=== PATIENT | female | born 1945 | race Caucasian/White ===

== ENCOUNTER → 2017-02-16 | Outpatient (REF) | payer MEDICARE, OTHER ==
[~2017-02-16] MED LIST: ASPI324T PO; ATOR1TAB21 PO; BACL10TA2 PO; BYST10TA2 PO; COLA100C3 PO; FENO145T PO; FISH5CAP PO; FOLI400T PO; FURO20TA2 PO; GLYB5TA PO; INSULADS SC; MAGN64TASA PO; METF500T PO; MOM30SS PO; NOVOINJ3 SC; OXYC1TAB23 PO; PERC5TAB6 PO; PREG50CA PO; PRIL20CA9 PO; REGL10TA6 PO; TRAM50TA2 PO; VALS160T PO
[2017-02-16 18:22] LABS: PERCENT SATURATION 11.7 % (13.2-37.4)
== END ==
LOC: M LAB REF 16:45
PROVIDERS: ATTEND Internal Medicine Nephrology
DX: E83.119 Hemochromatosis, unspecified (principal)

== ENCOUNTER 2017-06-10 20:30 | Inpatient (IN) | payer MEDICARE, OTHER ==
[~2017-06-10] VITALS: Ht 154.9 cm; Wt 103.5 kg
[~2017-06-10 20:30] MED LIST changes: -COLA100C3 PO; +COLA100C5 PO; -METF500T PO; +METF500T13 PO; +PERC5TAB12 PO; -PERC5TAB6 PO
[2017-06-10] MEDS ORDERED: TIZA4CAP3 PO (20:50)
[2017-06-10] MEDS ORDERED: INSUHUMDS SC (20:50)
[2017-06-10] MEDS ORDERED: CLEO150C PO (20:50)
[2017-06-10] MEDS ORDERED: BENZ100C5 PO (20:50)
[2017-06-10] MEDS ORDERED: DICL100T PO (20:50)
[2017-06-10] MEDS ORDERED: VITA-137 PO (20:50)
[2017-06-10] MEDS ORDERED: BUME1TAB29 PO (20:50)
[2017-06-10] MEDS ORDERED: NORC1TAB4 PO (20:55)
[2017-06-10] MEDS ORDERED: NITR2PA TD (20:55)
[2017-06-10] MEDS: NEBIVOLOL 5 MG TAB (BYSTOLIC) PO SCH (21:00)
[2017-06-10] MEDS: BENZONATATE 100 MG CAP PO SCH (21:00)
[2017-06-10] MEDS ORDERED: PREGABALIN 50 MG CAP (LYRICA) PO SCH (21:00)
[2017-06-10] MEDS: ATORVASTATIN 20 MG TAB PO SCH (21:00)
[2017-06-10] MEDS ORDERED: MORPHINE 10 MG/ML 1ML VIAL IM ONE (21:15)
--- NOTE | 2017-06-10 23:00 | REPUSA ---
Clinical history: Pain. Findings: 4 views of the right tibia and fibula were obtained. There are transverse acute nondisplace d fractures of the distal tibia and fibula. The soft tissues are within normal limits. Impression: Acute nondisplaced fractures of the distal tibia and fibula.
--- NOTE | 2017-06-10 23:00 | REPUSA ---
CLINICAL INFORMATION: Pain. TECHNIQUE: Right ankle, 3 views. FINDINGS: The osseous structures demonstrate transverse acute nondisplaced fractures of the distal tibia and fi bula. The ankle mortise is intact. The osseous alignment is normal. The visualized portions of the ta rsal bones and hindfoot are within normal limits. The soft tissues are within normal limits. IMPRESSION: Acute nondisplaced fractures of the distal tibia and fibula.
[2017-06-11] VITALS (7 sets, daily range): BP systolic 148–164; BP diastolic 67–76
[2017-06-11] MEDS ORDERED: GLUCAGON FOR INJ 1 MG VIAL (J1610) SC PRN (00:15)
[2017-06-11] MEDS ORDERED: GLUCOSE 4 GM CHEW TABLET PO PRN (00:15)
[2017-06-11] MEDS ORDERED: DEXTROSE 50% 50 ML SYRINGE IV PRN (00:15)
[2017-06-11] MEDS ORDERED: ACETAMINOPHEN TAB 650MG DOSE (2X325MG) PO PRN (00:15)
[2017-06-11] MEDS ORDERED: PERCOCET 5MG/325MG TAB PO PRN (00:15)
[2017-06-11] MEDS ORDERED: BYST20TA2 PO (00:23)
[2017-06-11] MEDS ORDERED: D 1010004 PO (00:23)
[2017-06-11] MEDS ORDERED: DICL75TA PO (00:23)
[2017-06-11] MEDS ORDERED: BUME1TA PO (00:23)
[2017-06-11] MEDS ORDERED: BAYE325T12 PO (00:23)
[2017-06-11] MEDS ORDERED: ZANA4TAB PO (00:23)
[2017-06-11] MEDS ORDERED: CALC1TAB60 PO (00:26)
[2017-06-11] MEDS ORDERED: LISI2.5T3 PO (00:26)
[2017-06-11] MEDS ORDERED: POLY150C4 PO (00:26)
[2017-06-11] MEDS ORDERED: INSULANT SC (00:27)
[2017-06-11] MEDS ORDERED: NITR0.4D6 TD (00:28)
[2017-06-11 00:40] LABS: BASO # 0.1 K/mm3 (0.0-0.2); BASO % 0.8 % (0.0-1.0); EOS # 0.6 K/mm3 (0.0-0.50); EOS % 8.3 % (0.0-3.0); LARGE UNSTAINED CELL # 0.1 K/mm3 (0.0-0.4); LARGE UNSTAINED CELL % 1.1 % (0.0-4.0); LYMPH # 1.5 K/mm3 (1.5-4.5); LYMPH % 19.7 % (24.0-44.0); MEAN CORPUSCULAR HEMOGLOBIN 27.6 pg (27.0-33.0); MEAN CORPUSCULAR VOLUME 86.3 fl (80.0-96.0); MONO # 0.3 K/mm3 (0.0-0.8); MONO % 4.3 % (0.0-5.0); NEUTROPHILS # 4.8 K/mm3 (1.8-7.7); NEUTROPHILS % 65.9 % (36.0-66.0); PLATELET COUNT, AUTOMATED 189 k/mm3 (150-450); RED CELL DISTRIBUTION WIDTH 17.5 % (11.5-14.5); WHITE BLOOD COUNT 7.3 K/mm3 (4.0-10.0)
--- NOTE | 2017-06-11 01:00 | REPUSA ---
Indication: Trauma. Technique: Axial CT scan images without contrast. Reformatted coronal and sagittal images. Findings: Acute transverse nondisplaced fracture of the distal tibia lateral metaphysis. Acute impacted displaced fracture of the distal fibular diaphysis. Overlying soft tissue edema and swelling. There are tricompartmental changes of degenerative joint disease. Findings are demonstrated by joint space narrowing, osteophyte formation and subchondral sclerosis. No dislocation is seen. No lytic or blastic lesion is appreciated. There is mild suprapatellar knee joint effusion. There is no evidence radiopaque foreign body. Impression: Acute displaced fractures of the distal tibia and fibula.
[2017-06-11 01:02] LABS: CREATININE FOR GFR 1.81 MG/DL (0.55-1.02); GLOMERULAR FILTRATION RATE 29.3 (>39); PERCENT SATURATION 14.3 % (13.2-45.0); PHOSPHORUS LEVEL 3.4 MG/DL (2.5-4.9); POTASSIUM SERUM 4.9 MEQ/L (3.5-5.1); THYROXINE (T4) 8.2 UG/DL (4.5-12.0)
--- NOTE | 2017-06-11 02:36 | HPE ---
DATE OF ADMISSION: 06/11/2017 PRIMARY CARE PROVIDER: Dr. Eugene. OUTPATIENT ORTHOPEDIC SURGEON: Dr. Maciel. HISTORY OF PRESENT ILLNESS: This patient is a 72-year-old female with a past medical history significant for bilateral lower extremity fracture, hypertension , hemochromatosis, diabetes, lumbar laminectomy, presented to [facility] on 06/11/2017 for acute worsening of the right lower extremity pain. Since March, patient started to have pain of the lower extremities above the ankle. Patient was later referred to orthopedic group and found to have a hairline stress fracture. It started on the left lower extremity first and later patient had similar pain of the right lower extremity above the ankle. Later patient was found to have a fracture. Patient was seen by Dr. Maciel approximately on 06/06. Patient was prescribed with bilateral boots. Today, when patient finished in the rest room, tried to get up from the toilet she heard acute snap of the right lower extremity and patient started having excruciating pain, so the patient came to [facility] for further evaluation. X-ray of the right lower extremity was performed. Showed acute nondisplaced fracture of the distal tibia and fibula. Patient is not able to ambulate and has significant pain. Hospitalist called for admission. ALLERGIES: AMLODIPINE, WARFARIN. PAST MEDICAL HISTORY: 1. Hemochromatosis. 2. Hypertension. 3. Diabetes. 4. Coronary artery disease status post coronary artery bypass graft (CABG). 5. Lumbar stenosis status post laminectomy. PAST SURGICAL HISTORY: 1. Appendectomy. 2. Bilateral tubal ligation followed by complete hysterectomy. 3. Coronary artery bypass graft. 4. Laminectomy in 2014. SOCIAL HISTORY: Denied tobacco abuse. Denied alcohol use. Patient lives with her . REVIEW OF SYSTEMS: GENERAL: No fever. No chills. HEENT: No vision changes. No auditory changes. CARDIOVASCULAR: Patient had a strange sensation in the upper chest and it radiated to the neck a few weeks ago. Patient's symptom occurred intermittently. Patient has been worked up by Dr. Eugene with an EKG, lab work and echocardiogram and patient was told that it is not cardiac related. Denied any chest pain. No palpitations. RESPIRATORY: No shortness of breath. No cough. No sputum production. GASTROINTESTINAL: No nausea. No vomiting. No abdominal pain. No diarrhea. MUSCULOSKELETAL: Patient has bilateral lower extremity fractures, has severe excruciating pain. NEUROLOGICAL: No numbness. No tingling. OBJECTIVE: VITAL SIGNS: Temperature 98.5, pulse 77, respirations 18, blood pressure 156/65 , pulse oximetry is 94% in room air. GENERAL: Moderate to severe distress, especially during any type of lower extremity movements. Alert and oriented times three. HEENT: Normocephalic, atraumatic. Extraocular motor grossly intact. CARDIOVASCULAR: Positive systolic murmur, positive S1, S2, regular rate. LUNGS: Clear to auscultation bilaterally. ABDOMEN: Soft, nontender, nondistended, bowel sounds present. EXTREMITIES: No lower extremity edema. NEUROLOGICAL: Sensation to fine touch grossly intact. Muscle strength 5/5. LABORATORY DATA: Pending. IMAGING STUDIES: Right-sided tibia and fibula x-ray showed acute nondisplaced fracture of the distal tibia and fibula. Right lower extremity CT result pending. ASSESSMENT AND PLAN: 1. Bilateral lower extremity fracture. The patient has difficulty performing daily activity functions and due to bilateral fracture patient requires more aggressive pain control. Patient will be admitted to medicine/surgery under observation status. Pain medication regimen has been prescribed. Will adjust accordingly. Lab was ordered after the admission, follow with the results. Will contact orthopedic surgery tomorrow morning. Patient will be on physical therapy and will also discuss the home situation with the renal case manager and social work associate. 2. Diabetes. Follow with A1c, on consistent carbohydrate diet, on sliding scale. 3. Hypertensive urgency. Per patient, patient had an episode of systolic blood pressure greater than 180 several weeks ago. Currently, patient's blood pressure running between 150-190; however, per the medical staff with better pain control, blood pressure can drop down to 150s. Later while patient was in ED, she has persistent uncontrolled BP. SBP has been greater 190. Due to acute on chronic renal failure. diuretics and HAMIDA I are on hold. restart her Bystolic immediately and start hydralazine with holding parameter. Her home nitro patch is scheduled in the AM. 4. Acute on chronic renal injury. Per patient, she has baseline GFR around 50. Currently she has GFR of 29. Diuretic is on hold. Consider consult nephrology in AM. 5. History of hemochromatosis. According to the patient and the patient's , they are not under any active treatments and patient is under monitoring. Will continue to follow. Will request outpatient records. 6. History of coronary artery disease status post coronary artery bypass graft (CABG). Patient is on aspirin, atorvastatin, lisinopril, and Bystolic. 7. Status post laminectomy. History of chronic back pain. 8. Upper chest discomfort. Follow with cardiac enzymes. Follow with EKG. Obtain the diagnostic workup done previously by Dr. Eugene for similar symptoms. 9. Deep venous thrombosis (DVT) prophylaxis. On heparin. ADDENDUM: At the beginning of admission, no laboratory tests were available and all the tests have been ordered. Later, patient started to have very uncontrolled blood pressures with systolic blood pressure greater than 200s. Patient also found to have acute on chronic kidney disease. According to patient, patient had a baseline glomerular filtration rate (GFR) around 50. Currently, patient has a GFR of 29. The patient is being treated, actively managed for her hypertensive urgency; however, due to acute kidney injury and with a soft heart rate, limited classes of the blood pressure medication can be used. Patient's angiotensin-converting enzyme (HAMIDA) inhibitor and diuretic have been discontinued. Due to the severity of patient's overall clinical picture, patient is upgraded from medical/surgical to progressive care unit (PCU) and the status changed from outpatient observation to inpatient. Addendum dictated: JADEN 06/11/2017 0153 Addendum transcribed: christen 06/11/2017 0242 MTDD
[2017-06-11] MEDS: MORPHINE 2 MG/ML 1ML SYRINGE IV PRN ×2 (04:30→21:34)
[2017-06-11] MEDS ORDERED: NITROGLYCERIN 0.4 MG/HR PATCH TD ONE (05:45)
[2017-06-11] MEDS: **hydrALAZINE HCL** 25 MG TAB PO SCH ×4 (05:54→17:01)
[2017-06-11] MEDS: HEPARIN SOD (PORCINE) 5000 UNITS/ML VIAL SC SCH ×3 (05:55→21:33)
[2017-06-11] MEDS: HumaLOG INSULIN (NovoLOG) PER UNIT SC SCH ×4 (07:09→21:33)
[2017-06-11] MEDS ORDERED: NS 1,000 ML IV SCH (07:15)
[2017-06-11] MEDS: VITAMIN D 1,000 INTERNATIONAL UNITS TABLET PO SCH (08:36)
[2017-06-11] MEDS: OMEPRAZOLE 20 MG CAP PO SCH (08:36)
[2017-06-11] MEDS: PREGABALIN 25 MG CAP (LYRICA) PO SCH ×2 (08:36→21:32)
[2017-06-11] MEDS: ASPIRIN 325 MG TAB PO SCH (08:36)
[2017-06-11 08:50] LABS: MEAN CORPUSCULAR HEMOGLOBIN 27.8 pg (27.0-33.0); MEAN CORPUSCULAR HGB CONC 31.5 g/dl (32.0-36.5); MEAN CORPUSCULAR VOLUME 88.2 fl (80.0-96.0); RED CELL DISTRIBUTION WIDTH 17.6 % (11.5-14.5); WHITE BLOOD COUNT 7.7 K/mm3 (4.0-10.0)
[2017-06-11] MEDS: BENZONATATE 100 MG CAP PO SCH ×3 (08:55→21:32)
[2017-06-11] MEDS ORDERED: LISINOPRIL *2.5 MG* TAB PO SCH (09:00)
[2017-06-11] MEDS ORDERED: NITROGLYCERIN 0.4 MG/HR PATCH TD SCH (09:00)
[2017-06-11] MEDS ORDERED: BUMETANIDE 1 MG TAB PO SCH (09:00)
[2017-06-11 09:04] LABS: CALCIUM LEVEL 8.7 MG/DL (8.8-10.2); CREATININE FOR GFR 1.56 MG/DL (0.55-1.02); GLOMERULAR FILTRATION RATE 34.7 (>39); MAGNESIUM LEVEL 2.4 MG/DL (1.8-2.4); POTASSIUM SERUM 4.6 MEQ/L (3.5-5.1)
--- NOTE | 2017-06-11 11:42 | CR ---
DATE OF CONSULTATION: 06/11/2017 CHIEF COMPLAINT: Right leg pain. HISTORY OF PRESENT ILLNESS: Gem Antoine is a 72-year-old female who I recently saw last week for bilateral lower extremity pain. The patient had initially had pain in her left lower extremity, specifically in the lateral aspect of the fibula, proximal to the tibiotalar joint. This eventually began getting better. There is an area on her CT scan which is suspicious for a fibula stress fracture in the distal fibula on this side. The patient started having a similar type pain to the contralateral side prior to seeing me. She had no injuries. At the time of her evaluation, I obtained radiographs of the ankle and she was diagnosed with an acute right fibula fracture, proximal to the ankle joint. Given that the patient had been walking on her bilateral nondisplaced fibula fracture without any sort of protection for what she thought was at least a couple of weeks, she was placed into bilateral walking boots. She was kept weightbearing as tolerated, as the patient has difficulty ambulating as it is. Unfortunately, as she was getting up from the bathroom last night, the patient had immediate pain to her right leg and felt a snap in her tibia. She was transported to the emergency room where she was found to have a minimally displaced distal tibia fracture in the area of her fibula fracture. There was no evidence of this tibia fracture at her prior evaluation last week. The patient denies any personal history of malignancy. She has no known diagnosis of osteoporosis or osteopenia but she appears to have osteoporosis on her lower extremity radiographs. PAST MEDICAL HISTORY: 1. Hypercholesterolemia. 2. Insulin dependent diabetes. 3. Hypertension. 4. Heart disease. 5. Hemachromatosis. 6. Kidney disease. 7. History of a stroke. 8. Hematuria. PAST SURGICAL HISTORY: 1. Back surgery. 2. Heart bypass. 3. Hysterectomy. 4. Dilatation and curettage. 5. Right breast surgery. 6. Appendectomy. 7. Tubal ligation. 8. Kidney stone removal. 9. Bladder surgery. 10. Venogram. HOME MEDICATIONS: - Vicodin - tramadol - Palamor - metformin - glyburide - fenofibrate - omeprazole - magnesium - folic acid - aspirin - Baclofen - Bystolic - valsartan/hydrochlorothiazide - atorvastatin - fish oil - multivitamin - Lantus - Lyrica - furosemide - NovoLog flex pen - Bydureon SOCIAL HISTORY: The patient lives with her . She has four daughters. She does not smoke. She does not use alcohol. PHYSICAL EXAMINATION: GENERAL: Well appearing, no acute distress. MUSCULOSKELETAL: RLE - the patient has positive tenderness over the distal fibula and distal tibia. She has 5/5 strength with dorsiflexion, plantar flexion, inversion, eversion. She has normal sensation to light touch in the superficial peroneal, deep peroneal, tibial distribution. Toes are warm and well perfused with brisk capillary refill. Skin is intact over the area of the fracture. REVIEW OF SYSTEMS: No fevers, chills, fatigue, recent weight loss. IMAGING: [facility]. These show a nondisplaced fracture of the distal tibial metaphysis and the prior known distal fibula fracture. There are no bony lesions evident on the CT scan or the radiographs. IMPRESSION: 1. Right nondisplaced distal tibia and fibula fractures. PLAN: Given the patient has no history of a fall, she should have a workup for osteoporosis or osteopenia. This will likely include a DEXA scan and some sort of oral medication afterwards. There are no metastatic lesions or other concerning lesions evident on her CT scan or x-rays. However, it is unusual for her to be sustaining these fractures without any sort of injury. At this point, a long discussion was held with the patient regarding options for treatment. This would include an IM nail so that she can begin weightbearing, versus a long leg cast if she would rather avoid surgery. Should she be in a long leg cast, she needs to be non weightbearing for at least a period of 6 weeks while this has a chance to heal. This would likely require her to be in a wheelchair given she is already having difficulties ambulating. She may need a stint in rehabilitation as well. I would also like to get a MRI of her left side given her history of similar symptoms so that she is not at risk for a fracture of distal tibia on the contralateral side. The patient will discuss options with her and will let me know what works best for her. I will also see her in the morning and talk to them further then. CHELSEY
--- NOTE | 2017-06-11 12:54 | CR ---
DATE OF CONSULTATION: 06/11/2017 REQUESTING PHYSICIAN: Dr. Linh Potts. CONSULTING PHYSICIAN: Dr. Garrison. REASON FOR CONSULTATION: Management of acute kidney injury superimposed on chronic kidney disease. CHIEF COMPLAINT: Severe pain in the right leg. HISTORY OF PRESENT ILLNESS: Gem Antoine is a 72-year-old female with past medical history of diabetes mellitus, type 2 hypertension, chronic kidney disease stage III with baseline creatinine of around 1 to 1.2 as per hospital records. Multiple other comorbidities as mentioned below. Patient reports that she was found to have fracture in her left leg in March 2017. Later on, she was found to have hairline stress fracture in the right as well. She was prescribed boots but yesterday when she was trying to get up from the toilet, she suddenly heard a snap and excruciating pain in the right leg. She presented to the emergency room at [facility]. Further imaging showed that she had acute nondisplaced fracture of the distal tibia and fibula on the right side. Patient is being admitted. She was found to have a creatinine of 1.8 on admission. Nephrology service was called for further help in the management of acute kidney injury superimposed on chronic kidney disease. I saw the patient today morning in the emergency room. She was hemodynamically stable. She was getting IV fluid hydration. She did not have any active complaints apart from pain in the right leg. Nephrotoxic medication was already held after discussion with the on-call hospitalist last night. PAST MEDICAL HISTORY: Patient has a past medical history of: Diabetes mellitus type 2. Hypertension. Chronic kidney disease stage III. Hemachromatosis. Coronary artery disease. History of lumbar stenosis status post laminectomy. PAST SURGICAL HISTORY: Status post hysterectomy in the past. Status post appendectomy. Status post coronary artery bypass grafting. History of laminectomy in 2014. ALLERGIES: Patient is allergic to Warfarin and amlodipine. FAMILY HISTORY: No significant family history of end stage renal disease requiring hemodialysis. SOCIAL HISTORY: Patient lives at home with her . She denies any elicit drug abuse, smoking or alcohol abuse. REVIEW OF SYSTEMS: Constitutional: Patient denies any fever, chills, rigors or weight loss. Eyes: She denies any blurry vision or double vision. ENT: She denies any dysphagia, odynophagia or ear discharge. Cardiovascular: She denies any chest pain or palpitations or lower extremity edema. Respiratory: She denies any cough, wheezing or shortness of breath. Gastrointestinal (GI): She denies any nausea, vomiting, pain in abdomen, constipation. Genitourinary: She denies any dysuria, hematuria. Musculoskeletal: Patient reports pain in the bilateral lower extremities and recent fractures in bilateral lower extremities. Psych: She denies any depression or anxiety. Central nervous system: She denies any weakness, numbness, strokes or seizures. Hematological/oncological : Patient reports history of hemochromatosis but she denies any history of easy bruising or bleeding tendency. All other review of system is negative. PHYSICAL EXAMINATION: Vital signs: Temperature is 96.8 degrees Fahrenheit, blood pressure is 154/68, pulse is 69, respiratory rate of 18, saturating 96% on nasal cannula. General: Patient is awake, alert, oriented times three, lying in bed, no apparent distress. Head and neck exam: Extraocular muscles intact. Pupils equally round and reactive to light. Mucous membranes are moist. Neck is supple. There is no jugular venous distention (JVD). Cardiovascular: S1, S2, regular rate. No murmur, rub or gallop. Respiratory: Chest is clear to auscultation bilaterally. Bilateral equal air entry. No rales or rhonchi. Abdomen: Soft, positive bowel sounds, nontender, no ascites, no organomegaly. Genitourinary: There is no Hall catheter at this time. Bladder is nonpalpable. Musculoskeletal: Right leg is resting on the pillow and there is pain and tenderness in the lower portion of the leg. There is no other clubbing or cyanosis. Central nervous system: No focal neurological deficit. Power is 5/5 in bilateral upper extremities. Psych: Normal mood and affect. Skin: No rashes or ulcers. LAB REVIEW: CBC showed WBC 7.7, hemoglobin 12.3, platelets of 192. BMP showed sodium 141, potassium 4.6, chloride 103, bicarbonate 31, BUN 51, creatinine is 1.5, it was 1.8 on admission. Glucose is 363. Calcium is 8.7. Magnesium 2.4. BNP is 9178. Urinalysis is not available at this time. IMAGING: A CT scan of the right leg was done which showed acute displaced fractures of the distal tibia and fibula. CURRENT INPATIENT MEDICATIONS: Patient's medications were all reviewed by me. Her IV fluids have been stopped. She is on: - Tylenol as needed - aspirin 325 mg daily - Lipitor 20 mg daily at bedtime - Tessalon perles - Bumex has been held. - hydralazine 25 mg by mouth every 6 hours - lisinopril 2.5 mg was held. - Bystolic 20 mg daily at bedtime - She is on nitroglycerine patch 0.4 mg daily. - Prilosec 20 mg daily - Percocet one tablet every 4 hours as needed pain - Lyrica 75 mg twice daily - vitamin D 2000 units by mouth daily ASSESSMENT: 72-year-old female with past medical history of hypertension, diabetes mellitus type 2, chronic kidney disease stage III with a baseline glomerular filtration rate of around 50, history of hemochromatosis, admitted this time because of displaced distal fibula and tibia fracture. Nephrology service following the patient for management of acute kidney injury superimposed on chronic kidney disease. PLAN: 1. Acute kidney injury superimposed on chronic kidney disease. Patient's son inhibitors and diuretics were held on admission. She was given gentle IV fluid hydration. Her creatinine is already coming down. Continue to monitor for now. Avoid osn inhibitors and IV contrast studies at this time until her renal function comes back to normal. Her baseline as mentioned by patient is glomerular filtration rate of 50. 2. Hypertension. Part of it might be secondary to IV fluid hydration. IV fluids are stopped. Continue current dose of hydralazine 25 mg by mouth every 6 hours. Lisinopril is on hold. Continue Bystolic 20 mg by mouth daily at bedtime and continue nitro patch. 3. Displaced right distal tibia and fibula fracture. Continue opioid pain medications as per primary team. Avoid non-steroidal anti-inflammatory drugs (NSAID)s at this time. The rest of the management is as per orthopedic surgery. 4. Diabetes mellitus type 2. Continue insulin sliding scale. Patient can be restarted on home dose of insulin Lantus 70 units daily at bedtime. Thank you for involving us in the care of this patient. We shall be happy to follow the patient along with you tomorrow morning. Plan of care was discussed with the on-call hospitalist yesterday.
[2017-06-11] MEDS: PERCOCET 5MG/325MG TAB PO PRN ×2 (13:41→20:41)
[2017-06-11] MEDS ORDERED: NEBIVOLOL 5 MG TAB (BYSTOLIC) PO SCH (21:00)
[2017-06-11] MEDS: ATORVASTATIN 20 MG TAB PO SCH (21:32)
--- NOTE | 2017-06-11 21:39 | ECGEPIP ---
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
[2017-06-11] MEDS: NEBIVOLOL 5 MG TAB (BYSTOLIC) PO SCH (21:50)
[2017-06-11] MEDS ORDERED: SLF 3 ML SYR IV PRN (23:00)
[2017-06-12 04:00] VITALS: BP 136/63
[2017-06-12] MEDS: PERCOCET 5MG/325MG TAB PO PRN ×4 (04:00→21:18)
[2017-06-12 05:40] LABS: MEAN CORPUSCULAR HEMOGLOBIN 28.2 pg (27.0-33.0); MEAN CORPUSCULAR HGB CONC 32.8 g/dl (32.0-36.5); RED CELL DISTRIBUTION WIDTH 17.3 % (11.5-14.5); WHITE BLOOD COUNT 6.4 K/mm3 (4.0-10.0)
[2017-06-12 05:49] LABS: CALCIUM LEVEL 9.2 MG/DL (8.8-10.2); CREATININE FOR GFR 1.32 MG/DL (0.55-1.02); GLOMERULAR FILTRATION RATE 42.1 (>39); MAGNESIUM LEVEL 2.2 MG/DL (1.8-2.4); POTASSIUM SERUM 4.6 MEQ/L (3.5-5.1)
[2017-06-12] MEDS: **hydrALAZINE HCL** 25 MG TAB PO SCH ×4 (06:00→17:53)
[2017-06-12] MEDS: SLF 3 ML SYR IV SCH ×3 (06:19→21:38)
[2017-06-12] MEDS: HEPARIN SOD (PORCINE) 5000 UNITS/ML VIAL SC SCH ×3 (06:19→21:17)
[2017-06-12 07:25] VITALS: BP 132/70
[2017-06-12] MEDS: VITAMIN D 1,000 INTERNATIONAL UNITS TABLET PO SCH (08:48)
[2017-06-12] MEDS: OMEPRAZOLE 20 MG CAP PO SCH (08:48)
[2017-06-12] MEDS: BENZONATATE 100 MG CAP PO SCH ×3 (08:49→21:17)
[2017-06-12] MEDS: PREGABALIN 25 MG CAP (LYRICA) PO SCH ×2 (08:50→21:16)
[2017-06-12] MEDS: NITROGLYCERIN 0.4 MG/HR PATCH TD SCH (08:50)
[2017-06-12] MEDS: ASPIRIN 325 MG TAB PO SCH (08:50)
[2017-06-12] MEDS: HumaLOG INSULIN (NovoLOG) PER UNIT SC SCH ×5 (08:51→21:37)
[2017-06-12] MEDS ORDERED: PERCOCET 5MG/325MG TAB PO PRN (10:00)
[2017-06-12] MEDS ORDERED: LORazepam 0.5 MG TAB PO ONE (10:00)
--- NOTE | 2017-06-12 11:33 | REP ---
PORTABLE CHEST X-RAY: Sitting AP view. HISTORY: Hypoxia. COMPARISON STUDY: May 03, 2017. FINDINGS: EKG monitoring electrodes are seen. Median sternotomy wires are noted. Mild cardiomegaly is observed unchanged. The lungs are well inflated and clear. The pleural angles are sharp. Pulmonary vasculature is cephalized as before. IMPRESSION: Mild cardiomegaly and cephalization. Otherwise no acute disease. Signed by Skip Crowe MD 06/13/2017 06:42 P
[2017-06-12 12:00] VITALS: BP 120/60
[2017-06-12] MEDS: LEVEMIR (INSULIN DETEMIR) 1 UNITS/0.01ML SC SCH ×2 (13:46→21:22)
--- NOTE | 2017-06-12 14:02 | IPN ---
DATE OF SERVICE: 06/12/2017 HISTORY OF PRESENT ILLNESS: Patient was seen and examined at the bedside today morning. She continues to complain of right leg pain at the fracture site, however, she is hemodynamically stable. Her renal function continues to improve. Creatinine is down to 1.3 Orthopedic surgery is planning to do the right leg surgery on , June 14, 2017 and MRI of the left leg is pending. REVIEW OF SYSTEMS: Patient denies any fevers, chills, rigors, headache, nausea, vomiting, chest pain, shortness of breath, pain in abdomen, constipation or diarrhea. She does report moderate amount of pain in the bilateral lower extremities. Rest of review of system is negative. OBJECTIVE: Vital signs: Temperature is 98.6 degrees Fahrenheit, blood pressure is 120/60, pulse is 56, respiratory rate of 18, saturating 98% on room air. Intake and output: Urine output recorded as 1.9 liter yesterday, 465 mL so far today since overnight. Weight on the bed scale is 97.9 kg. PHYSICAL EXAMINATION: General: Patient is awake, alert, oriented times three, lying in bed, no apparent distress. Head and neck exam: Extraocular muscles intact. Pupils equally round and reactive to light. Mucous membranes are moist. Neck is supple. There is no jugular venous distention (JVD). Cardiovascular: S1, S2, regular rate. No murmur, rub or gallop. Respiratory: Chest is clear to auscultation bilaterally. Bilateral equal air entry. No rales or rhonchi. Abdomen: Soft, positive bowel sounds, nontender, no ascites, no organomegaly. Musculoskeletal: Patient has tenderness in the right leg which is resting on a pillow. Otherwise pulses are 2+ and there is no edema of the bilateral lower extremities. Central nervous system: No focal neurological deficit. Power is 5/5 in bilateral upper extremities. Psych: Normal mood and affect. LAB REVIEW: CBC showed WBC 6.4, hemoglobin 12.2, platelets of 197. BMP showed sodium 142, potassium 4.6, chloride 106, bicarbonate 29, BUN 37, creatinine is 1.3, it was 1.56 yesterday. Glucose is 231. Calcium is 9.2. Magnesium 2.2. IMAGING: Chest x-ray done today morning showed mild cardiomegaly and cephalization, otherwise no acute disease. CURRENT INPATIENT MEDICATIONS: Patient's medications were all reviewed by me. Her morphine has been stopped. Percocet dose has been decreased to two tablets every 6 hours as needed moderate pain. There is no other change in the medications today as compared with yesterday. ASSESSMENT: 72-year-old female with past medical history of hypertension, diabetes mellitus type 2, chronic kidney disease stage III with a baseline glomerular filtration rate of around 50, history of hemochromatosis, admitted this time because of displaced distal fibula and tibia fracture on the right leg. Nephrology service following the patient for management of acute kidney injury superimposed on chronic kidney disease. PLAN: 1. Acute kidney injury superimposed on chronic kidney disease. Patient's son inhibitors are on hold. Her diuretics are also held. Her renal function continue to improve. Creatinine down to 1.3. Continue to hold the diuretics at this time. I will probably start the diuretics tomorrow morning if needed. 2. Hypertension. Blood pressure is acceptable at this time. Continue current dose of hydralazine 25 mg by mouth every 6 hours, Bystolic 20 mg daily, lisinopril is on hold because of acute kidney injury. Blood pressure is optimized. 3. Displaced right distal tibia and fibula fracture. Orthopedic surgery is on board. There is a tentative plan for surgery this coming , May. 4. Diabetes mellitus type 2. Continue insulin sliding scale. Patient is on Lantus 70 units at home. I would recommend restarting patient's home dose of Lantus. Insulin sliding scale alone is not going to control the blood sugar levels. [facility]
[2017-06-12 16:00] VITALS: BP 126/62
--- NOTE | 2017-06-12 16:01 | IPNPDOC ---
Text Note Date of Service The patient was seen on 06/12/17. NOTE Subjective: Patient does have increased pain in the lower extremities secondary to fractures. Denies any other complaints. Objective: Vitals: (see below) General: No acute distress, laying comfortably in bed. HEENT: Moist mucous membranes. Neck: No JVD or lymphadenopathy Cardiac: RRR, No murmurs Pulm: Clear to auscultation b/l. No wheezing, rhonchi Abd: NT/ND + BS. Obese. Ext: No edema. No cyanosis. Distal pulses intact. Tenderness to palpation bilateral lower extremities, adjacent to fracture sites. Labs (see below) Images: Assessment/Plan 1. Displaced right distal tibial and fibular fracture, with prior left fracture - orthopedics on board. Plan for surgery and . Pain control. Percocet/ morphine has been increased. It is questionable whether patient has been having pathologic fractures. She will need an outpatient DEXA scan. ? Whether the patient's underlying hemochromatosis contributing. Will certainly need outpatient rheumatology/hematology f/u. 2. Acute kidney injury on chronic kidney disease- creatinine improving. Diuretics held at this time. HAMIDA inhibitor held as well. Nephro on board. 3. Hypertension- controlled. Continue current meds. Continue to hold HAMIDA inhibitor. Patient has not required her hydralazine by mouth. 4. Diabetes mellitus- continue insulin regimen. 5. History of hemochromatosis- not on treatment at this time. Outpatient follow- up. 6. Chronic lower back pain status post laminectomy- stable. DVT prophy: Heparin Subcutaneous Prognosis guarded. VS,Fishbone, I+O VS, Fishbone, I+O Laboratory Tests 06/12/17 05:07 Red Blood Count 4.31, Mean Corpuscular Volume 86.0, Mean Corpuscular Hemoglobin 28.2, Mean Corpuscular Hemoglobin Concent 32.8, Red Cell Distribution Width 17.3 H, Calcium Level 9.2 Vital Signs Date Time Temp Pulse Resp B/P (MAP) Pulse Ox O2 Delivery O2 Flow Rate FiO2 06/12/17 14:43 18 06/12/17 12:00 120/60 06/12/17 12:00 97.3 60 98 Nasal Cannula 2.0 I&O- Last 24 Hours up to 6 AM 06/12/17 05:59 Intake Total 1440 ml Output Total 2175 ml Balance -735 ml LAURA SANTAMARIA MD Jun 12, 2017 16:01
[2017-06-12 20:00] VITALS: BP 145/80
[2017-06-12] MEDS: NEBIVOLOL 5 MG TAB (BYSTOLIC) PO SCH (21:14)
[2017-06-12] MEDS: ATORVASTATIN 20 MG TAB PO SCH (21:15)
[2017-06-13 05:56] LABS: MEAN CORPUSCULAR HEMOGLOBIN 28.1 pg (27.0-33.0); MEAN CORPUSCULAR HGB CONC 32.7 g/dl (32.0-36.5); RED CELL DISTRIBUTION WIDTH 16.8 % (11.5-14.5); WHITE BLOOD COUNT 6.8 K/mm3 (4.0-10.0)
[2017-06-13] MEDS: SLF 3 ML SYR IV SCH ×3 (06:00→22:00)
[2017-06-13] MEDS: **hydrALAZINE HCL** 25 MG TAB PO SCH ×4 (06:00→17:24)
[2017-06-13 06:02] LABS: CALCIUM LEVEL 9.3 MG/DL (8.8-10.2); CREATININE FOR GFR 1.35 MG/DL (0.55-1.02); MAGNESIUM LEVEL 2.2 MG/DL (1.8-2.4); POTASSIUM SERUM 5.1 MEQ/L (3.5-5.1)
--- NOTE | 2017-06-13 06:15 | REP ---
MRI LEFT LOWER LEG: TECHNIQUE: Multiple sequences obtained in the axial, sagittal and coronal planes. There is a nondisplaced fracture of the distal third of the fibula with discrete fracture line identified and marrow edema in this region. There is also surrounding ill-defined soft tissue edema. The tibia is intact with no fracture. No other soft tissue abnormality is seen. No fluid collection or hematoma is seen. IMPRESSION: Nondisplaced fracture distal third of fibula with surrounding soft tissue edema. No tibial fracture is seen. Signed by Jonas Chris MD 06/13/2017 09:41 A
[2017-06-13] MEDS: HEPARIN SOD (PORCINE) 5000 UNITS/ML VIAL SC SCH ×2 (06:25→13:02)
[2017-06-13] MEDS: PERCOCET 5MG/325MG TAB PO PRN ×3 (06:26→21:00)
[2017-06-13 08:00] VITALS: BP 180/80
[2017-06-13] MEDS: HumaLOG INSULIN (NovoLOG) PER UNIT SC SCH ×4 (08:59→21:11)
[2017-06-13] MEDS: BENZONATATE 100 MG CAP PO SCH ×3 (09:00→20:58)
[2017-06-13] MEDS: PREGABALIN 25 MG CAP (LYRICA) PO SCH ×2 (09:00→20:56)
[2017-06-13] MEDS: OMEPRAZOLE 20 MG CAP PO SCH (09:00)
[2017-06-13] MEDS: LEVEMIR (INSULIN DETEMIR) 1 UNITS/0.01ML SC SCH ×2 (09:00→20:59)
[2017-06-13] MEDS: ASPIRIN 325 MG TAB PO SCH (09:00)
[2017-06-13] MEDS: VITAMIN D 1,000 INTERNATIONAL UNITS TABLET PO SCH (09:00)
[2017-06-13] MEDS: NITROGLYCERIN 0.4 MG/HR PATCH TD SCH (09:01)
[2017-06-13] MEDS ORDERED: PERCOCET 5MG/325MG TAB PO PRN (10:00)
[2017-06-13] MEDS ORDERED: MOM 30ML SUSPENSION UDC PO ONE (11:15)
[2017-06-13] MEDS: SENOKOT S TAB PO SCH ×2 (11:50→20:56)
[2017-06-13] MEDS ORDERED: amLODIPine 5 MG TAB PO ONE (12:00)
[2017-06-13] MEDS ORDERED: **hydrALAZINE** 50 MG TAB PO ONE (12:15)
[2017-06-13] MEDS ORDERED: **hydrALAZINE HCL** 25 MG TAB PO ONE (13:00)
--- NOTE | 2017-06-13 15:12 | IPNPDOC ---
Text Note Date of Service The patient was seen on 06/13/17. NOTE Subjective:Pt states pain is better controlled. Denies CP/palpitations/SOB. Objective: Vitals: (see below) General: No acute distress, laying comfortably in bed. HEENT: Moist mucous membranes. Neck: No JVD or lymphadenopathy Cardiac: RRR, No murmurs Pulm: Diminished b/l. No wheezing, rhonchi Abd: NT/ND + BS. Obese. Ext: No edema. No cyanosis. Distal pulses intact. Tenderness to palpation bilateral lower extremities, adjacent to fracture sites. Labs (see below) Images: Assessment/Plan 1. Displaced right distal tibial and fibular fracture, with prior left fracture - orthopedics on board. Plan for surgery and . Pain control. Percocet/ morphine has been increased. It is questionable whether patient has been having pathologic fractures. She will need an outpatient DEXA scan. ? Whether the patient's underlying hemochromatosis contributing. Will certainly need outpatient rheumatology/hematology f/u. 2. Acute kidney injury on chronic kidney disease- creatinine improving. Diuretics held at this time. HAMIDA inhibitor held as well. Nephro on board. 3. Hypertension- uncontrolled. Continue current meds. HAMIDA inhibitor held. Started on Amlodipine and hydralazine increased. 4. Diabetes mellitus- continue insulin regimen. 5. History of hemochromatosis- not on treatment at this time. Outpatient follow- up. 6. Chronic lower back pain status post laminectomy- stable. 7. H/o CAD s/p CABG. On BB and statin. Hold ASA prior to surg starting today, although ideally patient should be off of it for 5-7 days prior to surgery. Recent stress test 2 weeks ago. Discussed with Dr. Eugene, who states that the patient is optimized from a cardiac standpoint, with no further workup needed as stress test was negative. Pt states she typically walks up 4 stairs at home without difficulty. No CP on exertion. RCRI 3 with 11% risk of major cardiac event. Intermediate risk procedure. DVT prophy: Will hold Heparin prior to surg. Prognosis guarded. Pt is medically optimized for ortho surgery. VS,Fishbone, I+O VS, Fishbone, I+O Laboratory Tests 06/13/17 05:21 Red Blood Count 4.21, Mean Corpuscular Volume 86.0, Mean Corpuscular Hemoglobin 28.1, Mean Corpuscular Hemoglobin Concent 32.7, Red Cell Distribution Width 16.8 H, Calcium Level 9.3, Total Creatine Kinase 78 Vital Signs Date Time Temp Pulse Resp B/P (MAP) Pulse Ox O2 Delivery O2 Flow Rate FiO2 06/13/17 12:05 20 Nasal Cannula 1.0 06/13/17 11:50 182/72 06/13/17 08:00 97.0 52 97 I&O- Last 24 Hours up to 6 AM 06/14/17 05:59 Intake Total 240 ml Output Total 700 ml Balance -460 ml LAURA SANTAMARIA MD Jun 13, 2017 15:12
[2017-06-13 15:27] VITALS: BP 140/56
--- NOTE | 2017-06-13 17:11 | IPN ---
DATE: 06/13/2017 SUBJECTIVE: Patient was seen and examined at the bedside today morning. Patient is otherwise hemodynamically stable. Her renal function is also stable, close to her baseline. Her only complaint is moderate to severe pain in the right leg. REVIEW OF SYSTEMS: Patient denies any fevers, chills, rigors, headache, nausea, vomiting, chest pain, shortness of breath, pain in abdomen. She does report constipation. She has not moved her bowels in the last 4 days almost, and she does report a moderate amount of pain in the right leg. Rest of review of systems is negative. OBJECTIVE: Vital signs: Temperature is 97.1 degrees Fahrenheit, blood pressure is 140/56, pulse is 52, respiratory rate of 18, saturating 97% on nasal cannula at 1 liter. Intake and output: Urine output recorded is 2.3 liters yesterday, 1 liter so far today since overnight. Weight in the bed scale is 100.5 kg. PHYSICAL EXAMINATION: GENERAL: Patient is awake, alert, oriented times three, lying in bed in mild painful distress. HEAD AND NECK: Extraocular muscles intact. Pupils equally round and reactive to light. Mucous membranes are moist. Neck is supple. There is no jugular venous distention (JVD). CARDIOVASCULAR: S1, S2, regular rate. No murmur, rub, or gallop. RESPIRATORY: Chest is clear to auscultation bilaterally. Bilateral equal air entry. No rales or rhonchi. ABDOMEN: Soft, obese. Positive bowel sounds. Nontender. No ascites. No organomegaly. MUSCULOSKELETAL: Patient's right leg is resting in a pillow. She has moderate to severe tenderness in the right lower leg on palpation. Otherwise there is no edema of the extremities. CENTRAL NERVOUS SYSTEM: No focal neurological deficit. Power is 5/5 in bilateral upper extremities. PSYCHIATRIC: Normal mood and affect, except that she is in a moderate amount of painful distress. LABORATORY REVIEW: CBC showed a WBC 6.8, hemoglobin 11.8, platelets of 184. BMP showed sodium 141, potassium 5.1, chloride 106, bicarbonate 31, BUN 38, creatinine is 1.3. It was 1.3 yesterday as well. Troponin is 0.09. IMAGING: MRI of the left leg was done yesterday, which showed a nondisplaced fracture of the distal third of the fibula with surrounding soft tissue edema. No tibial fracture was seen. A chest x-ray was done yesterday, which showed mild cardiomegaly and cephalization. CURRENT INPATIENT MEDICATIONS: Patient's medications were all reviewed by me. Aspirin has been stopped today. Patient was started on Senokot one tablet by mouth twice a day. Hydralazine has been changed to 50 mg by mouth every 6 hours. Oxycodone dose has been changed to two tablets by mouth every 6 hours as needed for pain. Patient was also given a dose of milk of magnesia 30 mL by mouth one dose for constipation. ASSESSMENT: A 72-year-old female with past medical history of hypertension, diabetes mellitus, type 2, chronic kidney disease, stage III, history of hemachromatosis, admitted at this time because of displaced distal tibia and fibula fracture on the right leg and history of a left fibula fracture in the recent past as well. Nephrology service following the patient for management of acute kidney injury superimposed on chronic kidney disease. PLAN: 1. Acute kidney injury superimposed on chronic kidney disease. Patient's angiotensin-converting enzyme (HAMIDA) inhibitors were held. Her diuretics were also held. She was initially given gentle intravenous (IV) hydration. Creatinine is down to 1.3, which is close to her baseline. Continue to monitor for now. If renal function stays stable, then HAMIDA inhibitors will be restarted. 2. Hypertension. Blood pressure was not very well controlled. Continue current dose of bisoprolol 20 mg. Lisinopril was on hold. Her hydralazine dose was already changed by primary team to 50 mg every 6 hours. Continue to monitor for now. 3. Displaced right distal tibia and fibula fracture. Patient is going for surgery tomorrow morning. 4. Diabetes mellitus, type 2. Patient insulin dose has been changed by primary team to Levemir 40 mg subcutaneous twice a day, and glucose levels are better controlled at this time. 5. Constipation. Patient has not moved her bowels for the last 4 days. I started the patient on Senokot one tablet by mouth twice a day, and I also gave the patient a dose of milk of magnesia 30 mL by mouth.
[2017-06-13 18:37] LABS: YEAST LIKE CELL URINE AUTO LARGE
[2017-06-13 20:27] VITALS: BP 142/68
[2017-06-13] MEDS: ATORVASTATIN 20 MG TAB PO SCH (20:56)
[2017-06-13] MEDS: NEBIVOLOL 5 MG TAB (BYSTOLIC) PO SCH (20:57)
[2017-06-13 21:00] VITALS: BP 130/70
[2017-06-13 22:25] VITALS: BP 138/62
[2017-06-14] VITALS (10 sets, daily range): BP systolic 124–154; BP diastolic 64–78
[2017-06-14] MEDS: PERCOCET 5MG/325MG TAB PO PRN ×2 (02:57→08:27)
[2017-06-14 05:27] LABS: MEAN CORPUSCULAR HEMOGLOBIN 28.7 pg (27.0-33.0); MEAN CORPUSCULAR HGB CONC 33.5 g/dl (32.0-36.5); MEAN CORPUSCULAR VOLUME 85.7 fl (80.0-96.0); RED CELL DISTRIBUTION WIDTH 16.5 % (11.5-14.5); WHITE BLOOD COUNT 7.2 K/mm3 (4.0-10.0)
[2017-06-14 05:45] LABS: CALCIUM LEVEL 9.5 MG/DL (8.8-10.2); CREATININE FOR GFR 1.39 MG/DL (0.55-1.02); GLOMERULAR FILTRATION RATE 39.7 (>39); MAGNESIUM LEVEL 2.5 MG/DL (1.8-2.4); POTASSIUM SERUM 4.7 MEQ/L (3.5-5.1)
[2017-06-14] MEDS: **hydrALAZINE HCL** 25 MG TAB PO SCH ×4 (06:00→17:46)
[2017-06-14] MEDS: SLF 3 ML SYR IV SCH ×3 (06:00→21:31)
[2017-06-14] MEDS: SENOKOT S TAB PO SCH ×2 (08:25→21:09)
[2017-06-14] MEDS: NITROGLYCERIN 0.4 MG/HR PATCH TD SCH (08:25)
[2017-06-14] MEDS: OMEPRAZOLE 20 MG CAP PO SCH (08:25)
[2017-06-14] MEDS: VITAMIN D 1,000 INTERNATIONAL UNITS TABLET PO SCH ×2 (08:27→17:44)
[2017-06-14] MEDS: BENZONATATE 100 MG CAP PO SCH ×3 (08:27→21:09)
[2017-06-14] MEDS: amLODIPine 5 MG TAB PO SCH (08:27)
[2017-06-14] MEDS: PREGABALIN 25 MG CAP (LYRICA) PO SCH ×2 (08:27→21:32)
[2017-06-14] MEDS: LEVEMIR (INSULIN DETEMIR) 1 UNITS/0.01ML SC SCH ×2 (08:28→21:15)
[2017-06-14] MEDS: HumaLOG INSULIN (NovoLOG) PER UNIT SC SCH ×4 (08:29→21:00)
[2017-06-14] MEDS ORDERED: ceFAZolin 1GM INJ (J0690) As Ordered ONE (12:08)
[2017-06-14] MEDS ORDERED: fentaNYL 100 MCG/2 ML INJECTION (J3010) As Ordered ONE ×2 (12:55→16:51)
[2017-06-14] MEDS ORDERED: PROPOFOL 200 MG/20 ML VIAL As Ordered ONE (12:55)
[2017-06-14] MEDS ORDERED: MIDAZOLAM INJ 2 MG/2 ML VIAL (J2250) As Ordered ONE (12:56)
[2017-06-14] MEDS ORDERED: ceFAZolin 2 GM/D5W 50 ML IV BAG (J0690) As Ordered ONE (13:13)
[2017-06-14] MEDS ORDERED: LIDOCAINE 2% INJ 100 MG/5 ML SDV (FOR ANES.) As Ordered ONE (13:23)
[2017-06-14] MEDS ORDERED: METOCLOPRAMIDE INJ 10MG/2ML VIAL (J2765) As Ordered ONE (13:53)
[2017-06-14] MEDS ORDERED: dexameTHASONE 4 MG/ML 1ML VIAL (J1100) As Ordered ONE (13:53)
--- NOTE | 2017-06-14 14:10 | IPNPDOC ---
Text Note Date of Service The patient was seen on 06/14/17. NOTE Subjective: Pain is well controlled. Denies CP/palpitations/SOB. Awaiting to go to OR. Objective: Vitals: (see below) General: No acute distress, laying comfortably in bed. HEENT: Moist mucous membranes. Neck: No JVD or lymphadenopathy Cardiac: RRR, No murmurs Pulm: Diminished b/l. No wheezing, rhonchi Abd: NT/ND + BS. Obese. Ext: No edema. No cyanosis. Distal pulses intact. Tenderness to palpation bilateral lower extremities, adjacent to fracture sites. Labs (see below) Images: Assessment/Plan 1. Displaced right distal tibial and fibular fracture, with prior left fracture - orthopedics on board. Plan for surgery and . Pain control. Percocet/ morphine has been increased. It is questionable whether patient has been having pathologic fractures. She will need an outpatient DEXA scan. ? Whether the patient's underlying hemochromatosis contributing. Will certainly need outpatient rheumatology/hematology f/u. 2. Acute kidney injury on chronic kidney disease- creatinine improving. Diuretics held at this time. HAMIDA inhibitor held as well. Nephro on board. 3. Hypertension- uncontrolled. Continue current meds. HAMIDA inhibitor held. Started on Amlodipine and hydralazine increased. 4. Diabetes mellitus- continue insulin regimen. 5. History of hemochromatosis- not on treatment at this time. Outpatient follow- up. 6. Chronic lower back pain status post laminectomy- stable. 7. H/o CAD s/p CABG. On BB and statin. Hold ASA prior to surg starting today, although ideally patient should be off of it for 5-7 days prior to surgery. Recent stress test 2 weeks ago. Discussed with Dr. Eugene, who states that the patient is optimized from a cardiac standpoint, with no further workup needed as stress test was negative. Pt states she typically walks up 4 stairs at home without difficulty. No CP on exertion. RCRI 3 with 11% risk of major cardiac event. Intermediate risk procedure. DVT prophy: Hold Heparin prior to surg. Prognosis guarded. Pt is medically optimized for ortho surgery. VS,Fishbone, I+O VS, Fishbone, I+O Laboratory Tests 06/14/17 05:00 Red Blood Count 4.34, Mean Corpuscular Volume 85.7, Mean Corpuscular Hemoglobin 28.7, Mean Corpuscular Hemoglobin Concent 33.5, Red Cell Distribution Width 16.5 H, Calcium Level 9.5 Vital Signs Date Time Temp Pulse Resp B/P (MAP) Pulse Ox O2 Delivery O2 Flow Rate FiO2 06/14/17 12:00 142/64 06/14/17 11:56 Nasal Cannula 2.0 06/14/17 11:35 96.7 57 18 100 I&O- Last 24 Hours up to 6 AM 06/15/17 06:00 Output Total 400 ml Balance -400 ml LAURA SANTAMARIA MD Jun 14, 2017 14:10
[2017-06-14] MEDS ORDERED: GLYCOPYRROLATE INJ 0.2 MG/ML 2 ML VIAL As Ordered ONE (15:50)
[2017-06-14] MEDS ORDERED: ONDANSETRON 4MG/2ML VIAL (J2405) As Ordered ONE (15:50)
[2017-06-14] MEDS ORDERED: NEOSTIGMINE 10 MG/10 ML VIAL (J2710) As Ordered ONE (15:50)
[2017-06-14] MEDS: HYDROmorphone HCL 1 MG/ML SYRINGE (J1170) IV PRN ×7 (16:30→18:08)
[2017-06-14] MEDS ORDERED: HYDROmorphone HCL 1 MG/ML SYRINGE (J1170) As Ordered ONE (16:32)
[2017-06-14] MEDS ORDERED: FLEET ENEMA PR PRN (16:45)
[2017-06-14] MEDS ORDERED: LR 1,000 ML IV SCH ×2 (16:45→17:15)
[2017-06-14] MEDS ORDERED: ACETAMINOPHEN TAB 650MG DOSE (2X325MG) PO PRN (16:45)
[2017-06-14] MEDS ORDERED: PERCOCET 5MG/325MG TAB As Ordered ONE (16:51)
[2017-06-14] MEDS: fentaNYL 100 MCG/2 ML INJECTION (J3010) IV PRN ×7 (16:59→18:07)
[2017-06-14] MEDS ORDERED: ONDANSETRON 4MG/2ML VIAL (J2405) IV PRN ×2 (17:15→19:45)
[2017-06-14] MEDS ORDERED: PERCOCET 5MG/325MG TAB PO PRN (17:15)
[2017-06-14] MEDS: MORPHINE 4 MG/ML 1ML SYRINGE IV PRN (21:07)
[2017-06-14] MEDS: ATORVASTATIN 20 MG TAB PO SCH (21:09)
[2017-06-14 21:21] LABS: RENAL EPITHELIAL CELLS 5 /HPF; YEAST LIKE CELL URINE AUTO LARGE
[2017-06-14] MEDS: NEBIVOLOL 5 MG TAB (BYSTOLIC) PO SCH (21:37)
--- NOTE | 2017-06-14 22:44 | IPN ---
DATE: 06/14/2017 SUBJECTIVE: The patient was seen and examined at the bedside today/morning. She is nothing by mouth today for right leg surgery. Renal function is stable. She is hemodynamically stable at this time. REVIEW OF SYSTEMS: The patient denies any fever, chills, rigors, headache, nausea, vomiting, chest pain, shortness of breath, pain in abdomen, constipation or diarrhea. The patient reports a mild amount of pain in the right leg. The rest of the review of systems is negative. OBJECTIVE: VITAL SIGNS: Temperature is 96.7 degrees Fahrenheit. Blood pressure 142/64, pulse is 57, respiratory rate of 18, saturating 100% on nasal cannula. INTAKE/OUTPUT: Urine output recorded as 2.2 liters yesterday, 700 mL so far today since overnight. Weight on the bed scale is 96.6 kg. PHYSICAL EXAMINATION: GENERAL: The patient is awake, alert, oriented times three, laying in bed, in no apparent distress. HEAD AND NECK EXAM: Extraocular muscles intact. Pupils equally round and reactive to light. Mucous membranes are moist. Neck is supple. There is no jugular venous distention (JVD). CARDIOVASCULAR: S1, S2, regular rate. No murmur, rub or gallop. RESPIRATORY: Chest is clear to auscultation bilaterally. Bilateral equal air entry. No rales or rhonchi. ABDOMEN: Soft, obese, positive bowel sounds. Nontender. No ascites. No organomegaly. MUSCULOSKELETAL: The patient has tenderness in the right leg and it is resting on a pillow. There is no edema of the lower extremities. CENTRAL NERVOUS SYSTEM: No focal neurological deficit. Power is 5/5 in bilateral upper extremities. PSYCHIATRIC: Normal mood and affect. LAB REVIEW: CBC showed a WBC of 7.2, hemoglobin 12.5, platelets are 202. BMP done today/morning, showed sodium 141, potassium 4.7, chloride 104, bicarbonate 31, BUN 38, creatinine is 1.39. GFR is around 39.7, magnesium 2.5, calcium 9.5. CURRENT INPATIENT MEDICATIONS: The patient's medications were reviewed by me. The patient is going to get cefazolin as antibiotic prophylaxis before the surgery. There is no other change in the medications today as compared with yesterday. ASSESSMENT: A 72-year-old female with past medical history of hypertension, diabetes mellitus type 2, chronic kidney disease stage III, history of hemachromatosis, admitted at this time because of displaced distal tibia and fibula fracture on the right leg and history of left fibula fracture in the recent past. Nephrology service following the patient for management of acute kidney injury superimposed on chronic kidney disease. PLAN: 1. Acute kidney injury superimposed on chronic kidney disease. Patient's angiotensin-converting enzyme (HAMIDA) inhibitors and diuretics were held on admission. Creatinine is fluctuating around 1.3, which is close to her baseline. Continue to monitor for now. 2. Hypertension. Blood pressure is acceptable at this time. Continue current dose of bisoprolol 20 mg daily. Hydralazine was already changed by primary team to 50 mg every 6 hours. 3. Displaced right distal tibia and fibula fracture. The patient is going to the operating room (OR) today. The rest of the management is as per orthopedic surgery. 4. Constipation. The patient was given a dose of milk of magnesia yesterday. If needed, the patient can be given tap water or soapsuds enema.
[2017-06-15] VITALS (20 sets, daily range): BP systolic 135–163; BP diastolic 58–82; O2SAT 87–100
[2017-06-15] MEDS: PERCOCET 5MG/325MG TAB PO PRN ×2 (00:57→11:59)
[2017-06-15] MEDS: MORPHINE 4 MG/ML 1ML SYRINGE IV PRN ×2 (02:28→23:02)
[2017-06-15] MEDS: **hydrALAZINE HCL** 25 MG TAB PO SCH ×4 (05:13→17:18)
[2017-06-15] MEDS: SLF 3 ML SYR IV SCH ×3 (05:13→21:17)
[2017-06-15 05:23] LABS: MEAN CORPUSCULAR HEMOGLOBIN 28.6 pg (27.0-33.0); MEAN CORPUSCULAR HGB CONC 33.3 g/dl (32.0-36.5); MEAN CORPUSCULAR VOLUME 85.9 fl (80.0-96.0); RED CELL DISTRIBUTION WIDTH 17.1 % (11.5-14.5); WHITE BLOOD COUNT 8.4 K/mm3 (4.0-10.0)
[2017-06-15 05:33] LABS: CALCIUM LEVEL 8.8 MG/DL (8.8-10.2); CREATININE FOR GFR 1.1 MG/DL (0.55-1.02); MAGNESIUM LEVEL 2.1 MG/DL (1.8-2.4); POTASSIUM SERUM 5.1 MEQ/L (3.5-5.1)
[2017-06-15] MEDS: amLODIPine 5 MG TAB PO SCH (07:57)
[2017-06-15] MEDS: BENZONATATE 100 MG CAP PO SCH ×3 (07:57→21:14)
[2017-06-15] MEDS: LEVEMIR (INSULIN DETEMIR) 1 UNITS/0.01ML SC SCH ×2 (07:58→21:00)
[2017-06-15] MEDS: SENOKOT S TAB PO SCH ×2 (07:58→21:16)
[2017-06-15] MEDS: NITROGLYCERIN 0.4 MG/HR PATCH TD SCH (07:58)
[2017-06-15] MEDS: HumaLOG INSULIN (NovoLOG) PER UNIT SC SCH ×4 (07:59→21:00)
[2017-06-15] MEDS: VITAMIN D 1,000 INTERNATIONAL UNITS TABLET PO SCH ×2 (08:06→08:07)
[2017-06-15] MEDS: PREGABALIN 25 MG CAP (LYRICA) PO SCH ×2 (08:06→21:14)
[2017-06-15] MEDS: OMEPRAZOLE 20 MG CAP PO SCH (08:07)
[2017-06-15] MEDS: cefTRIAXone SOD 1 GM in D5W MINI-BAG PLUS 50 ML IV SCH (09:45)
[2017-06-15] MEDS: oxyCODONE 10 MG CR TAB PO SCH ×2 (09:46→21:14)
--- NOTE | 2017-06-15 09:55 | REP ---
Right tib-fib series: Three views. History: Postop. Comparison is made with 06/10/2017 study. Findings: An intramedullary mely is seen in place in the tibia transfixing the distal tibial diaphyseal fracture in good alignment. An adjacent nondisplaced distal fibular fracture is seen. There is diffuse osteoporosis. Anterior skin matt are seen at the knee. Signed by Skip Crowe MD 06/15/2017 03:18 P
--- NOTE | 2017-06-15 09:59 | RO ---
DATE OF PROCEDURE: 06/14/2017 PREPROCEDURE DIAGNOSIS: Right displaced tibial shaft fracture. POSTPROCEDURE DIAGNOSIS: Right displaced tibial shaft fracture. PROCEDURE: Closed reduction, internal fixation right tibia with IM nail. SURGEON: Dr. Beatriz Maciel. BROWNING PROCESSOR: Dr. Dangelo Ellington. ANESTHESIA: General. SPECIMENS: Tibial reamings ESTIMATED BLOOD LOSS: Less than 100 mL. COMPLICATIONS: None. CONDITION: Stable to recovery. INDICATION: Gem Antoine is a 72-year-old female who sustained a right displaced tibial shaft and fibular shaft fracture when standing up trying to leave the bathroom. The patient underwent a CT scan to evaluate for any pathologic lesions which was negative. Options for treatment including a long- leg cast were discussed with the patient and her family in detail. The patient elected to undergo an IM nail of the tibia, given it would allow early weightbearing on the extremity. DESCRIPTION OF PROCEDURE: The patient was identified in the preoperative holding area. Her right lower extremity was marked as the correct operative site. All of her questions were answered and the informed consent was reviewed. She was then taken to the operating room where her right lower extremity was prepped and draped in the normal sterile fashion. All of her bony prominences are all padded on the operating room table. The patient was given preoperative Ancef. A surgical time-out was held and her right lower extremity was confirmed as the correct operative site. An approximately 3 cm incision was made on the medial aspect of the patella tendon starting at the inferior pole of the patella extending distally. The peritenon of the patellar tendon was incised and a curved Betancourt was used to gain access to the joint. Following this, the leg was placed hyper-flexed on a triangle. AP and lateral radiographs were used to obtain the starting point for the Patricia tibial nail. This was just posterior to the anterior cortex of the lateral and on the medial aspect of the lateral tibial spine on the AP. Guidewire was advanced and found to be in satisfactory position. Following this , the opening reamer was used to gain access to the canal. Next, a ball tip guidewire was advanced to the metaphyseal scar passing the fracture site. Sequential reaming was performed starting with a 9 mm reamer extending up to an 11-/2. A 10 x 300 mm nail was selected. This was placed under fluoroscopic guidance as the fracture was held reduced. Nail placement was confirmed on multiple orthogonal views throughout the tibia. The fracture reduction was found to be satisfactory. Two proximal locking screws were placed through the tibial metaphysis using the guide from the tibial nail. Following this, using perfect [place] technique, two screws were placed in the medial to lateral direction distally. All the wounds were copiously irrigated and the arthrotomy was closed using 0 Vicryl. All superficial tissues were closed using #2-0 Vicryl and matt. Sterile dressings were applied. The patient's leg remained soft throughout the procedure and there was no concern for compartment syndrome. The patient was placed into a walking boot and transferred to the recovery room in stable condition. PLAN: The patient may be weightbearing as tolerated on her right lower extremity in her aircast boot. She should also use a walking boot for her left side where she has a fibular fracture. She was started on 5000 units of vitamin D daily. We will obtain endocrine recommendations for her osteoporosis and multiple stress fractures. She will be on Lovenox for deep venous thrombosis prophylaxis. She will follow up 2 weeks postoperatively for wound check and staple removal. CHELSEY
[2017-06-15] MEDS: ENOXAPARIN 40 MG/0.4 ML SYRINGE (J1650) SC SCH (10:23)
[2017-06-15] MEDS: FLUCONAZOLE 200 MG in APPROPRIATE DILUENT 1 EA IV SCH (11:11)
[2017-06-15 12:36] LABS: CALCIUM LEVEL 8.7 MG/DL (8.8-10.2); PHOSPHORUS LEVEL 3.5 MG/DL (2.5-4.9)
--- NOTE | 2017-06-15 15:12 | IPNPDOC ---
Text Note Date of Service The patient was seen on 06/15/17. NOTE Subjective: She and tolerated surgery well. States her pain is uncontrolled at this time. Denies CP/palpitations/SOB. Objective: Vitals: (see below) General: No acute distress, laying comfortably in bed. HEENT: Moist mucous membranes. Neck: No JVD or lymphadenopathy Cardiac: RRR, No murmurs Pulm: Diminished b/l. No wheezing, rhonchi Abd: NT/ND + BS. Obese. Ext: No edema. No cyanosis. Distal pulses intact. Tenderness to palpation bilateral lower extremities, adjacent to fracture sites. Labs (see below) Images: Assessment/Plan 1. Displaced right distal tibial and fibular fracture, with prior left fracture - orthopedics on board. Plan for surgery and . Pain control. It is questionable whether patient has been having pathologic fractures. She will need an outpatient DEXA scan. ? Whether the patient's underlying hemochromatosis contributing. Will certainly need outpatient rheumatology/ endocrine/hematology f/u. Started on OxyContin, continue Percocet/morphine; pain management consult 2. Acute kidney injury on chronic kidney disease- creatinine improving. Diuretics held at this time. HAMIDA inhibitor held as well. Nephro on board. 3. Hypertension- uncontrolled. Continue current meds. HAMIDA inhibitor held. Amlodipine. Has not been needing hydralazine. 4. Diabetes mellitus-increase Levemir. Continue sliding scale insulin 5. History of hemochromatosis- not on treatment at this time. Outpatient follow- up. 6. Chronic lower back pain status post laminectomy- stable. 7. H/o CAD s/p CABG. On BB and statin. Held ASA prior to surg. DVT prophy: Lovenox Prognosis guarded. VS,Fishbone, I+O VS, Fishbone, I+O Laboratory Tests 06/15/17 04:58 Red Blood Count 3.69 L, Mean Corpuscular Volume 85.9, Mean Corpuscular Hemoglobin 28.6, Mean Corpuscular Hemoglobin Concent 33.3, Red Cell Distribution Width 17.1 H, Calcium Level 8.8 Vital Signs Date Time Temp Pulse Resp B/P (MAP) Pulse Ox O2 Delivery O2 Flow Rate FiO2 06/15/17 14:00 98 06/15/17 12:30 96.5 52 18 149/63 Nasal Cannula 2.0 I&O- Last 24 Hours up to 6 AM 06/16/17 06:00 Intake Total 360 ml Output Total 550 ml Balance -190 ml LAURA SANTAMARIA MD Jun 15, 2017 15:12
--- NOTE | 2017-06-15 18:27 | IPN ---
DATE: 06/15/2017 SUBJECTIVE: Patient as seen and examined at the bedside today morning. Patient got to closed reduction and internal fixation of right tibia fracture done yesterday. She is hemodynamically stable. Her renal function is stable and actually slightly better than her baseline. REVIEW OF SYSTEMS: Patient denies any fevers, chills, rigors, headache, nausea, vomiting, chest pain, shortness of breath, pain in abdomen, constipation, or diarrhea. She reports right leg pain is optimized at this time. Rest of review of systems is negative. OBJECTIVE: Vital signs: Temperature is 96.8 degrees Fahrenheit, blood pressure is 138/82, pulse is 61, respiratory rate of 18, saturating 100% on nasal cannula at 2 liters. Intake and output: Urine output recorded is 1.8 liters yesterday, 1500 mL so far today since overnight. Weight in the bed scale is 98 kg. PHYSICAL EXAMINATION: GENERAL: Patient is awake, alert, oriented times three, lying in bed. No apparent distress. HEAD AND NECK: Extraocular muscles intact. Pupils equally round and reactive to light. Mucous membranes are moist. Neck is supple. There is no jugular venous distention (JVD). CARDIOVASCULAR: S1, S2, regular rate. No murmur, rub, or gallop. RESPIRATORY: Chest is clear to auscultation bilaterally. Bilateral equal air entry. No rales or rhonchi. ABDOMEN: Soft, obese. Positive bowel sounds. Nontender. No ascites. No organomegaly. MUSCULOSKELETAL: Patient has a dressing on the right leg from recent surgery. CENTRAL NERVOUS SYSTEM: No focal neurological deficit. Power is 5/5 in all extremities. LABORATORY REVIEW: CBC showed a WBC of 8.4, hemoglobin 10.6, platelets of 199. BMP showed sodium 139, potassium 5.1, chloride 104, bicarbonate 28, BUN 32, creatinine is 1.1, GFR is 52, calcium is 8.7, phosphorus is 3.5. Microbiology: Urine culture was done yesterday, which was inconclusive. CURRENT INPATIENT MEDICATIONS: Patient's medications were all reviewed by me. She continues to be on ceftriaxone 1 gram intravenous (IV) every 24 and fluconazole 200 mg IV every 24 hours for yeast in the urine. There is no other change in the medications today as compared with yesterday except change around opioid pain medications. ASSESSMENT: A 72-year-old female with past medical history of hypertension, diabetes mellitus, type 2, chronic kidney disease (CKD) III, history of hemachromatosis, admitted at this time because of displaced distal tibia and fibula fracture on the right leg. Nephrology service following the patient for management of acute kidney injury superimposed on chronic kidney disease. PLAN: 1. Acute kidney injury superimposed on chronic kidney disease. Patient's angiotensin-converting enzyme (HAMIDA) inhibitors and diuretics were held. Creatinine is improved to 1.1, which is close to her baseline. 2. Hypertension. Blood pressure is acceptable at this time. Continue current dose of hydralazine and bisoprolol. 3. Displaced right distal tibia and fibular fracture. Patient is status post closed reduction and open reduction, internal fixation of the right tibia fracture. Rest of the management is as per orthopedic surgery. 4. Patient renal function has improved close to her baseline. Nephrology service will sign off at this moment. Please call nephrology service as needed for any help in the management of this patient during this admission.
[2017-06-15] MEDS ORDERED: LACTULOSE 20 GM/30 ML SYRUP UD PO ONE (20:45)
[2017-06-15] MEDS: NEBIVOLOL 5 MG TAB (BYSTOLIC) PO SCH (21:12)
[2017-06-15] MEDS: ATORVASTATIN 20 MG TAB PO SCH (21:14)
[2017-06-15] MEDS ORDERED: LACTULOSE 20 GM/30 ML SYRUP UD PO PRN (21:45)
[2017-06-16] VITALS (17 sets, daily range): BP systolic 111–148; BP diastolic 60–68; O2SAT 96–100
[2017-06-16] MEDS: **hydrALAZINE HCL** 25 MG TAB PO SCH ×2 (01:01→05:17)
[2017-06-16] MEDS: MORPHINE 4 MG/ML 1ML SYRINGE IV PRN (05:16)
[2017-06-16] MEDS: SLF 3 ML SYR IV SCH ×3 (05:17→20:12)
[2017-06-16 05:41] LABS: MEAN CORPUSCULAR HEMOGLOBIN 28.7 pg (27.0-33.0); MEAN CORPUSCULAR HGB CONC 33.1 g/dl (32.0-36.5); MEAN CORPUSCULAR VOLUME 86.6 fl (80.0-96.0); RED CELL DISTRIBUTION WIDTH 17.2 % (11.5-14.5); WHITE BLOOD COUNT 6.9 K/mm3 (4.0-10.0)
[2017-06-16 06:01] LABS: CREATININE FOR GFR 1.32 MG/DL (0.55-1.02); GLOMERULAR FILTRATION RATE 42.1 (>39); MAGNESIUM LEVEL 2.3 MG/DL (1.8-2.4); POTASSIUM SERUM 4.3 MEQ/L (3.5-5.1)
[2017-06-16] MEDS: HumaLOG INSULIN (NovoLOG) PER UNIT SC SCH ×4 (07:57→20:11)
[2017-06-16] MEDS: **hydrALAZINE** 50 MG TAB PO SCH ×3 (09:00→20:10)
[2017-06-16] MEDS: VITAMIN D 1,000 INTERNATIONAL UNITS TABLET PO SCH ×2 (09:00→09:34)
[2017-06-16] MEDS: oxyCODONE 10 MG CR TAB PO SCH ×2 (09:12→19:52)
[2017-06-16] MEDS: PREGABALIN 25 MG CAP (LYRICA) PO SCH ×2 (09:13→19:52)
[2017-06-16] MEDS: cefTRIAXone SOD 1 GM in D5W MINI-BAG PLUS 50 ML IV SCH (09:32)
[2017-06-16] MEDS: SENOKOT S TAB PO SCH ×2 (09:34→19:53)
[2017-06-16] MEDS: OMEPRAZOLE 20 MG CAP PO SCH (09:34)
[2017-06-16] MEDS: NITROGLYCERIN 0.4 MG/HR PATCH TD SCH (09:34)
[2017-06-16] MEDS: amLODIPine 5 MG TAB PO SCH (09:36)
[2017-06-16] MEDS: BENZONATATE 100 MG CAP PO SCH ×3 (09:36→19:54)
[2017-06-16] MEDS: ENOXAPARIN 40 MG/0.4 ML SYRINGE (J1650) SC SCH (09:37)
[2017-06-16] MEDS: LEVEMIR (INSULIN DETEMIR) 1 UNITS/0.01ML SC SCH ×2 (09:37→20:12)
[2017-06-16] MEDS: FLUCONAZOLE 200 MG in APPROPRIATE DILUENT 1 EA IV SCH (11:18)
[2017-06-16] MEDS ORDERED: FLEET ENEMA PR ONE (12:00)
--- NOTE | 2017-06-16 13:28 | IPNPDOC ---
Text Note Date of Service The patient was seen on 06/16/17. NOTE Subjective: Pain better controlled at this time. Denies CP/palpitations/SOB. Objective: Vitals: (see below) General: No acute distress, laying comfortably in bed. HEENT: Moist mucous membranes. Neck: No JVD or lymphadenopathy Cardiac: RRR, No murmurs Pulm: Diminished b/l. No wheezing, rhonchi Abd: NT/ND + BS. Obese. Ext: No edema. No cyanosis. Distal pulses intact. Tenderness to palpation bilateral lower extremities, adjacent to fracture sites. Labs (see below) Images: Assessment/Plan 1. Displaced right distal tibial and fibular fracture, with prior left fracture - orthopedics on board. Plan for surgery and . Pain control. It is questionable whether patient has been having pathologic fractures. She will need an outpatient DEXA scan. ? Whether the patient's underlying hemochromatosis contributing. Will certainly need outpatient rheumatology/ endocrine/hematology f/u. Started on OxyContin, continue Percocet/morphine; pain management consult 2. Acute kidney injury on chronic kidney disease- creatinine improving. Diuretics held at this time. HAMIDA inhibitor held as well. Nephro on board. 3. Hypertension- uncontrolled. Continue current meds. HAMIDA inhibitor held. Amlodipine. Has not been needing hydralazine. 4. Diabetes mellitus-increase Levemir. Continue sliding scale insulin 5. History of hemochromatosis- not on treatment at this time. Outpatient follow- up. 6. Chronic lower back pain status post laminectomy- stable. 7. H/o CAD s/p CABG. On BB and statin. Held ASA prior to surg. DVT prophy: Lovenox Prognosis guarded. Pending PT clearance. Will need to f/u with Dr. Shah (Endocrine) soon after d/c for Tx with osteoporosis. VS,Poli, I+O VS, Nikkye, I+O Laboratory Tests 06/16/17 04:52 Red Blood Count 3.58 L, Mean Corpuscular Volume 86.6, Mean Corpuscular Hemoglobin 28.7, Mean Corpuscular Hemoglobin Concent 33.1, Red Cell Distribution Width 17.2 H, Calcium Level 9.0 Vital Signs Date Time Temp Pulse Resp B/P (MAP) Pulse Ox O2 Delivery O2 Flow Rate FiO2 06/16/17 12:34 99 Nasal Cannula 2.0 06/16/17 12:15 97.1 68 18 128/68 (88) I&O- Last 24 Hours up to 6 AM 06/17/17 06:00 Intake Total 870 ml Output Total 450 ml Balance 420 ml LAURA SANTAMARIA MD Jun 16, 2017 13:27
--- NOTE | 2017-06-16 14:49 | IPN ---
DATE: 06/16/2017 Ms. Antoine is seen this morning on her bedside. She seems slightly confused. She was admitted to [facility] on 06/11/2017 and had acute renal failure. She is currently being treated for bilateral lower extremity fractures. She had acute renal failure which is gradually improving. PHYSICAL EXAMINATION: She is awake, alert and oriented times three. She is sitting at the edge of the bed getting ready to get up onto bedside commode. Temperature is 97 degrees Fahrenheit, heart rate 68 per minute and respiratory rate 18 per minute. Blood pressure 128/68 mmHg and oxygen saturation 99% on 2 liters of oxygen. Head is atraumatic. Neck is supple and without jugular venous distention (JVD) or thyroid enlargement. Pupils are equal and reactive to light and sclerae is anicteric. Heart: Sounds are regular and lungs clear to auscultation. Abdomen: Obese, soft and nontender and without a palpable organomegaly. Extremities: Have no cyanosis or clubbing. Lower extremities are in a brace. Today's labs show WBC count 6.9, hemoglobin 10.3 and hematocrit of 31.0. Platelets 186. Sodium 141 and potassium 4.3. BUN is up to 41 and creatinine 1.32. Glucose 285 and calcium 9.0. PROBLEM #1: Acute renal failure superimposed on chronic kidney disease. Initially the patient was felt to be dehydrated. With intravenous (IV) fluid hydration, her kidney function improved. She underwent surgery for her fractured right leg yesterday. Today she has worsening kidney function. most likely related to osmotic diuresis. Her intake and output records since admission show a total negative fluid balance of about 3 liters. She has hyperglycemia, which is most likely causing osmotic diuresis. PROBLEM #2: Uncontrolled diabetes. The patient has her blood sugars between 287 and 391 mg/dl for the last 24 hours. I recommend to increase her long-acting insulin at least to 65 or 70 units. She was taking 74 units twice a day at home. I recommend to continue with frequent monitoring and sliding scale coverage. PROBLEM #3: Anemia. Her anemia is slightly worse and most likely related to her surgery yesterday. At present, no intervention is indicated other than iron supplement. She is likely to improve. PROBLEM #4: Severe osteoporosis. All of her imaging studies show severe osteoporosis. After discharge, she will need a followup with endocrinology for long-term care of her osteoporosis.
[2017-06-16] MEDS: PERCOCET 5MG/325MG TAB PO PRN (17:30)
[2017-06-16] MEDS: ATORVASTATIN 20 MG TAB PO SCH (19:51)
[2017-06-16] MEDS: NEBIVOLOL 5 MG TAB (BYSTOLIC) PO SCH (19:54)
[2017-06-17 02:00] VITALS: BP 150/64
[2017-06-17] MEDS: SLF 3 ML SYR IV SCH ×3 (05:39→22:05)
[2017-06-17 06:00] VITALS: BP 134/58
[2017-06-17 06:40] LABS: MEAN CORPUSCULAR HEMOGLOBIN 28.6 pg (27.0-33.0); MEAN CORPUSCULAR HGB CONC 32.9 g/dl (32.0-36.5); MEAN CORPUSCULAR VOLUME 86.9 fl (80.0-96.0); RED CELL DISTRIBUTION WIDTH 17.5 % (11.5-14.5); WHITE BLOOD COUNT 6.1 K/mm3 (4.0-10.0)
[2017-06-17 07:07] LABS: CALCIUM LEVEL 8.7 MG/DL (8.8-10.2); CREATININE FOR GFR 1.06 MG/DL (0.55-1.02); GLOMERULAR FILTRATION RATE 54.2 (>39); MAGNESIUM LEVEL 2.2 MG/DL (1.8-2.4); POTASSIUM SERUM 4.4 MEQ/L (3.5-5.1)
[2017-06-17] MEDS: VITAMIN D 1,000 INTERNATIONAL UNITS TABLET PO SCH (08:42)
[2017-06-17] MEDS: PREGABALIN 25 MG CAP (LYRICA) PO SCH ×2 (08:43→22:05)
[2017-06-17] MEDS: SENOKOT S TAB PO SCH ×2 (08:43→22:08)
[2017-06-17] MEDS: **hydrALAZINE** 50 MG TAB PO SCH ×3 (08:43→22:08)
[2017-06-17] MEDS: amLODIPine 5 MG TAB PO SCH (08:44)
[2017-06-17] MEDS: BENZONATATE 100 MG CAP PO SCH ×3 (08:44→22:07)
[2017-06-17] MEDS: OMEPRAZOLE 20 MG CAP PO SCH (08:44)
[2017-06-17] MEDS: oxyCODONE 10 MG CR TAB PO SCH ×2 (08:47→22:07)
[2017-06-17] MEDS: ENOXAPARIN 40 MG/0.4 ML SYRINGE (J1650) SC SCH (08:49)
[2017-06-17] MEDS: HumaLOG INSULIN (NovoLOG) PER UNIT SC SCH ×4 (08:50→22:05)
[2017-06-17] MEDS: cefTRIAXone SOD 1 GM in D5W MINI-BAG PLUS 50 ML IV SCH (08:51)
[2017-06-17] MEDS: PERCOCET 5MG/325MG TAB PO PRN (08:54)
[2017-06-17] MEDS ORDERED: LEVEMIR (INSULIN DETEMIR) 1 UNITS/0.01ML SC SCH (09:00)
[2017-06-17 10:00] VITALS: BP 126/48
[2017-06-17] MEDS: FLUCONAZOLE 200 MG in APPROPRIATE DILUENT 1 EA IV SCH (10:00)
[2017-06-17] MEDS: NITROGLYCERIN 0.4 MG/HR PATCH TD SCH (13:17)
[2017-06-17] MEDS: LEVEMIR (INSULIN DETEMIR) 1 UNITS/0.01ML SC SCH ×2 (13:42→22:04)
[2017-06-17 14:00] VITALS: BP 152/76
--- NOTE | 2017-06-17 14:02 | IPNPDOC ---
Text Note Date of Service The patient was seen on 06/17/17. NOTE Subjective: Feels well. Denies CP/palpitations/SOB. Objective: Vitals: (see below) General: No acute distress, laying comfortably in bed. HEENT: Moist mucous membranes. Neck: No JVD or lymphadenopathy Cardiac: RRR, No murmurs Pulm: Diminished b/l. No wheezing, rhonchi Abd: NT/ND + BS. Obese. Ext: No edema. No cyanosis. Distal pulses intact. Tenderness to palpation bilateral lower extremities, adjacent to fracture sites. Labs (see below) Images: Assessment/Plan 1. Displaced right distal tibial and fibular fracture, with prior left fracture - orthopedics on board. Plan for surgery and . Pain control. It is questionable whether patient has been having pathologic fractures. She will need an outpatient DEXA scan. ? Whether the patient's underlying hemochromatosis contributing. Will certainly need outpatient rheumatology/ endocrine/hematology f/u. Started on OxyContin, continue Percocet/morphine; pain management consult 2. Acute kidney injury on chronic kidney disease- creatinine improving. Diuretics held at this time. HAMIDA inhibitor held as well. Nephro on board. 3. Hypertension- uncontrolled. Continue current meds. HAMIDA inhibitor held. Amlodipine. Has not been needing hydralazine. 4. Diabetes mellitus-increase Levemir. Continue sliding scale insulin 5. History of hemochromatosis- not on treatment at this time. Outpatient follow- up. 6. Chronic lower back pain status post laminectomy- stable. 7. H/o CAD s/p CABG. On BB and statin. Held ASA prior to surg. DVT prophy: Lovenox Prognosis guarded. Pending PT clearance. Will need to f/u with Dr. Shah (Endocrine) soon after d/c for Tx with osteoporosis. VS,Pablobone, I+O VS, Fishbone, I+O Laboratory Tests 06/17/17 05:55 Red Blood Count 3.60 L, Mean Corpuscular Volume 86.9, Mean Corpuscular Hemoglobin 28.6, Mean Corpuscular Hemoglobin Concent 32.9, Red Cell Distribution Width 17.5 H, Calcium Level 8.7 L Vital Signs Date Time Temp Pulse Resp B/P (MAP) Pulse Ox O2 Delivery O2 Flow Rate FiO2 06/17/17 13:17 157/82 9/24/17 10:00 97.4 64 18 98 Nasal Cannula 2.0 I&O- Last 24 Hours up to 6 AM 06/18/17 06:00 Intake Total 120 ml Output Total 600 ml Balance -480 ml LAURA SANTAMARIA MD Jun 17, 2017 14:02
--- NOTE | 2017-06-17 16:47 | IPN ---
DATE: 06/17/2017 Ms. Antoine is seen this morning on her bedside. She is feeling scared and is quite concerned about her fractured ankles. She does not want to even try weightbearing at this point. She denies any nausea, vomiting, dyspnea or chest pain. She underwent ORIF of her right ankle fracture on Sunday. PHYSICAL EXAMINATION: She is awake and alert and without any acute distress. Temperature 97.4 degrees Fahrenheit, heart rate 64 per minute and respiratory rate 18 per minute. Blood pressure 126/48 mmHg and oxygen saturation 98% on 2 liters oxygen. Head is atraumatic. Neck is supple and without JVD or thyroid enlargement. Pupils equal and reactive to light and sclerae is anicteric. Heart sounds are regular and lungs clear to auscultation. Abdomen soft and nontender and without a palpable organomegaly. Extremities without cyanosis or clubbing. Neurologically she is awake, alert and oriented times three. Today's labs show WBC count 6.1, hemoglobin 10.3 and hematocrit 31.3. Sodium 142 and potassium 4.4. BUN 37 and creatinine 1.06. PROBLEMS: 1. Acute renal failure superimposed on chronic kidney disease. She probably has mild underlying chronic kidney disease. Superimposed acute renal failure was caused by dehydration. Her kidney function has now improved. She had osmotic diuresis due to hyperglycemia which is now much better. 2. Anemia. Anemia is stable at this point and no intervention is indicated. 3. Severe osteoporosis. The patient will need followup with endocrinology as an outpatient. 4. Hyperglycemia. Blood sugars are still somewhat on the high side. I would recommend to increase her Levemir insulin to 70 units twice a day and continue with sliding scale coverage.
[2017-06-17 18:00] VITALS: BP 146/58
[2017-06-17 22:00] VITALS: BP 144/58
[2017-06-17] MEDS: NEBIVOLOL 5 MG TAB (BYSTOLIC) PO SCH (22:09)
[2017-06-17] MEDS: ATORVASTATIN 20 MG TAB PO SCH (22:10)
[2017-06-18] MEDS: PERCOCET 5MG/325MG TAB PO PRN ×3 (00:02→17:33)
[2017-06-18 02:00] VITALS: BP 136/62
[2017-06-18 06:00] VITALS: BP 146/60
[2017-06-18] MEDS: SLF 3 ML SYR IV SCH ×3 (06:11→21:21)
[2017-06-18] MEDS: **hydrALAZINE** 50 MG TAB PO SCH ×2 (09:00→21:00)
[2017-06-18 10:00] VITALS: BP 142/61
[2017-06-18] MEDS: HumaLOG INSULIN (NovoLOG) PER UNIT SC SCH ×4 (10:03→21:00)
[2017-06-18] MEDS: cefTRIAXone SOD 1 GM in D5W MINI-BAG PLUS 50 ML IV SCH (10:03)
[2017-06-18] MEDS: LEVEMIR (INSULIN DETEMIR) 1 UNITS/0.01ML SC SCH ×2 (10:03→21:20)
[2017-06-18] MEDS: VITAMIN D 1,000 INTERNATIONAL UNITS TABLET PO SCH (10:04)
[2017-06-18] MEDS: ENOXAPARIN 40 MG/0.4 ML SYRINGE (J1650) SC SCH (10:04)
[2017-06-18] MEDS: BENZONATATE 100 MG CAP PO SCH ×3 (10:04→21:19)
[2017-06-18] MEDS: PREGABALIN 25 MG CAP (LYRICA) PO SCH ×2 (10:05→21:17)
[2017-06-18] MEDS: oxyCODONE 10 MG CR TAB PO SCH ×2 (10:05→21:22)
[2017-06-18] MEDS: FLUCONAZOLE 100 MG TAB PO SCH (10:06)
[2017-06-18] MEDS: OMEPRAZOLE 20 MG CAP PO SCH (10:11)
[2017-06-18] MEDS: SENOKOT S TAB PO SCH ×2 (10:11→21:18)
[2017-06-18] MEDS: amLODIPine 5 MG TAB PO SCH (10:11)
[2017-06-18] MEDS: NITROGLYCERIN 0.4 MG/HR PATCH TD SCH (10:12)
--- NOTE | 2017-06-18 11:26 | IPN ---
DATE: 06/18/2017 Mrs. Antoine was seen for acute renal failure. Her kidney function has improved with serum creatinine down to 1.0 yesterday. She has been doing very well from a renal standpoint. She had her fractured leg surgery done. From renal standpoint, she does not need further nephrology followup as inpatient. Should she have further problems, she can be seen as an outpatient. AT this point, I am signing off her case. Please do not hesitate to call me back should you need any further assistance.
[2017-06-18 14:00] VITALS: BP 148/73
--- NOTE | 2017-06-18 16:12 | IPNPDOC ---
Text Note Date of Service The patient was seen on 06/18/17. NOTE Subjective: Feels well. Denies CP/palpitations/SOB. Pain is well controlled. She is getting out of bed. Objective: Vitals: (see below) General: No acute distress, laying comfortably in bed. HEENT: Moist mucous membranes. Neck: No JVD or lymphadenopathy Cardiac: RRR, No murmurs Pulm: Diminished b/l. No wheezing, rhonchi Abd: NT/ND + BS. Obese. Ext: No edema. No cyanosis. Distal pulses intact. Tenderness to palpation bilateral lower extremities, adjacent to fracture sites. Labs (see below) Images: Assessment/Plan 1. Displaced right distal tibial and fibular fracture, with prior left fracture - orthopedics on board. Plan for surgery and . Pain control. It is questionable whether patient has been having pathologic fractures. She will need an outpatient DEXA scan. ? Whether the patient's underlying hemochromatosis contributing. Will certainly need outpatient rheumatology/ endocrine/hematology f/u. Started on OxyContin, continue Percocet/morphine; pain management consult 2. Acute kidney injury on chronic kidney disease- creatinine improving. Diuretics held at this time. HAMIDA inhibitor held as well. Nephro on board. 3. Hypertension- uncontrolled. Continue current meds. HAMIDA inhibitor held. Amlodipine. Has not been needing hydralazine. 4. Diabetes mellitus-increase Levemir. Continue sliding scale insulin 5. History of hemochromatosis- not on treatment at this time. Outpatient follow- up. 6. Chronic lower back pain status post laminectomy- stable. 7. H/o CAD s/p CABG. On BB and statin. Held ASA prior to surg. 8. Osteoporosis. DVT prophy: Lovenox Prognosis guarded. Pending PT clearance. Will need to f/u with Dr. Shah (Endocrine) soon after d/c for Tx with osteoporosis. VS,Fishbone, I+O VS, Fishbone, I+O Vital Signs Date Time Temp Pulse Resp B/P (MAP) Pulse Ox O2 Delivery O2 Flow Rate FiO2 06/18/17 14:00 98.0 65 20 148/73 (98) 97 Nasal Cannula 2.0 I&O- Last 24 Hours up to 6 AM 06/19/17 06:00 Intake Total 840 ml Output Total 1200 ml Balance -360 ml ABED,LAURA MD Jun 18, 2017 16:12
[2017-06-18 18:00] VITALS: BP 140/68
[2017-06-18 20:10] VITALS: BP 138/73
[2017-06-18] MEDS: NEBIVOLOL 5 MG TAB (BYSTOLIC) PO SCH (21:18)
[2017-06-18] MEDS: ATORVASTATIN 20 MG TAB PO SCH (21:22)
[2017-06-19] MEDS: MORPHINE 4 MG/ML 1ML SYRINGE IV PRN (00:09)
[2017-06-19 04:02] VITALS: BP 138/60
[2017-06-19] MEDS: SLF 3 ML SYR IV SCH (05:55)
[2017-06-19 06:48] LABS: MEAN CORPUSCULAR HEMOGLOBIN 27.7 pg (27.0-33.0); MEAN CORPUSCULAR HGB CONC 31.9 g/dl (32.0-36.5); MEAN CORPUSCULAR VOLUME 86.7 fl (80.0-96.0); RED CELL DISTRIBUTION WIDTH 18.7 % (11.5-14.5); WHITE BLOOD COUNT 8.1 10^3/uL (4.0-10.0)
[2017-06-19 07:03] VITALS: BP 124/60
[2017-06-19 07:13] LABS: ANION GAP 6 MEQ/L (8-16); BLOOD UREA NITROGEN 24 MG/DL (7-18); CARBON DIOXIDE LEVEL 30 MEQ/L (21-32); CHLORIDE LEVEL 104 MEQ/L (98-107); CREATININE FOR GFR 0.78 MG/DL (0.55-1.02); GLOMERULAR FILTRATION RATE > 60.0 (>39); GLUCOSE, FASTING 147 MG/DL (83-110); SODIUM LEVEL 140 MEQ/L (136-145)
[2017-06-19] MEDS: LEVEMIR (INSULIN DETEMIR) 1 UNITS/0.01ML SC SCH (08:19)
[2017-06-19] MEDS: HumaLOG INSULIN (NovoLOG) PER UNIT SC SCH ×2 (08:19→12:30)
[2017-06-19] MEDS: FLUCONAZOLE 100 MG TAB PO SCH (08:20)
[2017-06-19] MEDS: NITROGLYCERIN 0.4 MG/HR PATCH TD SCH (08:22)
[2017-06-19] MEDS: PREGABALIN 25 MG CAP (LYRICA) PO SCH (08:24)
[2017-06-19] MEDS: ENOXAPARIN 40 MG/0.4 ML SYRINGE (J1650) SC SCH (08:24)
[2017-06-19] MEDS: SENOKOT S TAB PO SCH (08:24)
[2017-06-19] MEDS: cefTRIAXone SOD 1 GM in D5W MINI-BAG PLUS 50 ML IV SCH (08:24)
[2017-06-19] MEDS: BENZONATATE 100 MG CAP PO SCH (08:25)
[2017-06-19] MEDS: oxyCODONE 10 MG CR TAB PO SCH (08:25)
[2017-06-19] MEDS: VITAMIN D 1,000 INTERNATIONAL UNITS TABLET PO SCH (08:25)
[2017-06-19] MEDS: OMEPRAZOLE 20 MG CAP PO SCH (08:25)
[2017-06-19 08:26] VITALS: BP 146/82
[2017-06-19] MEDS: **hydrALAZINE** 50 MG TAB PO SCH (08:26)
[2017-06-19] MEDS: amLODIPine 5 MG TAB PO SCH (08:26)
[2017-06-19] MEDS ORDERED: FLUC10TA PO (11:59)
[2017-06-19] MEDS ORDERED: HYDR50TA PO (11:59)
[2017-06-19] MEDS ORDERED: LOVE1INJ SC (11:59)
[2017-06-19] MEDS ORDERED: AMLO5TAB2 PO (11:59)
[2017-06-19] MEDS: PERCOCET 5MG/325MG TAB PO PRN (12:30)
--- NOTE | 2017-06-22 20:45 | DSES ---
DATE OF ADMISSION: 06/11/2017 DATE OF DISCHARGE: 06/19/2017 ATTENDING PHYSICIAN: Dr. Pankaj Stewart, Dr. Zeus Griffith PRIMARY CARE PHYSICIAN: Dr. Floyd Eugene REFERRING PHYSICIAN: None. CONSULTING PHYSICIAN: Jade Roa, Dr. Dangelo Ellington, Dr. Garrison CONDITION ON DISCHARGE: Stable. FINAL DIAGNOSES: 1. Displaced right distal tibial and fibular fracture status post repair. 2. Acute kidney injury on chronic kidney disease. PROCEDURES: Patient had a closed reduction, internal fixation of the right tibia with intramedullary nail on 06/14/2017. HISTORY OF PRESENT ILLNESS: Patient is a 72-year-old female with a past medical history of hypertension, diabetes, coronary artery disease, history of hemachromatosis, and lumbar stenosis status post laminectomy. Patient has been following outpatient with orthopedic group for a hairline stress fracture of her left leg. Patient was at home and had boot in place on her left leg and subsequently fractured her right leg. She presented to the emergency room (ER) with complaints of severe right leg pain. Imaging was consistent with an acute fracture. Orthopedic surgery was consulted. HOSPITAL COURSE: 1. Displaced right distal tibial and fibular fracture with prior left fracture. Orthopedics was consulted. Patient received repair with surgery on June 15. Patient continued with pain management and anticoagulation as per surgery. 2. Acute kidney injury on chronic kidney disease. Creatinine has been improving. Nephrology was consulted. 3. Hypertension. Blood pressure remained poorly controlled initially but was controlled throughout hospital course, likely secondary to pain. 4. Diabetes. Patient was continued with long-acting and short-acting insulin. 5. Hemachromatosis, not on treatment. Will followup as outpatient. 6. Chronic lower back pain, status post laminectomy. 7. Coronary artery disease status post coronary artery bypass graft (CABG). So with beta licha and statin. Aspirin has been held as per surgery. 8. Osteoporosis. Will followup as an outpatient. Will continue with calcium and vitamin D supplementation. 9. Deep vein thrombosis (DVT) prophylaxis. Anticoagulation as per surgery. DISCHARGE MEDICATIONS: Patient has been discharged home with the following medications: - amlodipine 2.5 mg by mouth daily - Lovenox 40 mg subcutaneous daily - Diflucan 200 mg by mouth daily for the next 3 days - hydralazine 50 mg by mouth twice a day - aspirin 325 by mouth daily - atorvastatin 20 mg by mouth at bedtime - benzonatate 100 mg by mouth three times a day - calcium 600/vitamin D 200 units one tablet by mouth twice a day - vitamin D 2000 units by mouth daily - diclofenac 75 mg by mouth twice a day - fenofibrate 140 mg by mouth daily - fish oil two capsules by mouth at bedtime - folic acid 800 mcg by mouth daily - insulin glargine 74 units subcutaneous at bedtime - insulin Lispro one dose subcutaneous before meals and at bedtime - lisinopril 2.5 mg by mouth daily - nebivolol 20 mg by mouth at bedtime - nitroglycerine 0.4 mg patch transdermally daily - omeprazole 20 mg by mouth daily - polysaccharide iron 150 mg by mouth daily - pregabalin 75 mg by mouth twice a day - tizanidine 4 mg by mouth at bedtime DISCHARGE INSTRUCTIONS: Patient has been advised to followup with her primary care provider as well as endocrinology, Dr. Shah, for her diabetes and for her osteoporosis. Patient is advised to followup with orthopedic surgery within the next 7 days. She has been advised to remain compliant with treatment plan and medications and return to the emergency room if she experiences any problems. TIME SPENT ON DISCHARGE: Greater than 35 minutes. MTDD
[2017-07-05] MEDS ORDERED: HYDR-3911 PO (09:28)
[2017-07-05] MEDS ORDERED: AMLO2.5T PO (09:28)
== END 2017-06-19 13:32 | disposition home or self-care (01) | DRG 493 ==
LOC: EDBD 20:30 → M ED 20:30 → M ED INP 20:31 → OBSVTOIN 06-11 01:29 → M PCU 06-11 13:12 → M MS5PR 06-16 13:16
PROVIDERS: ADMIT Internal Medicine; ATTEND Internal Medicine
PROC: 0QSG04Z Reposition Right Tibia with Internal Fixation Device, Open Approach (ICD-10-PCS; principal; 2017-06-14 12:30)
DX: M84.461A Pathological fracture, right tibia, initial encounter for fracture (principal); N17.9 Acute kidney failure, unspecified; M84.463D Pathological fracture, right fibula, subsequent encounter for fracture with routine healing; I12.9 Hypertensive chronic kidney disease with stage 1 through stage 4 chronic kidney disease, or unspecified chronic kidney disease; E11.65 Type 2 diabetes mellitus with hyperglycemia; N18.3 Chronic kidney disease, stage 3 (moderate); I25.10 Atherosclerotic heart disease of native coronary artery without angina pectoris; M54.5 Low back pain; Z79.899 Other long term (current) drug therapy; Z79.82 Long term (current) use of aspirin; E78.00 Pure hypercholesterolemia, unspecified; Z86.73 Personal history of transient ischemic attack (TIA), and cerebral infarction without residual deficits; Z79.4 Long term (current) use of insulin; Z88.8 Allergy status to other drugs, medicaments and biological substances; E83.119 Hemochromatosis, unspecified; K59.00 Constipation, unspecified; M81.0 Age-related osteoporosis without current pathological fracture

== ENCOUNTER 2017-06-19 13:31 | Inpatient (IN) | payer MEDICARE, OTHER ==
[~2017-06-19] VITALS: Ht 154.9 cm; Wt 109.2 kg
[~2017-06-19 13:31] MED LIST changes: +AMLO5TAB2 PO; +BAYE325T12 PO; +BENZ100C5 PO; +BUME1TA PO; +BUME1TAB29 PO; +BYST20TA2 PO; +CALC1TAB60 PO; +CLEO150C PO; +D 1010004 PO; +DICL100T PO; +DICL75TA PO; +FLUC10TA PO; +HYDR50TA PO; +INSUHUMDS SC; +INSULANT SC; +LISI2.5T3 PO; +LOVE1INJ SC; +NITR0.4D6 TD; +NITR2PA TD; +NORC1TAB4 PO; +POLY150C4 PO; +TIZA4CAP3 PO; +VITA-137 PO; +ZANA4TAB PO
[2017-06-19 13:45] VITALS: BP 162/69
[2017-06-19] MEDS ORDERED: FLEET ENEMA PR PRN (13:45)
[2017-06-19] MEDS ORDERED: DEXTROSE 50% 50 ML SYRINGE IV PRN (14:00)
[2017-06-19] MEDS ORDERED: GLUCAGON FOR INJ 1 MG VIAL (J1610) SC PRN (14:00)
[2017-06-19] MEDS ORDERED: GLUCOSE 4 GM CHEW TABLET PO PRN (14:00)
[2017-06-19] MEDS ORDERED: oxyCODONE 5MG TAB PO PRN (14:00)
[2017-06-19] MEDS: BENZONATATE 100 MG CAP PO SCH ×2 (16:23→20:35)
[2017-06-19] MEDS: HumaLOG INSULIN (NovoLOG) PER UNIT SC SCH ×2 (18:16→20:37)
[2017-06-19] MEDS: ACETAMINOPHEN TAB 650MG DOSE (2X325MG) PO PRN (18:16)
--- NOTE | 2017-06-19 19:32 | PMRHPE ---
DATE OF ADMISSION: 06/19/2017 REASON FOR ADMISSION: Rehabilitation right tibia-fibula fracture and left fibular fracture with closed reduction, air medullary nailing of the right tibia on 06/14/2017, following the conversion of fibular stress fractures on the right to the right tibia-fibula fracture on 06/11/2017. HISTORY OF PRESENT ILLNESS: The patient is a right-handed 72-year-old white female who had developed bilateral low leg pain over the last couple of months and was seen by Dr. Beatriz Waite in orthopedics. She was found to have nondisplaced linear, essentially fractures of the distal fibulas and was placed on bilateral fracture boots. On the day of 06/11/2017, patient while wearing her fracture boots was getting up off the toilet using some handgrips her had put into the wall, and as she did this she heard a loud crack coming from her right leg and then felt severe pain in the distal aspect of her right leg. She was brought to the emergency room and evaluated at [facility] and was found to have a distal right tibia-fibula fracture with some angulation. Patient was uncertain as to treatment and after weighing the options elected an intramedullary nailing with screw fixation on 06/14/2017. Patient has had significant problems with pain from the fracture and the procedure and has a history of chronic low back pain and difficulty with managing pain going into this. This has limited patient initially in therapy; however, today patient, who had felt she could not weight bear as tolerated, elected to try more aggressive therapy after finding out that she was able to bear significant weight through her right lower extremity in yesterday's therapy sessions. She gave better effort today and is interested in a trial of acute musculoskeletal rehabilitation on the rehabilitation unit. ALLERGIES: AMLODIPINE and WARFARIN. PAST MEDICAL HISTORY: Includes: 1. Hemochromatosis. 2. Hypertension. 3. Diabetes. 4. Coronary artery disease, status post coronary artery bypass grafting. 5. Lumbar stenosis status post laminectomy with remaining some chronic pain of the low back. PAST SURGICAL HISTORY: Includes: 1. Appendectomy. 2. Bilateral tubal ligation. 3. Hysterectomy. 4. Coronary artery bypass grafting. 5. Laminectomy in 2014. FAMILY HISTORY: Noncontributory. SOCIAL HISTORY: Patient is retired. 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 The patient lives with her in a double-wide modular home with a porch, four steps up and into it. Everything on the first level without any interior steps. Patient does not smoke and only uses social ethanol. No illicit drugs. CURRENT MEDICATIONS ON ADMISSION: Tylenol, amlodipine, atorvastatin, benzonatate , Rocephin, dextrose, Lovenox, Diflucan, glucagon, glucose, hydralazine, detemir insulin, Humalog insulin on a sliding scale, Bystolic, Nitroglycerine-Dur patch 0.4 mg per hour, Prilosec, oxycodone, Lyrica, Senokot-S. Fleet's enema, vitamin D, and patient is starting a trial of tramadol 100 mg extended release twice a day to try and decrease pain dependence, and patient is also on OxyContin 10 mg twice a day for her constant pain. REVIEW OF SYSTEMS: As noted above with the lower extremity and chronic back pain. Otherwise negative at this time. PHYSICAL EXAMINATION: Patient is a short, overweight, elderly white female who is a bit anxious, though that improved after she transferred downstairs. Appears to be in very mild musculoskeletal pain. Wearing bilateral fracture boots. VITAL SIGNS: Patient is 5 feet 1 inch, 98 kg. Temperature is 97.9, blood pressure is 146/82, pulse 66, respirations 18, and pulse oximetry is 95% on nasal cannula at 2 liters per minute. HEENT: Normocephalic, atraumatic with symmetrical facial features. Patient using glasses for visual correction. Hearing is grossly intact. Extraocular motions are intact. Pupils are 5 mm and symmetrical, and vision is conjugate. Nares are clear. Septum is straight. Oropharynx without gross lesion. There is no dysarthria noted. NECK: Nontender. LUNGS: Clear in all veloz to auscultation. CORONARY: Shows a regular rate and rhythm with normal S1, S2, without S3, S4 murmurs or rubs. Pulses are 2/4, bilateral radial pulses with good perfusion in the skin and good warmth and coloration of upper extremities and the proximal extremities. Distal lower extremities not examined, as in fracture boots. ABDOMEN: Obese. Bowel sounds are present in all veloz to auscultation. The abdomen is benign and nontender. EXTREMITIES: Upper extremities with functional range of motion. Bilateral hips with functional range of motion. Knees with functional range of motion. Ankles not tested, because they are in the fracture braces. Patient with an Optifoam dressing over the proximal midline tibia anteriorly from her percutaneous rodding within medullary nail. NEUROLOGIC: Patient is alert and oriented times four. Speech is clear, coherent, and appropriate. Affect is anxious, but patient improving. Memory is grossly intact. Motor in the upper extremities is within functional limits, bilateral upper extremities and proximal lower extremities. Distal lower extremities not tested. Tone is within normal limits in bilateral upper extremities. Light touch and vibration are intact in bilateral upper extremities and from the knee proximal in the lower extremities. Deep tendon reflexes show 2/4 biceps, brachioradialis, 2-/4 triceps, and 2+/4 left knee jerk. Right knee jerk not tested due to the operative site. Ankle jerks not tested, and plantar stimulation not done due to fracture brace on, as patient is up, out of bed at the time of the examination. LABORATORY DATA: Shows patient with normal white count of 8.1 today, hemoglobin and hematocrit of 9.6 and 30.1, which has slowly been declining and will need watching. RDW has been climbing and is at 18.7 today. Platelet count is 183,000 with an MCV of 86.7. Electrolytes show sodium of 140, potassium 4.0, chloride 104, carbon dioxide of 30, BUN of 24, which is improving in the last few days, creatinine of 0.78, and patient now with a normal glomerular filtration rate of greater than 60. Fasting blood sugar this morning was 147 and calcium normal at 9.0. UA: Vaginal Yeast started on Rocephin and Diflucan X-ray postoperative shows good alignment and placement of the intramedullary mely and screws that are stabilizing it. ASSESSMENT AND PLAN: 1. Rehabilitation of right tibia/fibula fracture and left fibular fractures, all distal, with closed reduction, internal fixation with intramedullary mely of the right tibia/fibula fracture that occurred on 06/11/2017 and was repaired on 06/14/2017. Patient is now feeling comfortable enough and confident enough to participate in acute intensive rehabilitation and wishes to do so to facilitate her return to home. Providing stay analgesia and pretreating before therapy sessions will be important in this lady along with providing good emotional support and reflecting onto her her successes in therapy to help with the confidence which has interfered with her participating fully in therapy to this time. Her weight, obstructive sleep apnea (JEANNETTE), chronic back pain, and anemia are contributing factors to her anxiety along with the most dominant factor was while having the fracture braces on to have had this fracture and pain, which she was totally not anticipating; therefore, as noted above, developing of her concept of control and confidence in her ability to function without exacerbating her pain will be fundamental to this musculoskeletal rehabilitation involving physical and occupational therapy along with coaching and training by rehabilitation nursing, podiatry. Orthopedic consult has been sent. Overall I anticipate patient will require 10-14 days; however, it is possible if she is able to work past the psychological issues that she may progress much faster. 2. Anemia. This is progressing in the postoperative period as the patient had hydrated and will need to continue to be watched. Medicine service has been consulted for this as well as other medical care problems. 4. Obstructive sleep apnea. Will monitor oxygenation. Patient has needed some oxygen during the day and will probably need oxygen at night to compensate for not using continuous positive airway pressure (CPAP) for her JEANNETTE. 5. Morbid obesity. Patient will start a program of progressive activity and mobility. 6. Type 2 diabetes mellitus. Medicine service will help with adjustments at this time. Will proceed with long-acting insulin, 70 units twice a day and insulin scale with before meals and at bedtime monitoring. 7. Hemochromatosis. We will monitor patient's liver functions and as appropriate monitor iron as well as the ongoing anemia monitoring. 8. Hypertension. Patient lists as having adverse reaction to amlodipine, yet has been tolerating it during this admission. I will go ahead and continue it and her other medications, as blood pressure has been under reasonable control. On the acute medicine floor she will also continue hydralazine, Bystolic, and nitroglycerine patch. 9. Deep vein thrombosis (DVT) prophylaxis. Patient will continue with enoxaparin 40 mg daily. 10. Gastroesophageal reflux disease (GERD) protection. Patient will continue with omeprazole 20 daily. POSTADMISSION PHYSICIAN EVALUATION: I feel patient is consistent with prior evaluations and preadmission screening, and today was a psychological turning point for her. While I felt she should be able to participate in and benefit from acute intensive rehabilitation, she has now changed her perspective such that she is engaging in that, and I think she should do well and be able to tolerate, though she will probably need a lot of positive reinforcement along the way as well as consistent pain management. I am adding tramadol to the pain management mix as well as continuing the OxyContin and oxycodone and eliminating the intravenous (IV) morphine. I do think patient is likely to be able to participate with a fair to good prognosis in 3 hours of therapy daily to return to home. I do feel she is currently far from being able to be home with her , and therefore has a lot to benefit with the program, but do anticipate a fair to good prognosis for returning home with her in approximately 10- 14 days. TIME SPENT ON CHART REVIEW, HISTORY AND PHYSICAL, AND DOCUMENTATION: Greater than 70 minutes. CHELSEY
[2017-06-19] MEDS: SENOKOT S TAB PO SCH (20:35)
[2017-06-19] MEDS: oxyCODONE 10 MG CR TAB PO SCH (20:35)
[2017-06-19] MEDS: ATORVASTATIN 20 MG TAB PO SCH (20:36)
[2017-06-19] MEDS: traMADol ER 100MG TABLET (ULTRAM ER) PO SCH (20:36)
[2017-06-19] MEDS: PREGABALIN 75 MG CAP(LYRICA) PO SCH (20:36)
[2017-06-19] MEDS: NEBIVOLOL 5 MG TAB (BYSTOLIC) PO SCH (20:36)
[2017-06-19] MEDS: **hydrALAZINE** 50 MG TAB PO SCH (20:36)
[2017-06-19] MEDS: **NOTE PATIENT COMMENT** MISC XX SCH (20:37)
[2017-06-19 21:00] VITALS: BP 166/70
[2017-06-19] MEDS ORDERED: LEVEMIR (INSULIN DETEMIR) 1 UNITS/0.01ML SC SCH (21:00)
[2017-06-20 06:00] VITALS: BP 165/74
[2017-06-20 06:43] LABS: BASO # 0.1 10^3/uL (0.0-0.2); BASO % 0.8 % (0.0-1.0); EOS # 0.5 10^3/uL (0.0-0.50); EOS % 7.3 % (0.0-3.0); IMMATURE GRANULOCYTE % 0.6 % (0-0); LYMPH # 1.3 10^3/uL (1.5-4.5); LYMPH % 20.9 % (24.0-44.0); MEAN CORPUSCULAR HEMOGLOBIN 27.1 pg (27.0-33.0); MEAN CORPUSCULAR HGB CONC 30.9 g/dl (32.0-36.5); MEAN CORPUSCULAR VOLUME 87.7 fl (80.0-96.0); MONO # 0.5 10^3/uL (0.0-0.8); MONO % 8.8 % (0.0-5.0); NEUTROPHILS # 3.8 10^3/uL (1.8-7.7); NEUTROPHILS % 61.6 % (36.0-66.0); PLATELET COUNT, AUTOMATED 222 10^3/uL (150-450); RED CELL DISTRIBUTION WIDTH 18.6 % (11.5-14.5); WHITE BLOOD COUNT 6.2 10^3/uL (4.0-10.0)
[2017-06-20 07:07] LABS: ALBUMIN 2.4 GM/DL (3.2-5.2); ALBUMIN/GLOBULIN RATIO 0.62 (1.00-1.93); ALKALINE PHOSPHATASE 105 U/L (45-117); ALT/SGPT 31 U/L (12-78); ANION GAP 4 MEQ/L (8-16); AST/SGOT 21 U/L (15-37); BILIRUBIN,TOTAL 0.5 MG/DL (0.2-1.0); BLOOD UREA NITROGEN 26 MG/DL (7-18); CALCIUM LEVEL 9.8 MG/DL (8.8-10.2); CARBON DIOXIDE LEVEL 33 MEQ/L (21-32); CHLORIDE LEVEL 104 MEQ/L (98-107); CREATININE FOR GFR 0.73 MG/DL (0.55-1.02); GLOMERULAR FILTRATION RATE > 60.0 (>39); GLUCOSE, FASTING 75 MG/DL (83-110); POTASSIUM SERUM 3.6 MEQ/L (3.5-5.1); SODIUM LEVEL 141 MEQ/L (136-145); TOTAL PROTEIN 6.3 GM/DL (6.4-8.2)
[2017-06-20] MEDS: HumaLOG INSULIN (NovoLOG) PER UNIT SC SCH ×4 (07:30→20:18)
[2017-06-20] MEDS: cefTRIAXone SOD 1 GM in D5W MINI-BAG PLUS 50 ML IV SCH (08:52)
[2017-06-20] MEDS ORDERED: LEVEMIR (INSULIN DETEMIR) 1 UNITS/0.01ML SC ONE (09:00)
[2017-06-20] MEDS: ENOXAPARIN 40 MG/0.4 ML SYRINGE (J1650) SC SCH (09:00)
[2017-06-20] MEDS ORDERED: amLODIPine 5 MG TAB PO SCH (09:00)
[2017-06-20] MEDS: OMEPRAZOLE 20 MG CAP PO SCH (09:01)
[2017-06-20] MEDS: NITROGLYCERIN 0.4 MG/HR PATCH TD SCH (09:01)
[2017-06-20] MEDS: **hydrALAZINE** 50 MG TAB PO SCH ×2 (09:02→20:18)
[2017-06-20] MEDS: FLUCONAZOLE 100 MG TAB PO SCH (09:02)
[2017-06-20] MEDS: SENOKOT S TAB PO SCH ×2 (09:03→20:17)
[2017-06-20] MEDS: PREGABALIN 75 MG CAP(LYRICA) PO SCH ×2 (09:03→20:16)
[2017-06-20] MEDS: VITAMIN D 1,000 INTERNATIONAL UNITS TABLET PO SCH (09:03)
[2017-06-20] MEDS: BENZONATATE 100 MG CAP PO SCH ×3 (09:04→20:18)
[2017-06-20] MEDS: traMADol ER 100MG TABLET (ULTRAM ER) PO SCH ×2 (09:05→20:17)
[2017-06-20] MEDS: oxyCODONE 10 MG CR TAB PO SCH ×2 (09:07→20:16)
--- NOTE | 2017-06-20 11:15 | CR.PDOC ---
[facility] Consultation Consultation CONSULTATION REPORT FOR: Dr Pérez REASON FOR CONSULTATION: Medical Management DATE OF VISIT: 06/20/17 ATTENDING: Dr. Rolo Hamilton PCP: Dr Eugene HPI: 72year oldF with history of bilateral lower extremity stress fracture followed by Dr. Maciel and prescribed bilateral boots, presented to [facility] on 06/11/17 for worsening of right lower extremity pain. The patient was found to have acute nondisplaced fracture of the distal tibia and fibula, status post right tibia IM nailing as per Dr. Maciel 06/15/17. The patient is subsequently transferred to the care of IVONE Chaney. No acute medical complaints today. Denies any fevers, chills, weakness, fatigue , Headache, Chest Pain, Shortness of breath, cough, palpitations, abdominal pain , N/V/D or changes in bowel or bladder habits. PMHx: Hemochromatosis Hypertension DM CAD/status post CABG Lumbar stenosis status post laminectomy CKD Possible JEANNETTE. Sleep study pending as outpt PSHX: Appendectomy Bilateral tubal ligation Hysterectomy CABG Laminectomy 2014 SOCHX: Marital Status: Employment: Retired Tobacco use: Denies ETOH: Denies Illicit Drugs: Denies FAMHX: non contributory. ROS: As noted in HPI, otherwise 11pt ROS of systems reviewed and remarkable for FSBS noted to be 56 this AM. PE: GEN: 72yoF, appears stated age. Well-nourished, well developed. No acute distress. Alert and oriented x 3. Pleasant, interactive. HEENT: Normocephalic, atraumatic. Pupils are equal, round, and reactive to light. Extraocular movements are intact. No nystagmus appreciated. Sclera are nonicteric. Conjunctiva without injection. Nose midline. Nasal turbinates without bogginess. No facial asymmetry. Moist mucous membranes. Dentition fair. Pharynx pink and moist. Neck supple, trachea midline. No lymphadenopathy or thyromegaly appreciated. CHEST: Regular rate and rhythm, +S1, +S2 LUNGS: Few rales bases B/L. No wheezes,or rhonchi. Breathing appears symmetric and easy. Patient is speaking in full sentences. No accessory muscle use. ABD: Round, soft, non-tender, non-distended. +Bowel sounds throughout. No rebound or guarding. No costovertebral angle tenderness. EXT: B/L boots. SKIN: [place], dry, warm. No rashes. NEURO: Alert and oriented x 3. Cranial nerves III-XII are intact. No focal deficits appreciated. A&P: 72year oldF with history of bilateral lower extremity stress fracture followed by Dr. Maciel and prescribed bilateral boots, presented to [facility] on 06/11/17 for worsening of right lower extremity pain. The patient was found to have acute nondisplaced fracture of the distal tibia and fibula, status post right tibia IM nailing as per Dr. Maciel 06/15/17. The patient is subsequently transferred to the care of IVONE Chaney. 1. Displaced right distal tibial and fibular fracture, with prior left fracture/ status post right tibia IM nailing 06/15/[address] Maciel, orthopedics. Continue management/follow-up with orthopedics. Management as per IVONE Chaney. PT OT as per IVONE Chaney. Pain control as per IVONE Chaney Bowel care as per IVONE Chaney. DVT prophylaxis as per IVONE Chaney. Lovenox. Vit D 35 06/15/17. It is questionable whether patient has been having pathologic fractures. Plan for outpatient DEXA scan. Not clear whether the patient's underlying hemochromatosis contributing. Plan for outpatient rheumatology/endocrine/hematology f/u. 2. Chronic kidney disease- SCr 0.73. Diuretics/HAMIDA inhibitor held. Seen by nephrology during [facility] admission. 3. Hypertension-blood pressure noted to be 140s to 160s systolic. HAMIDA inhibitor (Lisinopril 2.5mg) and Bumex 1 mg BID held. Amlodipine 5 mg daily, will increase to BID with hold parameters. Hydralazine 50 mg by mouth twice a day with hold parameters. Nitroglycerin patch daily. Consider adding back ACEI or diuretic if needed. Bystolic daily at HS. 4. Diabetes mellitus-CC diet. Levemir 60 units twice a day (decreased slightly related to low BS this AM). Continue sliding scale insulin. Monitor. 5. History of hemochromatosis- not on treatment at this time. Plan for outpatient follow-up. 6. Chronic lower back pain status post laminectomy- controlled. 7. H/o CAD s/p CABG. On BB and statin. Restart ASA 325 mg daily. 8. Osteoporosis. 9. Possible JEANNETTE. Cont supplemental O2 prn. Sleep study pending as outpt. 10. Infectious. Pt is afebrile. Asymptomatic. UA 06/14/17 with yeast. UC 06/14/17 neg. I/S. IV Rocephin D6/7./po Diflucan. Thank you for your consultation. We will continue to follow along with you. Vital Signs/I&O Vital Signs Date Time Temp Pulse Resp B/P (MAP) Pulse Ox O2 Delivery O2 Flow Rate FiO2 06/20/17 09:07 98.1 63 18 161/69 Nasal Cannula 2.0 94 06/20/17 06:00 97 Laboratory Data Labs 24H Laboratory Tests 2 06/19/17 17:03: Bedside Glucose (Misc Panel) 173H 06/19/17 20:12: Bedside Glucose (Misc Panel) 240H 06/20/17 06:21: White Blood Count 6.2, Red Blood Count 3.65L, Hemoglobin 9.9L, Hematocrit 32.0L , Mean Corpuscular Volume 87.7, Mean Corpuscular Hemoglobin 27.1, Mean Corpuscular Hemoglobin Concent 30.9L, Red Cell Distribution Width 18.6H, Platelet Count 222, Neutrophils (%) (Auto) 61.6, Lymphocytes (%) (Auto) 20.9L, Monocytes (%) (Auto) 8.8H, Eosinophils (%) (Auto) 7.3H, Basophils (%) (Auto) 0.8 , Neutrophils # (Auto) 3.8, Lymphocytes # (Auto) 1.3L, Monocytes # (Auto) 0.5, Eosinophils # (Auto) 0.5, Basophils # (Auto) 0.1, Immature Granulocyte # (Auto) 0.0, Nucleated Red Blood Cells % (auto) 0.0, Anion Gap 4L, Glomerular Filtration Rate > 60.0, Blood Urea Nitrogen 26H, Creatinine 0.73, Sodium Level 141, Potassium Level 3.6, Chloride Level 104, Carbon Dioxide Level 33H, Calcium Level 9.8, Aspartate Amino Transf (AST/SGOT) 21, Alanine Aminotransferase (ALT/ SGPT) 31, Alkaline Phosphatase 105, Total Bilirubin 0.5, Total Protein 6.3L, Albumin 2.4L, Albumin/Globulin Ratio 0.62L 06/20/17 08:13: Bedside Glucose (Misc Panel) 56L 06/20/17 08:48: Bedside Glucose (Misc Panel) 145H CBC/BMP Laboratory Tests 06/20/17 06:21 Red Blood Count 3.65 L, Mean Corpuscular Volume 87.7, Mean Corpuscular Hemoglobin 27.1, Mean Corpuscular Hemoglobin Concent 30.9 L, Red Cell Distribution Width 18.6 H, Neutrophils (%) (Auto) 61.6, Lymphocytes (%) (Auto) 20.9 L, Monocytes (%) (Auto) 8.8 H, Eosinophils (%) (Auto) 7.3 H, Basophils (%) (Auto) 0.8, Neutrophils # (Auto) 3.8, Lymphocytes # (Auto) 1.3 L, Monocytes # ( Auto) 0.5, Eosinophils # (Auto) 0.5, Basophils # (Auto) 0.1, Calcium Level 9.8, Aspartate Amino Transf (AST/SGOT) 21, Alanine Aminotransferase (ALT/SGPT) 31, Alkaline Phosphatase 105, Total Bilirubin 0.5, Total Protein 6.3 L, Albumin 2.4 L Allergies Coded Allergies: Warfarin (Verified Adverse Reaction, Mild, NAUSEA/DIZZY, 06/10/17) Amlodipine (Verified Adverse Reaction, Unknown, COUGH, 06/10/17) Home Medications Scheduled (Fish Oil 1200 mg) 1 Cap Cap, 2 CAP PO QHS, (Reported) Amlodipine Besylate (Amlodipine Besylate) 5 Mg Tab, 2.5 MG PO DAILY, #15 Hold for SBP < 110 Aspirin (Zeenat Aspirin) 325 Mg Tab, 325 MG PO DAILY, (Reported) Atorvastatin Calcium (Atorvastatin Calcium) 20 Mg Tab, 20 MG PO QHS, (Reported) Benzonatate (Benzonatate) 100 Mg Cap, 100 MG PO TID, (Reported) Bumetanide (Bumetanide) 1 Mg Tab, 1 MG PO BID, (Reported) Calcium/Vitamin D (Calcium 600+D 600-200 mg-Unit) 1 Tab Tab, 1 TAB PO BID, ( Reported) Cholecalciferol (D 1000) 1,000 Unit Cap, 2,000 UNIT PO DAILY, (Reported) Diclofenac Sodium (Diclofenac Sodium Dr) 75 Mg Tab, 75 MG PO BID, (Reported) Enoxaparin Sodium (Lovenox) 40 Mg/0.4 Ml Inj, 40 MG SC DAILY, #30 Fenofibrate (Fenofibrate) 145 Mg Tab, 145 MG PO DAILY, (Reported) Fluconazole (Diflucan) 100 Mg Tab, 200 MG PO DAILY, #3 Folic Acid (Folic Acid) 400 Mcg Tab, 800 MCG PO DAILY, (Reported) Hydralazine HCl (Hydralazine HCl) 50 Mg Tab, 50 MG PO BID, #60 Insulin Glargine (Lantus) 1 Units/0.01 Ml Susp, 74 UNITS SC QHS, (Reported) Insulin Human Lispro (Humalog) 1 Units/0.01 Ml Inj, 1 DOSE SC ACHS, (Reported) Lisinopril (Lisinopril) 2.5 Mg Tab, 2.5 MG PO DAILY, (Reported) Nebivolol (Bystolic) 20 Mg Tab, 20 MG PO QHS, (Reported) Nitroglycerin (Nitroglycerin) 0.4 Mg/Hr Dis, 1 PATCH TD DAILY, (Reported) Omeprazole (Prilosec) 20 Mg Cap, 20 MG PO DAILY, (Reported) Polysaccharide Iron (Poly-Iron 150) 150 Mg Cap, 150 MG PO DAILY, (Reported) Pregabalin (Lyrica) 50 Mg Cap, 75 MG PO BID, (Reported) Tizanidine Hydrochloride (Zanaflex) 4 Mg Tab, 4 MG PO QHS, (Reported) Karen Pak Jun 20, 2017 11:15
[2017-06-20 11:37] VITALS: BP 163/74
--- NOTE | 2017-06-20 12:07 | IPNPDOC ---
[employer] Progress Note DATE OF SERVICE: 06/20/17 DATE OF ADMISSION: Jun 19, 2017 at 13:33 INPATIENT REHABILITATION ADMISSION DAY: #2 SUBJECTIVE: The patient is a right-handed 72-year-old white female who had developed bilateral low leg pain over the last couple of months and was seen by Dr. Beatriz Waite in orthopedics. She was found to have nondisplaced linear, essentially fractures of the distal fibulas and was placed in bilateral fracture boots. On the day of 06/11/2017, patient while wearing her fracture boots was getting up off the toilet using some handgrips her had put into the wall, and as she did this she heard a loud crack coming from her right leg and then felt severe pain in the distal aspect of her right leg. She was brought to the emergency room and evaluated at [facility] and was found to have a distal right tibia-fibula fracture with some angulation. Patient was uncertain as to treatment and after weighing the options elected an intramedullary nailing with screw fixation on 06/14/2017. Patient has had significant problems with pain from the fracture and the procedure and has a history of chronic low back pain and difficulty with managing pain going into this. Today she notes some feeling of numbness in the right toes, and worries that she will be discharged from the unit. ALLERGIES: See Below MEDICATIONS: Reviewed, see below. OBJECTIVE: VITAL SIGNS: Please see below. PHYSICAL EXAMINATION: GENERAL: Short obese elderly white female in very mild musculoskeletal distress with bit of anxiousness but overall alert and well oriented. HEENT: Normocephalic atraumatic. CARDIOVASCULAR: Regular rate and rhythm with normal S1-S2. 2/4 bilateral radial pulses. LUNGS: All veloz clear to auscultation. ABDOMEN: Obese, nontender with normal bowel sounds in all quadrants. NEUROLOGICAL: Alert and oriented 4. Patient is pleasant but anxious and needs reassurance. Light touch in bilateral toes is symmetrical and intact. No motor changes from admission. SKIN: Intramedullary nail insertion site covered with stop the foam without drainage. LABORATORY DATA: Reviewed. Please see below. MICROBIOLOGY: Please see below. IMAGING: No new imaging. DVT prophylaxis ordered?: Lovenox and JOSIAH hose on the left lower extremity. ASSESSMENT AND PLAN: 1. Rehabilitation of right tib-fib fracture status post intramedullary nail using fracture boots for the right as well as the left distal fibular stress fracture: Starting physical and occupational therapy today. We will need to emphasize to patient first safety and abilities as she progresses to try and diminish her anxiety and fears. Patient should be able to do well and at this time I anticipate a 7-10 day stay. 2. Anemia: H&H 9.9 and 32.0%. We will continue to watch. 3. Type 2 diabetes mellitus: Is unclear whether they're consistency diet is the cause of the lower blood sugars this morning, but I will go ahead and diminish the twice a day Detemir insulin to 60 units twice a day. However I will decrease the morning dose to 50 piece for resuming the twice a day treatments this evening. Patient's diabetes discussed with Ms. Pak of the hospitalist service and she will make further adjustments as appropriate. 4. Anxiety: At this time we'll try him more to reinforce patient's skills and improvement and the lay her fears as this seems to be blocking her ability to optimize the training and learning in therapies. I wish to avoid using benzodiazepines as this will only worsen her ability to learn. TIME SPENT: Chart Review, examination and documentation require greater than 25 minutes. Allergies Coded Allergies: Warfarin (Verified Adverse Reaction, Mild, NAUSEA/DIZZY, 06/10/17) Amlodipine (Verified Adverse Reaction, Unknown, COUGH, 06/10/17) Vital Signs Vital Signs Date Time Temp Pulse Resp B/P (MAP) Pulse Ox O2 Delivery O2 Flow Rate FiO2 06/20/17 11:37 98.0 65 20 163/74 (103) 95 Nasal Cannula 2.0 06/20/17 09:07 94 Laboratory Data CBC/BMP Laboratory Tests 06/20/17 06:21 Red Blood Count 3.65 L, Mean Corpuscular Volume 87.7, Mean Corpuscular Hemoglobin 27.1, Mean Corpuscular Hemoglobin Concent 30.9 L, Red Cell Distribution Width 18.6 H, Neutrophils (%) (Auto) 61.6, Lymphocytes (%) (Auto) 20.9 L, Monocytes (%) (Auto) 8.8 H, Eosinophils (%) (Auto) 7.3 H, Basophils (%) (Auto) 0.8, Neutrophils # (Auto) 3.8, Lymphocytes # (Auto) 1.3 L, Monocytes # ( Auto) 0.5, Eosinophils # (Auto) 0.5, Basophils # (Auto) 0.1, Calcium Level 9.8, Aspartate Amino Transf (AST/SGOT) 21, Alanine Aminotransferase (ALT/SGPT) 31, Alkaline Phosphatase 105, Total Bilirubin 0.5, Total Protein 6.3 L, Albumin 2.4 L Labs 24H Laboratory Tests 2 06/19/17 17:03: Bedside Glucose (Misc Panel) 173H 06/19/17 20:12: Bedside Glucose (Misc Panel) 240H 06/20/17 06:21: White Blood Count 6.2, Red Blood Count 3.65L, Hemoglobin 9.9L, Hematocrit 32.0L , Mean Corpuscular Volume 87.7, Mean Corpuscular Hemoglobin 27.1, Mean Corpuscular Hemoglobin Concent 30.9L, Red Cell Distribution Width 18.6H, Platelet Count 222, Neutrophils (%) (Auto) 61.6, Lymphocytes (%) (Auto) 20.9L, Monocytes (%) (Auto) 8.8H, Eosinophils (%) (Auto) 7.3H, Basophils (%) (Auto) 0.8 , Neutrophils # (Auto) 3.8, Lymphocytes # (Auto) 1.3L, Monocytes # (Auto) 0.5, Eosinophils # (Auto) 0.5, Basophils # (Auto) 0.1, Immature Granulocyte # (Auto) 0.0, Nucleated Red Blood Cells % (auto) 0.0, Anion Gap 4L, Glomerular Filtration Rate > 60.0, Blood Urea Nitrogen 26H, Creatinine 0.73, Sodium Level 141, Potassium Level 3.6, Chloride Level 104, Carbon Dioxide Level 33H, Calcium Level 9.8, Aspartate Amino Transf (AST/SGOT) 21, Alanine Aminotransferase (ALT/ SGPT) 31, Alkaline Phosphatase 105, Total Bilirubin 0.5, Total Protein 6.3L, Albumin 2.4L, Albumin/Globulin Ratio 0.62L 06/20/17 08:13: Bedside Glucose (Misc Panel) 56L 06/20/17 08:48: Bedside Glucose (Misc Panel) 145H 06/20/17 11:27: Bedside Glucose (Misc Panel) 191H Current Medications Current Medications Current Medications Acetaminophen (Tylenol Tab) 650 mg Q6HP PRN PO PAIN OR FEVER Last administered on 06/19/17 18:16; Start 06/19/17 at 13:45; Stop 07/19/17 at 13:44 Amlodipine Besylate (Norvasc) 5 mg BID PO ; Start 06/20/17 at 21:00; Stop 07/20 at 20:59 Amlodipine Besylate (Norvasc) 5 mg DAILY PO Last administered on 06/20/17 09: 03; Start 06/20/17 at 09:00; Stop 06/20/17 at 11:38; Status DC Atorvastatin Calcium (Lipitor) 20 mg QHS PO Last administered on 06/19/17 20: 36; Start 06/19/17 at 21:00; Stop 07/19/17 at 20:59 Benzonatate (Tessalon Perles) 100 mg TID PO Last administered on 06/20/17 09: 04; Start 06/19/17 at 16:00; Stop 07/19/17 at 15:59 Ceftriaxone Sodium 1 gm/ Dextrose 50 ml @ 100 mls/hr Q24H IV Last administered on 06/20/17 08:52; Start 06/20/17 at 09:00; Stop 06/25/17 at 23:55 Dextrose (Dextrose 50%) 25 ml ASDIRECTED PRN IV SEE LABEL COMMENTS Last administered on 06/20/17 08:24; Start 06/19/17 at 14:00; Stop 07/19/17 at 13: 59 Enoxaparin Sodium (Lovenox) 40 mg DAILY SC Last administered on 06/20/17 09:00 ; Start 06/20/17 at 09:00; Stop 06/25/17 at 08:59 Fluconazole (Diflucan) 200 mg DAILY PO Last administered on 06/20/17 09:02; Start 06/20/17 at 09:00; Stop 06/25/17 at 23:55 Glucagon (Glucagon) 1 mg ASDIRECTED PRN SC SEE LABEL COMMENTS; Start 06/19/17 at 14:00; Stop 07/19/17 at 13:59 Glucose (Glucose) 16 GM ASDIRECTED PRN PO SEE LABEL COMMENTS; Start 06/19/17 at 14:00; Stop 07/19/17 at 13:59 Hydralazine HCl (Apresoline) 50 mg BID PO Last administered on 06/20/17 09:02 ; Start 06/19/17 at 21:00; Stop 07/19/17 at 20:59 Insulin Detemir (Levemir Insulin) 60 units BID SC ; Start 06/20/17 at 21:00; Stop 07/20/17 at 20:59 Insulin Detemir (Levemir Insulin) 70 units BID SC Last administered on 20:37; Start 06/19/17 at 21:00; Stop 06/20/17 at 08:52; Status DC Insulin Human Lispro (HumaLOG INSULIN) See Protocol Table AC SC Last administered on 06/19/17 18:16; Start 06/19/17 at 17:30; Stop 07/19/17 at 17: 29 Insulin Human Lispro (HumaLOG INSULIN) See Protocol Table QHS SC ; Start at 21:00; Stop 07/19/17 at 20:59 Nebivolol (Bystolic) 20 mg QHS PO Last administered on 06/19/17 20:36; Start 06/19/17 at 21:00; Stop 07/19/17 at 20:59 Nitroglycerin (Nitrodur 0.4 Mg/ Hr) 1 patch DAILY TD Last administered on 09:01; Start 06/20/17 at 09:00; Stop 07/20/17 at 08:59 Non-Formulary Medication ( See Comment Field Below ) DAILY@21 XX Last administered on 06/19/17 20:37; Start 06/19/17 at 21:00; Stop 07/19/17 at 20: 59 Omeprazole (PriLOSEC) 20 mg DAILY PO Last administered on 06/20/17 09:01; Start 06/20/17 at 09:00; Stop 07/20/17 at 08:59 Oxycodone HCl (OxyCONTIN) 10 mg BID PO Last administered on 06/20/17 09:07; Start 06/19/17 at 21:00; Stop 06/26/17 at 20:59 Oxycodone HCl (Roxicodone, Oxyir) 5 mg Q4HP PRN PO PAIN 8-10; Start 06/19/17 at 14:00; Stop 06/26/17 at 13:59 Pregabalin (Lyrica) 75 mg BID PO Last administered on 06/20/17 09:03; Start at 21:00; Stop 06/26/17 at 20:59 Senna/Docusate Sodium (Senokot S) 1 tab BID PO Last administered on 06/20/17 09:03; Start 06/19/17 at 21:00; Stop 07/19/17 at 20:59 Sodium Biphosphate/ Sodium Phosphate (Fleet Enema) 1 ea DAILYPRN PRN NC CONSTIPATION; Start 06/19/17 at 13:45; Stop 07/19/17 at 13:44 Tramadol HCl (Ultram Er) 100 mg BID PO Last administered on 06/20/17 09:05; Start 06/19/17 at 21:00; Stop 06/26/17 at 20:59 Vitamin D (Vitamin D) 5,000 units DAILY PO Last administered on 06/20/17 09:03 ; Start 06/20/17 at 09:00; Stop 07/20/17 at 08:59 FREDERICK DALEY MD Jun 20, 2017 12:07
[2017-06-20 14:00] VITALS: BP 163/71
[2017-06-20] MEDS: ASPIRIN 325 MG TAB PO SCH (17:41)
[2017-06-20 20:00] VITALS: BP 170/72
[2017-06-20] MEDS: ATORVASTATIN 20 MG TAB PO SCH (20:15)
[2017-06-20] MEDS: NEBIVOLOL 5 MG TAB (BYSTOLIC) PO SCH (20:17)
[2017-06-20] MEDS: amLODIPine 5 MG TAB PO SCH (20:17)
[2017-06-20] MEDS: LEVEMIR (INSULIN DETEMIR) 1 UNITS/0.01ML SC SCH (20:18)
[2017-06-20] MEDS: **NOTE PATIENT COMMENT** MISC XX SCH (20:18)
[2017-06-21 06:00] VITALS: BP 138/64
[2017-06-21] MEDS: HumaLOG INSULIN (NovoLOG) PER UNIT SC SCH ×4 (09:18→20:16)
[2017-06-21] MEDS: NITROGLYCERIN 0.4 MG/HR PATCH TD SCH (09:18)
[2017-06-21] MEDS: amLODIPine 5 MG TAB PO SCH ×2 (09:19→20:16)
[2017-06-21] MEDS: OMEPRAZOLE 20 MG CAP PO SCH (09:19)
[2017-06-21] MEDS: ENOXAPARIN 40 MG/0.4 ML SYRINGE (J1650) SC SCH (09:19)
[2017-06-21] MEDS: oxyCODONE 10 MG CR TAB PO SCH ×2 (09:19→20:12)
[2017-06-21] MEDS: PREGABALIN 75 MG CAP(LYRICA) PO SCH ×2 (09:20→20:13)
[2017-06-21] MEDS: BENZONATATE 100 MG CAP PO SCH ×3 (09:20→20:13)
[2017-06-21] MEDS: VITAMIN D 1,000 INTERNATIONAL UNITS TABLET PO SCH (09:20)
[2017-06-21] MEDS: **hydrALAZINE** 50 MG TAB PO SCH ×2 (09:20→20:15)
[2017-06-21] MEDS: SENOKOT S TAB PO SCH ×2 (09:20→20:13)
[2017-06-21] MEDS: ASPIRIN 325 MG TAB PO SCH (09:20)
[2017-06-21] MEDS: FLUCONAZOLE 100 MG TAB PO SCH (09:20)
[2017-06-21] MEDS: LEVEMIR (INSULIN DETEMIR) 1 UNITS/0.01ML SC SCH ×2 (09:21→20:16)
[2017-06-21] MEDS: traMADol ER 100MG TABLET (ULTRAM ER) PO SCH ×2 (09:21→20:12)
[2017-06-21] MEDS: cefTRIAXone SOD 1 GM in D5W MINI-BAG PLUS 50 ML IV SCH (09:22)
--- NOTE | 2017-06-21 09:23 | IPNPDOC ---
[employer] Progress Note DATE OF SERVICE: 06/21/17 DATE OF ADMISSION: Jun 19, 2017 at 13:33 INPATIENT REHABILITATION ADMISSION DAY: #3 SUBJECTIVE: The patient is a right-handed 72-year-old white female who had developed bilateral low leg pain over the last couple of months and was seen by Dr. Beatriz Waite in orthopedics. She was found to have nondisplaced linear, essentially fractures of the distal fibulas and was placed in bilateral fracture boots. On the day of 06/11/2017, patient while wearing her fracture boots was getting up off the toilet using some handgrips her had put into the wall, and as she did this she heard a loud crack coming from her right leg and then felt severe pain in the distal aspect of her right leg. She was brought to and evaluated at [facility] emergency room and was found to have a distal right tibia-fibula fracture with some angulation. Patient was uncertain as to treatment and after weighing the options elected an intramedullary nailing with screw fixation on 06/14/2017. Patient has had significant problems with pain from the fracture and the procedure and has a history of chronic low back pain and difficulty with managing pain going into this. Patient with BM this morning after none since 06/16. No complaints. ALLERGIES: See Below MEDICATIONS: Reviewed, see below. OBJECTIVE: VITAL SIGNS: Please see below. PHYSICAL EXAMINATION: GENERAL: Short obese elderly white female in very mild musculoskeletal distress with bit of anxiousness but overall alert and well oriented. HEENT: Normocephalic atraumatic. CARDIOVASCULAR: Regular rate and rhythm with normal S1-S2. 2/4 bilateral radial pulses. LUNGS: All veloz clear to auscultation. ABDOMEN: Obese, nontender with normal bowel sounds in all quadrants. NEUROLOGICAL: Alert and oriented 4. Patient is pleasant but less anxious today , but still needs reassurance. Sensory motor intact in BU&LE's SKIN: Intramedullary nail insertion site covered with stop the foam without drainage. LABORATORY DATA: Reviewed. Please see below. MICROBIOLOGY: Please see below. IMAGING: No new imaging. DVT prophylaxis ordered?: Lovenox and JOSIAH hose on the left lower extremity. ASSESSMENT AND PLAN: 1. Rehabilitation of right tib-fib fracture status post intramedullary nail using fracture boots for the right as well as the left distal fibular stress fracture: Starting physical and occupational therapy today. We will need to emphasize to patient first safety and abilities as she progresses to try and diminish her anxiety and fears. Patient should be able to do well and at this time I anticipate a 7-10 day stay. REHAB. TEAM ROUNDS: Patient working with PT, OT and Rehab. Nursing, but is self- limited due to fear of pain and injury, so she is progressing slower than anticipated. However, this is improving and we need to reinforce to patient her ability and safety in the training activities. She is doing better with regards to exercises and Upper Extremity activities. She may need some anxiolytic medication, but for now we will try positive reinforcement, which is having some effect and is not amnesic like the anxiety medications. Current Anticipated Date of Discharge to home is 07/03/17. 2. Anemia: H&H 9.9 and 32.0%. We will continue to watch. 3. Type 2 diabetes mellitus: Is unclear whether they're consistency diet is the cause of the lower blood sugars this morning, but I will go ahead and diminish the twice a day Detemir insulin to 60 units twice a day. Patient's diabetes discussed with Ms. Pak of the hospitalist service and she will make further adjustments as appropriate. 4. Anxiety: At this time we'll try him more to reinforce patient's skills and improvement and allay her fears as this seems to be blocking her ability to optimize the training and learning in therapies. I wish to avoid using benzodiazepines as this will only worsen her ability to learn. TIME SPENT: Chart Review, examination and documentation require greater than 25 minutes. Allergies Coded Allergies: Warfarin (Verified Adverse Reaction, Mild, NAUSEA/DIZZY, 06/10/17) Amlodipine (Verified Adverse Reaction, Unknown, COUGH, 06/10/17) Vital Signs Vital Signs Date Time Temp Pulse Resp B/P (MAP) Pulse Ox O2 Delivery O2 Flow Rate FiO2 06/21/17 06:00 97.6 60 19 138/64 (88) 97 Nasal Cannula 2.0 06/20/17 09:07 94 Laboratory Data Labs 24H Laboratory Tests 2 06/20/17 11:27: Bedside Glucose (Misc Panel) 191H 06/20/17 17:28: Bedside Glucose (Misc Panel) 214H 06/20/17 20:04: Bedside Glucose (Misc Panel) 298H 06/21/17 06:12: Bedside Glucose (Misc Panel) 105 Current Medications Current Medications Current Medications Acetaminophen (Tylenol Tab) 650 mg Q6HP PRN PO PAIN OR FEVER Last administered on 06/19/17 18:16; Start 06/19/17 at 13:45; Stop 07/19/17 at 13:44 Amlodipine Besylate (Norvasc) 5 mg BID PO Last administered on 06/20/17 20:17 ; Start 06/20/17 at 21:00; Stop 07/20/17 at 20:59 Amlodipine Besylate (Norvasc) 5 mg DAILY PO Last administered on 06/20/17 09: 03; Start 06/20/17 at 09:00; Stop 06/20/17 at 11:38; Status DC Aspirin (Aspirin) 325 mg DAILY PO Last administered on 06/20/17 17:41; Start 06/20/17 at 09:00; Stop 07/20/17 at 08:59 Atorvastatin Calcium (Lipitor) 20 mg QHS PO Last administered on 06/20/17 20: 15; Start 06/19/17 at 21:00; Stop 07/19/17 at 20:59 Benzonatate (Tessalon Perles) 100 mg TID PO Last administered on 06/20/17 20: 18; Start 06/19/17 at 16:00; Stop 07/19/17 at 15:59 Ceftriaxone Sodium 1 gm/ Dextrose 50 ml @ 100 mls/hr Q24H IV Last administered on 06/20/17 08:52; Start 06/20/17 at 09:00; Stop 06/21/17 at 12:00 Dextrose (Dextrose 50%) 25 ml ASDIRECTED PRN IV SEE LABEL COMMENTS Last administered on 06/20/17 08:24; Start 06/19/17 at 14:00; Stop 07/19/17 at 13: 59 Enoxaparin Sodium (Lovenox) 40 mg DAILY SC Last administered on 06/20/17 09:00 ; Start 06/20/17 at 09:00; Stop 06/25/17 at 08:59 Fluconazole (Diflucan) 200 mg DAILY PO Last administered on 06/20/17 09:02; Start 06/20/17 at 09:00; Stop 06/24/17 at 12:00 Glucagon (Glucagon) 1 mg ASDIRECTED PRN SC SEE LABEL COMMENTS; Start 06/19/17 at 14:00; Stop 07/19/17 at 13:59 Glucose (Glucose) 16 GM ASDIRECTED PRN PO SEE LABEL COMMENTS; Start 06/19/17 at 14:00; Stop 07/19/17 at 13:59 Hydralazine HCl (Apresoline) 50 mg BID PO Last administered on 06/20/17 20:18 ; Start 06/19/17 at 21:00; Stop 07/19/17 at 20:59 Insulin Detemir (Levemir Insulin) 60 units BID SC Last administered on 20:18; Start 06/20/17 at 21:00; Stop 07/20/17 at 20:59 Insulin Detemir (Levemir Insulin) 70 units BID SC Last administered on 20:37; Start 06/19/17 at 21:00; Stop 06/20/17 at 08:52; Status DC Insulin Human Lispro (HumaLOG INSULIN) See Protocol Table AC SC Last administered on 06/20/17 17:41; Start 06/19/17 at 17:30; Stop 07/19/17 at 17: 29 Insulin Human Lispro (HumaLOG INSULIN) See Protocol Table QHS SC Last administered on 06/20/17 20:18; Start 06/19/17 at 21:00; Stop 07/19/17 at 20: 59 Nebivolol (Bystolic) 20 mg QHS PO Last administered on 06/20/17 20:17; Start 06/19/17 at 21:00; Stop 07/19/17 at 20:59 Nitroglycerin (Nitrodur 0.4 Mg/ Hr) 1 patch DAILY TD Last administered on 09:01; Start 06/20/17 at 09:00; Stop 07/20/17 at 08:59 Non-Formulary Medication ( See Comment Field Below ) DAILY@21 XX Last administered on 06/20/17 20:18; Start 06/19/17 at 21:00; Stop 07/19/17 at 20: 59 Nystatin (Mycostatin Powder, Nystop) to skin folds сергей. abdominal BID TOP ; Start 06/21/17 at 09:00; Stop 07/21/17 at 08:59 Omeprazole (PriLOSEC) 20 mg DAILY PO Last administered on 06/20/17 09:01; Start 06/20/17 at 09:00; Stop 07/20/17 at 08:59 Oxycodone HCl (OxyCONTIN) 10 mg BID PO Last administered on 06/20/17 20:16; Start 06/19/17 at 21:00; Stop 06/26/17 at 20:59 Oxycodone HCl (Roxicodone, Oxyir) 5 mg Q4HP PRN PO PAIN 8-10; Start 06/19/17 at 14:00; Stop 06/26/17 at 13:59 Pregabalin (Lyrica) 75 mg BID PO Last administered on 06/20/17 20:16; Start at 21:00; Stop 06/26/17 at 20:59 Senna/Docusate Sodium (Senokot S) 1 tab BID PO Last administered on 06/20/17 20:17; Start 06/19/17 at 21:00; Stop 07/19/17 at 20:59 Sodium Biphosphate/ Sodium Phosphate (Fleet Enema) 1 ea DAILYPRN PRN NC CONSTIPATION; Start 06/19/17 at 13:45; Stop 07/19/17 at 13:44 Tramadol HCl (Ultram Er) 100 mg BID PO Last administered on 06/20/17 20:17; Start 06/19/17 at 21:00; Stop 06/26/17 at 20:59 Vitamin D (Vitamin D) 5,000 units DAILY PO Last administered on 06/20/17 09:03 ; Start 06/20/17 at 09:00; Stop 07/20/17 at 08:59 FREDERICK DALEY MD Jun 21, 2017 09:23
[2017-06-21] MEDS: NYSTATIN 100,000 UNITS/GM TOPICAL PWD 15 GM TOP SCH ×2 (12:47→20:13)
--- NOTE | 2017-06-21 13:34 | IPNPDOC ---
Date Seen The patient was seen on 06/21/17. Progress Note HPI: 72year oldF with history of bilateral lower extremity stress fracture followed by Dr. Maciel and prescribed bilateral boots, presented to [facility] on 06/11/17 for worsening of right lower extremity pain. The patient was found to have acute nondisplaced fracture of the distal tibia and fibula, status post right tibia IM nailing as per Dr. Maciel 06/15/17. The patient is subsequently transferred to the care of IVONE Chaney. No acute medical complaints today. Denies any fevers, chills, weakness, fatigue , Headache, Chest Pain, Shortness of breath, cough, palpitations, abdominal pain , N/V/D or changes in bowel or bladder habits. PMHx: Hemochromatosis Hypertension DM CAD/status post CABG Lumbar stenosis status post laminectomy CKD Possible JEANNETTE. Sleep study pending as outpt PSHX: Appendectomy Bilateral tubal ligation Hysterectomy CABG Laminectomy 2014 PE: GEN: 72yoF, appears stated age. Well-nourished, well developed. No acute distress. Alert and oriented x 3. Pleasant, interactive. HEENT: Normocephalic, atraumatic. Moist mucous membranes. Pharynx moist. Neck supple, trachea midline. CHEST: Regular rate and rhythm, +S1, +S2 LUNGS: Few rales bases B/L. No wheezes,or rhonchi. Breathing appears symmetric and easy. ABD: Round, soft, non-tender, non-distended. +Bowel sounds throughout. No rebound or guarding. No costovertebral angle tenderness. EXT: B/L boots. SKIN: Mabel, dry, warm. No rashes. NEURO: No focal deficits appreciated. A&P: 72year oldF with history of bilateral lower extremity stress fracture followed by Dr. Maciel and prescribed bilateral boots, presented to [facility] on 06/11/17 for worsening of right lower extremity pain. The patient was found to have acute nondisplaced fracture of the distal tibia and fibula, status post right tibia IM nailing as per Dr. Maciel 06/15/17. The patient is subsequently transferred to the care of IVONE Chaney. 1. Displaced right distal tibial and fibular fracture, with prior left fracture/ status post right tibia IM nailing 06/15/[address] Maciel, orthopedics. Continue management/follow-up with orthopedics. Management as per IVONE Chaney. PT OT as per IVONE Chaney. Pain control as per IVONE Chaney Bowel care as per IVONE Chaney. DVT prophylaxis as per IVONE Chaney. Lovenox. Vit D 35 06/15/17. It is questionable whether patient has been having pathologic fractures. Plan for outpatient DEXA scan. Not clear whether the patient's underlying hemochromatosis contributing. Plan for outpatient rheumatology/endocrine/hematology f/u. 2. Chronic kidney disease- SCr 0.73. Diuretics/HAMIDA inhibitor held. Seen by nephrology during [facility] admission. 3. Hypertension-blood pressure noted to be 138/64. HAMIDA inhibitor (Lisinopril 2.5mg) and Bumex 1 mg BID held. Amlodipine 5 mg BID with hold parameters. Hydralazine 50 mg by mouth twice a day with hold parameters. Nitroglycerin patch daily. Consider adding back ACEI or diuretic if needed. Bystolic daily at . 4. Diabetes mellitus-CC diet. Levemir 60 units twice a day (decreased slightly related to low BS this AM). No further hypoglycemia noted. Continue sliding scale insulin. Monitor. 5. History of hemochromatosis- not on treatment at this time. Plan for outpatient follow-up. 6. Chronic lower back pain status post laminectomy- controlled. 7. H/o CAD s/p CABG. On BB and statin. Restart ASA 325 mg daily. 8. Osteoporosis. 9. Possible JEANNETTE. Cont supplemental O2 prn. Sleep study pending as outpt. 10. Infectious. Pt is afebrile. Asymptomatic. UA 06/14/17 with yeast. UC 06/14/17 neg. I/S. IV Rocephin D7/7./po Diflucan. VS, I&O, 24H, Fishbone Vital Signs/I&O Vital Signs Date Time Temp Pulse Resp B/P (MAP) Pulse Ox O2 Delivery O2 Flow Rate FiO2 06/21/17 09:19 18 Nasal Cannula 1.0 06/21/17 09:18 138/64 06/21/17 06:00 97.6 60 97 06/20/17 09:07 94 I&O- Last 24 Hours up to 6 AM 06/22/17 05:59 Intake Total 680 ml Output Total 0 ml Balance 680 ml Laboratory Data 24H LABS Laboratory Tests 2 06/20/17 17:28: Bedside Glucose (Misc Panel) 214H 06/20/17 20:04: Bedside Glucose (Misc Panel) 298H 06/21/17 06:12: Bedside Glucose (Misc Panel) 105 06/21/17 11:29: Bedside Glucose (Misc Panel) 176H Karen Pak Jun 21, 2017 13:34
[2017-06-21 14:00] VITALS: BP 160/82
[2017-06-21] MEDS: ACETAMINOPHEN TAB 650MG DOSE (2X325MG) PO PRN (16:09)
[2017-06-21 20:00] VITALS: BP 158/68
[2017-06-21] MEDS: TAMSULOSIN 0.4 MG CAP PO SCH (20:13)
[2017-06-21] MEDS: NEBIVOLOL 5 MG TAB (BYSTOLIC) PO SCH (20:15)
[2017-06-21] MEDS: ATORVASTATIN 20 MG TAB PO SCH (20:15)
[2017-06-21] MEDS: **NOTE PATIENT COMMENT** MISC XX SCH (20:17)
[2017-06-22 06:00] VITALS: BP 131/62
[2017-06-22 07:38] LABS: MEAN CORPUSCULAR HEMOGLOBIN 27.7 pg (27.0-33.0); MEAN CORPUSCULAR HGB CONC 31.7 g/dl (32.0-36.5); MEAN CORPUSCULAR VOLUME 87.2 fl (80.0-96.0); RED CELL DISTRIBUTION WIDTH 18.6 % (11.5-14.5); WHITE BLOOD COUNT 7.8 10^3/uL (4.0-10.0)
[2017-06-22] MEDS: traMADol ER 100MG TABLET (ULTRAM ER) PO SCH ×2 (08:12→20:37)
[2017-06-22] MEDS: VITAMIN D 1,000 INTERNATIONAL UNITS TABLET PO SCH (08:13)
[2017-06-22] MEDS: ENOXAPARIN 40 MG/0.4 ML SYRINGE (J1650) SC SCH (08:13)
[2017-06-22] MEDS: NITROGLYCERIN 0.4 MG/HR PATCH TD SCH (08:13)
[2017-06-22] MEDS: SENOKOT S TAB PO SCH ×2 (08:14→20:39)
[2017-06-22] MEDS: amLODIPine 5 MG TAB PO SCH ×2 (08:14→20:39)
[2017-06-22] MEDS: oxyCODONE 10 MG CR TAB PO SCH ×2 (08:14→20:38)
[2017-06-22] MEDS: BENZONATATE 100 MG CAP PO SCH ×3 (08:14→20:38)
[2017-06-22] MEDS: OMEPRAZOLE 20 MG CAP PO SCH (08:14)
[2017-06-22] MEDS: PREGABALIN 75 MG CAP(LYRICA) PO SCH ×2 (08:14→20:39)
[2017-06-22] MEDS: ASPIRIN 325 MG TAB PO SCH (08:14)
[2017-06-22] MEDS: HumaLOG INSULIN (NovoLOG) PER UNIT SC SCH ×4 (08:15→20:43)
[2017-06-22] MEDS: LEVEMIR (INSULIN DETEMIR) 1 UNITS/0.01ML SC SCH ×2 (08:15→20:40)
[2017-06-22] MEDS: **hydrALAZINE** 50 MG TAB PO SCH ×2 (08:15→20:39)
[2017-06-22] MEDS: FLUCONAZOLE 100 MG TAB PO SCH (08:15)
[2017-06-22] MEDS: NYSTATIN 100,000 UNITS/GM TOPICAL PWD 15 GM TOP SCH ×2 (08:16→20:37)
--- NOTE | 2017-06-22 11:01 | IPNPDOC ---
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 Beatriz Waite in orthopedics. She was found to have nondisplaced linear, essentially fractures of the distal fibulas and was placed in bilateral fracture boots. On the day of 06/11/2017, patient while wearing her fracture boots was getting up off the toilet using some handgrips her had put into the wall, and as she did this she heard a loud crack coming from her right leg and then felt severe pain in the distal aspect of her right leg. She was brought to and evaluated at [facility] emergency room and was found to have a distal right tibia-fibula fracture with some angulation. Patient was uncertain as to treatment and after weighing the options elected an intramedullary nailing with screw fixation on 06/14/2017. Patient has had significant problems with pain from the fracture and the procedure and has a history of chronic low back pain and difficulty with managing pain going into this. Patient with complaints of pain at Lovenox injection and the bruises. ALLERGIES: See Below MEDICATIONS: Reviewed, see below. OBJECTIVE: VITAL SIGNS: Please see below. PHYSICAL EXAMINATION: GENERAL: Short obese elderly white female in very mild musculoskeletal distress with bit of anxiousness but overall alert and well oriented. HEENT: Normocephalic atraumatic. CARDIOVASCULAR: Regular rate and rhythm with normal S1-S2. 2/4 bilateral radial pulses. LUNGS: All veloz clear to auscultation. ABDOMEN: Obese, nontender with normal bowel sounds in all quadrants. NEUROLOGICAL: Alert and oriented 4. Patient is pleasant but less anxious today , but still needs reassurance. Sensory motor intact in BU&LE's SKIN: Intramedullary nail insertion site covered with stop the foam without drainage. LABORATORY DATA: Reviewed. Please see below. MICROBIOLOGY: Please see below. IMAGING: No new imaging. DVT prophylaxis ordered?: Lovenox and JOSIAH hose on the left lower extremity. ASSESSMENT AND PLAN: 1. Rehabilitation of right tib-fib fracture status post intramedullary nail using fracture boots for the right as well as the left distal fibular stress fracture: Starting physical and occupational therapy today. We will need to emphasize to patient first safety and abilities as she progresses to try and diminish her anxiety and fears. Better efforts and performance in therapies daily. Current Anticipated Date of Discharge to home is 07/03/17. 2. Anemia: H&H 9.3 and 29.9%. We will continue to watch, but likely this is the improved hydration as patient is trying to drink more. 3. Type 2 diabetes mellitus: Is unclear whether they're consistency diet is the cause of the lower blood sugars this morning, but I will go ahead and diminish the twice a day Detemir insulin to 60 units twice a day, which is keeping BS's in the 100 to low 200's. Ms. Pak and the hospitalist service will make further adjustments as appropriate. 4. Anxiety: At this time we'll try as able to reinforce patient's skills and improvement and allay her fears as this seems to be blocking her ability to optimize the training and learning in therapies. I wish to avoid using benzodiazepines as this will only worsen her ability to learn. TIME SPENT: Chart Review, examination and documentation require greater than 25 minutes. Allergies Coded Allergies: Warfarin (Verified Adverse Reaction, Mild, NAUSEA/DIZZY, 06/10/17) Amlodipine (Verified Adverse Reaction, Unknown, COUGH, 06/10/17) Vital Signs Vital Signs Date Time Temp Pulse Resp B/P (MAP) Pulse Ox O2 Delivery O2 Flow Rate FiO2 06/22/17 08:15 131/62 06/22/17 08:14 57 06/22/17 08:14 20 Room Air 06/22/17 08:00 1.0 06/22/17 06:00 97.6 98 06/20/17 09:07 94 Laboratory Data CBC/BMP Laboratory Tests 06/22/17 06:48 Red Blood Count 3.36 L, Mean Corpuscular Volume 87.2, Mean Corpuscular Hemoglobin 27.7, Mean Corpuscular Hemoglobin Concent 31.7 L, Red Cell Distribution Width 18.6 H Labs 24H Laboratory Tests 2 06/21/17 11:29: Bedside Glucose (Misc Panel) 176H 06/21/17 16:21: Bedside Glucose (Misc Panel) 241H 06/21/17 20:01: Bedside Glucose (Misc Panel) 240H 06/22/17 07:53: Bedside Glucose (Misc Panel) 144H 06/22/17 10:09: Bedside Glucose (Misc Panel) 167H Current Medications Current Medications Current Medications Acetaminophen (Tylenol Tab) 650 mg Q6HP PRN PO PAIN OR FEVER Last administered on 06/21/17 16:09; Start 06/19/17 at 13:45; Stop 07/19/17 at 13:44 Amlodipine Besylate (Norvasc) 5 mg BID PO Last administered on 06/22/17 08:14 ; Start 06/20/17 at 21:00; Stop 07/20/17 at 20:59 Amlodipine Besylate (Norvasc) 5 mg DAILY PO Last administered on 06/20/17 09: 03; Start 06/20/17 at 09:00; Stop 06/20/17 at 11:38; Status DC Aspirin (Aspirin) 325 mg DAILY PO Last administered on 06/22/17 08:14; Start 06/20/17 at 09:00; Stop 07/20/17 at 08:59 Atorvastatin Calcium (Lipitor) 20 mg QHS PO Last administered on 06/21/17 20: 15; Start 06/19/17 at 21:00; Stop 07/19/17 at 20:59 Benzonatate (Tessalon Perles) 100 mg TID PO Last administered on 06/22/17 08: 14; Start 06/19/17 at 16:00; Stop 07/19/17 at 15:59 Ceftriaxone Sodium 1 gm/ Dextrose 50 ml @ 100 mls/hr Q24H IV Last administered on 06/21/17 09:22; Start 06/20/17 at 09:00; Stop 06/21/17 at 12:00 ; Status DC Dextrose (Dextrose 50%) 25 ml ASDIRECTED PRN IV SEE LABEL COMMENTS Last administered on 06/20/17 08:24; Start 06/19/17 at 14:00; Stop 07/19/17 at 13: 59 Enoxaparin Sodium (Lovenox) 40 mg DAILY SC Last administered on 06/22/17 08:13 ; Start 06/20/17 at 09:00; Stop 06/25/17 at 08:59 Fluconazole (Diflucan) 200 mg DAILY PO Last administered on 06/22/17 08:15; Start 06/20/17 at 09:00; Stop 06/24/17 at 12:00 Glucagon (Glucagon) 1 mg ASDIRECTED PRN SC SEE LABEL COMMENTS; Start 06/19/17 at 14:00; Stop 07/19/17 at 13:59 Glucose (Glucose) 16 GM ASDIRECTED PRN PO SEE LABEL COMMENTS; Start 06/19/17 at 14:00; Stop 07/19/17 at 13:59 Hydralazine HCl (Apresoline) 50 mg BID PO Last administered on 06/22/17 08:15 ; Start 06/19/17 at 21:00; Stop 07/19/17 at 20:59 Insulin Detemir (Levemir Insulin) 60 units BID SC Last administered on 08:15; Start 06/20/17 at 21:00; Stop 07/20/17 at 20:59 Insulin Detemir (Levemir Insulin) 70 units BID SC Last administered on 20:37; Start 06/19/17 at 21:00; Stop 06/20/17 at 08:52; Status DC Insulin Human Lispro (HumaLOG INSULIN) See Protocol Table AC SC Last administered on 06/22/17 08:15; Start 06/19/17 at 17:30; Stop 07/19/17 at 17: 29 Insulin Human Lispro (HumaLOG INSULIN) See Protocol Table QHS SC Last administered on 06/20/17 20:18; Start 06/19/17 at 21:00; Stop 07/19/17 at 20: 59 Nebivolol (Bystolic) 20 mg QHS PO Last administered on 06/21/17 20:15; Start 06/19/17 at 21:00; Stop 07/19/17 at 20:59 Nitroglycerin (Nitrodur 0.4 Mg/ Hr) 1 patch DAILY TD Last administered on 08:13; Start 06/20/17 at 09:00; Stop 07/20/17 at 08:59 Non-Formulary Medication ( See Comment Field Below ) DAILY@21 XX Last administered on 06/21/17 20:17; Start 06/19/17 at 21:00; Stop 07/19/17 at 20: 59 Nystatin (Mycostatin Powder, Nystop) to skin folds сергей. abdominal BID TOP Last administered on 06/22/17 08:16; Start 06/21/17 at 09:00; Stop 07/21/17 at 08: 59 Omeprazole (PriLOSEC) 20 mg DAILY PO Last administered on 06/22/17 08:14; Start 06/20/17 at 09:00; Stop 07/20/17 at 08:59 Oxycodone HCl (OxyCONTIN) 10 mg BID PO Last administered on 06/22/17 08:14; Start 06/19/17 at 21:00; Stop 06/26/17 at 20:59 Oxycodone HCl (Roxicodone, Oxyir) 5 mg Q4HP PRN PO PAIN 8-10; Start 06/19/17 at 14:00; Stop 06/26/17 at 13:59 Pregabalin (Lyrica) 75 mg BID PO Last administered on 06/22/17 08:14; Start at 21:00; Stop 06/26/17 at 20:59 Senna/Docusate Sodium (Senokot S) 1 tab BID PO Last administered on 06/22/17 08:14; Start 06/19/17 at 21:00; Stop 07/19/17 at 20:59 Sodium Biphosphate/ Sodium Phosphate (Fleet Enema) 1 ea DAILYPRN PRN IA CONSTIPATION; Start 06/19/17 at 13:45; Stop 07/19/17 at 13:44 Tamsulosin HCl (Flomax) 0.4 mg QHS PO Last administered on 06/21/17 20:13; Start 06/21/17 at 21:00; Stop 07/21/17 at 20:59 Tramadol HCl (Ultram Er) 100 mg BID PO Last administered on 06/22/17 08:12; Start 06/19/17 at 21:00; Stop 06/26/17 at 20:59 Vitamin D (Vitamin D) 5,000 units DAILY PO Last administered on 06/22/17 08:13 ; Start 06/20/17 at 09:00; Stop 07/20/17 at 08:59 FREDERICK DALEY MD Jun 22, 2017 11:01
--- NOTE | 2017-06-22 11:08 | IPNPDOC ---
Date Seen The patient was seen on 06/22/17. Progress Note HPI: 72year oldF with history of bilateral lower extremity stress fracture followed by Dr. Maciel and prescribed bilateral boots, presented to [facility] on 06/11/17 for worsening of right lower extremity pain. The patient was found to have acute nondisplaced fracture of the distal tibia and fibula, status post right tibia IM nailing as per Dr. Maciel 06/15/17. The patient is subsequently transferred to the care of IVONE Chaney. Pt states she has noticed LE edema yesterday and today. As per staff she had desats in to the 60s briefly with activity and off supplemental O2. Back to upper 90s on 1 LNC. Denies any fevers, chills, weakness, fatigue, Headache, Chest Pain, Shortness of breath, cough, palpitations, abdominal pain, N/V/D or changes in bowel or bladder habits. PMHx: Hemochromatosis Hypertension DM CAD/status post CABG Lumbar stenosis status post laminectomy CKD Possible JEANNETTE. Sleep study pending as outpt PSHX: Appendectomy Bilateral tubal ligation Hysterectomy CABG Laminectomy 2014 PE: GEN: 72yoF, appears stated age. Well-nourished, well developed. No acute distress. Alert and oriented x 3. Pleasant, interactive. HEENT: Normocephalic, atraumatic. Moist mucous membranes. Pharynx moist. Neck supple, trachea midline. CHEST: Regular rate and rhythm, +S1, +S2 LUNGS: Few rales bases B/L. No wheezes,or rhonchi. Breathing appears symmetric and easy. ABD: Round, soft, non-tender, non-distended. +Bowel sounds throughout. No rebound or guarding. No costovertebral angle tenderness. EXT: B/L boots off currently. 1mm edema noted pedal and distal pretib. SKIN: [place], dry, warm. No rashes. NEURO: No focal deficits appreciated. A&P: 72year oldF with history of bilateral lower extremity stress fracture followed by Dr. Maciel and prescribed bilateral boots, presented to [facility] on 06/11/17 for worsening of right lower extremity pain. The patient was found to have acute nondisplaced fracture of the distal tibia and fibula, status post right tibia IM nailing as per Dr. Maciel 06/15/17. The patient is subsequently transferred to the care of IVONE Chaney. 1. Displaced right distal tibial and fibular fracture, with prior left fracture/ status post right tibia IM nailing 06/15/[address] Maciel, orthopedics. Continue management/follow-up with orthopedics. Management as per IVONE Chaney. PT OT as per IVONE Chaney. Pain control as per IVONE Chaney Bowel care as per IVONE Chaney. DVT prophylaxis as per IVONE Chaney. Lovenox. Urinary retention. Flomax added as per IVONE. Vit D 35 06/15/17. It is questionable whether patient has been having pathologic fractures. Plan for outpatient DEXA scan. Not clear whether the patient's underlying hemochromatosis contributing. Plan for outpatient rheumatology/endocrine/hematology f/u. 2. Chronic kidney disease- SCr 0.73. HAMIDA inhibitor on hold. Seen by nephrology during [facility] admission. 3. Hypertension-blood pressure noted to be 131-158 systolic. HAMIDA inhibitor (Lisinopril 2.5mg) on hold. Amlodipine 5 mg BID with hold parameters. Hydralazine 50 mg by mouth twice a day with hold parameters. Nitroglycerin patch daily. Add back Bumex 1 mg BID. LE edema noted today. CXR pending. CBC/CMP in AM. Bystolic daily at HS with hols parameters. 4. Diabetes mellitus-CC diet. Levemir 60 units twice a day (decreased slightly related to low BS). No further hypoglycemia noted. Continue sliding scale insulin. Monitor. 5. History of hemochromatosis- not on treatment at this time. Plan for outpatient follow-up. 6. Chronic lower back pain status post laminectomy- controlled. 7. H/o CAD s/p CABG. On BB and statin. Restart ASA 325 mg daily. 8. Osteoporosis. 9. Possible JEANNETTE. Cont supplemental O2 prn. Sleep study pending as outpt. 10. Infectious. Pt is afebrile. Asymptomatic. UA 06/14/17 with yeast. UC 06/14/17 neg. I/S. Completed IV Rocephin D7/7. po Diflucan until 06/24/17. VS, I&O, 24H, Fishbone Vital Signs/I&O Vital Signs Date Time Temp Pulse Resp B/P (MAP) Pulse Ox O2 Delivery O2 Flow Rate FiO2 06/22/17 08:15 131/62 06/22/17 08:14 57 06/22/17 08:14 20 Room Air 06/22/17 08:00 1.0 06/22/17 06:00 97.6 98 06/20/17 09:07 94 I&O- Last 24 Hours up to 6 AM 06/23/17 06:00 Intake Total 420 ml Output Total 50 ml Balance 370 ml Laboratory Data 24H LABS Laboratory Tests 2 06/21/17 11:29: Bedside Glucose (Misc Panel) 176H 06/21/17 16:21: Bedside Glucose (Misc Panel) 241H 06/21/17 20:01: Bedside Glucose (Misc Panel) 240H 06/22/17 07:53: Bedside Glucose (Misc Panel) 144H 06/22/17 10:09: Bedside Glucose (Misc Panel) 167H CBC/BMP Laboratory Tests 06/22/17 06:48 Red Blood Count 3.36 L, Mean Corpuscular Volume 87.2, Mean Corpuscular Hemoglobin 27.7, Mean Corpuscular Hemoglobin Concent 31.7 L, Red Cell Distribution Width 18.6 H Karen Pak Jun 22, 2017 11:08
[2017-06-22] MEDS: BUMETANIDE 1 MG TAB PO SCH ×2 (12:15→20:39)
[2017-06-22 14:00] VITALS: BP_SYST 128; BP_SYST 138; BP_DIAS 62; BP_DIAS 64; BP_DIAS 70
--- NOTE | 2017-06-22 18:12 | REP ---
REASON: Dyspnea. COMPARISON: 06/02/2017 the latest prior. There global cardiomegaly status quo. There has been previous median sternotomy. There is no significant change appearance of the lung veloz. Mild fibrotic changes are suspected status quo. No acute patchy parenchyma opacities or pleural effusions have developed. Chronic osseous changes noted status quo. IMPRESSION: Stable appearing chronic changes without plain radiographic evidence of acute cardiopulmonary disease. Signed by Parker Mcnair DO 06/25/2017 04:41 P
[2017-06-22 20:01] VITALS: BP_SYST 140; BP_SYST 152; BP_SYST 162; BP_DIAS 64; BP_DIAS 80; BP_DIAS 92
[2017-06-22] MEDS: NEBIVOLOL 5 MG TAB (BYSTOLIC) PO SCH (20:37)
[2017-06-22] MEDS: ATORVASTATIN 20 MG TAB PO SCH (20:37)
[2017-06-22] MEDS: TAMSULOSIN 0.4 MG CAP PO SCH (20:38)
[2017-06-22] MEDS: **NOTE PATIENT COMMENT** MISC XX SCH (20:40)
[2017-06-23 06:00] VITALS: BP_SYST 130; BP_SYST 140; BP_SYST 142; BP_DIAS 64; BP_DIAS 74; BP_DIAS 76
[2017-06-23 07:24] LABS: MEAN CORPUSCULAR HEMOGLOBIN 27.3 pg (27.0-33.0); MEAN CORPUSCULAR HGB CONC 31.8 g/dl (32.0-36.5); MEAN CORPUSCULAR VOLUME 85.9 fl (80.0-96.0); RED CELL DISTRIBUTION WIDTH 18.4 % (11.5-14.5); WHITE BLOOD COUNT 7.5 10^3/uL (4.0-10.0)
[2017-06-23 07:33] LABS: ALBUMIN 2.7 GM/DL (3.2-5.2); ALBUMIN/GLOBULIN RATIO 0.69 (1.00-1.93); BILIRUBIN,TOTAL 0.4 MG/DL (0.2-1.0); CALCIUM LEVEL 9.1 MG/DL (8.8-10.2); CREATININE FOR GFR 1.13 MG/DL (0.55-1.02); GLOMERULAR FILTRATION RATE 50.4 (>39); POTASSIUM SERUM 3.9 MEQ/L (3.5-5.1); TOTAL PROTEIN 6.6 GM/DL (6.4-8.2)
[2017-06-23] MEDS: HumaLOG INSULIN (NovoLOG) PER UNIT SC SCH ×4 (09:22→21:00)
[2017-06-23] MEDS: ENOXAPARIN 40 MG/0.4 ML SYRINGE (J1650) SC SCH (09:23)
[2017-06-23] MEDS: LEVEMIR (INSULIN DETEMIR) 1 UNITS/0.01ML SC SCH ×2 (09:23→21:15)
[2017-06-23] MEDS: NITROGLYCERIN 0.4 MG/HR PATCH TD SCH (09:23)
[2017-06-23] MEDS: VITAMIN D 1,000 INTERNATIONAL UNITS TABLET PO SCH (09:24)
[2017-06-23] MEDS: OMEPRAZOLE 20 MG CAP PO SCH (09:24)
[2017-06-23] MEDS: SENOKOT S TAB PO SCH ×2 (09:24→21:13)
[2017-06-23] MEDS: NYSTATIN 100,000 UNITS/GM TOPICAL PWD 15 GM TOP SCH ×2 (09:24→21:10)
[2017-06-23] MEDS: FLUCONAZOLE 100 MG TAB PO SCH (09:24)
[2017-06-23] MEDS: ASPIRIN 325 MG TAB PO SCH (09:24)
[2017-06-23] MEDS: BUMETANIDE 1 MG TAB PO SCH ×2 (09:24→21:11)
[2017-06-23] MEDS: BENZONATATE 100 MG CAP PO SCH ×3 (09:24→21:13)
[2017-06-23] MEDS: **hydrALAZINE** 50 MG TAB PO SCH ×2 (09:25→21:14)
[2017-06-23] MEDS: amLODIPine 5 MG TAB PO SCH ×2 (09:25→21:14)
[2017-06-23] MEDS: PREGABALIN 75 MG CAP(LYRICA) PO SCH ×2 (09:26→21:13)
[2017-06-23] MEDS: oxyCODONE 10 MG CR TAB PO SCH ×2 (09:26→21:12)
[2017-06-23] MEDS: traMADol ER 100MG TABLET (ULTRAM ER) PO SCH ×2 (09:26→21:10)
[2017-06-23 14:00] VITALS: BP_SYST 130; BP_SYST 140; BP_SYST 142; BP_DIAS 70; BP_DIAS 72; BP_DIAS 82
[2017-06-23 20:01] VITALS: BP 152/72
[2017-06-23] MEDS: **NOTE PATIENT COMMENT** MISC XX SCH (21:00)
[2017-06-23] MEDS: NEBIVOLOL 5 MG TAB (BYSTOLIC) PO SCH (21:11)
[2017-06-23] MEDS: ATORVASTATIN 20 MG TAB PO SCH (21:13)
[2017-06-23] MEDS: TAMSULOSIN 0.4 MG CAP PO SCH (21:13)
[2017-06-23 22:00] VITALS: BP_SYST 126; BP_SYST 152; BP_DIAS 72; BP_DIAS 82
[2017-06-24 06:00] VITALS: BP_SYST 142; BP_SYST 152; BP_DIAS 62; BP_DIAS 66; BP_DIAS 70
[2017-06-24] MEDS: HumaLOG INSULIN (NovoLOG) PER UNIT SC SCH ×4 (07:30→20:11)
[2017-06-24] MEDS: ASPIRIN 325 MG TAB PO SCH (08:56)
[2017-06-24] MEDS: FLUCONAZOLE 100 MG TAB PO SCH (08:57)
[2017-06-24] MEDS: SENOKOT S TAB PO SCH ×2 (08:57→20:12)
[2017-06-24] MEDS: BUMETANIDE 1 MG TAB PO SCH ×2 (08:57→20:12)
[2017-06-24] MEDS: BENZONATATE 100 MG CAP PO SCH ×3 (08:57→20:12)
[2017-06-24] MEDS: OMEPRAZOLE 20 MG CAP PO SCH (08:57)
[2017-06-24] MEDS: amLODIPine 5 MG TAB PO SCH ×2 (08:57→20:15)
[2017-06-24] MEDS: LEVEMIR (INSULIN DETEMIR) 1 UNITS/0.01ML SC SCH ×2 (08:58→20:11)
[2017-06-24] MEDS: traMADol ER 100MG TABLET (ULTRAM ER) PO SCH ×2 (08:58→20:12)
[2017-06-24] MEDS: VITAMIN D 1,000 INTERNATIONAL UNITS TABLET PO SCH (08:58)
[2017-06-24] MEDS: ENOXAPARIN 40 MG/0.4 ML SYRINGE (J1650) SC SCH (08:58)
[2017-06-24] MEDS: **hydrALAZINE** 50 MG TAB PO SCH ×2 (08:58→20:15)
[2017-06-24] MEDS: NYSTATIN 100,000 UNITS/GM TOPICAL PWD 15 GM TOP SCH ×2 (08:59→20:11)
[2017-06-24] MEDS: NITROGLYCERIN 0.4 MG/HR PATCH TD SCH (08:59)
[2017-06-24] MEDS: oxyCODONE 10 MG CR TAB PO SCH ×2 (09:00→20:13)
[2017-06-24] MEDS: PREGABALIN 75 MG CAP(LYRICA) PO SCH ×2 (09:00→20:12)
[2017-06-24] MEDS: TAMSULOSIN 0.4 MG CAP PO SCH (11:32)
[2017-06-24 14:00] VITALS: BP_SYST 128; BP_SYST 138; BP_SYST 142; BP_DIAS 60; BP_DIAS 62
[2017-06-24 20:00] VITALS: BP_SYST 110; BP_SYST 120; BP_SYST 124; BP_DIAS 58; BP_DIAS 82
[2017-06-24] MEDS: ATORVASTATIN 20 MG TAB PO SCH (20:11)
[2017-06-24] MEDS: **NOTE PATIENT COMMENT** MISC XX SCH (20:17)
[2017-06-24] MEDS: NEBIVOLOL 5 MG TAB (BYSTOLIC) PO SCH (20:17)
[2017-06-25 06:28] VITALS: BP 130/64
[2017-06-25 07:23] LABS: MEAN CORPUSCULAR HEMOGLOBIN 26.9 pg (27.0-33.0); MEAN CORPUSCULAR HGB CONC 31.1 g/dl (32.0-36.5); MEAN CORPUSCULAR VOLUME 86.5 fl (80.0-96.0); WHITE BLOOD COUNT 8.4 10^3/uL (4.0-10.0)
[2017-06-25 07:50] LABS: CALCIUM LEVEL 8.9 MG/DL (8.8-10.2); CREATININE FOR GFR 1.25 MG/DL (0.55-1.02); GLOMERULAR FILTRATION RATE 44.8 (>39); POTASSIUM SERUM 4.2 MEQ/L (3.5-5.1)
[2017-06-25] MEDS: HumaLOG INSULIN (NovoLOG) PER UNIT SC SCH ×4 (08:30→22:33)
[2017-06-25] MEDS: LEVEMIR (INSULIN DETEMIR) 1 UNITS/0.01ML SC SCH ×2 (08:31→22:13)
[2017-06-25] MEDS: traMADol ER 100MG TABLET (ULTRAM ER) PO SCH ×2 (08:31→22:10)
[2017-06-25] MEDS: SENOKOT S TAB PO SCH ×2 (08:31→22:12)
[2017-06-25] MEDS: VITAMIN D 1,000 INTERNATIONAL UNITS TABLET PO SCH (08:32)
[2017-06-25] MEDS: oxyCODONE 10 MG CR TAB PO SCH (08:32)
[2017-06-25] MEDS: ASPIRIN 325 MG TAB PO SCH (08:33)
[2017-06-25] MEDS: amLODIPine 5 MG TAB PO SCH ×2 (08:33→22:10)
[2017-06-25] MEDS: TAMSULOSIN 0.4 MG CAP PO SCH (08:33)
[2017-06-25] MEDS: BUMETANIDE 1 MG TAB PO SCH ×2 (08:33→22:09)
[2017-06-25] MEDS: **hydrALAZINE** 50 MG TAB PO SCH ×2 (08:33→22:11)
[2017-06-25] MEDS: OMEPRAZOLE 20 MG CAP PO SCH (08:34)
[2017-06-25] MEDS: BENZONATATE 100 MG CAP PO SCH ×3 (08:34→22:12)
[2017-06-25] MEDS: PREGABALIN 75 MG CAP(LYRICA) PO SCH ×2 (08:34→22:11)
[2017-06-25] MEDS: NYSTATIN 100,000 UNITS/GM TOPICAL PWD 15 GM TOP SCH ×2 (08:34→22:14)
[2017-06-25] MEDS: NITROGLYCERIN 0.4 MG/HR PATCH TD SCH (08:34)
[2017-06-25 08:43] VITALS: BP 146/65
[2017-06-25] MEDS ORDERED: ENOXAPARIN 40 MG/0.4 ML SYRINGE (J1650) SC ONE (12:00)
[2017-06-25] MEDS ORDERED: oxyCODONE 5MG TAB PO PRN (12:00)
--- NOTE | 2017-06-25 12:06 | IPNPDOC ---
Roller Mechanic Progress Note DATE OF SERVICE: 06/25/17 DATE OF ADMISSION: Jun 19, 2017 at 13:33 INPATIENT REHABILITATION ADMISSION DAY: #7 SUBJECTIVE: The patient is a right-handed 72-year-old white female who had developed bilateral low leg pain over the last couple of months and was seen by Dr. Beatriz Waite in orthopedics. She was found to have nondisplaced linear, essentially fractures of the distal fibulas and was placed in bilateral fracture boots. On the day of 06/11/2017, patient while wearing her fracture boots was getting up off the toilet using some hand core machine operator her had put into the wall, and as she did this she heard a loud crack coming from her right leg and then felt severe pain in the distal aspect of her right leg. She was brought to and evaluated at emergency room and was found to have a distal right tibia-fibula fracture with some angulation. Patient was uncertain as to treatment and after weighing the options elected an intramedullary nailing with screw fixation on 06/14/2017. Patient has had significant problems with pain from the fracture and the procedure and has a history of chronic low back pain and difficulty with managing pain going into this. However , patient notes the pain is much better controlled, though it climbs with the amount of walking in therapy. Otherwise no complaints today. ALLERGIES: See Below MEDICATIONS: Reviewed, see below. OBJECTIVE: VITAL SIGNS: Please see below. PHYSICAL EXAMINATION: GENERAL: Short obese elderly white female in very mild musculoskeletal distress with bit of anxiousness but overall alert and well oriented. HEENT: Normocephalic atraumatic. CARDIOVASCULAR: Regular rate and rhythm with normal S1-S2. 2/4 bilateral radial pulses. LUNGS: All veloz clear to auscultation. ABDOMEN: Obese, nontender with normal bowel sounds in all quadrants. NEUROLOGICAL: Alert and oriented 4. Patient is pleasant but less anxious today , but still needs reassurance. Sensory motor intact in BU&LE's SKIN: Intramedullary nail insertion site covered with stop the foam without drainage. LABORATORY DATA: Reviewed. Please see below. MICROBIOLOGY: Please see below. IMAGING: No new imaging. DVT prophylaxis ordered?: Lovenox and JOSIAH hose on the left lower extremity. ASSESSMENT AND PLAN: 1. Rehabilitation of right tib-fib fracture status post intramedullary nail using fracture boots for the right as well as the left distal fibular stress fracture: Patient participating well in PT/OT and having some decreased in her anxiousness. Better efforts and performance in therapies daily. I am going to stop OxyContin 10 mg bid and schedule Oxycodone 5 mg at 0730 and 1230 hrs before therapies and look to eliminated this as patient continues to improve and is more comfortable. Current Anticipated Date of Discharge to home is . REHAB. TEAM ROUNDS: Patient doing better in PT & OT with improved endurance, but still anxiety affecting training. Patient does have better confidence. She is meeting multiple initial transfer and lesser self care goals, but will need to be Modified Independent in Ambulation, Stairs, ADL's for return to home. Anticipated Discharge Date remains 07/03/17, but will reassess as patient is progressing faster now at Team Rounds on . 2. Anemia: H&H 9.0 and 28.9% today, 06/25/17 with slight slide downward. We will continue to watch, but likely this is due to the improved hydration. 3. Type 2 diabetes mellitus: Blood sugars running 104 to 238 the last 3 days. Ms. Pak and the hospitalist service will make further adjustments as appropriate. 4. Anxiety: At this time we'll try as able to reinforce patient's skills and improvement and allay her fears as this seems to be blocking her ability to optimize the training and learning in therapies. I wish to avoid using benzodiazepines as this will only worsen her ability to learn. This seems to be working as patient has now ambulated >100 ft and did stair work. TIME SPENT: Chart Review, examination and documentation require greater than 25 minutes. Allergies Coded Allergies: Warfarin (Verified Adverse Reaction, Mild, NAUSEA/DIZZY, 06/10/17) Amlodipine (Verified Adverse Reaction, Unknown, COUGH, 06/10/17) Vital Signs Vital Signs Date Time Temp Pulse Resp B/P (MAP) Pulse Ox O2 Delivery O2 Flow Rate FiO2 06/25/17 08:43 98.1 64 18 146/65 (92) 93 Nasal Cannula 1.0 06/20/17 09:07 94 Laboratory Data CBC/BMP Laboratory Tests 06/25/17 06:29 Red Blood Count 3.34 L, Mean Corpuscular Volume 86.5, Mean Corpuscular Hemoglobin 26.9 L, Mean Corpuscular Hemoglobin Concent 31.1 L, Red Cell Distribution Width 19.0 H, Calcium Level 8.9 Labs 24H Laboratory Tests 2 06/24/17 14:40: Urine Appearance CLEAR, Urine Color YELLOW, Urine pH 5.0, Urine Specific [place] 1.006, Urine Protein NEGATIVE, Urine Glucose (UA) NEGATIVE, Urine Ketones NEGATIVE, Urine Urobilinogen 0.2, Urine Bilirubin NEGATIVE, Urine Leukocyte Esterase NEGATIVE, Urine Blood NEGATIVE, Urine Nitrite NEGATIVE, Urine WBC (Auto) 1, Urine RBC (Auto) 2, Urine Hyaline Casts (Auto) 17, Urine Bacteria (Auto) NEGATIVE, Urine Squamous Epithelial Cells 0, Urine Mucus (Auto) SMALL, Urine Sperm (Auto) 06/24/17 16:17: Bedside Glucose (Misc Panel) 184H 06/24/17 20:10: Bedside Glucose (Misc Panel) 234H 06/25/17 06:29: Anion Gap 6L, Glomerular Filtration Rate 44.8, Blood Urea Nitrogen 41H, Creatinine 1.25H, Sodium Level 139, Potassium Level 4.2, Chloride Level 100, Carbon Dioxide Level 33H, Calcium Level 8.9 Current Medications Current Medications Current Medications Acetaminophen (Tylenol Tab) 650 mg Q6HP PRN PO PAIN OR FEVER Last administered on 06/21/17 16:09; Start 06/19/17 at 13:45; Stop 07/19/17 at 13:44 Amlodipine Besylate (Norvasc) 5 mg BID PO Last administered on 06/25/17 08:33 ; Start 06/20/17 at 21:00; Stop 07/20/17 at 20:59 Amlodipine Besylate (Norvasc) 5 mg DAILY PO Last administered on 06/20/17 09: 03; Start 06/20/17 at 09:00; Stop 06/20/17 at 11:38; Status DC Aspirin (Aspirin) 325 mg DAILY PO Last administered on 06/25/17 08:33; Start 06/20/17 at 09:00; Stop 07/20/17 at 08:59 Atorvastatin Calcium (Lipitor) 20 mg QHS PO Last administered on 06/24/17 20: 11; Start 06/19/17 at 21:00; Stop 07/19/17 at 20:59 Benzonatate (Tessalon Perles) 100 mg TID PO Last administered on 06/25/17 08: 34; Start 06/19/17 at 16:00; Stop 07/19/17 at 15:59 Bumetanide (Bumex) 1 mg BID PO Last administered on 06/25/17 08:33; Start at 09:00; Stop 07/22/17 at 08:59 Ceftriaxone Sodium 1 gm/ Dextrose 50 ml @ 100 mls/hr Q24H IV Last administered on 06/21/17 09:22; Start 06/20/17 at 09:00; Stop 06/21/17 at 12:00 ; Status DC Dextrose (Dextrose 50%) 25 ml ASDIRECTED PRN IV SEE LABEL COMMENTS Last administered on 06/20/17 08:24; Start 06/19/17 at 14:00; Stop 07/19/17 at 13: 59 Enoxaparin Sodium (Lovenox) 40 mg DAILY SC Last administered on 06/24/17 08:58 ; Start 06/20/17 at 09:00; Stop 06/25/17 at 08:59; Status DC Enoxaparin Sodium (Lovenox) 40 mg DAILY SC ; Start 06/26/17 at 09:00; Stop 07/01 at 08:59; Status UNV Fluconazole (Diflucan) 200 mg DAILY PO Last administered on 06/24/17 08:57; Start 06/20/17 at 09:00; Stop 06/24/17 at 12:00; Status DC Glucagon (Glucagon) 1 mg ASDIRECTED PRN SC SEE LABEL COMMENTS; Start 06/19/17 at 14:00; Stop 07/19/17 at 13:59 Glucose (Glucose) 16 GM ASDIRECTED PRN PO SEE LABEL COMMENTS; Start 06/19/17 at 14:00; Stop 07/19/17 at 13:59 Hydralazine HCl (Apresoline) 50 mg BID PO Last administered on 06/25/17 08:33 ; Start 06/19/17 at 21:00; Stop 07/19/17 at 20:59 Insulin Detemir (Levemir Insulin) 60 units BID SC Last administered on 08:31; Start 06/20/17 at 21:00; Stop 07/20/17 at 20:59 Insulin Detemir (Levemir Insulin) 70 units BID SC Last administered on 20:37; Start 06/19/17 at 21:00; Stop 06/20/17 at 08:52; Status DC Insulin Human Lispro (HumaLOG INSULIN) See Protocol Table AC SC Last administered on 06/25/17 08:30; Start 06/19/17 at 17:30; Stop 07/19/17 at 17: 29 Insulin Human Lispro (HumaLOG INSULIN) See Protocol Table QHS SC Last administered on 06/20/17 20:18; Start 06/19/17 at 21:00; Stop 07/19/17 at 20: 59 Miscellaneous (Unresolved Clarification Entry) SEE LABEL COMMENTS UNRESOLVED XX ; Start 06/25/17 at 00:01; Stop 07/25/17 at 00:00 Nebivolol (Bystolic) 20 mg QHS PO Last administered on 06/24/17 20:17; Start 06/19/17 at 21:00; Stop 07/19/17 at 20:59 Nitroglycerin (Nitrodur 0.4 Mg/ Hr) 1 patch DAILY TD Last administered on 08:34; Start 06/20/17 at 09:00; Stop 07/20/17 at 08:59 Non-Formulary Medication ( See Comment Field Below ) DAILY@21 XX Last administered on 06/24/17 20:17; Start 06/19/17 at 21:00; Stop 07/19/17 at 20: 59 Nystatin (Mycostatin Powder, Nystop) to skin folds сергей. abdominal BID TOP Last administered on 06/25/17 08:34; Start 06/21/17 at 09:00; Stop 07/21/17 at 08: 59 Omeprazole (PriLOSEC) 20 mg DAILY PO Last administered on 06/25/17 08:34; Start 06/20/17 at 09:00; Stop 07/20/17 at 08:59 Oxycodone HCl (OxyCONTIN) 10 mg BID PO Last administered on 06/25/17 08:32; Start 06/19/17 at 21:00; Stop 06/25/17 at 11:55; Status DC Oxycodone HCl (Roxicodone, Oxyir) 5 mg BID PO ; Start 06/25/17 at 21:00; Stop 07/02/17 at 20:59; Status UNV Oxycodone HCl (Roxicodone, Oxyir) 5 mg BIDP PRN PO PAIN(8-10); Start 06/25/17 at 12:00; Stop 07/02/17 at 11:59; Status UNV Oxycodone HCl (Roxicodone, Oxyir) 5 mg Q4HP PRN PO PAIN 8-10; Start 06/19/17 at 14:00; Stop 06/26/17 at 13:59; Status Cancel Pregabalin (Lyrica) 75 mg BID PO Last administered on 06/25/17 08:34; Start at 21:00; Stop 07/02/17 at 23:55 Senna/Docusate Sodium (Senokot S) 1 tab BID PO Last administered on 06/25/17 08:31; Start 06/19/17 at 21:00; Stop 07/19/17 at 20:59 Sodium Biphosphate/ Sodium Phosphate (Fleet Enema) 1 ea DAILYPRN PRN [place] CONSTIPATION; Start 06/19/17 at 13:45; Stop 07/19/17 at 13:44 Tamsulosin HCl (Flomax) 0.4 mg QHS PO Last administered on 06/23/17 21:13; Start 06/21/17 at 21:00; Stop 06/24/17 at 09:48; Status DC Tamsulosin HCl (Flomax) 0.8 mg DAILY PO Last administered on 06/25/17 08:33; Start 06/24/17 at 09:00; Stop 07/24/17 at 08:59 Tramadol HCl (Ultram Er) 100 mg BID PO Last administered on 06/25/17 08:31; Start 06/19/17 at 21:00; Stop 07/02/17 at 23:55 Vitamin D (Vitamin D) 5,000 units DAILY PO Last administered on 06/25/17 08:32 ; Start 06/20/17 at 09:00; Stop 07/20/17 at 08:59 FREDERICK DALEY MD Jun 25, 2017 12:06
[2017-06-25] MEDS: oxyCODONE 5MG TAB PO SCH (12:38)
[2017-06-25 15:00] VITALS: BP_SYST 118; BP_SYST 146; BP_DIAS 56; BP_DIAS 62
[2017-06-25 17:30] VITALS: BP_SYST 110; BP_SYST 120; BP_SYST 122; BP_DIAS 52; BP_DIAS 58; BP_DIAS 60
[2017-06-25] MEDS: NEBIVOLOL 5 MG TAB (BYSTOLIC) PO SCH (21:45)
[2017-06-25 22:00] VITALS: BP_SYST 132; BP_SYST 136; BP_SYST 142; BP_DIAS 54; BP_DIAS 68; BP_DIAS 72
[2017-06-25] MEDS: ATORVASTATIN 20 MG TAB PO SCH (22:11)
[2017-06-25] MEDS: **NOTE PATIENT COMMENT** MISC XX SCH (22:14)
[2017-06-26 06:00] VITALS: BP_SYST 126; BP_SYST 134; BP_SYST 148; BP_DIAS 58; BP_DIAS 64; BP_DIAS 66
[2017-06-26] MEDS: VITAMIN D 1,000 INTERNATIONAL UNITS TABLET PO SCH (08:15)
[2017-06-26] MEDS: oxyCODONE 5MG TAB PO SCH ×2 (08:15→12:52)
[2017-06-26] MEDS: BUMETANIDE 1 MG TAB PO SCH ×2 (08:15→21:29)
[2017-06-26] MEDS: **hydrALAZINE** 50 MG TAB PO SCH ×2 (08:15→21:27)
[2017-06-26] MEDS: PREGABALIN 75 MG CAP(LYRICA) PO SCH ×2 (08:15→21:28)
[2017-06-26] MEDS: BENZONATATE 100 MG CAP PO SCH ×3 (08:16→21:29)
[2017-06-26] MEDS: traMADol ER 100MG TABLET (ULTRAM ER) PO SCH ×2 (08:16→21:27)
[2017-06-26] MEDS: amLODIPine 5 MG TAB PO SCH ×2 (08:16→21:28)
[2017-06-26] MEDS: TAMSULOSIN 0.4 MG CAP PO SCH (08:16)
[2017-06-26] MEDS: OMEPRAZOLE 20 MG CAP PO SCH (08:16)
[2017-06-26] MEDS: SENOKOT S TAB PO SCH ×2 (08:16→21:28)
[2017-06-26] MEDS: ASPIRIN 325 MG TAB PO SCH (08:16)
[2017-06-26] MEDS: HumaLOG INSULIN (NovoLOG) PER UNIT SC SCH ×4 (08:17→21:39)
[2017-06-26] MEDS: ENOXAPARIN 40 MG/0.4 ML SYRINGE (J1650) SC SCH (08:17)
[2017-06-26] MEDS: NITROGLYCERIN 0.4 MG/HR PATCH TD SCH (08:17)
[2017-06-26] MEDS: LEVEMIR (INSULIN DETEMIR) 1 UNITS/0.01ML SC SCH ×2 (08:18→21:38)
[2017-06-26] MEDS: NYSTATIN 100,000 UNITS/GM TOPICAL PWD 15 GM TOP SCH ×2 (08:18→21:41)
--- NOTE | 2017-06-26 11:38 | IPNPDOC ---
Medical Lead Progress Note DATE OF SERVICE: 06/26/17 DATE OF ADMISSION: Jun 19, 2017 at 13:33 INPATIENT REHABILITATION ADMISSION DAY: #8 SUBJECTIVE: The patient is a right-handed 72-year-old white female who had developed bilateral low leg pain over the last couple of months and was seen by Dr. Beatriz Waite in orthopedics. She was found to have nondisplaced linear, essentially fractures of the distal fibulas and was placed in bilateral fracture boots. On the day of 06/11/2017, patient while wearing her fracture boots was getting up off the toilet using some hand apartment maintenance worker her had put into the wall, and as she did this she heard a loud crack coming from her right leg and then felt severe pain in the distal aspect of her right leg. She was brought to and evaluated at [facility] emergency room and was found to have a distal right tibia-fibula fracture with some angulation. Patient was uncertain as to treatment and after weighing the options elected an intramedullary nailing with screw fixation on 06/14/2017. Patient not noting problems with switch off of OxyContin to BID of Oxycodone before AM and afternoon therapies. No complaints today. ALLERGIES: See Below MEDICATIONS: Reviewed, see below. OBJECTIVE: VITAL SIGNS: Please see below. PHYSICAL EXAMINATION: GENERAL: Short obese elderly white female in very mild musculoskeletal distress with bit of anxiousness but overall alert and well oriented. HEENT: Normocephalic atraumatic. CARDIOVASCULAR: Regular rate and rhythm with normal S1-S2. 2/4 bilateral radial pulses. LUNGS: All veloz clear to auscultation. ABDOMEN: Obese, nontender with normal bowel sounds in all quadrants. NEUROLOGICAL: Alert and oriented 4. Patient is pleasant but less anxious today , but still needs reassurance. Sensory motor intact in BU&LE's SKIN: Intramedullary nail insertion site covered with stop the foam without drainage. LABORATORY DATA: Reviewed. Please see below. MICROBIOLOGY: Please see below. IMAGING: No new imaging. DVT prophylaxis ordered?: Lovenox and JOSIAH hose on the left lower extremity. ASSESSMENT AND PLAN: 1. Rehabilitation of right tib-fib fracture status post intramedullary nail using fracture boots for the right as well as the left distal fibular stress fracture: Patient participating well in PT/OT and having some decreased in her anxiousness. Better efforts and performance in therapies daily. I am going to stop OxyContin 10 mg bid and schedule Oxycodone 5 mg at 0730 and 1230 hrs before therapies and look to eliminated this as patient continues to improve and is more comfortable. Anticipated Discharge Date remains 07/03/17, but will reassess as patient is progressing faster now at Team Rounds on . 2. Anemia: H&H 9.0 and 28.9% on 06/25/17 with slight slide downward. We will continue to watch, but likely this is due to the improved hydration. 3. Type 2 diabetes mellitus: Blood sugars running 84 to 274 the last 3 days. Ms. Pak and the hospitalist service will make further adjustments as appropriate. 4. Anxiety: At this time we'll try as able to reinforce patient's skills and improvement and allay her fears as this seems to be blocking her ability to optimize the training and learning in therapies. I wish to avoid using benzodiazepines as this will only worsen her ability to learn. This seems to be working as patient has now ambulated >100 ft and did stair work and is more confident about it as well as comfortable. TIME SPENT: Chart Review, examination and documentation require greater than 25 minutes. Allergies Coded Allergies: Warfarin (Verified Adverse Reaction, Mild, NAUSEA/DIZZY, 06/10/17) Amlodipine (Verified Adverse Reaction, Unknown, COUGH, 06/10/17) Vital Signs Vital Signs Date Time Temp Pulse Resp B/P (MAP) Pulse Ox O2 Delivery O2 Flow Rate FiO2 06/26/17 09:00 Nasal Cannula 1.0 06/26/17 08:55 18 06/26/17 08:17 126/58 06/26/17 08:16 60 06/26/17 06:00 98.0 94 06/20/17 09:07 94 Laboratory Data Labs 24H Laboratory Tests 2 06/25/17 12:07: Bedside Glucose (Misc Panel) 172H 06/25/17 16:52: Bedside Glucose (Misc Panel) 171H 06/25/17 20:20: Bedside Glucose (Misc Panel) 271H 06/26/17 07:06: Bedside Glucose (Misc Panel) 134H Current Medications Current Medications Current Medications Acetaminophen (Tylenol Tab) 650 mg Q6HP PRN PO PAIN OR FEVER Last administered on 06/21/17t 16:09; Start 06/19/17 at 13:45; Stop 07/19/17 at 13:44 Amlodipine Besylate (Norvasc) 5 mg BID PO Last administered on 06/26/17 08:16 ; Start 06/20/17 at 21:00; Stop 07/20/17 at 20:59 Amlodipine Besylate (Norvasc) 5 mg DAILY PO Last administered on 06/20/17 09: 03; Start 06/20/17 at 09:00; Stop 06/20/17 at 11:38; Status DC Aspirin (Aspirin) 325 mg DAILY PO Last administered on 06/26/17 08:16; Start 06/20/17 at 09:00; Stop 07/20/17 at 08:59 Atorvastatin Calcium (Lipitor) 20 mg QHS PO Last administered on 06/25/17 22: 11; Start 06/19/17 at 21:00; Stop 07/19/17 at 20:59 Benzonatate (Tessalon Perles) 100 mg TID PO Last administered on 06/26/17 08: 16; Start 06/19/17 at 16:00; Stop 07/19/17 at 15:59 Bumetanide (Bumex) 1 mg BID PO Last administered on 06/26/17 08:15; Start at 09:00; Stop 07/22/17 at 08:59 Ceftriaxone Sodium 1 gm/ Dextrose 50 ml @ 100 mls/hr Q24H IV Last administered on 06/21/17 09:22; Start 06/20/17 at 09:00; Stop 06/21/17 at 12:00 ; Status DC Dextrose (Dextrose 50%) 25 ml ASDIRECTED PRN IV SEE LABEL COMMENTS Last administered on 06/20/17 08:24; Start 06/19/17 at 14:00; Stop 07/19/17 at 13: 59 Enoxaparin Sodium (Lovenox) 40 mg DAILY SC Last administered on 06/24/17 08:58 ; Start 06/20/17 at 09:00; Stop 06/25/17 at 08:59; Status DC Enoxaparin Sodium (Lovenox) 40 mg DAILY SC Last administered on 06/26/17 08:17 ; Start 06/26/17 at 09:00; Stop 07/01/17 at 08:59 Fluconazole (Diflucan) 200 mg DAILY PO Last administered on 06/24/17 08:57; Start 06/20/17 at 09:00; Stop 06/24/17 at 12:00; Status DC Glucagon (Glucagon) 1 mg ASDIRECTED PRN SC SEE LABEL COMMENTS; Start 06/19/17 at 14:00; Stop 07/19/17 at 13:59 Glucose (Glucose) 16 GM ASDIRECTED PRN PO SEE LABEL COMMENTS; Start 06/19/17 at 14:00; Stop 07/19/17 at 13:59 Hydralazine HCl (Apresoline) 50 mg BID PO Last administered on 06/26/17 08:15 ; Start 06/19/17 at 21:00; Stop 07/19/17 at 20:59 Insulin Detemir (Levemir Insulin) 60 units BID SC Last administered on 08:18; Start 06/20/17 at 21:00; Stop 07/20/17 at 20:59 Insulin Detemir (Levemir Insulin) 70 units BID SC Last administered on 20:37; Start 06/19/17 at 21:00; Stop 06/20/17 at 08:52; Status DC Insulin Human Lispro (HumaLOG INSULIN) See Protocol Table AC SC Last administered on 06/26/17 08:17; Start 06/19/17 at 17:30; Stop 07/19/17 at 17: 29 Insulin Human Lispro (HumaLOG INSULIN) See Protocol Table QHS SC Last administered on 06/25/17 22:33; Start 06/19/17 at 21:00; Stop 07/19/17 at 20: 59 Miscellaneous (Unresolved Clarification Entry) SEE LABEL COMMENTS UNRESOLVED XX ; Start 06/25/17 at 00:01; Stop 06/25/17 at 12:01; Status DC Nebivolol (Bystolic) 20 mg QHS PO Last administered on 06/25/17 21:45; Start 06/19/17 at 21:00; Stop 07/19/17 at 20:59 Nitroglycerin (Nitrodur 0.4 Mg/ Hr) 1 patch DAILY TD Last administered on 08:17; Start 06/20/17 at 09:00; Stop 07/20/17 at 08:59 Non-Formulary Medication ( See Comment Field Below ) DAILY@21 XX Last administered on 06/25/17 22:14; Start 06/19/17 at 21:00; Stop 07/19/17 at 20: 59 Nystatin (Mycostatin Powder, Nystop) to skin folds сергей. abdominal BID TOP Last administered on 06/26/17 08:18; Start 06/21/17 at 09:00; Stop 07/21/17 at 08: 59 Omeprazole (PriLOSEC) 20 mg DAILY PO Last administered on 06/26/17 08:16; Start 06/20/17 at 09:00; Stop 07/20/17 at 08:59 Oxycodone HCl (OxyCONTIN) 10 mg BID PO Last administered on 06/25/17 08:32; Start 06/19/17 at 21:00; Stop 06/25/17 at 11:55; Status DC Oxycodone HCl (Roxicodone, Oxyir) 5 mg BID@0730,1230 PO Last administered on 08:15; Start 06/25/17 at 12:30; Stop 07/02/17 at 12:29 Oxycodone HCl (Roxicodone, Oxyir) 5 mg BIDP PRN PO PAIN(8-10); Start 06/25/17 at 12:00; Stop 07/02/17 at 11:59 Oxycodone HCl (Roxicodone, Oxyir) 5 mg Q4HP PRN PO PAIN 8-10; Start 06/19/17 at 14:00; Stop 06/26/17 at 13:59; Status Cancel Pregabalin (Lyrica) 75 mg BID PO Last administered on 06/26/17 08:15; Start at 21:00; Stop 07/02/17 at 23:55 Senna/Docusate Sodium (Senokot S) 1 tab BID PO Last administered on 06/26/17 08:16; Start 06/19/17 at 21:00; Stop 07/19/17 at 20:59 Sodium Biphosphate/ Sodium Phosphate (Fleet Enema) 1 ea DAILYPRN PRN [place] CONSTIPATION; Start 06/19/17 at 13:45; Stop 07/19/17 at 13:44 Tamsulosin HCl (Flomax) 0.4 mg QHS PO Last administered on 06/23/17 21:13; Start 06/21/17 at 21:00; Stop 06/24/17 at 09:48; Status DC Tamsulosin HCl (Flomax) 0.8 mg DAILY PO Last administered on 06/26/17 08:16; Start 06/24/17 at 09:00; Stop 07/24/17 at 08:59 Tramadol HCl (Ultram Er) 100 mg BID PO Last administered on 06/26/17 08:16; Start 06/19/17 at 21:00; Stop 07/02/17 at 23:55 Vitamin D (Vitamin D) 5,000 units DAILY PO Last administered on 06/26/17 08:15 ; Start 06/20/17 at 09:00; Stop 07/20/17 at 08:59 FREDERICK DALEY MD Jun 26, 2017 11:38
[2017-06-26 14:03] VITALS: BP_SYST 121; BP_SYST 128; BP_SYST 135; BP_DIAS 58; BP_DIAS 63
--- NOTE | 2017-06-26 15:44 | IPNPDOC ---
Date Seen The patient was seen on 06/26/17. Progress Note HPI: 72year oldF with history of bilateral lower extremity stress fracture followed by Dr. Maciel and prescribed bilateral boots, presented to [facility] on 06/11/17 for worsening of right lower extremity pain. The patient was found to have acute nondisplaced fracture of the distal tibia and fibula, status post right tibia IM nailing as per Dr. Maciel 06/15/17. The patient is subsequently transferred to the care of IVONE Chaney. Pt states she still has noticed some LE edema. Denies any fevers, chills, weakness, fatigue, Headache, Chest Pain, Shortness of breath, cough, palpitations, abdominal pain, N/V/D or changes in bowel or bladder habits. PMHx: Hemochromatosis Hypertension DM CAD/status post CABG Lumbar stenosis status post laminectomy CKD Possible JEANNETTE. Sleep study pending as outpt PSHX: Appendectomy Bilateral tubal ligation Hysterectomy CABG Laminectomy 2014 PE: GEN: 72yoF, appears stated age. Well-nourished, well developed. No acute distress. Alert and oriented x 3. Pleasant, interactive. HEENT: Normocephalic, atraumatic. Moist mucous membranes. Pharynx moist. Neck supple, trachea midline. CHEST: Regular rate and rhythm, +S1, +S2 LUNGS: Few rales bases B/L. No wheezes,or rhonchi. Breathing appears symmetric and easy. ABD: Round, soft, non-tender, non-distended. +Bowel sounds throughout. No rebound or guarding. No costovertebral angle tenderness. EXT: B/L boots off currently. 1mm edema noted pedal and distal pretib. SKIN: [place], dry, warm. No rashes. NEURO: No focal deficits appreciated. A&P: 72year oldF with history of bilateral lower extremity stress fracture followed by Dr. Maciel and prescribed bilateral boots, presented to [facility] on 06/11/17 for worsening of right lower extremity pain. The patient was found to have acute nondisplaced fracture of the distal tibia and fibula, status post right tibia IM nailing as per Dr. Maciel 06/15/17. The patient is subsequently transferred to the care of IVONE Chaney. 1. Displaced right distal tibial and fibular fracture, with prior left fracture/ status post right tibia IM nailing 06/15/[address] Maciel, orthopedics. Continue management/follow-up with orthopedics. Management as per IVONE Chaney. PT OT as per IVONE Chaney. Pain control as per IVONE Chaney Bowel care as per IVONE Chaney. DVT prophylaxis as per IVONE Chaney. Lovenox. Urinary retention. Flomax added as per IVONE. Vit D 35 06/15/17. It is questionable whether patient has been having pathologic fractures. Plan for outpatient DEXA scan. Not clear whether the patient's underlying hemochromatosis contributing. Plan for outpatient rheumatology/endocrine/hematology f/u. 2. Chronic kidney disease- SCr 1.25. HAMIDA inhibitor on hold. Seen by nephrology during [facility] admission. 3. Hypertension-blood pressure noted to be 126-148 systolic. HAMIDA inhibitor (Lisinopril 2.5mg) on hold. Amlodipine 5 mg BID with hold parameters. Hydralazine 50 mg by mouth twice a day with hold parameters. Nitroglycerin patch daily. Bystolic daily at HS with hold parameters. Bumex 1 mg BID. Modest FR/ I/O, daily weight. Elevate LEs Monitor CBC/CMP. 4. Diabetes mellitus-CC diet. Levemir 60 units twice a day (decreased slightly related to low BS). No further hypoglycemia noted. Continue sliding scale insulin. Monitor. 5. History of hemochromatosis- not on treatment at this time. Plan for outpatient follow-up. 6. Chronic lower back pain status post laminectomy- controlled. 7. H/o CAD s/p CABG. On BB and statin. ASA 325 mg daily. 8. Osteoporosis. 9. Possible JEANNETTE. Cont supplemental O2 prn. Sleep study pending as outpt. VS, I&O, 24H, Fishbone Vital Signs/I&O Vital Signs Date Time Temp Pulse Resp B/P (MAP) Pulse Ox O2 Delivery O2 Flow Rate FiO2 06/26/17 14:00 97.5 61 18 95 Nasal Cannula 2.0 06/26/17 08:17 126/58 06/20/17 09:07 94 I&O- Last 24 Hours up to 6 AM 06/27/17 06:00 Intake Total 480 ml Balance 480 ml Laboratory Data 24H LABS Laboratory Tests 2 06/25/17 16:52: Bedside Glucose (Misc Panel) 171H 06/25/17 20:20: Bedside Glucose (Misc Panel) 271H 06/26/17 07:06: Bedside Glucose (Misc Panel) 134H 06/26/17 11:33: Bedside Glucose (Misc Panel) 168H Karen Pak Jun 26, 2017 15:44
[2017-06-26 20:00] VITALS: BP_SYST 135; BP_SYST 140; BP_SYST 142; BP_DIAS 64; BP_DIAS 65
[2017-06-26] MEDS: ATORVASTATIN 20 MG TAB PO SCH (21:29)
[2017-06-26] MEDS: NEBIVOLOL 5 MG TAB (BYSTOLIC) PO SCH (21:37)
[2017-06-26] MEDS: **NOTE PATIENT COMMENT** MISC XX SCH (21:41)
[2017-06-27 06:00] VITALS: BP_SYST 146; BP_SYST 163; BP_SYST 167; BP_DIAS 64; BP_DIAS 66; BP_DIAS 72
[2017-06-27] MEDS: HumaLOG INSULIN (NovoLOG) PER UNIT SC SCH ×4 (08:06→21:00)
[2017-06-27] MEDS: NITROGLYCERIN 0.4 MG/HR PATCH TD SCH (08:07)
[2017-06-27] MEDS: amLODIPine 5 MG TAB PO SCH ×2 (08:07→21:49)
[2017-06-27] MEDS: ASPIRIN 325 MG TAB PO SCH (08:07)
[2017-06-27] MEDS: LEVEMIR (INSULIN DETEMIR) 1 UNITS/0.01ML SC SCH ×2 (08:07→21:51)
[2017-06-27] MEDS: TAMSULOSIN 0.4 MG CAP PO SCH (08:07)
[2017-06-27] MEDS: BUMETANIDE 1 MG TAB PO SCH ×2 (08:08→21:50)
[2017-06-27] MEDS: VITAMIN D 1,000 INTERNATIONAL UNITS TABLET PO SCH (08:08)
[2017-06-27] MEDS: BENZONATATE 100 MG CAP PO SCH ×3 (08:08→21:50)
[2017-06-27] MEDS: ENOXAPARIN 40 MG/0.4 ML SYRINGE (J1650) SC SCH (08:08)
[2017-06-27] MEDS: oxyCODONE 5MG TAB PO SCH ×2 (08:08→12:31)
[2017-06-27] MEDS: **hydrALAZINE** 50 MG TAB PO SCH ×2 (08:09→21:50)
[2017-06-27] MEDS: traMADol ER 100MG TABLET (ULTRAM ER) PO SCH ×2 (08:09→21:50)
[2017-06-27] MEDS: OMEPRAZOLE 20 MG CAP PO SCH (08:09)
[2017-06-27] MEDS: SENOKOT S TAB PO SCH ×2 (08:09→21:49)
[2017-06-27] MEDS: NYSTATIN 100,000 UNITS/GM TOPICAL PWD 15 GM TOP SCH ×2 (08:09→21:51)
[2017-06-27] MEDS: PREGABALIN 75 MG CAP(LYRICA) PO SCH ×2 (08:09→21:49)
--- NOTE | 2017-06-27 12:21 | IPNPDOC ---
Nursery Manager Progress Note DATE OF SERVICE: 06/27/17 DATE OF ADMISSION: Jun 19, 2017 at 13:33 INPATIENT REHABILITATION ADMISSION DAY: #9 SUBJECTIVE: The patient is a right-handed 72-year-old white female who had developed bilateral low leg pain over the last couple of months and was seen by Dr. Beatriz Waite in orthopedics. She was found to have nondisplaced linear, essentially stress fractures of the distal fibulas and was placed in bilateral fracture boots. On the day of 06/11/2017, patient while wearing her fracture boots was getting up off the toilet using some hand digital commentator her had put into the wall, and as she did this she heard a loud crack coming from her right leg and then felt severe pain in the distal aspect of her right leg. She was brought to and evaluated at [facility] emergency room and was found to have a distal right tibia-fibula fracture with some angulation. Patient was uncertain as to treatment and after weighing the options elected an intramedullary nailing with screw fixation on 06/14/2017. Patient not noting problems with switch off of OxyContin to BID of Oxycodone before AM and afternoon therapies. No complaints today, happy with her improved mobility and ADL's. ALLERGIES: See Below MEDICATIONS: Reviewed, see below. OBJECTIVE: VITAL SIGNS: Please see below. PHYSICAL EXAMINATION: GENERAL: Short obese elderly white female in very mild musculoskeletal distress with bit of anxiousness but overall alert and well oriented. HEENT: Normocephalic atraumatic. CARDIOVASCULAR: Regular rate and rhythm with normal S1-S2. 2/4 bilateral radial pulses. LUNGS: All veloz clear to auscultation. ABDOMEN: Obese, nontender with normal bowel sounds in all quadrants. NEUROLOGICAL: Alert and oriented 4. Patient is pleasant but much less anxious today. Sensory motor intact in BU&LE's. SKIN: Intramedullary nail insertion site covered with stop the foam without drainage. LABORATORY DATA: Reviewed. Please see below. MICROBIOLOGY: Please see below. IMAGING: No new imaging. DVT prophylaxis ordered?: Lovenox and JOSIAH hose on the left lower extremity. ASSESSMENT AND PLAN: 1. Rehabilitation of right tib-fib fracture status post intramedullary nail using fracture boots for the right as well as the left distal fibular stress fracture: Patient participating well in PT/OT and having some decreased in her anxiousness. Better efforts and performance in therapies daily. Transition of Oxycodone to 5 mg bid is going well. Functional gaiting and ADL's are improving. Anticipated Discharge Date remains 07/03/17, but will reassess as patient is progressing faster now at Team Rounds on . 2. Anemia: H&H 9.0 and 28.9% on 06/25/17 with slight slide downward. We will continue to watch, but likely this is due to the improved hydration. 3. Type 2 diabetes mellitus: Blood sugars running 84 to 274 the last 3 days. Ms. Pak and the hospitalist service will make further adjustments as appropriate. 4. Anxiety: Doing better as patient sees her progress and is more self trusting and trusting of Rehab. Team. TIME SPENT: Chart Review, examination and documentation require greater than 25 minutes. Allergies Coded Allergies: Warfarin (Verified Adverse Reaction, Mild, NAUSEA/DIZZY, 06/10/17) Amlodipine (Verified Adverse Reaction, Unknown, COUGH, 06/10/17) Vital Signs Vital Signs Date Time Temp Pulse Resp B/P (MAP) Pulse Ox O2 Delivery O2 Flow Rate FiO2 06/27/17 08:38 20 06/27/17 08:09 146/64 06/27/17 08:07 61 06/27/17 08:00 Nasal Cannula 1.0 06/27/17 06:00 98.0 95 Laboratory Data Labs 24H Laboratory Tests 2 06/26/17 16:33: Bedside Glucose (Misc Panel) 191H 06/26/17 21:03: Bedside Glucose (Misc Panel) 264H 06/27/17 11:24: Bedside Glucose (Misc Panel) 155H Current Medications Current Medications Current Medications Acetaminophen (Tylenol Tab) 650 mg Q6HP PRN PO PAIN OR FEVER Last administered on 06/21/17 16:09; Start 06/19/17 at 13:45; Stop 07/19/17 at 13:44 Amlodipine Besylate (Norvasc) 5 mg BID PO Last administered on 06/27/17 08:07 ; Start 06/20/17 at 21:00; Stop 07/20/17 at 20:59 Amlodipine Besylate (Norvasc) 5 mg DAILY PO Last administered on 06/20/17 09: 03; Start 06/20/17 at 09:00; Stop 06/20/17 at 11:38; Status DC Aspirin (Aspirin) 325 mg DAILY PO Last administered on 06/27/17 08:07; Start 06/20/17 at 09:00; Stop 07/20/17 at 08:59 Atorvastatin Calcium (Lipitor) 20 mg QHS PO Last administered on 06/26/17 21: 29; Start 06/19/17 at 21:00; Stop 07/19/17 at 20:59 Benzonatate (Tessalon Perles) 100 mg TID PO Last administered on 06/27/17 08: 08; Start 06/19/17 at 16:00; Stop 07/19/17 at 15:59 Bumetanide (Bumex) 1 mg BID PO Last administered on 06/27/17 08:08; Start at 09:00; Stop 07/22/17 at 08:59 Ceftriaxone Sodium 1 gm/ Dextrose 50 ml @ 100 mls/hr Q24H IV Last administered on 06/21/17 09:22; Start 06/20/17 at 09:00; Stop 06/21/17 at 12:00 ; Status DC Dextrose (Dextrose 50%) 25 ml ASDIRECTED PRN IV SEE LABEL COMMENTS Last administered on 06/20/17 08:24; Start 06/19/17 at 14:00; Stop 07/19/17 at 13: 59 Enoxaparin Sodium (Lovenox) 40 mg DAILY SC Last administered on 06/24/17 08:58 ; Start 06/20/17 at 09:00; Stop 06/25/17 at 08:59; Status DC Enoxaparin Sodium (Lovenox) 40 mg DAILY SC Last administered on 06/27/17 08:08 ; Start 06/26/17 at 09:00; Stop 07/01/17 at 08:59 Fluconazole (Diflucan) 200 mg DAILY PO Last administered on 06/24/17 08:57; Start 06/20/17 at 09:00; Stop 06/24/17 at 12:00; Status DC Glucagon (Glucagon) 1 mg ASDIRECTED PRN SC SEE LABEL COMMENTS; Start 06/19/17 at 14:00; Stop 07/19/17 at 13:59 Glucose (Glucose) 16 GM ASDIRECTED PRN PO SEE LABEL COMMENTS; Start 06/19/17 at 14:00; Stop 07/19/17 at 13:59 Hydralazine HCl (Apresoline) 50 mg BID PO Last administered on 06/27/17 08:09 ; Start 06/19/17 at 21:00; Stop 07/19/17 at 20:59 Insulin Detemir (Levemir Insulin) 60 units BID SC Last administered on 08:07; Start 06/20/17 at 21:00; Stop 07/20/17 at 20:59 Insulin Detemir (Levemir Insulin) 70 units BID SC Last administered on 20:37; Start 06/19/17 at 21:00; Stop 06/20/17 at 08:52; Status DC Insulin Human Lispro (HumaLOG INSULIN) See Protocol Table AC SC Last administered on 06/27/17 08:06; Start 06/19/17 at 17:30; Stop 07/19/17 at 17: 29 Insulin Human Lispro (HumaLOG INSULIN) See Protocol Table QHS SC Last administered on 06/26/17 21:39; Start 06/19/17 at 21:00; Stop 07/19/17 at 20: 59 Miscellaneous (Unresolved Clarification Entry) SEE LABEL COMMENTS UNRESOLVED XX ; Start 06/25/17 at 00:01; Stop 06/25/17 at 12:01; Status DC Nebivolol (Bystolic) 20 mg QHS PO Last administered on 06/26/17 21:37; Start 06/19/17 at 21:00; Stop 07/19/17 at 20:59 Nitroglycerin (Nitrodur 0.4 Mg/ Hr) 1 patch DAILY TD Last administered on 08:07; Start 06/20/17 at 09:00; Stop 07/20/17 at 08:59 Non-Formulary Medication ( See Comment Field Below ) DAILY@21 XX Last administered on 06/26/17 21:41; Start 06/19/17 at 21:00; Stop 07/19/17 at 20: 59 Nystatin (Mycostatin Powder, Nystop) to skin folds сергей. abdominal BID TOP Last administered on 06/27/17 08:09; Start 06/21/17 at 09:00; Stop 07/21/17 at 08: 59 Omeprazole (PriLOSEC) 20 mg DAILY PO Last administered on 06/27/17 08:09; Start 06/20/17 at 09:00; Stop 07/20/17 at 08:59 Oxycodone HCl (OxyCONTIN) 10 mg BID PO Last administered on 06/25/17 08:32; Start 06/19/17 at 21:00; Stop 06/25/17 at 11:55; Status DC Oxycodone HCl (Roxicodone, Oxyir) 5 mg BID@0730,1230 PO Last administered on 08:08; Start 06/25/17 at 12:30; Stop 07/02/17 at 12:29 Oxycodone HCl (Roxicodone, Oxyir) 5 mg BIDP PRN PO PAIN(8-10); Start 06/25/17 at 12:00; Stop 07/02/17 at 11:59 Oxycodone HCl (Roxicodone, Oxyir) 5 mg Q4HP PRN PO PAIN 8-10; Start 06/19/17 at 14:00; Stop 06/26/17 at 13:59; Status Cancel Pregabalin (Lyrica) 75 mg BID PO Last administered on 06/27/17 08:09; Start at 21:00; Stop 07/02/17 at 23:55 Senna/Docusate Sodium (Senokot S) 1 tab BID PO Last administered on 06/27/17 08:09; Start 06/19/17 at 21:00; Stop 07/19/17 at 20:59 Sodium Biphosphate/ Sodium Phosphate (Fleet Enema) 1 ea DAILYPRN PRN [place] CONSTIPATION; Start 06/19/17 at 13:45; Stop 07/19/17 at 13:44 Tamsulosin HCl (Flomax) 0.4 mg QHS PO Last administered on 06/23/17 21:13; Start 06/21/17 at 21:00; Stop 06/24/17 at 09:48; Status DC Tamsulosin HCl (Flomax) 0.8 mg DAILY PO Last administered on 06/27/17 08:07; Start 06/24/17 at 09:00; Stop 10/31/17 at 08:59 Tramadol HCl (Ultram Er) 100 mg BID PO Last administered on 06/27/17 08:09; Start 06/19/17 at 21:00; Stop 07/02/17 at 23:55 Vitamin D (Vitamin D) 5,000 units DAILY PO Last administered on 06/27/17 08:08 ; Start 06/20/17 at 09:00; Stop 07/20/17 at 08:59 FREDERICK DALEY MD Jun 27, 2017 12:21
--- NOTE | 2017-06-27 12:25 | IPNPDOC ---
Date Seen The patient was seen on 06/27/17. Progress Note HPI: 72year oldF with history of bilateral lower extremity stress fracture followed by Dr. Maciel and prescribed bilateral boots, presented to [facility] on 06/11/17 for worsening of right lower extremity pain. The patient was found to have acute nondisplaced fracture of the distal tibia and fibula, status post right tibia IM nailing as per Dr. Maciel 06/15/17. The patient is subsequently transferred to the care of IVONE Chaney. Pt states LE edema has been improved. Denies any fevers, chills, weakness, fatigue, Headache, Chest Pain, Shortness of breath, cough, palpitations, abdominal pain, N/V/D or changes in bowel or bladder habits. PMHx: Hemochromatosis Hypertension DM CAD/status post CABG Lumbar stenosis status post laminectomy CKD Possible JEANNETTE. Sleep study pending as outpt PSHX: Appendectomy Bilateral tubal ligation Hysterectomy CABG Laminectomy 2014 PE: GEN: 72yoF, appears stated age. Well-nourished, well developed. No acute distress. Alert and oriented x 3. Pleasant, interactive. HEENT: Normocephalic, atraumatic. Moist mucous membranes. Pharynx moist. Neck supple, trachea midline. CHEST: Regular rate and rhythm, +S1, +S2 LUNGS: Few rales bases B/L. No wheezes,or rhonchi. Breathing appears symmetric and easy. ABD: Round, soft, non-tender, non-distended. +Bowel sounds throughout. No rebound or guarding. No costovertebral angle tenderness. EXT: boots on currently. tr-1mm edema noted pedal and distal pretib. SKIN: [place], dry, warm. No rashes. NEURO: No focal deficits appreciated. A&P: 72year oldF with history of bilateral lower extremity stress fracture followed by Dr. Maciel and prescribed bilateral boots, presented to [facility] on 06/11/17 for worsening of right lower extremity pain. The patient was found to have acute nondisplaced fracture of the distal tibia and fibula, status post right tibia IM nailing as per Dr. Maciel 06/15/17. The patient is subsequently transferred to the care of IVONE Chaney. 1. Displaced right distal tibial and fibular fracture, with prior left fracture/ status post right tibia IM nailing 06/15/[address] Maciel, orthopedics. Continue management/follow-up with orthopedics. Management as per IVONE Chaney. PT OT as per IVONE Chaney. Pain control as per IVONE Chaney Bowel care as per IVONE Chaney. DVT prophylaxis as per IVONE Chaney. Lovenox. Urinary retention. Flomax added as per IVONE. Vit D 35 06/15/17. It is questionable whether patient has been having pathologic fractures. Plan for outpatient DEXA scan. Not clear whether the patient's underlying hemochromatosis contributing. Plan for outpatient rheumatology/endocrine/hematology f/u. 2. Chronic kidney disease- SCr 1.25. Monitor. Recheck labs today. HAMIDA inhibitor on hold. Seen by nephrology during [facility] admission. 3. Hypertension-blood pressure noted to be 120s-140s systolic. HAMIDA inhibitor (Lisinopril 2.5mg) on hold. Amlodipine 5 mg BID with hold parameters. Hydralazine 50 mg by mouth twice a day with hold parameters. Nitroglycerin patch daily. Bystolic daily at HS with hold parameters. Bumex 1 mg BID. Modest FR/ I/O, daily weight. Elevate LEs Monitor CBC/CMP. 4. Diabetes mellitus-CC diet. Levemir 60 units twice a day (decreased slightly related to low BS). No further hypoglycemia noted. Continue sliding scale insulin. Monitor. 5. History of hemochromatosis- not on treatment at this time. Plan for outpatient follow-up. 6. Chronic lower back pain status post laminectomy- controlled. 7. H/o CAD s/p CABG. On BB and statin. ASA 325 mg daily. 8. Osteoporosis. 9. Possible JEANNETTE. Cont supplemental O2 prn. Sleep study pending as outpt. VS, I&O, 24H, Fishbone Vital Signs/I&O Vital Signs Date Time Temp Pulse Resp B/P (MAP) Pulse Ox O2 Delivery O2 Flow Rate FiO2 06/27/17 08:38 20 06/27/17 08:09 146/64 06/27/17 08:07 61 06/27/17 08:00 Nasal Cannula 1.0 06/27/17 06:00 98.0 95 I&O- Last 24 Hours up to 6 AM 06/28/17 05:59 Intake Total 540 ml Output Total 1000 ml Balance -460 ml Laboratory Data 24H LABS Laboratory Tests 2 06/26/17 16:33: Bedside Glucose (Misc Panel) 191H 06/26/17 21:03: Bedside Glucose (Misc Panel) 264H 06/27/17 11:24: Bedside Glucose (Misc Panel) 155H Karen Pak Jun 27, 2017 12:25
[2017-06-27 13:08] LABS: CALCIUM LEVEL 9.4 MG/DL (8.8-10.2); CREATININE FOR GFR 0.99 MG/DL (0.55-1.02); GLOMERULAR FILTRATION RATE 58.7 (>39); POTASSIUM SERUM 3.8 MEQ/L (3.5-5.1)
[2017-06-27 14:00] VITALS: BP 154/68
[2017-06-27] MEDS: **NOTE PATIENT COMMENT** MISC XX SCH (21:00)
[2017-06-27] MEDS: ATORVASTATIN 20 MG TAB PO SCH (21:49)
[2017-06-27] MEDS: NEBIVOLOL 5 MG TAB (BYSTOLIC) PO SCH (21:50)
[2017-06-27 22:02] VITALS: BP 144/68
[2017-06-27 22:05] VITALS: BP 148/64
[2017-06-27 22:08] VITALS: BP 148/72
[2017-06-28] VITALS (8 sets, daily range): BP systolic 124–142; BP diastolic 54–76
[2017-06-28 07:13] LABS: MEAN CORPUSCULAR HEMOGLOBIN 27.3 pg (27.0-33.0); MEAN CORPUSCULAR HGB CONC 31.4 g/dl (32.0-36.5); RED CELL DISTRIBUTION WIDTH 19.6 % (11.5-14.5); WHITE BLOOD COUNT 8.5 10^3/uL (4.0-10.0)
[2017-06-28] MEDS: HumaLOG INSULIN (NovoLOG) PER UNIT SC SCH ×4 (07:30→20:46)
[2017-06-28 07:34] LABS: ALBUMIN 2.8 GM/DL (3.2-5.2); ALBUMIN/GLOBULIN RATIO 0.76 (1.00-1.93); BILIRUBIN,TOTAL 0.6 MG/DL (0.2-1.0); CALCIUM LEVEL 9.2 MG/DL (8.8-10.2); CREATININE FOR GFR 1.05 MG/DL (0.55-1.02); GLOMERULAR FILTRATION RATE 54.8 (>39); POTASSIUM SERUM 3.3 MEQ/L (3.5-5.1); TOTAL PROTEIN 6.5 GM/DL (6.4-8.2)
[2017-06-28] MEDS: LEVEMIR (INSULIN DETEMIR) 1 UNITS/0.01ML SC SCH ×2 (09:07→20:33)
[2017-06-28] MEDS: BUMETANIDE 1 MG TAB PO SCH ×2 (09:09→20:31)
[2017-06-28] MEDS: SENOKOT S TAB PO SCH ×2 (09:09→20:31)
[2017-06-28] MEDS: oxyCODONE 5MG TAB PO SCH ×2 (09:09→12:20)
[2017-06-28] MEDS: ASPIRIN 325 MG TAB PO SCH (09:10)
[2017-06-28] MEDS: amLODIPine 5 MG TAB PO SCH ×2 (09:10→20:32)
[2017-06-28] MEDS: PREGABALIN 75 MG CAP(LYRICA) PO SCH ×2 (09:10→20:31)
[2017-06-28] MEDS: BENZONATATE 100 MG CAP PO SCH ×3 (09:10→20:31)
[2017-06-28] MEDS: traMADol ER 100MG TABLET (ULTRAM ER) PO SCH ×2 (09:10→20:32)
[2017-06-28] MEDS: TAMSULOSIN 0.4 MG CAP PO SCH (09:10)
[2017-06-28] MEDS: OMEPRAZOLE 20 MG CAP PO SCH (09:10)
[2017-06-28] MEDS: VITAMIN D 1,000 INTERNATIONAL UNITS TABLET PO SCH (09:13)
[2017-06-28] MEDS: ENOXAPARIN 40 MG/0.4 ML SYRINGE (J1650) SC SCH (09:14)
[2017-06-28] MEDS: NITROGLYCERIN 0.4 MG/HR PATCH TD SCH (09:15)
[2017-06-28] MEDS: NYSTATIN 100,000 UNITS/GM TOPICAL PWD 15 GM TOP SCH ×2 (09:15→20:33)
[2017-06-28] MEDS: **hydrALAZINE** 50 MG TAB PO SCH ×2 (09:17→20:32)
--- NOTE | 2017-06-28 10:13 | IPNPDOC ---
Drawing Checker Progress Note DATE OF SERVICE: 06/28/17 DATE OF ADMISSION: Jun 19, 2017 at 13:33 INPATIENT REHABILITATION ADMISSION DAY: #10 SUBJECTIVE: The patient is a right-handed 72-year-old white female who had developed bilateral low leg pain over the last couple of months and was seen by Dr. Beatriz Waite in orthopedics. She was found to have nondisplaced linear, essentially stress fractures of the distal fibulas and was placed in bilateral fracture boots. On the day of 06/11/2017, patient while wearing her fracture boots was getting up off the toilet using some hand oracle consultant her had put into the wall, and as she did this she heard a loud crack coming from her right leg and then felt severe pain in the distal aspect of her right leg. She was brought to and evaluated at [facility] emergency room and was found to have a distal right tibia-fibula fracture with some angulation. Patient was uncertain as to treatment and after weighing the options elected an intramedullary nailing with screw fixation on 06/14/2017. No complaints today, happy with her improved mobility and ADL's. ALLERGIES: See Below MEDICATIONS: Reviewed, see below. OBJECTIVE: VITAL SIGNS: Please see below. PHYSICAL EXAMINATION: GENERAL: Short obese elderly white female in very mild musculoskeletal distress with bit of anxiousness but overall alert and well oriented. HEENT: Normocephalic atraumatic. CARDIOVASCULAR: Regular rate and rhythm with normal S1-S2. 2/4 bilateral radial pulses. LUNGS: All veloz clear to auscultation. ABDOMEN: Obese, nontender with normal bowel sounds in all quadrants. NEUROLOGICAL: Alert and oriented 4. Patient is pleasant and still much less anxious. Sensory motor intact in BU&LE's. SKIN: Intramedullary nail insertion site covered with stop the foam without drainage. LABORATORY DATA: Reviewed. Please see below. MICROBIOLOGY: Please see below. IMAGING: No new imaging. DVT prophylaxis ordered?: Lovenox and JOSIAH hose on the left lower extremity. ASSESSMENT AND PLAN: 1. Rehabilitation of right tib-fib fracture status post intramedullary nail using fracture boots for the right as well as the left distal fibular stress fracture: Patient participating well in PT/OT and having some decreased in her anxiousness. Better efforts and performance in therapies daily. Transition of Oxycodone to 5 mg bid is going well. Functional gaiting and ADL's are improving. Anticipated Discharge Date remains 07/03/17. REHAB. TEAM ROUNDS: Patient with improved mood and less anxiousness in therapies now SBA in most transfers and ADL's with Ambulation of 150' with CGA and Independent W/C >300', and 16 stairs with rails and CGA. Patient is on pace for D/C to home on 07/03/17, but now her need for O2 is main concern, as we are still weaning and will need to test this /Sunday for desaturation with gaiting for home O2 Rx. Patient will need Tub Bench and FWW for discharge as well. 2. Anemia: H&H 8.8 and 28.6% today on 06/28/17 with slight slide downward. We will continue to watch. 3. Type 2 diabetes mellitus: Blood sugars running 70 to 264 in last 48 hours but mainly 100 to 199 range. I will decrease Detemir to 50 U BID from 60 U BID to avoid hypoglycemia periods like this morning at 70. 4. Anxiety: Doing better daily as patient sees her progress and is more self trusting and trusting of Rehab. Team. TIME SPENT: Chart Review, examination and documentation require greater than 25 minutes. Allergies Coded Allergies: Warfarin (Verified Adverse Reaction, Mild, NAUSEA/DIZZY, 06/10/17) Amlodipine (Verified Adverse Reaction, Unknown, COUGH, 06/10/17) Vital Signs Vital Signs Date Time Temp Pulse Resp B/P (MAP) Pulse Ox O2 Delivery O2 Flow Rate FiO2 06/28/17 09:17 124/54 06/28/17 09:10 62 06/28/17 09:09 18 Room Air 06/28/17 06:00 99.3 94 2.0 Laboratory Data CBC/BMP Laboratory Tests 06/27/17 12:18 Calcium Level 9.4 06/28/17 06:52 Calcium Level 9.2, Red Blood Count 3.22 L, Mean Corpuscular Volume 87.0, Mean Corpuscular Hemoglobin 27.3, Mean Corpuscular Hemoglobin Concent 31.4 L, Red Cell Distribution Width 19.6 H, Aspartate Amino Transf (AST/SGOT) 15, Alanine Aminotransferase (ALT/SGPT) 30, Alkaline Phosphatase 131 H, Total Bilirubin 0.6 , Total Protein 6.5, Albumin 2.8 L Labs 24H Laboratory Tests 2 06/27/17 11:24: Bedside Glucose (Misc Panel) 155H 06/27/17 12:18: Anion Gap 7L, Glomerular Filtration Rate 58.7, Blood Urea Nitrogen 43H, Creatinine 0.99, Sodium Level 140, Potassium Level 3.8, Chloride Level 101, Carbon Dioxide Level 32, Calcium Level 9.4 06/27/17 16:44: Bedside Glucose (Misc Panel) 168H 06/27/17 20:27: Bedside Glucose (Misc Panel) 199H 06/28/17 06:52: Anion Gap 7L, Glomerular Filtration Rate 54.8, Blood Urea Nitrogen 41H, Creatinine 1.05H, Sodium Level 142, Potassium Level 3.3L, Chloride Level 103, Carbon Dioxide Level 32, Calcium Level 9.2, Aspartate Amino Transf (AST/SGOT) 15 , Alanine Aminotransferase (ALT/SGPT) 30, Alkaline Phosphatase 131H, Total Bilirubin 0.6, Total Protein 6.5, Albumin 2.8L, Albumin/Globulin Ratio 0.76L 06/28/17 07:07: Bedside Glucose (Misc Panel) 70L Current Medications Current Medications Current Medications Acetaminophen (Tylenol Tab) 650 mg Q6HP PRN PO PAIN OR FEVER Last administered on 06/21/17 16:09; Start 06/19/17 at 13:45; Stop 07/19/17 at 13:44 Amlodipine Besylate (Norvasc) 5 mg BID PO Last administered on 06/28/17 09:10 ; Start 06/20/17 at 21:00; Stop 07/20/17 at 20:59 Amlodipine Besylate (Norvasc) 5 mg DAILY PO Last administered on 06/20/17 09: 03; Start 06/20/17 at 09:00; Stop 06/20/17 at 11:38; Status DC Aspirin (Aspirin) 325 mg DAILY PO Last administered on 06/28/17 09:10; Start 06/20/17 at 09:00; Stop 07/20/17 at 08:59 Atorvastatin Calcium (Lipitor) 20 mg QHS PO Last administered on 06/27/17 21: 49; Start 06/19/17 at 21:00; Stop 07/19/17 at 20:59 Benzonatate (Tessalon Perles) 100 mg TID PO Last administered on 06/28/17 09: 10; Start 06/19/17 at 16:00; Stop 07/19/17 at 15:59 Bumetanide (Bumex) 1 mg BID PO Last administered on 06/28/17 09:09; Start at 09:00; Stop 07/22/17 at 08:59 Ceftriaxone Sodium 1 gm/ Dextrose 50 ml @ 100 mls/hr Q24H IV Last administered on 06/21/17 09:22; Start 06/20/17 at 09:00; Stop 06/21/17 at 12:00 ; Status DC Dextrose (Dextrose 50%) 25 ml ASDIRECTED PRN IV SEE LABEL COMMENTS Last administered on 06/20/17 08:24; Start 06/19/17 at 14:00; Stop 07/19/17 at 13: 59 Enoxaparin Sodium (Lovenox) 40 mg DAILY SC Last administered on 06/24/17 08:58 ; Start 06/20/17 at 09:00; Stop 06/25/17 at 08:59; Status DC Enoxaparin Sodium (Lovenox) 40 mg DAILY SC Last administered on 06/28/17 09:14 ; Start 06/26/17 at 09:00; Stop 07/01/17 at 08:59 Fluconazole (Diflucan) 200 mg DAILY PO Last administered on 06/24/17 08:57; Start 06/20/17 at 09:00; Stop 06/24/17 at 12:00; Status DC Glucagon (Glucagon) 1 mg ASDIRECTED PRN SC SEE LABEL COMMENTS; Start 06/19/17 at 14:00; Stop 07/19/17 at 13:59 Glucose (Glucose) 16 GM ASDIRECTED PRN PO SEE LABEL COMMENTS; Start 06/19/17 at 14:00; Stop 07/19/17 at 13:59 Hydralazine HCl (Apresoline) 50 mg BID PO Last administered on 06/28/17 09:17 ; Start 06/19/17 at 21:00; Stop 07/19/17 at 20:59 Insulin Detemir (Levemir Insulin) 50 units BID SC Last administered on 09:07; Start 06/28/17 at 09:00; Stop 07/28/17 at 08:59 Insulin Detemir (Levemir Insulin) 60 units BID SC Last administered on 21:51; Start 06/20/17 at 21:00; Stop 06/28/17 at 08:53; Status DC Insulin Detemir (Levemir Insulin) 70 units BID SC Last administered on 20:37; Start 06/19/17 at 21:00; Stop 06/20/17 at 08:52; Status DC Insulin Human Lispro (HumaLOG INSULIN) See Protocol Table AC SC Last administered on 06/27/17 17:04; Start 06/19/17 at 17:30; Stop 07/19/17 at 17: 29 Insulin Human Lispro (HumaLOG INSULIN) See Protocol Table QHS SC Last administered on 06/26/17 21:39; Start 06/19/17 at 21:00; Stop 07/19/17 at 20: 59 Miscellaneous (Unresolved Clarification Entry) SEE LABEL COMMENTS UNRESOLVED XX ; Start 06/25/17 at 00:01; Stop 06/25/17 at 12:01; Status DC Nebivolol (Bystolic) 20 mg QHS PO Last administered on 06/27/17 21:50; Start 06/19/17 at 21:00; Stop 07/19/17 at 20:59 Nitroglycerin (Nitrodur 0.4 Mg/ Hr) 1 patch DAILY TD Last administered on 09:15; Start 06/20/17 at 09:00; Stop 07/20/17 at 08:59 Non-Formulary Medication ( See Comment Field Below ) DAILY@21 XX Last administered on 06/27/17 21:00; Start 06/19/17 at 21:00; Stop 07/19/17 at 20: 59 Nystatin (Mycostatin Powder, Nystop) to skin folds сергей. abdominal BID TOP Last administered on 06/28/17 09:15; Start 06/21/17 at 09:00; Stop 07/21/17 at 08: 59 Omeprazole (PriLOSEC) 20 mg DAILY PO Last administered on 06/28/17 09:10; Start 06/20/17 at 09:00; Stop 07/20/17 at 08:59 Oxycodone HCl (OxyCONTIN) 10 mg BID PO Last administered on 06/25/17 08:32; Start 06/19/17 at 21:00; Stop 06/25/17 at 11:55; Status DC Oxycodone HCl (Roxicodone, Oxyir) 5 mg BID@0730,1230 PO Last administered on 09:09; Start 06/25/17 at 12:30; Stop 07/02/17 at 12:29 Oxycodone HCl (Roxicodone, Oxyir) 5 mg BIDP PRN PO PAIN(8-10); Start 06/25/17 at 12:00; Stop 07/02/17 at 11:59 Oxycodone HCl (Roxicodone, Oxyir) 5 mg Q4HP PRN PO PAIN 8-10; Start 06/19/17 at 14:00; Stop 06/26/17 at 13:59; Status Cancel Pregabalin (Lyrica) 75 mg BID PO Last administered on 06/28/17 09:10; Start at 21:00; Stop 07/02/17 at 23:55 Senna/Docusate Sodium (Senokot S) 1 tab BID PO Last administered on 06/28/17 09:09; Start 06/19/17 at 21:00; Stop 07/19/17 at 20:59 Sodium Biphosphate/ Sodium Phosphate (Fleet Enema) 1 ea DAILYPRN PRN [place] CONSTIPATION; Start 06/19/17 at 13:45; Stop 07/19/17 at 13:44 Tamsulosin HCl (Flomax) 0.4 mg QHS PO Last administered on 06/23/17 21:13; Start 06/21/17 at 21:00; Stop 06/24/17 at 09:48; Status DC Tamsulosin HCl (Flomax) 0.8 mg DAILY PO Last administered on 06/28/17 09:10; Start 06/24/17 at 09:00; Stop 07/24/17 at 08:59 Tramadol HCl (Ultram Er) 100 mg BID PO Last administered on 06/28/17 09:10; Start 06/19/17 at 21:00; Stop 07/02/17 at 23:55 Vitamin D (Vitamin D) 5,000 units DAILY PO Last administered on 06/28/17 09:13 ; Start 06/20/17 at 09:00; Stop 07/20/17 at 08:59 FREDERICK DALEY MD Jun 28, 2017 10:13
[2017-06-28] MEDS ORDERED: POTASSIUM CHLORIDE 10 MEQ SR TABLET PO ONE (11:00)
[2017-06-28] MEDS ORDERED: BETHANECHOL 10 MG TAB PO ONE (11:00)
[2017-06-28] MEDS: ATORVASTATIN 20 MG TAB PO SCH (20:31)
[2017-06-28] MEDS: NEBIVOLOL 5 MG TAB (BYSTOLIC) PO SCH (20:32)
[2017-06-28] MEDS: **NOTE PATIENT COMMENT** MISC XX SCH (21:00)
[2017-06-29 06:00] VITALS: BP_SYST 128; BP_SYST 132; BP_DIAS 56; BP_DIAS 60; BP_DIAS 62
[2017-06-29 07:21] LABS: MEAN CORPUSCULAR HEMOGLOBIN 27.7 pg (27.0-33.0); MEAN CORPUSCULAR HGB CONC 31.5 g/dl (32.0-36.5); RED CELL DISTRIBUTION WIDTH 19.5 % (11.5-14.5)
[2017-06-29 07:50] LABS: CALCIUM LEVEL 9.1 MG/DL (8.8-10.2); CREATININE FOR GFR 1.13 MG/DL (0.55-1.02); GLOMERULAR FILTRATION RATE 50.4 (>39); POTASSIUM SERUM 3.7 MEQ/L (3.5-5.1)
[2017-06-29] MEDS: HumaLOG INSULIN (NovoLOG) PER UNIT SC SCH ×4 (08:18→21:32)
[2017-06-29] MEDS: LEVEMIR (INSULIN DETEMIR) 1 UNITS/0.01ML SC SCH ×2 (08:18→21:32)
[2017-06-29] MEDS: ENOXAPARIN 40 MG/0.4 ML SYRINGE (J1650) SC SCH (08:19)
[2017-06-29] MEDS: TAMSULOSIN 0.4 MG CAP PO SCH (08:19)
[2017-06-29] MEDS: VITAMIN D 1,000 INTERNATIONAL UNITS TABLET PO SCH (08:19)
[2017-06-29] MEDS: OMEPRAZOLE 20 MG CAP PO SCH (08:19)
[2017-06-29] MEDS: **hydrALAZINE** 50 MG TAB PO SCH ×2 (08:20→21:35)
[2017-06-29] MEDS: BUMETANIDE 1 MG TAB PO SCH ×2 (08:20→21:35)
[2017-06-29] MEDS: oxyCODONE 5MG TAB PO SCH ×2 (08:20→12:28)
[2017-06-29] MEDS: BENZONATATE 100 MG CAP PO SCH ×3 (08:20→21:36)
[2017-06-29] MEDS: PREGABALIN 75 MG CAP(LYRICA) PO SCH ×2 (08:20→21:32)
[2017-06-29] MEDS: traMADol ER 100MG TABLET (ULTRAM ER) PO SCH ×2 (08:20→21:33)
[2017-06-29] MEDS: SENOKOT S TAB PO SCH ×2 (08:20→21:33)
[2017-06-29] MEDS: ASPIRIN 325 MG TAB PO SCH (08:20)
[2017-06-29] MEDS: NYSTATIN 100,000 UNITS/GM TOPICAL PWD 15 GM TOP SCH ×2 (08:21→21:37)
[2017-06-29] MEDS: NITROGLYCERIN 0.4 MG/HR PATCH TD SCH (08:21)
[2017-06-29] MEDS: amLODIPine 5 MG TAB PO SCH ×2 (08:21→21:34)
[2017-06-29] MEDS: BETHANECHOL 10 MG TAB PO SCH (10:02)
--- NOTE | 2017-06-29 12:30 | IPNPDOC ---
[employer] Progress Note DATE OF SERVICE: 06/29/17 DATE OF ADMISSION: Jun 19, 2017 at 13:33 INPATIENT REHABILITATION ADMISSION DAY: #11 SUBJECTIVE: The patient is a right-handed 72-year-old white female who had developed bilateral low leg pain over the last couple of months and was seen by Dr. Beatriz Waite in orthopedics. She was found to have nondisplaced linear, essentially stress fractures of the distal fibulas and was placed in bilateral fracture boots. On the day of 06/11/2017, patient while wearing her fracture boots was getting up off the toilet using some hand syrup maker cook her had put into the wall, and as she did this she heard a loud crack coming from her right leg and then felt severe pain in the distal aspect of her right leg. She was brought to and evaluated at [facility] emergency room and was found to have a distal right tibia-fibula fracture with some angulation. Patient was uncertain as to treatment and after weighing the options elected an intramedullary nailing with screw fixation on 06/14/2017. No complaints today, happy with her improved mobility and ADL's. ALLERGIES: See Below MEDICATIONS: Reviewed, see below. OBJECTIVE: VITAL SIGNS: Please see below. PHYSICAL EXAMINATION: GENERAL: Short obese elderly white female in very mild musculoskeletal distress with bit of anxiousness but overall alert and well oriented. HEENT: Normocephalic atraumatic. CARDIOVASCULAR: Regular rate and rhythm with normal S1-S2. 2/4 bilateral radial pulses. LUNGS: All veloz clear to auscultation. ABDOMEN: Obese, nontender with normal bowel sounds in all quadrants. NEUROLOGICAL: Alert and oriented 4. Patient is pleasant and still much less anxious. Sensory motor intact in BU&LE's. SKIN: Intramedullary nail insertion site covered with stop the foam without drainage. Kopperl out today, some mild erythema without heat at about fracture line on Right Leg. LABORATORY DATA: Reviewed. Please see below. MICROBIOLOGY: Please see below. IMAGING: No new imaging. DVT prophylaxis ordered?: Lovenox and JOSIAH hose on the left lower extremity. ASSESSMENT AND PLAN: 1. Rehabilitation of right tib-fib fracture status post intramedullary nail using fracture boots for the right as well as the left distal fibular stress fracture: Patient participating well in PT/OT and having some decreased in her anxiousness. Better efforts and performance in therapies daily. Transition of Oxycodone to 5 mg bid is going well. Functional gaiting and ADL's are improving. Patient with improved mood and less anxiousness in therapies now SBA in most transfers and ADL's with Ambulation of 150' with CGA and Independent W/ C >300', and 16 stairs with rails and CGA. Patient is on pace for D/C to home on 07/03/17, but now her need for O2 is main concern, as we are still weaning and will need to test this /Sunday for desaturation with gaiting for home O2 Rx. Patient will need Tub Bench and FWW for discharge as well as W/C. 2. Anemia: H&H 9.0 and 28.6% today on 06/29/17. We will continue to watch. 3. Type 2 diabetes mellitus: Blood sugars running 70 to 251 in last 48 hours but mainly 120 to 199 range. Doing better with decrease in Detemir to 50 U BID. 4. Anxiety: Doing better daily as patient sees her progress and is more self trusting and trusting of Rehab. Team. TIME SPENT: Chart Review, examination and documentation require greater than 25 minutes. Allergies Coded Allergies: Warfarin (Verified Adverse Reaction, Mild, NAUSEA/DIZZY, 06/10/17) Amlodipine (Verified Adverse Reaction, Unknown, COUGH, 06/10/17) Vital Signs Vital Signs Date Time Temp Pulse Resp B/P (MAP) Pulse Ox O2 Delivery O2 Flow Rate FiO2 06/29/17 08:50 18 06/29/17 08:21 60 132/62 06/29/17 08:00 Nasal Cannula 1.0 06/29/17 06:00 97.6 93 Laboratory Data CBC/BMP Laboratory Tests 06/29/17 07:01 Red Blood Count 3.25 L, Mean Corpuscular Volume 88.0, Mean Corpuscular Hemoglobin 27.7, Mean Corpuscular Hemoglobin Concent 31.5 L, Red Cell Distribution Width 19.5 H, Calcium Level 9.1 Labs 24H Laboratory Tests 2 06/28/17 16:30: Bedside Glucose (Misc Panel) 184H 06/28/17 20:29: Bedside Glucose (Misc Panel) 251H 06/29/17 06:44: Bedside Glucose (Misc Panel) 133H 06/29/17 07:01: Anion Gap 6L, Glomerular Filtration Rate 50.4, Blood Urea Nitrogen 42H, Creatinine 1.13H, Sodium Level 139, Potassium Level 3.7, Chloride Level 101, Carbon Dioxide Level 32, Calcium Level 9.1 06/29/17 11:29: Bedside Glucose (Misc Panel) 169H Current Medications Current Medications Current Medications Acetaminophen (Tylenol Tab) 650 mg Q6HP PRN PO PAIN OR FEVER Last administered on 06/21/17 16:09; Start 06/19/17 at 13:45; Stop 07/19/17 at 13:44 Amlodipine Besylate (Norvasc) 5 mg BID PO Last administered on 06/29/17 08:21 ; Start 06/20/17 at 21:00; Stop 07/20/17 at 20:59 Amlodipine Besylate (Norvasc) 5 mg DAILY PO Last administered on 06/20/17 09: 03; Start 06/20/17 at 09:00; Stop 06/20/17 at 11:38; Status DC Aspirin (Aspirin) 325 mg DAILY PO Last administered on 06/29/17 08:20; Start 06/20/17 at 09:00; Stop 07/20/17 at 08:59 Atorvastatin Calcium (Lipitor) 20 mg QHS PO Last administered on 06/28/17 20: 31; Start 06/19/17 at 21:00; Stop 07/19/17 at 20:59 Benzonatate (Tessalon Perles) 100 mg TID PO Last administered on 06/29/17 08: 20; Start 06/19/17 at 16:00; Stop 07/19/17 at 15:59 Bethanechol Chloride (Urecholine) 10 mg DAILY PO Last administered on 10:02; Start 06/29/17 at 09:00; Stop 07/29/17 at 08:59 Bumetanide (Bumex) 1 mg BID PO Last administered on 06/29/17 08:20; Start at 09:00; Stop 07/22/17 at 08:59 Ceftriaxone Sodium 1 gm/ Dextrose 50 ml @ 100 mls/hr Q24H IV Last administered on 06/21/17 09:22; Start 06/20/17 at 09:00; Stop 06/21/17 at 12:00 ; Status DC Dextrose (Dextrose 50%) 25 ml ASDIRECTED PRN IV SEE LABEL COMMENTS Last administered on 06/20/17 08:24; Start 06/19/17 at 14:00; Stop 07/19/17 at 13: 59 Enoxaparin Sodium (Lovenox) 40 mg DAILY SC Last administered on 06/24/17 08:58 ; Start 06/20/17 at 09:00; Stop 06/25/17 at 08:59; Status DC Enoxaparin Sodium (Lovenox) 40 mg DAILY SC Last administered on 06/29/17 08:19 ; Start 06/26/17 at 09:00; Stop 07/01/17 at 08:59 Fluconazole (Diflucan) 200 mg DAILY PO Last administered on 06/24/17 08:57; Start 06/20/17 at 09:00; Stop 06/24/17 at 12:00; Status DC Glucagon (Glucagon) 1 mg ASDIRECTED PRN SC SEE LABEL COMMENTS; Start 06/19/17 at 14:00; Stop 07/19/17 at 13:59 Glucose (Glucose) 16 GM ASDIRECTED PRN PO SEE LABEL COMMENTS; Start 06/19/17 at 14:00; Stop 07/19/17 at 13:59 Hydralazine HCl (Apresoline) 50 mg BID PO Last administered on 06/29/17 08:20 ; Start 06/19/17 at 21:00; Stop 07/19/17 at 20:59 Insulin Detemir (Levemir Insulin) 50 units BID SC Last administered on 08:18; Start 06/28/17 at 09:00; Stop 07/28/17 at 08:59 Insulin Detemir (Levemir Insulin) 60 units BID SC Last administered on 21:51; Start 06/20/17 at 21:00; Stop 06/28/17 at 08:53; Status DC Insulin Detemir (Levemir Insulin) 70 units BID SC Last administered on 20:37; Start 06/19/17 at 21:00; Stop 06/20/17 at 08:52; Status DC Insulin Human Lispro (HumaLOG INSULIN) See Protocol Table AC SC Last administered on 06/29/17 08:18; Start 06/19/17 at 17:30; Stop 07/19/17 at 17: 29 Insulin Human Lispro (HumaLOG INSULIN) See Protocol Table QHS SC Last administered on 06/28/17 20:46; Start 06/19/17 at 21:00; Stop 07/19/17 at 20: 59 Miscellaneous (Unresolved Clarification Entry) SEE LABEL COMMENTS UNRESOLVED XX ; Start 06/25/17 at 00:01; Stop 06/25/17 at 12:01; Status DC Nebivolol (Bystolic) 20 mg QHS PO Last administered on 06/28/17 20:32; Start 06/19/17 at 21:00; Stop 07/19/17 at 20:59 Nitroglycerin (Nitrodur 0.4 Mg/ Hr) 1 patch DAILY TD Last administered on 08:21; Start 06/20/17 at 09:00; Stop 07/20/17 at 08:59 Non-Formulary Medication ( See Comment Field Below ) DAILY@21 XX Last administered on 06/28/17 21:00; Start 06/19/17 at 21:00; Stop 07/19/17 at 20: 59 Nystatin (Mycostatin Powder, Nystop) to skin folds сергей. abdominal BID TOP Last administered on 06/29/17 08:21; Start 06/21/17 at 09:00; Stop 07/21/17 at 08: 59 Omeprazole (PriLOSEC) 20 mg DAILY PO Last administered on 06/29/17 08:19; Start 06/20/17 at 09:00; Stop 07/20/17 at 08:59 Oxycodone HCl (OxyCONTIN) 10 mg BID PO Last administered on 06/25/17 08:32; Start 06/19/17 at 21:00; Stop 06/25/17 at 11:55; Status DC Oxycodone HCl (Roxicodone, Oxyir) 5 mg BID@0730,1230 PO Last administered on 08:20; Start 06/25/17 at 12:30; Stop 07/02/17 at 12:29 Oxycodone HCl (Roxicodone, Oxyir) 5 mg BIDP PRN PO PAIN(8-10); Start 06/25/17 at 12:00; Stop 07/02/17 at 11:59 Oxycodone HCl (Roxicodone, Oxyir) 5 mg Q4HP PRN PO PAIN 8-10; Start 06/19/17 at 14:00; Stop 06/26/17 at 13:59; Status Cancel Pregabalin (Lyrica) 75 mg BID PO Last administered on 06/29/17 08:20; Start at 21:00; Stop 07/02/17 at 23:55 Senna/Docusate Sodium (Senokot S) 1 tab BID PO Last administered on 06/29/17 08:20; Start 06/19/17 at 21:00; Stop 07/19/17 at 20:59 Sodium Biphosphate/ Sodium Phosphate (Fleet Enema) 1 ea DAILYPRN PRN [place] CONSTIPATION; Start 06/19/17 at 13:45; Stop 07/19/17 at 13:44 Tamsulosin HCl (Flomax) 0.4 mg QHS PO Last administered on 06/23/17 21:13; Start 06/21/17 at 21:00; Stop 06/24/17 at 09:48; Status DC Tamsulosin HCl (Flomax) 0.8 mg DAILY PO Last administered on 06/29/17 08:19; Start 06/24/17 at 09:00; Stop 07/24/17 at 08:59 Tramadol HCl (Ultram Er) 100 mg BID PO Last administered on 06/29/17 08:20; Start 06/19/17 at 21:00; Stop 07/02/17 at 23:55 Vitamin D (Vitamin D) 5,000 units DAILY PO Last administered on 06/29/17 08:19 ; Start 06/20/17 at 09:00; Stop 07/20/17 at 08:59 FREDERICK DALEY MD Jun 29, 2017 12:30
[2017-06-29 14:00] VITALS: BP 120/64
[2017-06-29 20:00] VITALS: BP 158/68
[2017-06-29] MEDS: ATORVASTATIN 20 MG TAB PO SCH (21:33)
[2017-06-29] MEDS: NEBIVOLOL 5 MG TAB (BYSTOLIC) PO SCH (21:37)
[2017-06-29] MEDS: **NOTE PATIENT COMMENT** MISC XX SCH (21:37)
[2017-06-30 06:00] VITALS: BP 170/74
[2017-06-30] MEDS: HumaLOG INSULIN (NovoLOG) PER UNIT SC SCH ×4 (08:11→20:37)
[2017-06-30] MEDS: LEVEMIR (INSULIN DETEMIR) 1 UNITS/0.01ML SC SCH ×2 (08:13→20:38)
[2017-06-30] MEDS: ENOXAPARIN 40 MG/0.4 ML SYRINGE (J1650) SC SCH (08:15)
[2017-06-30] MEDS: NITROGLYCERIN 0.4 MG/HR PATCH TD SCH (08:20)
[2017-06-30] MEDS: VITAMIN D 1,000 INTERNATIONAL UNITS TABLET PO SCH (08:21)
[2017-06-30] MEDS: OMEPRAZOLE 20 MG CAP PO SCH (08:21)
[2017-06-30] MEDS: BUMETANIDE 1 MG TAB PO SCH ×2 (08:21→20:35)
[2017-06-30] MEDS: BENZONATATE 100 MG CAP PO SCH ×3 (08:21→20:35)
[2017-06-30] MEDS: amLODIPine 5 MG TAB PO SCH ×2 (08:21→20:36)
[2017-06-30] MEDS: TAMSULOSIN 0.4 MG CAP PO SCH (08:22)
[2017-06-30] MEDS: ASPIRIN 325 MG TAB PO SCH (08:22)
[2017-06-30] MEDS: BETHANECHOL 10 MG TAB PO SCH (08:22)
[2017-06-30] MEDS: SENOKOT S TAB PO SCH ×2 (08:22→20:35)
[2017-06-30] MEDS: **hydrALAZINE** 50 MG TAB PO SCH ×2 (08:22→20:35)
[2017-06-30] MEDS: oxyCODONE 5MG TAB PO SCH ×2 (08:22→12:38)
[2017-06-30] MEDS: traMADol ER 100MG TABLET (ULTRAM ER) PO SCH ×2 (08:22→20:36)
[2017-06-30] MEDS: NYSTATIN 100,000 UNITS/GM TOPICAL PWD 15 GM TOP SCH ×2 (08:23→20:36)
[2017-06-30] MEDS: PREGABALIN 75 MG CAP(LYRICA) PO SCH ×2 (08:24→20:35)
[2017-06-30 14:00] VITALS: BP 138/72
[2017-06-30 20:00] VITALS: BP 152/68
[2017-06-30] MEDS: ATORVASTATIN 20 MG TAB PO SCH (20:35)
[2017-06-30] MEDS: **NOTE PATIENT COMMENT** MISC XX SCH (20:36)
[2017-06-30] MEDS: NEBIVOLOL 5 MG TAB (BYSTOLIC) PO SCH (20:36)
[2017-07-01 06:00] VITALS: BP 129/61
[2017-07-01 06:41] LABS: MEAN CORPUSCULAR HEMOGLOBIN 27.6 pg (27.0-33.0); MEAN CORPUSCULAR HGB CONC 31.2 g/dl (32.0-36.5); MEAN CORPUSCULAR VOLUME 88.5 fl (80.0-96.0); RED CELL DISTRIBUTION WIDTH 19.9 % (11.5-14.5); WHITE BLOOD COUNT 8.8 10^3/uL (4.0-10.0)
[2017-07-01] MEDS: HumaLOG INSULIN (NovoLOG) PER UNIT SC SCH ×4 (08:30→21:15)
[2017-07-01] MEDS: LEVEMIR (INSULIN DETEMIR) 1 UNITS/0.01ML SC SCH ×2 (08:31→21:14)
[2017-07-01] MEDS: SENOKOT S TAB PO SCH ×2 (08:33→21:00)
[2017-07-01] MEDS: OMEPRAZOLE 20 MG CAP PO SCH (08:33)
[2017-07-01] MEDS: NITROGLYCERIN 0.4 MG/HR PATCH TD SCH (08:33)
[2017-07-01] MEDS: **hydrALAZINE** 50 MG TAB PO SCH ×2 (08:33→21:18)
[2017-07-01] MEDS: PREGABALIN 75 MG CAP(LYRICA) PO SCH ×2 (08:33→21:17)
[2017-07-01] MEDS: BUMETANIDE 1 MG TAB PO SCH ×2 (08:33→21:18)
[2017-07-01] MEDS: ASPIRIN 325 MG TAB PO SCH (08:33)
[2017-07-01] MEDS: oxyCODONE 5MG TAB PO SCH ×2 (08:34→12:22)
[2017-07-01] MEDS: amLODIPine 5 MG TAB PO SCH ×2 (08:34→21:19)
[2017-07-01] MEDS: traMADol ER 100MG TABLET (ULTRAM ER) PO SCH ×2 (08:34→21:13)
[2017-07-01] MEDS: BENZONATATE 100 MG CAP PO SCH ×3 (08:34→21:13)
[2017-07-01] MEDS: TAMSULOSIN 0.4 MG CAP PO SCH (08:35)
[2017-07-01] MEDS: VITAMIN D 1,000 INTERNATIONAL UNITS TABLET PO SCH (08:35)
[2017-07-01] MEDS: ENOXAPARIN 40 MG/0.4 ML SYRINGE (J1650) SC SCH (08:35)
[2017-07-01] MEDS: NYSTATIN 100,000 UNITS/GM TOPICAL PWD 15 GM TOP SCH ×2 (08:36→21:17)
[2017-07-01] MEDS: BETHANECHOL 10 MG TAB PO SCH (08:37)
[2017-07-01 14:00] VITALS: BP 118/60
[2017-07-01 20:00] VITALS: BP 126/66
[2017-07-01] MEDS: NEBIVOLOL 5 MG TAB (BYSTOLIC) PO SCH (21:00)
[2017-07-01] MEDS: **NOTE PATIENT COMMENT** MISC XX SCH (21:00)
[2017-07-01] MEDS: ATORVASTATIN 20 MG TAB PO SCH (21:18)
[2017-07-02 06:00] VITALS: BP 130/78
[2017-07-02] MEDS: ENOXAPARIN 40 MG/0.4 ML SYRINGE (J1650) SC SCH (08:38)
[2017-07-02] MEDS: traMADol ER 100MG TABLET (ULTRAM ER) PO SCH ×2 (08:38→20:23)
[2017-07-02] MEDS: TAMSULOSIN 0.4 MG CAP PO SCH (08:39)
[2017-07-02] MEDS: oxyCODONE 5MG TAB PO SCH ×2 (08:39→12:41)
[2017-07-02] MEDS: OMEPRAZOLE 20 MG CAP PO SCH (08:39)
[2017-07-02] MEDS: PREGABALIN 75 MG CAP(LYRICA) PO SCH ×2 (08:39→20:24)
[2017-07-02] MEDS: BUMETANIDE 1 MG TAB PO SCH ×2 (08:39→20:23)
[2017-07-02] MEDS: SENOKOT S TAB PO SCH ×2 (08:39→20:24)
[2017-07-02] MEDS: ASPIRIN 325 MG TAB PO SCH (08:39)
[2017-07-02] MEDS: BENZONATATE 100 MG CAP PO SCH ×3 (08:39→20:24)
[2017-07-02] MEDS: **hydrALAZINE** 50 MG TAB PO SCH ×2 (08:40→20:24)
[2017-07-02] MEDS: amLODIPine 5 MG TAB PO SCH ×2 (08:40→20:24)
[2017-07-02] MEDS: BETHANECHOL 10 MG TAB PO SCH (08:40)
[2017-07-02] MEDS: VITAMIN D 1,000 INTERNATIONAL UNITS TABLET PO SCH (08:40)
[2017-07-02] MEDS: NITROGLYCERIN 0.4 MG/HR PATCH TD SCH (08:40)
[2017-07-02] MEDS: HumaLOG INSULIN (NovoLOG) PER UNIT SC SCH ×4 (08:41→21:00)
[2017-07-02] MEDS: LEVEMIR (INSULIN DETEMIR) 1 UNITS/0.01ML SC SCH ×2 (08:41→20:25)
[2017-07-02] MEDS: NYSTATIN 100,000 UNITS/GM TOPICAL PWD 15 GM TOP SCH ×2 (08:42→20:25)
[2017-07-02 14:15] VITALS: BP 152/68
[2017-07-02 20:00] VITALS: BP 157/64
[2017-07-02] MEDS: NEBIVOLOL 5 MG TAB (BYSTOLIC) PO SCH (20:23)
[2017-07-02] MEDS: ATORVASTATIN 20 MG TAB PO SCH (20:24)
[2017-07-02] MEDS: **NOTE PATIENT COMMENT** MISC XX SCH (20:26)
[2017-07-03 06:00] VITALS: BP 154/72
[2017-07-03] MEDS ORDERED: HYDR-3713 PO (06:53)
[2017-07-03] MEDS ORDERED: LOVE1INJ SC (07:10)
[2017-07-03] MEDS: HumaLOG INSULIN (NovoLOG) PER UNIT SC SCH (07:30)
[2017-07-03] MEDS ORDERED: TRAM50TA2 PO (08:42)
[2017-07-03] MEDS: NITROGLYCERIN 0.4 MG/HR PATCH TD SCH (08:52)
[2017-07-03] MEDS: VITAMIN D 1,000 INTERNATIONAL UNITS TABLET PO SCH (08:52)
[2017-07-03] MEDS: BETHANECHOL 10 MG TAB PO SCH (08:52)
[2017-07-03 08:53] VITALS: BP 154/72
[2017-07-03] MEDS: TAMSULOSIN 0.4 MG CAP PO SCH (08:53)
[2017-07-03] MEDS: OMEPRAZOLE 20 MG CAP PO SCH (08:53)
[2017-07-03] MEDS: SENOKOT S TAB PO SCH (08:53)
[2017-07-03] MEDS: amLODIPine 5 MG TAB PO SCH (08:53)
[2017-07-03] MEDS: BUMETANIDE 1 MG TAB PO SCH (08:53)
[2017-07-03] MEDS: BENZONATATE 100 MG CAP PO SCH (08:53)
[2017-07-03] MEDS: **hydrALAZINE** 50 MG TAB PO SCH (08:53)
[2017-07-03] MEDS: ASPIRIN 325 MG TAB PO SCH (08:53)
[2017-07-03] MEDS: ENOXAPARIN 40 MG/0.4 ML SYRINGE (J1650) SC SCH (08:54)
[2017-07-03] MEDS: oxyCODONE 5MG TAB PO SCH (08:54)
[2017-07-03] MEDS: LEVEMIR (INSULIN DETEMIR) 1 UNITS/0.01ML SC SCH (08:55)
[2017-07-03] MEDS: NYSTATIN 100,000 UNITS/GM TOPICAL PWD 15 GM TOP SCH (08:55)
[2017-07-03] MEDS ORDERED: traMADol ER 100MG TABLET (ULTRAM ER) PO SCH (09:00)
[2017-07-03] MEDS ORDERED: PREGABALIN 75 MG CAP(LYRICA) PO SCH (09:00)
--- NOTE | 2017-07-03 11:32 | REP ---
RIGHT TIBIA/FIBULA, TWO VIEWS: HISTORY: Fracture. COMPARISON: 06/15/2017 An intramedullary mely is present. There are healing fractures of the distal tibia and fibula. There is no dislocation. The joints spaces are normal in appearance. IMPRESSION: Healing fractures of the distal tibia and fibula. Signed by Jordin Moura MD 07/03/2017 11:33 A
--- NOTE | 2017-07-03 11:33 | REP ---
LEFT ANKLE, TWO VIEWS: HISTORY: Fracture. There is a nondisplaced fracture of the distal fibula. There is no dislocation. The joint space is normal in appearance. Soft tissue swelling is present. IMPRESSION: Nondisplaced fracture of the distal fibula. Signed by Jordin Moura MD 07/03/2017 11:37 A
--- NOTE | 2017-07-03 16:02 | PMRDS ---
DATE OF ADMISSION: 06/19/2017 DATE OF DISCHARGE: 07/03/2017 DISCHARGE DIAGNOSIS: Rehabilitation of right tibial and fibular distal fractures of the right lower extremity, status post closed intramedullary nail and left fibular distal layer fracture, nondisplaced. HISTORY OF PRESENT ILLNESS: Patient is a 72-year-old white female who was found to have had layer, what appeared to be stress fractures, of bilateral distal fibulas on 06/06/2017 [address] was seen by Dr. Waite of orthopedic and placed in fracture boots. Patient went home, and then on 06/11/2017 while getting up off the toilet with the fracture boots in place felt a large snap and severe pain in her distal right lower extremity and was brought back to [facility], where it was found that she had sustained a closed distal tibia and fibular fractures. Patient ended up having a closed intramedullary nailing and screw fixation on 06/14/2017. This right-handed white female was having difficulty with ambulation and activities of daily living (ADLs) and pain in general and was evaluated and found, while able to participate in and benefit from physical therapy, did some continued work before she would be ready to go home, and on 06/19/2017 patient was transferred to acute rehabilitation unit for a trial of musculoskeletal rehabilitation. PAST MEDICAL HISTORY: Includes: 1. Hemachromatosis. 2. Hypertension. 3. Diabetes, type 2. 4. Coronary artery disease, status post bypass grafting and stent placement. 5. History of lumbar stenosis and chronic low back pain, status post laminectomy. OTHER SURGICAL HISTORY: 1. Appendectomy. 2. Bilateral tubal ligation. 3. Hysterectomy. 4. Coronary artery bypass grafting. 5. Lumbar laminectomy in 2014. On the rehabilitation unit, patient did have a chest x-ray as far as procedures go, which showed stable cardiopulmonary disease, and today, her day of discharge, she had right tibia-fibula x-ray, showing healing of the fractures, and left ankle x-ray continued to show the nondisplaced distal fibula fracture. LABORATORY DATA: The patient with anemia on admission, hemoglobin and hematocrit of 9.9 and 32.0 with normal white blood cell count, and on discharge 8.6 and 27.6. Peripheral smear was supportive of the hemachromatosis. Comprehensive metabolic panel was positive on admission for carbon dioxide being elevated at 33 and BUN at 26 with an albumin of 2.4, and her most recent studied showed BUN of 42, creatinine 1.13, and most recent albumin of 2.8. Patient on before meals and at bedtime blood sugars, which led us to decrease her long-acting Detemir insulin from 60 units twice a day to 50 units twice a day, and patient to resume 74 units at bedtime, which was her preadmission dosing. HOSPITAL COURSE: Patient admitted on 06/19/2017 and starting a program of physical and occupational therapy. Some adjustments were made in some of her pain medicine, but in general patient was able to transition down and be transitioned over to just the Lyrica and tramadol ER with diminished use of oxycodone, usually 5 mg one to two times per day. Patient initially ambulating only about 5 feet times two and requiring moderate assistance with bed mobility transfers and ADLs. Became wheelchair independent in the room and ambulating with standby assistance 150 feet using a front-wheeled walker with notable improvement in her balance now to be in good-minus for standing and good for sitting, and OT requiring moderate assistance for sit to stand and minimal assist for most of her other transfers except for total assist for dressing, lower body, and moderate assist for bathing to modified independent and transfers except bed to chair being standby assist and standby assist in lower body dressing, having become independent in upper body dressing. COMPLICATIONS: None. DISCHARGE MEDICATIONS: - Lovenox 40 mg subcutaneous daily for 10 days. The patient has demonstrated ability to give herself the injections, as she gives diabetic insulin injection. - [place] 5/325 one to two tablets every 4 hours as needed for moderate to severe pain - tramadol 50 mg every 4 hours as needed for moderate to severe pain - amlodipine 5 mg daily for hypertension - aspirin 325 mg daily for anticoagulation - atorvastatin 20 mg at bedtime for hyperlipidemia - benzonatate 100 mg three times a day - bumetanide 1 mg twice a day - Os-Charlie with D one tablet twice a day - vitamin D 2000 international units daily - diclofenac 75 mg twice a day for pain - fenofibrate 145 mg daily - fish oil 1200 mg two capsules at bedtime - Diflucan 200 mg daily for less than 7 days - folic acid 400 mcg tablets, two tablets daily - hydralazine 50 mg twice a day for hypertension - Lantus insulin 74 units at bedtime - Humalog insulin sliding scale before meals and at bedtime - lisinopril 2.5 mg daily for hypertension - Bystolic 20 mg at bedtime - nitroglycerine 0.4 mg per hour patch daily for atherosclerotic cardiovascular disease. - Prilosec 20 mg daily for gastroesophageal reflux disease (GERD) - Poly-Iron 150 daily for anemia - Lyrica 75 mg twice a day for chronic back pain - Zanaflex 4 mg at bedtime for muscle spasms Patient should be on a consistent-carbohydrate diet. Home care nursing, PT and OT, and home oxygen have been ordered. DISCHARGE PLANS AND INSTRUCTIONS: Patient will followup with orthopedics in 2-[address] Maciel and her primary care within a week; that will be Dr. Eugene. TIME SPENT ON DISCHARGE: Greater than 35 minutes.
[2017-07-05] MEDS ORDERED: AMLO2.5T PO (09:28)
[2017-07-05] MEDS ORDERED: HYDR-3911 PO (09:28)
== END 2017-07-03 11:13 | disposition home health service (06) | DRG 560 ==
LOC: M PM&R 13:33
PROVIDERS: ADMIT Physical Medicine & Rehabilitation; ATTEND Physical Medicine & Rehabilitation
DX: M84.461D Pathological fracture, right tibia, subsequent encounter for fracture with routine healing (principal); Z68.42 Body mass index [BMI] 45.0-49.9, adult; M84.463D Pathological fracture, right fibula, subsequent encounter for fracture with routine healing; I12.9 Hypertensive chronic kidney disease with stage 1 through stage 4 chronic kidney disease, or unspecified chronic kidney disease; E11.9 Type 2 diabetes mellitus without complications; G47.33 Obstructive sleep apnea (adult) (pediatric); D64.9 Anemia, unspecified; M81.0 Age-related osteoporosis without current pathological fracture; N18.9 Chronic kidney disease, unspecified; E66.01 Morbid (severe) obesity due to excess calories; M54.5 Low back pain; K21.9 Gastro-esophageal reflux disease without esophagitis; F41.9 Anxiety disorder, unspecified; E83.119 Hemochromatosis, unspecified; I25.10 Atherosclerotic heart disease of native coronary artery without angina pectoris; Z95.1 Presence of aortocoronary bypass graft; Z98.51 Tubal ligation status; Z90.710 Acquired absence of both cervix and uterus; Z79.4 Long term (current) use of insulin; Z79.891 Long term (current) use of opiate analgesic; Z88.8 Allergy status to other drugs, medicaments and biological substances

== ENCOUNTER → 2017-08-21 | Outpatient (REF) | payer MEDICARE, OTHER ==
[~2017-08-21] MED LIST changes: +AMLO2.5T PO; +HYDR-3713 PO; +HYDR-3911 PO
== END ==
LOC: M LAB REF 17:19
PROVIDERS: ATTEND Internal Medicine Nephrology
DX: N39.0 Urinary tract infection, site not specified (principal)

== ENCOUNTER → 2017-09-20 | Outpatient (REF) | payer MEDICARE, OTHER ==
[2017-09-20 17:43] LABS: RBC, URINE TNTC /hpf (0-3); SQUAMOUS EPITHELIAL CELL URINE MOD AMOUNT /hpf (SMALL AMT); TRANSITIONAL EPI CELLS, URINE SMALL AMOUNT /hpf; WBC, URINE TNTC /hpf (0-3)
[2017-09-20 17:44] LABS: BACTERIA, URINE SMALL AMOUNT; CALCIUM OXALATE CRYSTALS,URINE SMALL AMOUNT /hpf
[2017-09-20 17:47] LABS: MICROSCOPIC EXAM PERFORMED
== END ==
LOC: M LAB REF 17:12
DX: E11.22 Type 2 diabetes mellitus with diabetic chronic kidney disease (principal); N39.0 Urinary tract infection, site not specified; N20.0 Calculus of kidney
CPT/HCPCS: 81015

== ENCOUNTER → 2017-10-30 | Outpatient (REF) | payer MEDICARE, OTHER ==
[2017-10-30 18:28] LABS: FERRITIN 78 NG/ML (8-252); IRON (FE) 63 UG/DL (50-170); PERCENT SATURATION 18.6 % (13.2-45.0); TOTAL IRON BINDING CAPACITY 339 UG/DL (250-450)
== END ==
LOC: M LAB REF 17:16
DX: D50.9 Iron deficiency anemia, unspecified (principal); N39.0 Urinary tract infection, site not specified
CPT/HCPCS: 83550

== ENCOUNTER → 2018-12-10 | Outpatient (REF) | payer MEDICARE, OTHER ==
[~2018-12-10] MED LIST changes: -AMLO2.5T PO; +AMLO2.5T3 PO; -AMLO5TAB2 PO; +AMLO5TAB6 PO; +BENZ-18 PO; -BENZ100C5 PO; -BUME1TA PO; +BUME1TAB3 PO; -DICL100T PO; +DICL100T3 PO; -FENO145T PO; +FENO145T13 PO; -LISI2.5T3 PO; +LISI2.5T5 PO; +TIZA4CAP PO; -TIZA4CAP3 PO
[2018-12-10 19:16] LABS: FERRITIN 26 NG/ML (8-252); IRON (FE) 37 UG/DL (50-170); PERCENT SATURATION 10.1 % (13.2-45.0); TOTAL IRON BINDING CAPACITY 365 UG/DL (250-450)
[2018-12-10 19:25] LABS: FOLATE > 24.0 NG/ML; VITAMIN B12 LEVEL 709 PG/ML
== END ==
LOC: M LAB REF 17:27
PROVIDERS: ATTEND Internal Medicine Nephrology
DX: D64.9 Anemia, unspecified (principal)

== ENCOUNTER → 2019-03-12 | Outpatient (REF) | payer MEDICARE, OTHER ==
[~2019-03-12] MED LIST changes: -DICL100T3 PO; +DICL100T89 PO; +GLYB-147 PO; -GLYB5TA PO; +LISI-1046 PO; -LISI2.5T5 PO; -NORC1TAB4 PO; +NORC1TAB7 PO
[2019-03-12 18:10] LABS: PERCENT SATURATION 15.7 % (13.2-45.0)
== END ==
LOC: M LAB REF 16:56
PROVIDERS: ATTEND Internal Medicine Nephrology
DX: D50.9 Iron deficiency anemia, unspecified (principal)

== ENCOUNTER 2019-03-24 11:46 | Outpatient (CLI) | payer MEDICARE, OTHER ==
[2019-03-24] VITALS (7 sets, daily range): BP systolic 131–165; BP diastolic 60–72
[~2019-03-24] VITALS: Ht 154.9 cm; Wt 97.1 kg
[2019-03-24] MEDS ORDERED: IRON SUCROSE 25 MG in NS 50 ML IV ONE (12:15)
[2019-03-24] MEDS ORDERED: IRON SUCROSE 275 MG in NS 250 ML IV ONE (12:15)
[2019-03-24] MEDS ORDERED: ALLO100T PO (13:32)
[2019-03-24] MEDS ORDERED: IFERCAP PO (13:33)
[2019-03-24] MEDS ORDERED: FLOM0.4C39 PO (13:34)
[2019-03-24] MEDS ORDERED: CO Q10CA PO (13:35)
[2019-03-24] MEDS ORDERED: SERT25TA85 PO (13:38)
[2019-03-24] MEDS ORDERED: BYST5TAB2 PO (13:38)
== END 2019-03-24 17:15 | disposition home or self-care (01) ==
LOC: M INFU 11:46
PROVIDERS: ATTEND Internal Medicine Nephrology
DX: D50.9 Iron deficiency anemia, unspecified (principal)
CPT/HCPCS: 96365; 96366; J1756

== ENCOUNTER 2019-04-01 12:35 | Outpatient (CLI) | payer MEDICARE, OTHER ==
[~2019-04-01] VITALS: Ht 154.9 cm; Wt 97.1 kg
[~2019-04-01 12:35] MED LIST changes: +ALLO100T PO; +BYST5TAB2 PO; +CO Q10CA PO; +FLOM0.4C39 PO; +IFERCAP PO; +SERT25TA85 PO
[2019-04-01 13:00] VITALS: BP 142/80
[2019-04-01] MEDS ORDERED: IRON SUCROSE 300 MG in NS 250 ML IV ONE (13:30)
[2019-04-01 14:10] VITALS: BP 181/72
[2019-04-01 15:00] VITALS: BP 184/71
[2019-04-01 16:00] VITALS: BP 172/68
[2019-04-01 17:23] VITALS: BP 174/78
== END 2019-04-01 17:35 | disposition home or self-care (01) ==
LOC: M INFU 12:35
PROVIDERS: ATTEND Internal Medicine Nephrology
DX: N18.3 Chronic kidney disease, stage 3 (moderate) (principal); D50.9 Iron deficiency anemia, unspecified; Z79.899 Other long term (current) drug therapy; Z88.8 Allergy status to other drugs, medicaments and biological substances
CPT/HCPCS: 96365; 96366; J1756

== ENCOUNTER 2019-10-20 11:16 | Observation (INO) | payer MEDICARE, OTHER ==
[~2019-10-20] VITALS: Ht 157.5 cm; Wt 97.9 kg
[~2019-10-20 11:16] MED LIST changes: -FENO145T13 PO; +FENO145T7 PO; -VALS160T PO; +VALS160T2 PO
[2019-10-20] MEDS ORDERED: NS 1,000 ML IV SCH (12:45)
--- NOTE | 2019-10-20 13:13 | REP ---
Portable chest, 12th 52 p.m., single AP view with the patient sitting: Comparison is 06/22/2017. The lung veloz are clear. Sternotomy wires and cardiomegaly are unchanged. There are no pleural effusions. The fabian, mediastinum, skeletal structures are unremarkable. Impression: There are no acute cardiopulmonary findings. Chronic cardiomegaly and sternotomy wires. Electronically Signed by Jonas Da Silva MD 10/20/2019 01:04 P
[2019-10-20 13:29] LABS: VENOUS PH 7.362 UNITS (7.330-7.430)
[2019-10-20 13:30] LABS: VENOUS BASE EXCESS 8.4 (-2.0-2.0); VENOUS HCO3 35.9 MEQ/L (23.0-27.0); VENOUS O2 SATURATION 78.5 % (60.0-80.0); VENOUS PARTIAL PRESSURE CO2 64.7 mmHg (38.0-50.0); VENOUS PARTIAL PRESSURE O2 45.1 mmHg (30.0-50.0); VENOUS STANDARD HCO3 31.8 MEQ/L; VENOUS TOTAL CO2 37.9 MEQ/L (24.0-28.0)
[2019-10-20 13:39] LABS: BASO # 0.1 10^3/uL (0.0-0.2); BASO % 0.8 % (0.0-1.0); EOS # 0.5 10^3/uL (0.0-0.5); EOS % 5.6 % (0.0-3.0); HEMOGLOBIN 11.4 g/dl (12.0-15.5); MEAN CORPUSCULAR HEMOGLOBIN 30.2 pg (27.0-33.0); MEAN CORPUSCULAR HGB CONC 31.7 g/dl (32.0-36.5); MEAN CORPUSCULAR VOLUME 95.5 fl (80.0-96.0); MONO # 0.5 10^3/uL (0.0-0.8); MONO % 6.8 % (0.0-5.0); NEUTROPHILS # 5.8 10^3/uL (1.5-8.5); PLATELET COUNT, AUTOMATED 143 10^3/uL (150-450); RED BLOOD COUNT 3.77 10^6/uL (4.00-5.40)
[2019-10-20 13:52] LABS: INR 1.05; PROTHROMBIN TIME 13.4 SECONDS (11.8-14.0)
--- NOTE | 2019-10-20 14:05 | REP ---
CT of the brain without IV contrast: Comparison is 05/13/2007. There is no hemorrhage. There is no edema, midline shift or mass effect. The cortical stripe is unremarkable. There is enlargement of the ventricles and sulci compatible with diffuse volume loss. There are lacunar infarcts in the basal ganglia. The visualized paranasal sinuses and mastoid air cells are clear. Impression: There is no acute hemorrhage. There is diffuse volume loss. There are age indeterminate lacunar infarcts in the basal ganglia. Electronically Signed by Jonas Da Silva MD 10/20/2019 01:57 P
[2019-10-20 14:15] LABS: CALCIUM LEVEL 9.4 MG/DL (8.8-10.2); CK-MB VALUE MASS 3.9 NG/ML (<3.6); CREATININE FOR GFR 1.83 MG/DL (0.55-1.30); GLOMERULAR FILTRATION RATE 28.7 (>39); MAGNESIUM LEVEL 2.3 MG/DL (1.8-2.4); MB/CK RELATIVE INDEX 0.55 (< OR =4); POTASSIUM SERUM 4.1 MEQ/L (3.5-5.1); THYROID STIMULATING HORMONE 3.8 uIU/ML (0.358-3.740); TROPONIN I 0.13 NG/ML (< 0.10)
[2019-10-20] MEDS ORDERED: BUME2TAB3 PO (15:13)
[2019-10-20] MEDS ORDERED: CO Q100C10 PO (15:13)
[2019-10-20] MEDS ORDERED: OMEG10002 PO (15:13)
[2019-10-20] MEDS ORDERED: PREG75CA2 PO (15:13)
[2019-10-20] MEDS ORDERED: AMLO2.5T3 PO (15:13)
[2019-10-20] MEDS ORDERED: CALC600T27 PO (15:13)
[2019-10-20] MEDS ORDERED: FOLI800C PO (15:13)
[2019-10-20] MEDS ORDERED: NYST1POW9 TOP (15:25)
[2019-10-20] MEDS ORDERED: LANTINJ4 SC (15:25)
[2019-10-20] MEDS ORDERED: NITR4TASL SL (15:25)
[2019-10-20] MEDS ORDERED: PROL60SO SC (15:25)
[2019-10-20] MEDS ORDERED: GLUCAGON FOR INJ 1 MG VIAL (J1610) SC PRN (15:30)
[2019-10-20] MEDS ORDERED: DEXTROSE 50% 50 ML SYRINGE IV PRN (15:30)
[2019-10-20] MEDS ORDERED: GLUCOSE 4 GM CHEW TABLET PO PRN (15:30)
--- NOTE | 2019-10-20 15:52 | HPEPDOC ---
General Date of Admission 10/20/19 Date of Service: Oct 20, 2019 Chief Complaint The patient is a 74-year-old female admitted with a reason for visit of syncope. Source: Patient, Family Exam Limitations: No limitations Timing/Duration: 1-3 hours, 4-6 hours Severity: Mild Associated Symptoms: Syncope, Weakness History of Present Illness Patient is 73 years old female with hypertension, hyperlipidemia, coronary artery diseases, diabetes type 2, hemachromatosis, COPD with oxygen at home 2 L, CHF presented hospital after one episode of syncope. Patient stated that in the morning around 9 her gave her nitroglycerin by mouth, because he was thinking that she might have had heart attack. After that patient developed bilateral leg weakness, he blood pressure dropped to 90/40, patient has became confused. Her symptoms resolved in 20 minutes. In emergency room patient was found to have normal blood pressure, no leukocytosis. CT head was done and showed age indeterminate lacunar infarcts in the basal ganglia. Home Medications Scheduled Allopurinol (Allopurinol) 100 Mg Tablet, 100 MG PO DAILY, (Reported) Amlodipine Besylate (Amlodipine Besylate) 2.5 Mg Tablet, 2.5 MG PO DAILY, (Reported) Atorvastatin Calcium (Atorvastatin Calcium) 20 Mg Tab, 20 MG PO QHS, (Reported) Bumetanide (Bumetanide) 2 Mg Tablet, 2 MG PO BID, (Reported) TAKES MORNING AND 1600 Calcium Carbonate/Vitamin D3 (Calcium 600-Vit D3 400 Tablet) 1 Each Tablet, 1 TAB PO QPM, (Reported) Denosumab Injection (Prolia) 60 Mg/1 Ml Syringe, 60 MG SC ASDIRECTED, (Reported) EVERY 6 MONTHS - DUE IN OCTOBER Folic Acid (Folic Acid) 0.8 Mg Capsule, 800 MCG PO DAILY, (Reported) Guaifenesin/Dextromethorphan (Robitussin Cough-Chest Dm Liq) 237 Ml Liquid, 10 ML PO Q8H Insulin Glargine (Lantus) 1 Units/0.01 Ml Susp, 20 UNITS SC QAM, (Reported) Insulin Glargine,Hum.rec.anlog (Lantus Solostar) 100 Unit/1 Ml Insuln.pen, 54 UNITS SC QHS, (Reported) Insulin Human Lispro (Humalog) 1 Units/0.01 Ml Inj, 1 DOSE SC ACHS, (Reported) PATIENT SPECIFIC SLIDING SCALE Iron Ps Complex/B12/Folic Acid (Iferex 150 Forte Capsule) 1 Each Capsule, 150 MG PO DAILY, (Reported) Nebivolol HCl (Bystolic) 5 Mg Tablet, 5 MG PO QHS, (Reported) Nitroglycerin (Nitroglycerin Patch) 0.4 Mg/Hr Dis, 1 PATCH TD DAILY, (Reported) HASN'T USED IN ABOUT A WEEK BECAUSE BP HAS BEEN GOOD Nystatin (Nystatin Powder) 15 Gm Powder, 1 DOSE TOP DAILY, (Reported) APPLY UNDER BREASTS AFTER SHOWER [place]-3/Dha/Epa/Fish Oil (Fish Oil 1,000 mg Softgel) 1 Each Capsule, 1,000 MG PO BID, (Reported) TAKES 1600 AND HS Pregabalin (Pregabalin) 75 Mg Capsule, 75 MG PO BID, (Reported) Ramelteon (Rozerem) 8 Mg Tablet, 8 MG PO QPM Sertraline Hcl (Sertraline HCl) 25 Mg Tablet, 25 MG PO QHS, (Reported) Tamsulosin HCl (Flomax) 0.4 Mg Capsule, 0.4 MG PO DAILY, (Reported) Tizanidine HCl (Zanaflex) 4 Mg Tab, 4 MG PO QHS, (Reported) Ubidecarenone/Vit E Acet (Co Q-10 100 mg Softgel) 1 Each Capsule, 100 MG PO QPM, (Reported) Scheduled PRN Nitroglycerin (Nitrostat) 0.4 Mg Tab.subl, 0.4 MG SL NITRO PRN for CHEST PAIN, (Reported) Allergies Coded Allergies: warfarin (Verified Adverse Reaction, Mild, NAUSEA/DIZZY, 03/24/19) amlodipine (Verified Adverse Reaction, Unknown, COUGH, 03/24/19) Past Medical History Medical History 1. Hemochromatosis. 2. Hypertension. 3. Diabetes. 4. Coronary artery disease status post coronary artery bypass graft (CABG). 5. Lumbar stenosis status post laminectomy. 6. CHF 7. Urinary incontinence Surgical History 1. Appendectomy. 2. Bilateral tubal ligation followed by complete hysterectomy. 3. Coronary artery bypass graft. 4. Laminectomy in 2014. Family History I personally reviewed family history and found no pertinent Social History * Smoker: Denies Alcohol: Denies Drugs: denies A-FIB/CHADSVASC A-FIB History Current/History of A-Fib/PAF?: No Current PO Anticoag Therapy: No Review of Systems Constitutional: Reports: Weakness; Denies: Chills, Fever Eyes: Denies: Pain, Vision change ENT: Denies: Head Aches Skin: Denies: Rash Pulmonary: Denies: Dyspnea, Cough Cardiovascular: Denies: Chest Pain, Palpitations Gastrointestinal: Denies: Nausea, Vomiting Genitourinary: Denies: Dysuria, Frequency Hematologic: Denies: Bruising, Bleeding Excessively Endocrine: Denies: Polydipsia, Polyphagia Musculoskeletal: Denies: Neck Pain, Back Pain Neurological: Denies: Numbness, Confusion Psych: Reports: Mood Normal Physical Examination General Exam: Positive: Alert, Cooperative Eye Exam: Positive: PERRLA ENT Exam: Positive: Atraumatic Neck Exam: Positive: Supple; Negative: JVD Chest Exam: Positive: Clear to auscultation Heart Exam: Positive: Rate Normal Telemetry: Positive: No significant arrhythmia Abdomen Exam: Positive: Normal bowel sounds Extremity Exam: Negative: Clubbing, Cyanosis Skin Exam: Positive: Nl turgor and temperature Neuro Exam: Positive: Normal Gait, Cranial Nerves 3-12 NL, Reflexes 2+; Negative: Strength at 5/5 X4 ext (lower extremities strength 4 out of 5 bilaterally) Psych Exam: Positive: Mental status NL Vital Signs Vital Signs Date Time Temp Pulse Resp B/P (MAP) Pulse Ox O2 Delivery O2 Flow Rate FiO2 10/20/19 11:22 96.8 56 18 146/55 100 Nasal Cannula 3.0 Laboratory Data Labs 24H Laboratory Tests 2 10/20/19 13:23: Immature Granulocyte % (Auto) 1.8, Neutrophils (%) (Auto) 72.0H, Lymphocytes (%) (Auto) 13.0L, Monocytes (%) (Auto) 6.8H, Eosinophils (%) (Auto) 5.6H, Basophils (%) (Auto) 0.8, Neutrophils # (Auto) 5.8, Lymphocytes # (Auto) 1.0L, Monocytes # (Auto) 0.5, Eosinophils # (Auto) 0.5, Basophils # (Auto) 0.1, Nucleated Red Blood Cells % (auto) 0.0, Prothrombin Time 13.4, Prothromb Time International Ratio 1.05, Blood Gas Bicarbonate Standard 31.8, Venous Blood pH 7.362, Venous Blood Partial Pressure CO2 64.7H, Venous Blood Partial Pressure O2 45.1, Venous Blood Total Carbon Dioxide 37.9H, Venous Blood HCO3 35.9H, Venous Blood Oxygen Saturation 78.5, Venous Blood Base Excess 8.4H, Anion Gap 4L, Glomerular Filtration Rate 28.7L, Calcium Level 9.4, Magnesium Level 2.3, Total Creatine Kinase 706H, Creatine Kinase MB 3.9H, Creatine Kinase MB Relative Index 0.55, Troponin I 0.13H, Thyroid Stimulating Hormone (TSH) 3.800H CBC/BMP Laboratory Tests 10/20/19 13:23 Assessment/Plan Patient is 73 years old female with hypertension, hyperlipidemia, coronary artery diseases, diabetes type 2, hemachromatosis, COPD with oxygen at home 2 L, CHF presented hospital after one episode of syncope. Patient stated that in the morning around 9 her gave her nitroglycerin by mouth, because he was thinking that she might have had heart attack. After that patient developed bilateral leg weakness, he blood pressure dropped to 90/40, patient has became confused. Her symptoms resolved in 20 minutes Problems (1) Syncope Status: Acute Problem Text: Most likely secondary to low blood pressure due to nitroglycerin intake IV fluids Telemetry PT/OT Neurological exam is benign patient does not have any focal neurological deficiency, she describes symptoms as bilateral leg weakness, and most likely it could be attributed to vasovagal syncope vs orthostatic. 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
[2019-10-20 17:00] VITALS: BP 151/74
[2019-10-20] MEDS: BUMETANIDE 1 MG TAB PO SCH (17:45)
[2019-10-20] MEDS: HumaLOG INSULIN (NovoLOG) PER UNIT SC SCH ×2 (17:46→22:04)
--- NOTE | 2019-10-20 18:51 | ECGEPIP ---
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
[2019-10-20 22:00] VITALS: BP 149/70
[2019-10-20] MEDS: ATORVASTATIN 20 MG TAB PO SCH (22:04)
[2019-10-20] MEDS: HEPARIN SOD (PORCINE) 5000 UNITS/ML VIAL (J1644 PER 1000UNITS) SC SCH (22:04)
[2019-10-20] MEDS: LEVEMIR (INSULIN DETEMIR) 1 UNITS/0.01ML SC SCH (22:04)
[2019-10-20] MEDS: SERTRALINE HCL 25 MG TABLET PO SCH (22:05)
[2019-10-20] MEDS: NEBIVOLOL 5 MG TAB (BYSTOLIC) PO SCH (22:05)
[2019-10-20] MEDS: PREGABALIN 75 MG CAP(LYRICA) PO SCH (22:06)
[2019-10-21 06:00] VITALS: BP 150/64
[2019-10-21 06:50] LABS: HEMATOCRIT 34.7 % (36.0-47.0); HEMOGLOBIN 10.8 g/dl (12.0-15.5); MEAN CORPUSCULAR HEMOGLOBIN 29.8 pg (27.0-33.0); MEAN CORPUSCULAR HGB CONC 31.1 g/dl (32.0-36.5); MEAN CORPUSCULAR VOLUME 95.6 fl (80.0-96.0); PLATELET COUNT, AUTOMATED 156 10^3/uL (150-450); RED BLOOD COUNT 3.63 10^6/uL (4.00-5.40); WHITE BLOOD COUNT 7.8 10^3/uL (4.0-10.0)
[2019-10-21 07:11] LABS: CALCIUM LEVEL 8.5 MG/DL (8.8-10.2); CREATININE FOR GFR 1.4 MG/DL (0.55-1.30); GLOMERULAR FILTRATION RATE 39.1 (>39); MAGNESIUM LEVEL 2.1 MG/DL (1.8-2.4); POTASSIUM SERUM 3.3 MEQ/L (3.5-5.1)
[2019-10-21] MEDS ORDERED: ACETAMINOPHEN TAB 650MG DOSE (2X325MG) PO PRN (09:00)
[2019-10-21] MEDS: HEPARIN SOD (PORCINE) 5000 UNITS/ML VIAL (J1644 PER 1000UNITS) SC SCH ×2 (09:11→22:03)
[2019-10-21] MEDS: allopurinoL 100 MG TAB PO SCH (09:11)
[2019-10-21] MEDS: PREGABALIN 75 MG CAP(LYRICA) PO SCH ×2 (09:11→22:04)
[2019-10-21] MEDS: TAMSULOSIN 0.4 MG CAP PO SCH (09:12)
[2019-10-21] MEDS: HumaLOG INSULIN (NovoLOG) PER UNIT SC SCH ×4 (09:12→22:03)
[2019-10-21] MEDS: BUMETANIDE 1 MG TAB PO SCH ×2 (09:12→17:59)
[2019-10-21] MEDS: LEVEMIR (INSULIN DETEMIR) 1 UNITS/0.01ML SC SCH (09:12)
[2019-10-21 14:00] VITALS: BP 164/48
[2019-10-21] MEDS ORDERED: guaiFENesin DM *SUGAR FREE* 5ML**DIABETIC TUSSIN DM PO PRN (16:30)
--- NOTE | 2019-10-21 16:35 | IPNPDOC ---
Text Note Date of Service The patient was seen on 10/21/19. NOTE Subjective: Patient continues to have dry cough. No any acute events overnight. Physical therapy recommended a few more session before discharge. Objective: VITAL SIGNS: Please see below. GENERAL APPEARANCE: not in apparent distress HEENT: Normocephalic, atraumatic. Mucous members moist and pink CARDIOVASCULAR: Regular rate and rhythm. No murmurs, rubs or gallops. Radial p ulses are intact. There is no lower extremity edema LUNGS: Diminished lung sounds ABDOMEN: Abdomen is soft and nontender. MUSCULOSKELETAL: Range of motion is intact in all 4 extremities NEUROLOGICAL: Cranial nerves II-12 are grossly intact. Speech is not dysarthric Assessment/Plan Patient is 73 years old female with hypertension, hyperlipidemia, coronary artery diseases, diabetes type 2, hemachromatosis, COPD with oxygen at home 2 L, CHF presented hospital after one episode of syncope. Patient stated that in the morning around 9 her gave her nitroglycerin by mouth, because he was thi nking that she might have had heart attack. After that patient developed bilateral leg weakness, he blood pressure dropped to 90/40, patient has became confused. Her symptoms resolved in 20 minutes 1) Syncope Resolved Most likely secondary to low blood pressure due to nitroglycerin intake Telemetry shows sinus rhythm PT/OT Neurological exam is benign patient does not have any focal neurological d eficiency, she describes symptoms as bilateral leg weakness, and most likely it could be attributed to vasovagal syncope vs orthostatic. 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 (3) HTN (hypertension) I will hold her antihypertensive medication for now (4) T2DM (type 2 diabetes mellitus) Diabetes diet, Detemir twice a day Insulin sliding scale (5) COPD (chronic obstructive pulmonary disease) Not in acute exacerbation Continue home meds Deconditioning PT/OT Chronic cough Chest x-ray showed clear lung veloz Patient has history of hemachromatosis and cardiomegaly which can contribute to chronic dry cough On auscultation clear lung sound Robitussin VS,Fishbone, I+O VS, Fishbone, I+O Laboratory Tests 10/21/19 05:51 Vital Signs Date Time Temp Pulse Resp B/P (MAP) Pulse Ox O2 Delivery O2 Flow Rate FiO2 10/21/19 14:00 98.6 89 18 164/48 (86) 95 Nasal Cannula 3.0 I&O- Last 24 Hours up to 6 AM 10/21/19 06:00 Intake Total 1150 ml Output Total 450 ml Balance 700 ml SANDY FLORES DO Oct 21, 2019 16:34
[2019-10-21 16:57] LABS: PERCENT SATURATION 24.4 % (13.2-45.0)
[2019-10-21] MEDS ORDERED: PANTOPRAZOLE 20 MG TAB PO ONE (20:00)
[2019-10-21] MEDS ORDERED: CALCIUM CARBONATE 500 MG CHEW U/D PO PRN (20:00)
[2019-10-21] MEDS ORDERED: LEVEMIR (INSULIN DETEMIR) 1 UNITS/0.01ML SC SCH (21:00)
[2019-10-21 22:00] VITALS: BP 174/73
[2019-10-21 22:04] VITALS: BP 174/73
[2019-10-21] MEDS: NEBIVOLOL 5 MG TAB (BYSTOLIC) PO SCH (22:04)
[2019-10-21] MEDS: ATORVASTATIN 20 MG TAB PO SCH (22:04)
[2019-10-21] MEDS: SERTRALINE HCL 25 MG TABLET PO SCH (22:04)
[2019-10-21] MEDS: NYSTATIN 100,000 UNITS/GM TOPICAL PWD 15 GM TOP SCH (22:05)
[2019-10-22 06:00] VITALS: BP 153/55
[2019-10-22 08:29] LABS: HEMATOCRIT 33.7 % (36.0-47.0); HEMOGLOBIN 10.7 g/dl (12.0-15.5); MEAN CORPUSCULAR HEMOGLOBIN 29.8 pg (27.0-33.0); MEAN CORPUSCULAR HGB CONC 31.8 g/dl (32.0-36.5); MEAN CORPUSCULAR VOLUME 93.9 fl (80.0-96.0); PLATELET COUNT, AUTOMATED 149 10^3/uL (150-450); RED BLOOD COUNT 3.59 10^6/uL (4.00-5.40); WHITE BLOOD COUNT 8.1 10^3/uL (4.0-10.0)
[2019-10-22 08:41] LABS: CALCIUM LEVEL 8.4 MG/DL (8.8-10.2); CREATININE FOR GFR 1.21 MG/DL (0.55-1.30); GLOMERULAR FILTRATION RATE 46.3 (>39); POTASSIUM SERUM 3.1 MEQ/L (3.5-5.1)
[2019-10-22] MEDS: BUMETANIDE 1 MG TAB PO SCH (08:46)
[2019-10-22] MEDS: TAMSULOSIN 0.4 MG CAP PO SCH (08:46)
[2019-10-22] MEDS: HumaLOG INSULIN (NovoLOG) PER UNIT SC SCH ×2 (08:46→11:45)
[2019-10-22] MEDS: HEPARIN SOD (PORCINE) 5000 UNITS/ML VIAL (J1644 PER 1000UNITS) SC SCH (08:47)
[2019-10-22] MEDS: PREGABALIN 75 MG CAP(LYRICA) PO SCH (08:47)
[2019-10-22] MEDS: allopurinoL 100 MG TAB PO SCH (08:47)
[2019-10-22] MEDS: NYSTATIN 100,000 UNITS/GM TOPICAL PWD 15 GM TOP SCH (08:47)
[2019-10-22] MEDS ORDERED: LEVEMIR (INSULIN DETEMIR) 1 UNITS/0.01ML SC SCH (09:00)
[2019-10-22] MEDS ORDERED: ROBI1LIQ9 PO (10:39)
[2019-10-22] MEDS ORDERED: ROZE8TAB16 PO (10:39)
--- NOTE | 2019-10-22 17:55 | DS.PDOC ---
Discharge Summary General Date of Admission Oct 20, 2019 at 11:17 Date of Discharge 10/22/19 Discharge Summary PROCEDURES PERFORMED DURING STAY: [None]. ADMITTING DIAGNOSES: Syncope Obesity HTN (hypertension T2DM (type 2 diabetes mellitus) COPD (chronic obstructive pulmonary disease) Deconditioning Chronic cough DISCHARGE DIAGNOSES: .Syncope Obesity HTN (hypertension T2DM (type 2 diabetes mellitus) COPD (chronic obstructive pulmonary disease) Deconditioning Chronic cough COMPLICATIONS/CHIEF COMPLAINT: Confusion,Syncope. HISTORY OF PRESENT ILLNESS: Patient is 73 years old female with hypertension, hyperlipidemia, coronary artery diseases, diabetes type 2, hemachromatosis, COPD with oxygen at home 2 L, CHF presented hospital after one episode of syncope. Patient stated that in the morning around 9 her gave her nitroglycerin by mouth, because he was thinking that she might have had heart attack. After that patient developed bilateral leg weakness, he blood pressure dropped to 90/40, patient has became confused. Her symptoms resolved in 20 minutes HOSPITAL COURSE: The following issues addressed Syncope Resolved Most likely secondary to low blood pressure due to nitroglycerin intake Telemetry shows sinus rhythm Neurological exam is benign patient does not have any focal neurological deficiency, she describes symptoms as bilateral leg weakness, and most likely it could be attributed to vasovagal syncope vs orthostatic. DISCHARGE MEDICATIONS: Please see below. ALLERGIES: Please see below. PHYSICAL EXAMINATION ON DISCHARGE: VITAL SIGNS: Please see below. GENERAL APPEARANCE: not in apparent distress HEENT: Normocephalic, atraumatic. Mucous members moist and pink CARDIOVASCULAR: Regular rate and rhythm. No murmurs, rubs or gallops. Radial pulses are intact. There is no lower extremity edema LUNGS: Diminished lung sounds ABDOMEN: Abdomen is soft and nontender. MUSCULOSKELETAL: Range of motion is intact in all 4 extremities NEUROLOGICAL: Cranial nerves II-12 are grossly intact. Speech is not dysarthric LABORATORY DATA: Please see below. IMAGING: CT of the brain without IV contrast: Comparison is 05/13/2007. There is no hemorrhage. There is no edema, midline shift or mass effect. The cortical stripe is unremarkable. There is enlargement of the ventricles and sulci compatible with diffuse volume loss. There are lacunar infarcts in the basal ganglia. The visualized paranasal sinuses and mastoid air cells are clear. Impression: There is no acute hemorrhage. There is diffuse volume loss. There are age indeterminate lacunar infarcts in the basal ganglia. Electronically Signed by PROGNOSIS: ACTIVITY: [As tolerated]. DIET: Cardiac DISCHARGE PLAN: Home DISPOSITION: 01 Home, Self-Care. DISCHARGE INSTRUCTIONS: Follow-up with PCP ITEMS TO FOLLOWUP ON ON OUTPATIENT: See above DISCHARGE CONDITION: Stable TIME SPENT ON DISCHARGE: Greater than 20 minutes. Vital Signs/I&Os Vital Signs Date Time Temp Pulse Resp B/P (MAP) Pulse Ox O2 Delivery O2 Flow Rate FiO2 10/22/19 09:00 3.0 10/22/19 06:00 97.0 57 18 153/55 (87) 97 Nasal Cannula I&O- Last 24 Hours up to 6 AM 10/22/19 06:00 Intake Total 1300 ml Output Total 1300 ml Balance 0 ml Laboratory Data Labs 24H Laboratory Tests 2 10/21/19 21:23: Bedside Glucose (Misc Panel) 417H 10/22/19 06:16: Bedside Glucose (Misc Panel) 220H 10/22/19 08:10: Nucleated Red Blood Cells % (auto) 0.0, Anion Gap 6L, Glomerular Filtration Rate 46.3, Calcium Level 8.4L 10/22/19 11:22: Bedside Glucose (Misc Panel) 396H CBC/BMP Laboratory Tests 10/22/19 08:10 FSBS Laboratory Tests Test 10/21/19 21:23 10/22/19 06:16 10/22/19 11:22 Range/Units Bedside Glucose (Misc Panel) 417 220 396 83-110 MG/DL Microbiology Microbiology 10/20/19 Urine Culture - Final, Complete Discharge Medications Scheduled Allopurinol (Allopurinol) 100 Mg Tablet, 100 MG PO DAILY, (Reported) Amlodipine Besylate (Amlodipine Besylate) 2.5 Mg Tablet, 2.5 MG PO DAILY, (Reported) Atorvastatin Calcium (Atorvastatin Calcium) 20 Mg Tab, 20 MG PO QHS, (Reported) Bumetanide (Bumetanide) 2 Mg Tablet, 2 MG PO BID, (Reported) TAKES MORNING AND 1600 Calcium Carbonate/Vitamin D3 (Calcium 600-Vit D3 400 Tablet) 1 Each Tablet, 1 TAB PO QPM, (Reported) Denosumab Injection (Prolia) 60 Mg/1 Ml Syringe, 60 MG SC ASDIRECTED, (Reported) EVERY 6 MONTHS - DUE IN OCTOBER Folic Acid (Folic Acid) 0.8 Mg Capsule, 800 MCG PO DAILY, (Reported) Guaifenesin/Dextromethorphan (Robitussin Cough-Chest Dm Liq) 237 Ml Liquid, 10 ML PO Q8H Insulin Glargine (Lantus) 1 Units/0.01 Ml Susp, 20 UNITS SC QAM, (Reported) Insulin Glargine,Hum.rec.anlog (Lantus Solostar) 100 Unit/1 Ml Insuln.pen, 54 UNITS SC QHS, (Reported) Insulin Human Lispro (Humalog) 1 Units/0.01 Ml Inj, 1 DOSE SC ACHS, (Reported) PATIENT SPECIFIC SLIDING SCALE Iron Ps Complex/B12/Folic Acid (Iferex 150 Forte Capsule) 1 Each Capsule, 150 MG PO DAILY, (Reported) Nebivolol HCl (Bystolic) 5 Mg Tablet, 5 MG PO QHS, (Reported) Nitroglycerin (Nitroglycerin Patch) 0.4 Mg/Hr Dis, 1 PATCH TD DAILY, (Reported) HASN'T USED IN ABOUT A WEEK BECAUSE BP HAS BEEN GOOD Nystatin (Nystatin Powder) 15 Gm Powder, 1 DOSE TOP DAILY, (Reported) APPLY UNDER BREASTS AFTER SHOWER [place]-3/Dha/Epa/Fish Oil (Fish Oil 1,000 mg Softgel) 1 Each Capsule, 1,000 MG PO BID, (Reported) TAKES 1600 AND HS Pregabalin (Pregabalin) 75 Mg Capsule, 75 MG PO BID, (Reported) Ramelteon (Rozerem) 8 Mg Tablet, 8 MG PO QPM Sertraline Hcl (Sertraline HCl) 25 Mg Tablet, 25 MG PO QHS, (Reported) Tamsulosin HCl (Flomax) 0.4 Mg Capsule, 0.4 MG PO DAILY, (Reported) Tizanidine HCl (Zanaflex) 4 Mg Tab, 4 MG PO QHS, (Reported) Ubidecarenone/Vit E Acet (Co Q-10 100 mg Softgel) 1 Each Capsule, 100 MG PO QPM, (Reported) Scheduled PRN Nitroglycerin (Nitrostat) 0.4 Mg Tab.subl, 0.4 MG SL NITRO PRN for CHEST PAIN, (Reported) Allergies Coded Allergies: warfarin (Verified Adverse Reaction, Mild, NAUSEA/DIZZY, 03/24/19) amlodipine (Verified Adverse Reaction, Unknown, COUGH, 03/24/19) SANDY FLORES DO Oct 22, 2019 17:55
== END 2019-10-22 14:30 | disposition home or self-care (01) ==
LOC: M ED 11:16 → EDBD 11:16 → M ED INP 11:17 → ENRESERV 15:32 → M MSPAV 16:55
PROVIDERS: ADMIT Internal Medicine; ATTEND Internal Medicine
DX: R55 Syncope and collapse (principal); I10 Essential (primary) hypertension; E11.9 Type 2 diabetes mellitus without complications; J44.9 Chronic obstructive pulmonary disease, unspecified; R53.81 Other malaise; E78.49 Other hyperlipidemia; I25.10 Atherosclerotic heart disease of native coronary artery without angina pectoris; E83.119 Hemochromatosis, unspecified; E66.9 Obesity, unspecified; Z99.81 Dependence on supplemental oxygen; Z79.4 Long term (current) use of insulin; Z79.899 Other long term (current) drug therapy; Z95.1 Presence of aortocoronary bypass graft; Z88.8 Allergy status to other drugs, medicaments and biological substances
CPT/HCPCS: 36415; 70450; 71045; 80048; 81001; 82550; 82553; 82803; 83550; 83735; 84443; 84484; 85025; 85027; 85610; 87086; 93005; 93041; 96360; 96361; 97110; 97116; 97530; 97535; 99285; G0378; J1644

== ENCOUNTER 2019-11-05 14:29 | Observation (INO) | payer MEDICARE, OTHER ==
[~2019-11-05] VITALS: Ht 157.5 cm; Wt 95.4 kg
[~2019-11-05 14:29] MED LIST changes: +BUME2TAB3 PO; +CALC600T27 PO; +CO Q100C10 PO; +FOLI800C PO; +LANTINJ4 SC; +NITR4TASL SL; +NYST1POW9 TOP; +OMEG10002 PO; +PREG75CA2 PO; +PROL60SO SC; +ROBI1LIQ9 PO; +ROZE8TAB16 PO
[2019-11-05 15:21] LABS: BASO # 0.1 10^3/uL (0.0-0.2); BASO % 0.7 % (0.0-1.0); EOS # 0.7 10^3/uL (0.0-0.5); EOS % 7.9 % (0.0-3.0); HEMATOCRIT 33.9 % (36.0-47.0); HEMOGLOBIN 11.1 g/dl (12.0-15.5); LYMPH # 1.4 10^3/uL (1.5-5.0); LYMPH % 16.5 % (24.0-44.0); MEAN CORPUSCULAR HEMOGLOBIN 30.9 pg (27.0-33.0); MEAN CORPUSCULAR HGB CONC 32.7 g/dl (32.0-36.5); MEAN CORPUSCULAR VOLUME 94.4 fl (80.0-96.0); MONO # 0.5 10^3/uL (0.0-0.8); MONO % 6.3 % (0.0-5.0); NEUTROPHILS # 5.7 10^3/uL (1.5-8.5); NEUTROPHILS % 67.8 % (36.0-66.0); PLATELET COUNT, AUTOMATED 140 10^3/uL (150-450); RED BLOOD COUNT 3.59 10^6/uL (4.00-5.40); WHITE BLOOD COUNT 8.4 10^3/uL (4.0-10.0)
[2019-11-05] MEDS ORDERED: DEXT118S PO (15:42)
[2019-11-05 15:47] LABS: CALCIUM LEVEL 10.1 MG/DL (8.8-10.2); CREATININE FOR GFR 1.25 MG/DL (0.55-1.30); GLOMERULAR FILTRATION RATE 44.6 (>39); MAGNESIUM LEVEL 2.3 MG/DL (1.8-2.4); MB/CK RELATIVE INDEX 0.8 (< OR =4); POTASSIUM SERUM 4.2 MEQ/L (3.5-5.1); THYROID STIMULATING HORMONE 3.26 uIU/ML (0.358-3.740); TROPONIN I 0.11 NG/ML (< 0.10)
[2019-11-05 17:01] LABS: INR 1.04; PROTHROMBIN TIME 13.3 SECONDS (11.8-14.0)
[2019-11-05 17:02] LABS: PARTIAL THROMBOPLASTIN TIME 32.1 SECONDS (25.0-38.4)
[2019-11-05] MEDS ORDERED: GLUCAGON FOR INJ 1 MG VIAL (J1610) SC PRN (17:45)
[2019-11-05] MEDS ORDERED: DEXTROSE 50% 50 ML SYRINGE IV PRN (17:45)
[2019-11-05] MEDS ORDERED: GLUCOSE 4 GM CHEW TABLET PO PRN (17:45)
[2019-11-05] MEDS ORDERED: amLODIPine 5 MG TAB As Ordered ONE (18:15)
--- NOTE | 2019-11-05 18:19 | HPE ---
DATE OF ADMISSION: 11/05/2019 CHIEF COMPLAINT: Syncope. HISTORY OF PRESENT ILLNESS: Mrs. Antoine is a 74-year-old woman who has history of insulin-dependent diabetes, hemachromatosis, chronic obstructive pulmonary disease (COPD), coronary artery disease status post coronary artery bypass graft (CABG) in the past. She was last hospitalized here on 10/20/2019 for one night following a presyncopal event. At that time, it was presumed that her symptoms occurred secondary to her receiving nitroglycerin which dropped her blood pressure. I did review the documentation from that admission and the patient was not noted to have any evidence of bradycardia or arrhythmia noted. The patient since discharge has had continued issues with hypotension. She recently contacted her coffee shop aide, Dr. Eugene, who is based out of [place], who recommended that she stop her daytime medications which consisted of Bumex as well as Norvasc and she was maintained on her Bystolic. Despite this, the patient has continued to have presyncopal events with systolic blood pressures in the 80s. She was noted to have heart rates ranging anywhere from 30s to 60s with a two-second pause today. Thyroid-stimulating hormone (TSH) levels as well as initial troponin markers done in the emergency department (ED) were otherwise unremarkable. She is currently asymptomatic but she is slightly hypertensive with heart rates in the 52 beats per minute range. She is going to be admitted to the hospitalist service for further evaluation. The emergency room (ER) physician did discuss this with Dr. Hilton who thought this was secondary to the Bystolic and recommended and recommended discontinuing it. ALLERGIES: Her allergies are NORVASC which caused an adverse reaction which apparently drops her blood pressure and then WARFARIN which has caused gastrointestinal (GI) bleeding in the past. CURRENT HOME MEDICATIONS: - allopurinol 100 mg daily - Norvasc 2.5 mg daily - atorvastatin 20 mg daily - Bumex 2 mg by mouth twice a day - calcium carbonate one tablet in the evening - She is on Prolia every six months. - She is dextromethorphan/doxylamine - She is on Folic acid 800 mg daily. - She is on Lantus 20 units in the morning and then 50 units at bedtime. - She is on iron pills. - She is on Bystolic 5 mg at bedtime. - She is on nitroglycerin sublingual as needed. - She is on nystatin powder. - She is on fish oil. - She is on pregabalin 75 mg twice a day. - sertraline 25 mg daily - Flomax 0.4 mg daily - tizanidine 4 mg at bedtime - coenzyme Q10 100 mg daily PAST MEDICAL HISTORY: Her past medical history is notable for: 1. Hypertension. 2. Hyperlipidemia. 3. Coronary artery disease. 4. Insulin-dependent diabetes. 5. Hemochromatosis. 6. Chronic obstructive pulmonary disease (COPD). 7. Iron deficiency anemia. 8. She has history of a gastrointestinal (GI) bleeding unspecified in the past and has undergone esophagogastroduodenoscopy (EGD), colonoscopy, and capsule endoscopy also. 9. She has a history of gout. PAST SURGICAL HISTORY: Notable for: 1. Appendectomy. 2. Bilateral tubal ligation. 3. She has had a complete hysterectomy. 4. She has had laminectomy. 5. She has had a coronary artery bypass graft (CABG) also. FAMILY HISTORY: Notable for colon cancer in her brother. Diabetes and coronary artery disease in her mother. REVIEW OF SYSTEMS: All systems reviewed with the patient and otherwise negative except for as mentioned in the history of present illness (HPI). PHYSICAL EXAMINATION: The patient's temperature is 97, pulse is 53, respirations 20, blood pressure is 163/73, pulse oximetry is 95% on two liters. In general, the patient is alert and oriented times three. She is an elderly woman who appears her stated age. Her skin is warm to touch without visible pallor or jaundicing. She has no visible bruising. Her head is atraumatic. Her pupils are symmetric and react to light. Oropharynx is clear. Neck is supple. Lung sounds are present without rales, wheezes, or rhonchi. Heart is S1, S2, currently bradycardic. No audible murmurs, rubs or gallops. Abdomen is soft, nontender, nondistended with active bowel sounds. Extremities are without any cyanosis, clubbing or edema. RELEVANT LABORATORY DATA: White count 3.4, hemoglobin 11.1, hematocrit 35, platelet count is 140,000. Sodium 139, potassium 4.2, chloride 100, bicarbonate is 33, BUN is 31, creatinine is 1.25, glucose 176, troponin is slightly elevated at 0.11. EKG shows a heart rate of 52 with sinus bradycardia and no significant ST or T wave changes are appreciated. She was noted to have a two-second pause on telemetry strip. TSH level is 3.2. Chest x-ray: My read showed no acute intrathoracic process. The patient does have cardiomegaly. IMPRESSION: 1. Presyncope with associated symptomatic bradycardia, likely the etiology. The patient will be admitted to an observation status. We will discontinue her Bystolic. She will be monitored on telemetry. Should her heart rate remain stable and we see no further drops in her blood pressure with orthostatics in the morning then she can likely be discharged home with a Holter monitor to followup with her coffee shop aide. I am going to start Norvasc 2.5 mg daily at this time just to provide some relief with her current hypertension. 2. Insulin-dependent diabetes. The patient will be placed on sliding scale. She will be continued on her insulin as well as she will have a diabetic diet. 3. History of coronary artery disease. She will maintained on her atorvastatin. She is no longer on aspirin secondary to history of gastrointestinal (GI) bleed unspecified in the past. 4. Hyperlipidemia. She will be continued on the atorvastatin. 5. The patient will be a full code and placed on thromboembolic-deterrent stockings (TEDS) only for deep vein thrombosis (DVT) prophylaxis as she has a history of GI bleeding in the past with anticoagulants.
[2019-11-05] MEDS: HumaLOG INSULIN (NovoLOG) PER UNIT SC SCH ×2 (18:33→21:00)
--- NOTE | 2019-11-05 20:20 | ECGEPIP ---
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
[2019-11-05] MEDS ORDERED: tiZANidine 4 MG TAB PO SCH (21:00)
[2019-11-05] MEDS ORDERED: SERTRALINE HCL 25 MG TABLET PO SCH (21:00)
[2019-11-05] MEDS ORDERED: PREGABALIN 75 MG CAP(LYRICA) PO SCH (21:00)
[2019-11-06] VITALS (8 sets, daily range): BP systolic 126–164; BP diastolic 57–80
[2019-11-06] MEDS: ATORVASTATIN 20 MG TAB PO SCH ×2 (00:32→22:06)
[2019-11-06] MEDS: OMEGA-3 1000MG CAPSULE PO SCH ×3 (00:32→22:28)
[2019-11-06] MEDS: LEVEMIR (INSULIN DETEMIR) 1 UNITS/0.01ML SC SCH ×3 (00:33→22:07)
[2019-11-06 05:34] LABS: HEMATOCRIT 30.3 % (36.0-47.0); HEMOGLOBIN 9.8 g/dl (12.0-15.5); MEAN CORPUSCULAR HEMOGLOBIN 30.4 pg (27.0-33.0); MEAN CORPUSCULAR HGB CONC 32.3 g/dl (32.0-36.5); MEAN CORPUSCULAR VOLUME 94.1 fl (80.0-96.0); PLATELET COUNT, AUTOMATED 126 10^3/uL (150-450); RED BLOOD COUNT 3.22 10^6/uL (4.00-5.40); WHITE BLOOD COUNT 8.3 10^3/uL (4.0-10.0)
--- NOTE | 2019-11-06 05:56 | ECGEPIP ---
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
[2019-11-06 06:05] LABS: CALCIUM LEVEL 9.6 MG/DL (8.8-10.2); CREATININE FOR GFR 1.28 MG/DL (0.55-1.30); GLOMERULAR FILTRATION RATE 43.4 (>39); POTASSIUM SERUM 4.2 MEQ/L (3.5-5.1)
[2019-11-06] MEDS: allopurinoL 100 MG TAB PO SCH (08:17)
[2019-11-06] MEDS: NYSTATIN 100,000 UNITS/GM TOPICAL PWD 15 GM TOP SCH (08:17)
[2019-11-06] MEDS: HumaLOG INSULIN (NovoLOG) PER UNIT SC SCH ×4 (08:17→22:06)
--- NOTE | 2019-11-06 08:30 | REP ---
PORTABLE CHEST X-RAY: Single view. HISTORY: Chest pain. COMPARISON CHEST X-RAY: October 20, 2019. FINDINGS: Patient is status post prior median sternotomy. EKG monitoring electrodes are seen. The lungs are symmetrically aerated and clear. The heart is mildly enlarged unchanged from prior study. Pulmonary vasculature is not increased. IMPRESSION: Mild cardiomegaly again noted unchanged. Otherwise no acute disease. Electronically Signed by Skip Crowe MD 11/06/2019 10:14 A
[2019-11-06] MEDS ORDERED: diphenhydrAMINE 25 MG CAP PO PRN (18:45)
--- NOTE | 2019-11-06 18:49 | IPNPDOC ---
Subjective Date Seen The patient was seen on 11/06/19. Subjective Chief Complaint/HPI HR in the high 50s to low 60s. Orthostatic vitals were stable this morning. No recurrence of symptoms after stopping bystolic Objective Physical Examination General Exam: Positive: Alert, No Acute Distress Eye Exam: Positive: PERRLA, Conjunctiva & lids normal, EOMI; Negative: Sclera icteric ENT Exam: Positive: Pharynx Normal Neck Exam: Positive: Supple; Negative: JVD Chest Exam: Positive: Clear to auscultation Heart Exam: Positive: Bradycardic, Normal S1, Normal S2 Abdomen Exam: Positive: Normal bowel sounds Extremity Exam: Positive: Normal pulses; Negative: Clubbing, Cyanosis, Edema Neuro Exam: Positive: Normal Speech, Strength at 5/5 X4 ext, Normal Tone Psych Exam: Positive: Mental status NL, Mood NL Assessment /Plan Assessment # Symptomatic bradycardia due to Bystolic - monitor for another 24 hours - repeat ortho vitals in am - likely home in am with plan for outpatient holter monitor # HTN - controlled with norvasc 2.5 mg daily # IDDM - controlled with home regimen Plan/VTE VTE Prophylaxis Ordered?: Yes VTE Exclusion Mechanical Proph: N/A:VTE Prophy Ordered VTE Exclusion Pharmacological: N/A:VTE Prophy Ordered VS, I&O, 24H, Fishbone Vital Signs/I&O Vital Signs Date Time Temp Pulse Resp B/P (MAP) Pulse Ox O2 Delivery O2 Flow Rate FiO2 11/06/19 18:10 98.4 61 20 152/62 (92) 97 Nasal Cannula 2.0 Laboratory Data 24H LABS Laboratory Tests 2 11/05/19 19:28: Troponin I 0.12H 11/05/19 22:02: Troponin I 0.12H 11/06/19 00:10: Bedside Glucose (Misc Panel) 224H 11/06/19 05:26: Nucleated Red Blood Cells % (auto) 0.0, Anion Gap 5L, Glomerular Filtration Rate 43.4, Calcium Level 9.6 11/06/19 11:47: Bedside Glucose (Misc Panel) 222H 11/06/19 17:15: Bedside Glucose (Misc Panel) 259H CBC/BMP Laboratory Tests 11/06/19 05:26 ROBERT EMANUEL MD Nov 06, 2019 18:49
[2019-11-06] MEDS ORDERED: SLF 3 ML SYR IV PRN (22:00)
[2019-11-06] MEDS: SLF 3 ML SYR IV SCH (22:07)
[2019-11-07] VITALS: BP 148/82
[2019-11-07] MEDS: ACETAMINOPHEN TAB 650MG DOSE (2X325MG) PO PRN ×2 (00:10→22:29)
[2019-11-07] MEDS: PREGABALIN 75 MG CAP(LYRICA) PO SCH ×3 (02:05→20:14)
[2019-11-07 04:00] VITALS: BP 154/84
[2019-11-07] MEDS: SLF 3 ML SYR IV SCH ×3 (05:32→20:15)
[2019-11-07 05:41] LABS: HEMATOCRIT 30.4 % (36.0-47.0); HEMOGLOBIN 10.1 g/dl (12.0-15.5); MEAN CORPUSCULAR HEMOGLOBIN 31.3 pg (27.0-33.0); MEAN CORPUSCULAR HGB CONC 33.2 g/dl (32.0-36.5); MEAN CORPUSCULAR VOLUME 94.1 fl (80.0-96.0); PLATELET COUNT, AUTOMATED 131 10^3/uL (150-450); RED BLOOD COUNT 3.23 10^6/uL (4.00-5.40); WHITE BLOOD COUNT 8.3 10^3/uL (4.0-10.0)
[2019-11-07 06:10] LABS: CALCIUM LEVEL 9.7 MG/DL (8.8-10.2); CREATININE FOR GFR 1.21 MG/DL (0.55-1.30); GLOMERULAR FILTRATION RATE 46.3 (>39); MAGNESIUM LEVEL 2.1 MG/DL (1.8-2.4); POTASSIUM SERUM 3.8 MEQ/L (3.5-5.1)
[2019-11-07 08:00] VITALS: BP_SYST 140; BP_SYST 150; BP_SYST 155; BP_DIAS 70; BP_DIAS 76; BP_DIAS 86
[2019-11-07] MEDS: allopurinoL 100 MG TAB PO SCH (09:26)
[2019-11-07] MEDS: HumaLOG INSULIN (NovoLOG) PER UNIT SC SCH ×4 (09:27→20:14)
[2019-11-07] MEDS: NYSTATIN 100,000 UNITS/GM TOPICAL PWD 15 GM TOP SCH (09:28)
[2019-11-07] MEDS: LEVEMIR (INSULIN DETEMIR) 1 UNITS/0.01ML SC SCH ×2 (09:28→20:14)
[2019-11-07 12:00] VITALS: BP 146/68
--- NOTE | 2019-11-07 14:42 | IPNPDOC ---
Subjective Date Seen The patient was seen on 11/07/19. Subjective Chief Complaint/HPI HR has improved with discontinuation of bb. No recurrent symptoms since hospitalization. Objective Physical Examination General Exam: Positive: Alert, No Acute Distress Eye Exam: Positive: PERRLA, Conjunctiva & lids normal, EOMI; Negative: Sclera icteric ENT Exam: Positive: Pharynx Normal Neck Exam: Positive: Supple; Negative: JVD Chest Exam: Positive: Clear to auscultation Heart Exam: Positive: Rate Normal, Normal S1, Normal S2 Abdomen Exam: Positive: Normal bowel sounds Extremity Exam: Positive: Normal pulses; Negative: Clubbing, Cyanosis, Edema Neuro Exam: Positive: Normal Speech, Cranial Nerves 3-12 NL Psych Exam: Positive: Mental status NL, Mood NL Assessment /Plan Assessment # Symptomatic bradycardia due to Bystolic - home once echo results are back # HTN - controlled with norvasc 2.5 mg daily # IDDM - controlled with home regimen Plan/VTE VTE Prophylaxis Ordered?: Yes VTE Exclusion Mechanical Proph: N/A:VTE Prophy Ordered VTE Exclusion Pharmacological: N/A:VTE Prophy Ordered VS, I&O, 24H, Fishbone Vital Signs/I&O Vital Signs Date Time Temp Pulse Resp B/P (MAP) Pulse Ox O2 Delivery O2 Flow Rate FiO2 11/07/19 12:00 97.3 63 18 146/68 (94) 97 Nasal Cannula 2.0 I&O- Last 24 Hours up to 6 AM 11/07/19 06:00 Intake Total 840 ml Output Total 1275 ml Balance -435 ml Laboratory Data 24H LABS Laboratory Tests 2 11/06/19 17:15: Bedside Glucose (Misc Panel) 259H 11/06/19 21:55: Bedside Glucose (Misc Panel) 284H 11/07/19 05:29: Nucleated Red Blood Cells % (auto) 0.0, Anion Gap 5L, Glomerular Filtration Rate 46.3, Calcium Level 9.7, Magnesium Level 2.1 11/07/19 11:54: Bedside Glucose (Misc Panel) 247H CBC/BMP Laboratory Tests 11/07/19 05:29 ROBERT EMANUEL MD Nov 07, 2019 14:42
[2019-11-07 16:00] VITALS: BP 150/64
[2019-11-07] MEDS: OMEGA-3 1000MG CAPSULE PO SCH ×2 (16:46→20:14)
[2019-11-07 20:00] VITALS: BP 142/82
[2019-11-07] MEDS: ATORVASTATIN 20 MG TAB PO SCH (20:14)
[2019-11-08] VITALS: BP 152/90
[2019-11-08 04:00] VITALS: BP 148/90
[2019-11-08] MEDS: SLF 3 ML SYR IV SCH (06:10)
[2019-11-08] MEDS: HumaLOG INSULIN (NovoLOG) PER UNIT SC SCH (07:30)
[2019-11-08 08:00] VITALS: BP 138/72
[2019-11-08] MEDS: PREGABALIN 75 MG CAP(LYRICA) PO SCH (09:20)
[2019-11-08] MEDS: allopurinoL 100 MG TAB PO SCH (09:20)
[2019-11-08 09:21] VITALS: BP 138/72
[2019-11-08] MEDS: NYSTATIN 100,000 UNITS/GM TOPICAL PWD 15 GM TOP SCH (09:22)
[2019-11-08] MEDS: LEVEMIR (INSULIN DETEMIR) 1 UNITS/0.01ML SC SCH (09:27)
--- NOTE | 2019-11-08 09:28 | IPNPDOC ---
Subjective Date Seen The patient was seen on 11/08/19. Subjective Chief Complaint/HPI Gem reports developing right sided chest discomfort last night radiating into her arm. symptoms resolved w/o administration of nitro. I reviewed tele monitor, no arrhythmias noted overnight. HR 60-80s off bystolic. Objective Physical Examination General Exam: Positive: Alert, No Acute Distress Eye Exam: Positive: PERRLA, Conjunctiva & lids normal, EOMI; Negative: Sclera icteric ENT Exam: Positive: Pharynx Normal Neck Exam: Positive: Supple; Negative: JVD Chest Exam: Positive: Clear to auscultation Heart Exam: Positive: Rate Normal, Normal S1, Normal S2 Abdomen Exam: Positive: Normal bowel sounds Extremity Exam: Positive: Normal pulses; Negative: Clubbing, Cyanosis, Edema Neuro Exam: Positive: Normal Speech, Cranial Nerves 3-12 NL Psych Exam: Positive: Mental status NL, Mood NL Assessment /Plan Assessment # Symptomatic bradycardia due to Bystolic - echo results are not back, she may be discharged home, I'll call her with the results - stop bystolic # HTN - controlled with norvasc 2.5 mg daily # IDDM - controlled with home regimen Plan/VTE VTE Prophylaxis Ordered?: Yes VTE Exclusion Mechanical Proph: N/A:VTE Prophy Ordered VTE Exclusion Pharmacological: N/A:VTE Prophy Ordered VS, I&O, 24H, Fishbone Vital Signs/I&O Vital Signs Date Time Temp Pulse Resp B/P (MAP) Pulse Ox O2 Delivery O2 Flow Rate FiO2 11/08/19 04:00 2.0 11/08/19 04:00 97.5 89 16 148/90 (109) 94 Nasal Cannula I&O- Last 24 Hours up to 6 AM 11/08/19 06:00 Intake Total 1780 ml Output Total 1200 ml Balance 580 ml Laboratory Data 24H LABS Laboratory Tests 2 11/07/19 11:54: Bedside Glucose (Misc Panel) 247H 11/07/19 16:51: Bedside Glucose (Misc Panel) 288H 11/07/19 19:59: Bedside Glucose (Misc Panel) 331H ROBERT EMANUEL MD Nov 08, 2019 09:28
--- NOTE | 2019-11-08 12:30 | ECHO ---
DATE OF PROCEDURE: 11/07/2019 HEIGHT: 62 inches. WEIGHT: 220 pounds. BODY SURFACE AREA: 1.99 meters squared. INPATIENT: PCU room 3230 REFERRING PHYSICIAN: Dr. Claudio Zuniga. INDICATIONS: Syncope. MEASUREMENTS: 2D Measurements: RV - 4.0 cm LV - 4.9 cm Septum - 1.2 cm Posterior wall - 1.2 cm Aortic root - 3.2 cm LA - 4.0 cm LVEF - 60% Doppler Measurements: AV - 2.95 meters per second LVOT - 0.89 meters per second LVOT diameter 1.8 cm Mean AV systolic gradient - 17 mmHg Dimensionless index - 0.26 MV-E - 134, A - 42, E/A ratio 3.2 Early mitral deceleration time 185 milliseconds E prime medial 5, A prime medial 4, E prime lateral 6.8 Average, E/E prime ratio 22.7 PV - 1.2 meters per second Pulmonary artery acceleration time - 70 milliseconds RVSP - 65 mmHg IVC - 2.3 cm COMMENTS: Normal sinus rhythm without intraventricular conduction disturbance. M-mode and two-dimensional echocardiography was performed with pulsed, continuous wave, color flow and tissue Doppler studies. Mild concentric left ventricle hypertrophy with normal wall motion. Mildly dilated left atrium with grade 2 LV diastolic dysfunction and elevated mean left atrial pressure. Right atrium upper limits of normal in size with slightly reduced motion of the right ventricular free wall and Doppler evidence of severe pulmonary hypertension. Slightly dilated right atrium and mildly dilated inferior vena cava with adequate respiratory collapse in keeping with a central venous pressure of at least 10 mmHg Mild - moderate calcific aortic stenosis with trace insufficiency. Normal aortic root and ascending aortic diameters. Mild mitral annular calcification without inflow tract obstruction and mild - moderate eccentric mitral insufficiency. Normal appearing tricuspid valve with moderately severe insufficiency. No apparent intracardiac mass or pericardial effusion.
--- NOTE | 2019-11-09 19:14 | DSES ---
DATE OF ADMISSION: 11/05/2019 DATE OF DISCHARGE: 11/08/2019 DISCHARGE DIAGNOSES: 1. Symptomatic bradycardia due to adverse reaction to Bystolic. 2. Hypertension. 3. Insulin-dependent diabetes mellitus type 2. 4. Chronic diastolic congestive heart failure. 5. Pulmonary hypertension. PROCEDURES PERFORMED DURING THIS HOSPITALIZATION: None. CONSULTANTS ON THE CASE: None. DISPOSITION: Patient discharged home in stable condition. DISCHARGE INSTRUCTIONS: Patient is instructed to followup with her physician, Dr. Eugene, in the next 3-5 days for post-hospital followup as well as to be fitted for a 30 day event monitor. CONDITION AT DISCHARGE: Stable without any further bradycardia or presyncopal or syncopal events. DISCHARGE MEDICATIONS: Are the following: - allopurinol 100 mg daily - Norvasc 2.5 mg daily - atorvastatin 20 mg at bedtime - Bumex 2 mg twice a day - calcium with vitamin D3 one tablet in the evening - Prolia 60 mg subcutaneous as directed - nighttime cough liquid 15 mL at bedtime as needed for cough - folic acid 300 mcg by mouth daily - Lantus 20 units in the morning, 54 units in the evening - Humalog sliding scale - Iferex 150 mg one capsule daily - nitroglycerin sublingual as needed for chest pain - nystatin applied topically to under breast - fish oil 1000 mg twice a day - pregabalin 75 mg twice a day - sertraline 25 mg at bedtime - Flomax 0.4 mg daily - Zanaflex 4 mg by mouth at bedtime - coenzyme Q 100 mg at bedtime RELEVANT LABORATORIES: Are the following: White count 8.3, hemoglobin 10.1, hematocrit 30.4, platelet count 331,000, INR 1.04, PT 13, PTT 32, TSH 3.26, troponin marker was 0.11, subsequent troponin markers did not raise above 0.12 on successive checks times two, sodium 140, potassium 3.8, chloride 101, bicarbonate 34, anion gap 5, BUN 26, creatinine 1.21, glucose 209, calcium 2.1. Echocardiogram with Doppler showed that the patient had a preserved left ventricular ejection fraction with mild concentric left ventricular hypertrophy with mildly dilated left atrium with grade 2 left ventricular diastolic dysfunction, elevated mean left atrial pressure. Right atrium appears upper limits of normal in size with slightly reduced motion of the right ventricular free wall and Doppler evidence of severe pulmonary hypertension. She had a slightly dilated right atrium and mildly dilated inferior vena cava with adequate respiratory collapse in keeping with a central venous pressure of at least 10 mmHg. Normal appearing tricuspid valve with moderately severe insufficiency. Chest x-ray one view showed mild cardiomegaly and otherwise no acute disease. HOSPITAL COURSE: Ms. Antoine is a 74-year-old woman who presented to the hospital with complaints of presyncopal symptoms at home. She had been hospitalized several weeks prior for a similar complaint. At that time, no echocardiogram was done. In the emergency room (ER) department patient was noted to be bradycardic with heart rate dropping into the 30s with a preserved blood pressure. She was noted to have some 2 second pauses on telemetry. It was felt to be secondary to Bystolic. This was discontinued on admission. The patient's blood pressure medications were held. Clinically, the patient experienced no syncopal or presyncopal events in the hospital. Orthostatic vital signs were checked on successive days without any changes or evidence of orthostasis. Patient had mild elevation of her troponin upon admission at 0.11 with a benign appearing EKG with the exception of her sinus bradycardia. Successive troponin levels did not rise above 0.12. Echocardiogram was obtained as described above which failed to disclose any significant structural heart disease. The patient was discontinued from her Bystolic. The following 48 hours her heart rate was into the 70s and 80s. Patient was discharged this morning in stable condition with instructions to followup with her primary care provider (PCP). Due to the finding of severe pulmonary hypertension on her echocardiogram, I instructed her to resume her Norvasc as well as Bumex for her stage 2 diastolic dysfunction causing chronic diastolic congestive heart failure. Patient was instructed to followup with Dr. Eugene in the next 3-5 days for post-hospital followup and to also be scheduled for outpatient Holter monitor to detect any possible other arrhythmias while she is off the Bystolic. In addition, at that time she should recheck her blood pressure, which I have instructed her to keep a log and to present that to Dr. Eugene so he can determine whether other medications need to be added to control her blood pressure. Total of 30 minutes was spent completing all discharge paperwork.
== END 2019-11-08 11:14 | disposition home or self-care (01) ==
LOC: M ED 14:29 → EDBD 14:29 → M ED INP 14:30 → ENRESERVDT 11-06 17:17 → ENRESERVTM 11-06 17:17 → M PCU 11-06 18:10
PROVIDERS: ADMIT Internal Medicine; ATTEND Internal Medicine
DX: R00.1 Bradycardia, unspecified (principal); T44.7X5A Adverse effect of beta-adrenoreceptor antagonists, initial encounter; I11.0 Hypertensive heart disease with heart failure; E11.9 Type 2 diabetes mellitus without complications; I50.32 Chronic diastolic (congestive) heart failure; I27.20 Pulmonary hypertension, unspecified; R74.8 Abnormal levels of other serum enzymes; R07.9 Chest pain, unspecified; R55 Syncope and collapse; E78.5 Hyperlipidemia, unspecified; I25.10 Atherosclerotic heart disease of native coronary artery without angina pectoris; E83.119 Hemochromatosis, unspecified; J44.9 Chronic obstructive pulmonary disease, unspecified; Z87.19 Personal history of other diseases of the digestive system; M10.9 Gout, unspecified; Z79.899 Other long term (current) drug therapy; Z79.4 Long term (current) use of insulin; Z88.8 Allergy status to other drugs, medicaments and biological substances; Z95.1 Presence of aortocoronary bypass graft
CPT/HCPCS: 36415; 71045; 80048; 82550; 82553; 83735; 84443; 84484; 85025; 85027; 85610; 85730; 93005; 93041; 93306; 94760; 99285; G0378

== ENCOUNTER 2020-11-25 20:20 | Inpatient (IN) | payer MEDICARE, OTHER ==
[~2020-11-25] VITALS: Ht 157.5 cm; Wt 92.2 kg
[~2020-11-25 20:20] MED LIST changes: +AMLO1TAB24 PO; -AMLO5TAB6 PO; +DEXT118S PO; -FOLI400T PO; +FOLI400T13 PO; -LISI-1046 PO; +LISI2.5T2 PO
[2020-11-25] MEDS ORDERED: DEXTROSE 50% 50 ML SYRINGE IV PRN (20:35)
[2020-11-25] MEDS ORDERED: GLUCAGON INJ 1MG VIAL SC PRN (20:35)
[2020-11-25] MEDS ORDERED: GLUCOSE 4GM CHEW TABLET PO PRN (20:35)
[2020-11-25] MEDS ORDERED: LEVEMIR (INSULIN DETEMIR) 1 UNITS/0.01ML SC SCH (21:00)
[2020-11-25] MEDS ORDERED: HumaLOG INSULIN (NovoLOG) PER UNIT SC SCH (21:00)
[2020-11-25] MEDS ORDERED: POTASSIUM CHLORIDE 10 MEQ SR TABLET PO SCH (21:00)
[2020-11-25] MEDS ORDERED: tiZANidine 4 MG TAB PO SCH (21:00)
[2020-11-25] MEDS ORDERED: ATORVASTATIN 20 MG TAB PO SCH (21:00)
[2020-11-25] MEDS ORDERED: SERTRALINE HCL 25 MG TABLET PO SCH (21:00)
[2020-11-26] VITALS (9 sets, daily range): BP systolic 120–164; BP diastolic 48–80; O2SAT 98–100
[2020-11-26] MEDS ORDERED: REMDESIVIR 200 MG in NS 250 ML IV ONE ×2
[2020-11-26 00:29] LABS: BASO # 0.1 10^3/uL (0.0-0.2); BASO % 0.8 % (0.0-1.0); EOS # 0.2 10^3/uL (0.0-0.5); EOS % 2.3 % (0.0-3.0); HEMATOCRIT 38.5 % (36.0-47.0); HEMOGLOBIN 12.4 g/dl (12.0-15.5); LYMPH # 1.3 10^3/uL (1.5-5.0); LYMPH % 17.3 % (24.0-44.0); MEAN CORPUSCULAR HEMOGLOBIN 30.2 pg (27.0-33.0); MEAN CORPUSCULAR HGB CONC 32.2 g/dl (32.0-36.5); MEAN CORPUSCULAR VOLUME 93.7 fl (80.0-96.0); MONO # 0.6 10^3/uL (0.0-0.8); MONO % 7.9 % (2.0-8.0); NEUTROPHILS # 5.4 10^3/uL (1.5-8.5); NEUTROPHILS % 70.1 % (36.0-66.0); PLATELET COUNT, AUTOMATED 152 10^3/uL (150-450); RED BLOOD COUNT 4.11 10^6/uL (4.00-5.40); WHITE BLOOD COUNT 7.7 10^3/uL (4.0-10.0)
[2020-11-26 00:38] LABS: PROTHROMBIN TIME 13.4 SECONDS (12.5-14.3)
[2020-11-26 00:39] LABS: PARTIAL THROMBOPLASTIN TIME 30.9 SECONDS (24.2-38.5)
[2020-11-26] MEDS ORDERED: INSUHUMDS SC ×3 (00:39)
[2020-11-26] MEDS ORDERED: OMEG12003 PO (00:39)
[2020-11-26] MEDS ORDERED: BUME1TAB3 PO (00:39)
[2020-11-26] MEDS ORDERED: FAMO20TA5 PO (00:39)
[2020-11-26 00:41] LABS: D-DIMER QUANT 812.06 ng/ml (<500)
--- NOTE | 2020-11-26 00:42 | REPVR ---
PROCEDURE INFORMATION: Exam: XR Chest Exam date and time: 11/25/2020 8:32 PM Age: 75 years old Clinical indication: Other: Flank pain covid +; Additional info: Flank pain covid + TECHNIQUE: Imaging protocol: XR of the chest Views: 1 view. COMPARISON: [facility] PORTABLE CHEST X-RAY 11/05/2019 2:53 PM FINDINGS: Lungs: No consolidation. Pleural spaces: Unremarkable. No pleural effusion. No pneumothorax. Heart/Mediastinum: Stable cardiac silhouette. Bones/joints: Prior median sternotomy. IMPRESSION: No acute cardiopulmonary process. Electronically signed by: Khang Fuentes On 11/26/2020 00:42:48 AM
[2020-11-26] MEDS ORDERED: D3 S1CAP PO (00:44)
[2020-11-26] MEDS ORDERED: MEMA10TA19 PO (00:44)
[2020-11-26] MEDS ORDERED: POTA10TA17 PO (00:44)
[2020-11-26] MEDS ORDERED: ACET-897 PO (00:44)
[2020-11-26] MEDS ORDERED: POTA10TA67 PO (00:44)
[2020-11-26] MEDS ORDERED: METO5TA PO (00:44)
[2020-11-26] MEDS ORDERED: VITA500T73 PO (00:44)
[2020-11-26 01:08] LABS: ALBUMIN 3.3 GM/DL (3.2-5.2); BILIRUBIN,DIRECT 0.2 MG/DL (0.0-0.2); BILIRUBIN,TOTAL 0.5 MG/DL (0.2-1.0); C REACTIVE PROTEIN QUANTITATIV 2.44 MG/DL (0.00-0.30); CALCIUM LEVEL 9.1 MG/DL (8.8-10.2); CREATININE FOR GFR 1.62 MG/DL (0.55-1.30); MAGNESIUM LEVEL 2.1 MG/DL (1.8-2.4); POTASSIUM SERUM 3.3 MEQ/L (3.5-5.1); TOTAL PROTEIN 7.2 GM/DL (6.4-8.2); TROPONIN I 0.62 NG/ML (< 0.10)
[2020-11-26] MEDS ORDERED: POTASSIUM CHLORIDE 10 MEQ SR TABLET PO ONE (01:30)
--- NOTE | 2020-11-26 01:38 | HPEPDOC ---
[facility] Medical History & Physical Date of Admission Nov 25, 2020 Date of Service: Nov 25, 2020 History and Physical CHIEF COMPLAINT: Left-sided flank pain for 2 weeks HISTORY OF PRESENT ILLNESS: 75 y/o female presented to [facility] ER with complaints of 2 week history of left-sided flank pain, dysuria without hematuria, chronic urgency without frequency or foul smelling stools. Denies fever and chills. Patient describes the pain as sharp and achy on and off, unchanged by position or activity, improves with Tylenol 1-2 tablets decreasing the pain to 5 out of 10 on a pain scale. "I thought it was a kidney infection." At [place] emergency room, patient was found to be positive for coronavirus. CT abdomen and pelvis showed no nephrolithiasis. Positive diverticulosis. Chest x-ray showing patchy groundglass opacities. Patient denied any shortness of breath and chronically on 2 L of home oxygen, saturating at 100%. She denied any chest pain, pressure or tightness, lightheadedness, dizziness, diaphoresis, nausea, vomiting or feeling of impending doom. EKG showed left axis deviation, incomplete left bundle branch block with troponin of 0.9 and repeat troponin 0.7. Patient was transferred to [facility] for occult blood-positive pneumonia. UA is pending PAST MEDICAL HISTORY: diastolic CHF EF 60% (echo 11/07/19), COPD, chronic hypoxic respiratory failure on 2liters home oxygen, severe pulmonary hypertension, CKD3, moderate tricuspid insufficiency, mild to moderate calcific aortic stenosis, mild to moderate mitral insufficiency, abnormal EKG w chronic LAD, LVH, HTN, dyslipidemia, IDDM2, CAD, CABG, h/o UGIB, gout, iron deficiency anemia, hemochromatosis, bystolic- induced symptomatic bradycardia PAST SURGICAL HISTORY: CABG, SARAH, b/l tubal ligation, appendectomy, laminectomy SOCIAL HISTORY: tobacco abuse, full code, denies recreational drug use / ETOH abuse FAMILY HISTORY: mother- DM, CAD brother-colon cancer ALLERGIES: Please see below. REVIEW OF SYSTEMS: 10 point ROS negative aside from positive findings on HPI HOME MEDICATIONS: Please see below. PHYSICAL EXAMINATION: VITAL SIGNS: see below GENERAL APPEARANCE: Awake, alert, oriented 3, no respiratory distress, able her full sentences HEENT: No JVD, thyromegaly or cervical lymphadenopathy. Moist mucous membranes CARDIOVASCULAR: S1, S2 regular rate rhythm, no S3 , No JVD, no carotid bruits 2/6 systolic ejection murmur at the apex radiating to the carotids, 3/6 sys tolic ejection murmur at the left lower sternal border LUNGS: Diminished but clear to auscultation. No wheezing, rales or rhonchi ABDOMEN: Obese, soft, nontender, nondistended, positive bowel sounds. No CVA tenderness bilaterally EXTREMITIES: No cyanosis or clubbing EKG: PENDING LABORATORY DATA: See below. IMAGING: Pending MICROBIOLOGY: Please see below. ASSESSMENT/PLAN: 75 y/o female presented to [facility] ER with complaints of 2 week history of left-sided flank pain, dysuria without hematuria, chronic urgency without frequency or foul smelling stools. Denies fever and chills. Patient describes the pain as sharp and achy on and off, unchanged by position or activity, improves with Tylenol 1-2 tablets decreasing the pain to 5 out of 10 on a pain scale. "I thought it was a kidney infection." At [place] emergency room, patient was found to be positive for coronavirus. CT abdomen and pelvis showed no nephrolithiasis. Positive diverticulosis. Chest x-ray showing patchy groundglass opacities. Patient denied any shortness of breath and chronically on 2 L of home oxygen, saturating at 100%. She denied any chest pain, pressure or tightness, lightheadedness, dizziness, diaphoresis, nausea, vomiting or feeling of impending doom. EKG showed left axis deviation, incomplete left bundle branch block with troponin of 0.9 and repeat troponin 0.7. Patient was transferred to [facility] for occult blood-positive pneumonia. UA is pending Coronavirus-19 pneumonia -[place] ER. Chest x-ray faint groundglass opacities, coronavirus. 19. Positive. -keep o2 sat>90%, continuous pulse oximetry, telemetry monitoring, remdesevir, iv decadron, supplemental oxygen, cycle inflammatory markers, lovenox sq. Left flank pain -Rule out pyelonephritis. Check UA, urine C&S. Patient complains of dysuria and urinary frequency. If the UA has pyuria and bacteriuria. Patient may be started on either quinolone or cephalosporin. -CT abdomen and pelvis, some [place] emergency room: No nephrolithiasis Chronic Hypoxic Respiratory failure on 2liters home oxygen -stable COPD, compensated -resumed home meds Diastolic CHF, compensated -strict i/o, weigh daily, 2liter fluid restriction Severe pulmonary HTN / moderate tricuspid insufficiency -on supplemental oxygen, complicating care Abnormal EKG w chronic LAD, LVH -no new acute EKG changes despite troponin leak Mild to moderate calcific Aortic Stenosis -avoid abrupt preload reduction , dehydration Mild to Moderate Mitral insufficiency -complicating care HTN -controlled, resumed on home meds Hyperlipidemia -resumed home meds CAD/CABG/ Troponin leak -denies acute ischemic symptoms, ekg has no new ischemic changes, cycle card [place]. -10/2019 echo reviewed. Hemochromatosis -outpt GI fu IDDM2 -consistent carbs diet, insulin sliding scale with coverage, check A1c H/O UGI bleed -no acute c/o. Gout -chronic Diet: 2g sodium/consistent carbs diet Code status: full code DVT prophylaxis: lovenox Home Medications Scheduled Acetaminophen (Tylenol Extra Strength) 500 Mg Tablet, 1,000 MG PO TID Allopurinol (Allopurinol) 100 Mg Tablet, 100 MG PO DAILY Amlodipine Besylate (Amlodipine Besylate) 2.5 Mg Tablet, 2.5 MG PO DAILY Atorvastatin Calcium (Atorvastatin Calcium) 20 Mg Tab, 20 MG PO QHS Bumetanide (Bumetanide) 2 Mg Tablet, 2 MG PO DAILY Bumetanide (Bumetanide) 1 Mg Tablet, 1 MG PO QPM TAKES AT 1600 Cholecalciferol (Vitamin D3) (Vitamin D3) 50 Mcg Capsule, 50 MCG PO QPM TAKES AT 1600 Cyanocobalamin (Vitamin B-12) (Vitamin B-12) 500 Mcg Tablet, 500 MCG PO DAILY Famotidine (Famotidine) 20 Mg Tablet, 20 MG PO QPM TAKES AT 1600 Folic Acid (Folic Acid) 0.8 Mg Capsule, 800 MCG PO DAILY Insulin Glargine (Lantus) 1 Units/0.01 Ml Susp, 50 UNITS SC DAILY Insulin Glargine,Hum.rec.anlog (Lantus Solostar) 100 Unit/1 Ml Insuln.pen, 64 UNITS SC QHS Insulin Human Lispro (Humalog) 1 Units/0.01 Ml Inj, 1 DOSE SC ACB PATIENT SPECIFIC SLIDING SCALE Insulin Human Lispro (Humalog) 100 Unit/1 Ml Vial, 22 UNITS SC DAILY TAKES AT LUNCHTIME Insulin Human Lispro (Humalog) 100 Unit/1 Ml Vial, 10 UNITS SC QHS Insulin Human Lispro (Humalog) 100 Unit/1 Ml Vial, 1 UNITS SC ACS PATIENT SPECIFIC SLIDING SCALE Iron Ps Complex/B12/Folic Acid (Iferex 150 Forte Capsule) 1 Each Capsule, 150 MG PO Q2D Memantine HCl (Memantine HCl) 10 Mg Tablet, 10 MG PO BID Metolazone (Metolazone) 5 Mg Tablet, 5 MG PO QWEEK TUESDAYS Nystatin (Nystatin Powder) 15 Gm Powder, 1 DOSE TOP DAILY APPLY UNDER BREASTS AND ABDOMINAL FOLDS AFTER SHOWERING [place]-3/Dha/Epa/Fish Oil (Fish Oil 1,200 mg Softgel) 1 Each Capsule.dr, 1 CAP PO BID TAKES AT 1600 AND QHS Potassium Chloride (Potassium Chloride) 10 Meq Tab.er.prt, 10 MEQ PO BID TAKES IN THE MORNING AND AT 1600 Potassium Chloride (Potassium Chloride) 10 Meq Tab.er.prt, 10 MEQ PO QHS Pregabalin (Pregabalin) 75 Mg Capsule, 75 MG PO BID Sertraline Hcl (Sertraline HCl) 25 Mg Tablet, 25 MG PO QHS Tamsulosin HCl (Flomax) 0.4 Mg Capsule, 0.4 MG PO DAILY Tizanidine HCl (Zanaflex) 4 Mg Tab, 4 MG PO QHS Ubidecarenone/Vit E Acet (Co Q-10 100 mg Softgel) 1 Each Capsule, 100 MG PO QPM TAKES AT 1600 Scheduled PRN Nitroglycerin (Nitrostat) 0.4 Mg Tab.subl, 0.4 MG SL NITRO PRN for CHEST PAIN Allergies Coded Allergies: warfarin (Verified Adverse Reaction, Mild, NAUSEA/DIZZY, 03/24/19) amlodipine (Verified Adverse Reaction, Unknown, COUGH, 03/24/19) A-FIB/CHADSVASC A-FIB History Current/History of A-Fib/PAF?: No Current PO Anticoag Therapy: No Age/Risk Factor Scoring CHADSVASC: CHADSVASC Response (Comments) Value Age Risk Factor Age >/= 75 years old 2 Gender Risk Factor Female 1 Hx of CHF No 0 Hx of HTN Yes 1 Hx of Stroke/TIA/or VTE No 0 Hx of Diabetes No 0 Hx of Vascular Disease No 0 Total 4 Treatment Treatment ordered: NONE ANA HIDALGO MD Nov 25, 2020 21:00
[2020-11-26] MEDS ORDERED: SODIUM CHLORIDE 0.9% INJ 10 ML SYR IV ONE (02:00)
[2020-11-26] MEDS: PREGABALIN 75 MG CAP(LYRICA) PO SCH ×2 (02:30→08:37)
[2020-11-26 04:53] LABS: BASO % 0.5 % (0.0-1.0); EOS # 0.2 10^3/uL (0.0-0.5); EOS % 2.5 % (0.0-3.0); HEMATOCRIT 34.3 % (36.0-47.0); HEMOGLOBIN 11.3 g/dl (12.0-15.5); LYMPH # 1.4 10^3/uL (1.5-5.0); LYMPH % 16.9 % (24.0-44.0); MEAN CORPUSCULAR HEMOGLOBIN 30.9 pg (27.0-33.0); MEAN CORPUSCULAR HGB CONC 32.9 g/dl (32.0-36.5); MEAN CORPUSCULAR VOLUME 93.7 fl (80.0-96.0); MONO # 0.6 10^3/uL (0.0-0.8); MONO % 7.8 % (2.0-8.0); NEUTROPHILS # 5.7 10^3/uL (1.5-8.5); PLATELET COUNT, AUTOMATED 141 10^3/uL (150-450); RED BLOOD COUNT 3.66 10^6/uL (4.00-5.40)
[2020-11-26 05:19] LABS: ALBUMIN 2.8 GM/DL (3.2-5.2); BILIRUBIN,DIRECT 0.1 MG/DL (0.0-0.2); BILIRUBIN,TOTAL 0.3 MG/DL (0.2-1.0); CALCIUM LEVEL 8.8 MG/DL (8.8-10.2); CREATININE FOR GFR 1.57 MG/DL (0.55-1.30); GLOMERULAR FILTRATION RATE 34.2 (>39); MAGNESIUM LEVEL 2.1 MG/DL (1.8-2.4); POTASSIUM SERUM 3.6 MEQ/L (3.5-5.1); TOTAL PROTEIN 6.6 GM/DL (6.4-8.2)
[2020-11-26] MEDS ORDERED: CIPROFLOXACIN 250MG TAB PO SCH (06:00)
[2020-11-26] MEDS: HumaLOG INSULIN (NovoLOG) PER UNIT SC SCH ×2 (08:36→12:25)
[2020-11-26] MEDS ORDERED: POTASSIUM CHLORIDE 10 MEQ SR TABLET PO SCH (09:00)
[2020-11-26] MEDS ORDERED: dexameTHASONE 4 MG/ML 1ML VIAL (J1100 PER 1MG) IV SCH (09:00)
[2020-11-26] MEDS ORDERED: LINEZOLID 600MG TABLET (ZYVOX) PO SCH (09:00)
[2020-11-26] MEDS ORDERED: PHENAZOPYRIDINE 100 MG TAB PO SCH (09:00)
[2020-11-26] MEDS ORDERED: TAMSULOSIN 0.4 MG CAP PO SCH (09:00)
[2020-11-26] MEDS ORDERED: CYANOCOBALAMIN 500 MCG TAB PO SCH (09:00)
[2020-11-26] MEDS ORDERED: BUMETANIDE 1 MG TAB PO SCH ×2 (09:00→16:00)
[2020-11-26] MEDS ORDERED: NYSTATIN 100,000 UNITS/GM TOPICAL PWD 15 GM TOP SCH (09:00)
[2020-11-26] MEDS ORDERED: ACETAMINOPHEN 500 MG TAB PO SCH (09:00)
[2020-11-26] MEDS ORDERED: LEVEMIR (INSULIN DETEMIR) 1 UNITS/0.01ML SC SCH (09:00)
[2020-11-26] MEDS ORDERED: allopurinoL 100 MG TAB PO SCH (09:00)
--- NOTE | 2020-11-26 09:18 | ECGEPIP ---
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
--- NOTE | 2020-11-26 11:30 | IPNPDOC ---
Text Note Date of Service The patient was seen on 11/26/20. NOTE Subjective: Patient presented with left flank pain yesterday and had a positive urinalysis consistent with a UTI. Pt was started on the Linezolid and Ciprofloxacin. Cultures still pending. Patient states that she still has the left flank pain and it has not subsided. She denies any abdominal pain, nausea or vomiting. She states that she was able to have breakfast. She denies any shortness of breath at this time. Objective: General: Pleasant, NAD HEENT: NC, AT. EOMI, no scleral icterus. No pharyngeal erythema, mucous membranes moist. Neck: No lymphadenopathy or JVD CV: RRR, Normal S1 and S2. No murmurs, gallops, or rubs. Resp: CTAB. No wheezes, crackles, or rhonchi. No dullness to percussion. Abdomen: Bowel sounds present. Soft, NT, ND. Extremities: No swelling or edema. ASSESSMENT/PLAN: 75 y/o female presented to [facility] ER with complaints of 2 week history of left-sided flank pain, dysuria without hematuria, chronic urgency without frequency or foul smelling stools. Denies fever and chills. Patient describes the pain as sharp and achy on and off, unchanged by position or activity, improves with Tylenol 1-2 tablets decreasing the pain to 5 out of 10 on a pain scale. According to the [place] emergency room, patient was found to be positive for coronavirus, CT abdomen and pelvis showed no nephrolithiasis, positive diverticulosis, and chest x-ray showed patchy groundglass opacities. Patient denied any shortness of breath and chronically on 2 L of home oxygen, saturating at 100%. She denied any chest pain, pressure or tightness, lig htheadedness, dizziness, diaphoresis, nausea, vomiting or feeling of impending doom. EKG showed left axis deviation, incomplete left bundle branch block with troponin of 0.9 and repeat troponin 0.7. Patient was transferred to [facility] for possible COVID pneumonia. Urine culture is pending. #Coronavirus-19 positive CXR on 11/25/2020 was clear. -pt received one dose of remdisivir on admission, however due to negative CXR, this has been discontinued. keep o2 sat>90%, continuous pulse oximetry, telemetry monitoring, supplemental oxygen, monitor inflammatory markers, lovenox sq. #Left flank pain -Rule out pyelonephritis. Positive urinalysis. Urine culture pending. -Patient complains of dysuria and urinary frequency. If the UA has pyuria and bacteriuria. Patient may be started on either quinolone or cephalosporin. -CT abdomen and pelvis, some [place] emergency room: No nephrolithiasis #COPD, compensated -resumed home meds. Continue home oxygen of 2 L nasal cannula #CKG stage III Patient's baseline creatinine is 1.21 -Patient's creatinine today is 1.57 We will continue to monitor BMP to understand whether this is true RIVER due to patient's underlying CKD condition. #Diastolic CHF, compensated -strict i/o, weigh daily -2liter fluid restriction #Severe pulmonary HTN / moderate tricuspid insufficiency -on supplemental oxygen, complicating care #Abnormal EKG w chronic LAD, LVH -no new acute EKG changes despite troponin leak Trend troponins. #Mild to moderate calcific Aortic Stenosis -avoid abrupt preload reduction, dehydration #Mild to Moderate Mitral insufficiency -complicating care #HTN -controlled, resumed on home meds #Hyperlipidemia -resumed home meds #CAD/CABG/ Troponin leak -denies acute ischemic symptoms, ekg has no new ischemic changes, monitor cardiac markers. -10/2019 echo reviewed. #Hemochromatosis -Needs outpt GI fu #IDDM2 -consistent carbs diet, insulin sliding scale with coverage, check A1c #H/O UGI bleed -no acute signs or symptoms. #Gout -Continue home medications. Diet: 2g sodium/consistent carbs diet Code status: full code DVT prophylaxis: lovenox Disposition: Consider discharging today. VS,Fishbone, I+O VS, Fishbone, I+O Laboratory Tests 11/26/20 00:08 11/26/20 04:33 Vital Signs Date Time Temp Pulse Resp B/P (MAP) Pulse Ox O2 Delivery O2 Flow Rate FiO2 11/26/20 10:00 97.4 66 17 120/48 (72) 98 Nasal Cannula 2.0 I&O- Last 24 Hours up to 6 AM 11/26/20 06:00 Intake Total 480 ml Output Total 600 ml Balance -120 ml GME ATTESTATION GME ATTESTATION My faculty preceptor for this patient encounter was physically present during the encounter and was fully available. All aspects of the patient interview, examination, medical decision making process, and medical care plan development were reviewed and approved by the faculty preceptor. The faculty preceptor is aware and concurs with the plan as stated in the body of this note and will attest to such by his/her cosignature. Soren Garrison DO Nov 26, 2020 11:01
[2020-11-26] MEDS ORDERED: HumaLOG INSULIN (NovoLOG) PER UNIT SC SCH ×3 (12:30→21:00)
[2020-11-26] MEDS ORDERED: CIPR-250 PO (14:04)
--- NOTE | 2020-11-26 15:48 | DS.PDOC ---
Discharge Summary General Date of Admission Nov 25, 2020 at 23:25 Date of Discharge 11/26/2020 Attending Physician: VONDA MAR MD Discharge Summary PROCEDURES PERFORMED DURING STAY: None. ADMITTING DIAGNOSES: 1. Covid pneumonia. 2. Left flank pain. 3. Chronic hypoxic respiratory failure. 4. COPD. 5. Diastolic CHF. 6. Severe pulmonary hypertension/moderate tricuspid insufficiency. 7. Abnormal EKG with chronic left axis deviation, left ventricular hypertrophy. 8. Mild to moderate calcific aortic stenosis. 9. Mild to moderate mitral insufficiency. 10. Hypertension. 11. Hyperlipidemia. 12. Coronary artery disease/CABG/troponin leak. 13. Hemochromatosis. 14. IDDM. 2 15. History of uterine GI bleed. 16. Gout DISCHARGE DIAGNOSES: 1. UTI 2. COVID positive, without respiratory symptoms and without radiology findings 3. Chronic hypoxic respiratory failure. 4. COPD. 5. Diastolic CHF. 6. Severe pulmonary hypertension/moderate tricuspid insufficiency. 7. Abnormal EKG with chronic left axis deviation, left ventricular hypertrophy. 8. Mild to moderate calcific aortic stenosis. 9. Mild to moderate mitral insufficiency. 10. Hypertension. 11. Hyperlipidemia. 12. Coronary artery disease/CABG/troponin leak. 13. Hemochromatosis. 14. IDDM. 2 15. History of uterine GI bleed. 16. Gout COMPLICATIONS/CHIEF COMPLAINT: Covid Pneumonia. HISTORY OF PRESENT ILLNESS: 75 y/o female presented to [facility] ER with complaints of 2 week history of left-sided flank pain, dysuria without hematuria, chronic urgency without frequency or foul smelling stools. Denies fever and chills. Patient describes the pain as sharp and achy on and off, unchanged by position or activity, improves with Tylenol 1-2 tablets decreasing the pain to 5 out of 10 on a pain scale. "I thought it was a kidney infection." At [place] emergency room, patient was found to be positive for coronavirus. CT abdomen and pelvis showed no nephrolithiasis. Positive diverticulosis. Chest x- ray showing patchy groundglass opacities. Patient denied any shortness of breath and chronically on 2 L of home oxygen, saturating at 100%. She denied any chest pain, pressure or tightness, lightheadedness, dizziness, diaphoresis, nausea, vomiting or feeling of impending doom. EKG showed left axis deviation, incompl ete left bundle branch block with troponin of 0.9 and repeat troponin 0.7. Patient was transferred to [facility] for Covid positive pneumonia. HOSPITAL COURSE: After patient's transfer to [facility], patient was started on ciprofloxacin and the Linezolid. Patient's chest x-ray during stay showed no acute pulmonary process. Patient had an uneventful stay and reported no pulmonary, cardiac, or abdominal symptoms. Patient continued to have flank pain, however, CT abdomen and pelvis without contrast results retrieved from [place] reported no nephrolithiasis or ureteral stones. Patient was cleared to go home on ciprofloxacin 500 mg for 5 days twice a day. Patient was advised to report back to the emergency room if symptoms worsened, if she developed vaginal discharge, dysuria, hematuria, urinating very little or not at all, develops vomiting, fevers, chills, worsening side or back pain, or do not feel better after 2 days of taking antibiotics. DISCHARGE MEDICATIONS: Please see below. ALLERGIES: Please see below. PHYSICAL EXAMINATION ON DISCHARGE: VITAL SIGNS: Please see below. GENERAL: In no acute distress, cooperative on exam, alert and oriented 3 HEENT: No scleral icterus, EOMI, no nasal discharge, oral mucosa dry CARDIOVASCULAR EXAMINATION: Regular rate and rhythm, systolic murmur, grade 3/6, no rubs or gallops RESPIRATORY EXAMINATION: Clear to auscultation bilaterally, no wheezes, rales or rhonchi ABDOMINAL EXAMINATION: Soft, nontender, nondistended EXTREMITIES: Patient able to ambulate in room LABORATORY DATA: Please see below. IMAGING: CXR 11/26/2020no acute cardiopulmonary processes. CT chest without contrast, from [place] 11/25/2020 Small mediastinal lymph nodes in the pretracheal region measuring up to 9 mm in short axis. No reactive hilar adenopathy. No cardiac enlargement or pericardial effusion. No aneurysm or dilatation to the aorta. Patchy areas of pain groundglass opacities identified in the periphery of both lungs. No consolidation. No effusion. No suspicious pulmonary nodules. Patient is status post sternotomy. Impression: Patchy areas of faint groundglass opacities in both lungs. These may represent developing infiltrates or pneumonitis. Clinical correlation. Small mediastinal lymph nodes. CT abdomen and pelvis without contrast 11/25/2020 from [place] The visualized lower lungs are clear of infiltrate. The bilateral adrenal glands are unremarkable. Nonenhanced images of the liver revealed a low attenuated peripheral right middle lobe lesion measuring 2.9 X 2.5 cm with a fluid density consistent with a cyst. The gallbladder is unremarkable. The pancreas and spleen are within normal limits. The bilateral adrenal glands are unremarkable. No obstructing renal or ureteral stones. No hydronephrosis. Scattered atherosclerotic changes along the renal arteries. Atherosclerotic change along the aorta without aneurysm. The bilateral ureters are unremarkable. No urinary bladder stones. The uterus is absent. No adnexal mass. The bowels are unremarkable. There are a few scattered diverticula along the distal colon without surrounding inflammation. The appendix is not visualized. No inflammation in the right lower quadrant. No free air or free fluid. Degenerative changes lumbar spine. Bilateral pedicle screws at L4 and L5. Impression: No renal or ureteral stones. No hydronephrosis. The bowels are unremarkable. Minimal diverticulosis. No free air or free fluid. PROGNOSIS: Fair ACTIVITY: As tolerated. DIET: Consistent carbohydrate diet for diabetes DISCHARGE PLAN: Discharge home today. DISCHARGE INSTRUCTIONS: 1. Please continue ciprofloxacin 500 mg twice a day for the next 5 days. 2. Please present back to the emergency room or seek immediate medical care if y ou develop blood in the urine, excessive vomiting, excessive headache, developed vaginal discharge, are not able to urinate or experience a decrease in urination, develop high fevers with chills, or experience worsening side or back pain. 3. Please follow up with PCP within the next 2 weeks or earlier if you do not feel better after 2 days of taking antibiotics, or you have questions or concerns about her condition or care. 4. Please be sure to address with your PCP the hepatic cyst that was found on the CT abdomen from [place] and the mediastinal lymph nodes found on the CT chest without contrast from [place]. ITEMS TO FOLLOWUP ON ON OUTPATIENT: 1. Please follow up with PCP on hepatic cyst found on CT abdomen and pelvis as detailed above under "Imaging." 2. Please follow up with PCP about small mediastinal lymph nodes found on CT chest without contrast as detailed above under "Imaging." DISCHARGE CONDITION: Stable. TIME SPENT ON DISCHARGE: Greater than 35 minutes. Vital Signs/I&Os Vital Signs Date Time Temp Pulse Resp B/P (MAP) Pulse Ox O2 Delivery O2 Flow Rate FiO2 11/26/20 10:00 97.4 66 17 120/48 (72) 98 Nasal Cannula 2.0 I&O- Last 24 Hours up to 6 AM 11/26/20 06:00 Intake Total 480 ml Output Total 600 ml Balance -120 ml Laboratory Data Labs 24H Laboratory Tests 2 11/26/20 00:08: Immature Granulocyte % (Auto) 1.6, Neutrophils (%) (Auto) 70.1H, Lymphocytes (%) (Auto) 17.3L, Monocytes (%) (Auto) 7.9, Eosinophils (%) (Auto) 2.3, Basophils (%) (Auto) 0.8, Neutrophils # (Auto) 5.4, Lymphocytes # (Auto) 1.3L, Monocytes # (Auto) 0.6, Eosinophils # (Auto) 0.2, Basophils # (Auto) 0.1, Nucleated Red Blood Cells % (auto) 0.0, Prothrombin Time 13.4, Prothromb Time International Ratio 1.00, Activated Partial Thromboplast Time 30.9, Fibrinogen 616H, D-Dimer, Quantitative 812.06H, Anion Gap 8, Glomerular Filtration Rate 33.0L, Calcium Level 9.1, Magnesium Level 2.1, Ferritin 215, Total Bilirubin 0.5, Direct Bilirubin 0.2, Aspartate Amino Transf (AST/SGOT) 42H, Alanine Aminotransferase (ALT/SGPT) 40, Alkaline Phosphatase 158H, Lactate Dehydrogenase 280H, Total Creatine Kinase 80, Troponin I 0.62H, C-Reactive Protein, Quantitative 2.44H, TT-Jyz-W-Type Natriuretic Peptide 961H, Total Protein 7.2, Albumin 3.3, Albumin/Globulin Ratio 0.8L, Procalcitonin 0.11 11/26/20 00:35: Bedside Glucose (Misc Panel) 171H 11/26/20 02:51: Urine Color YELLOW, Urine Appearance CLOUDYH, Urine pH 6.0, Urine Specific [place] 1.008, Urine Protein 2+H, Urine Glucose (UA) 3+H, Urine Ketones NEGATIVE, Urine Blood NEGATIVE, Urine Nitrite NEGATIVE, Urine Bilirubin NEGATIVE, Urine Urobilinogen 0.2, Urine Leukocyte Esterase 3+H, Urine WBC (Auto) TNTCH, Urine RBC (Auto) 2, Urine Hyaline Casts (Auto) 0, Urine Bacteria (Auto) NEGATIVE, Urine Squamous Epithelial Cells 1, Urine Yeast-Like Cells (Auto) LARGEH, Urine Sperm (Auto) 3/5/21 04:33: Immature Granulocyte % (Auto) 1.3, Neutrophils (%) (Auto) 71.0H, Lymphocytes (%) (Auto) 16.9L, Monocytes (%) (Auto) 7.8, Eosinophils (%) (Auto) 2.5, Basophils (%) (Auto) 0.5, Neutrophils # (Auto) 5.7, Lymphocytes # (Auto) 1.4L, Monocytes # (Auto) 0.6, Eosinophils # (Auto) 0.2, Basophils # (Auto) 0.0, Nucleated Red Blood Cells % (auto) 0.0, Anion Gap 4L, Glomerular Filtration Rate 34.2L, Calcium Level 8.8, Magnesium Level 2.1, Total Bilirubin 0.3, Direct Bilirubin 0.1, Aspartate Amino Transf (AST/SGOT) 31, Alanine Aminotransferase (ALT/SGPT) 33, Alkaline Phosphatase 133H, Total Protein 6.6, Albumin 2.8L, Albumin/Globulin Ratio 0.7L 11/26/20 06:26: Bedside Glucose (Misc Panel) 238H 11/26/20 11:34: Bedside Glucose (Misc Panel) 256H CBC/BMP Laboratory Tests 11/26/20 00:08 11/26/20 04:33 FSBS Laboratory Tests Test 11/26/20 00:35 11/26/20 06:26 11/26/20 11:34 Range/Units Bedside Glucose (Misc Panel) 171 238 256 83-110 MG/DL Microbiology Microbiology 11/26/20 Urine Culture, Received Pending 11/26/20 Blood Culture, Received Pending 11/26/20 Blood Culture, Received Pending Discharge Medications Scheduled Acetaminophen (Tylenol Extra Strength) 500 Mg Tablet, 1,000 MG PO TID, (Reported) Allopurinol (Allopurinol) 100 Mg Tablet, 100 MG PO DAILY, (Reported) Amlodipine Besylate (Amlodipine Besylate) 2.5 Mg Tablet, 2.5 MG PO DAILY, (Reported) Atorvastatin Calcium (Atorvastatin Calcium) 20 Mg Tab, 20 MG PO QHS, (Reported) Bumetanide (Bumetanide) 2 Mg Tablet, 2 MG PO DAILY, (Reported) Bumetanide (Bumetanide) 1 Mg Tablet, 1 MG PO QPM, (Reported) TAKES AT 1600 Cholecalciferol (Vitamin D3) (Vitamin D3) 50 Mcg Capsule, 50 MCG PO QPM, (Reported) TAKES AT 1600 Ciprofloxacin HCl (Cipro) 250 Mg Tablet, 500 MG PO BID@06,18 Cyanocobalamin (Vitamin B-12) (Vitamin B-12) 500 Mcg Tablet, 500 MCG PO DAILY, (Reported) Famotidine (Famotidine) 20 Mg Tablet, 20 MG PO QPM, (Reported) TAKES AT 1600 Folic Acid (Folic Acid) 0.8 Mg Capsule, 800 MCG PO DAILY, (Reported) Insulin Glargine (Lantus) 1 Units/0.01 Ml Susp, 50 UNITS SC DAILY, (Reported) Insulin Glargine,Hum.rec.anlog (Lantus Solostar) 100 Unit/1 Ml Insuln.pen, 64 UNITS SC QHS, (Reported) Insulin Human Lispro (Humalog) 1 Units/0.01 Ml Inj, 1 DOSE SC ACB, (Reported) PATIENT SPECIFIC SLIDING SCALE Insulin Human Lispro (Humalog) 100 Unit/1 Ml Vial, 22 UNITS SC DAILY, (Reported) TAKES AT LUNCHTIME Insulin Human Lispro (Humalog) 100 Unit/1 Ml Vial, 10 UNITS SC QHS, (Reported) Insulin Human Lispro (Humalog) 100 Unit/1 Ml Vial, 1 DOSE SC ACS, (Reported) PATIENT SPECIFIC SLIDING SCALE Iron Ps Complex/B12/Folic Acid (Iferex 150 Forte Capsule) 1 Each Capsule, 150 MG PO Q2D, (Reported) Memantine HCl (Memantine HCl) 10 Mg Tablet, 10 MG PO BID, (Reported) Metolazone (Metolazone) 5 Mg Tablet, 5 MG PO QWEEK, (Reported) TUESDAYS Nystatin (Nystatin Powder) 15 Gm Powder, 1 DOSE TOP DAILY, (Reported) APPLY UNDER BREASTS AND ABDOMINAL FOLDS AFTER SHOWERING Carrie-3/Dha/Epa/Fish Oil (Fish Oil 1,200 mg Softgel) 1 Each Capsule.dr, 1 CAP PO BID, (Reported) TAKES AT 1600 AND QHS Potassium Chloride (Potassium Chloride) 10 Meq Tab.er.prt, 10 MEQ PO BID, (Reported) TAKES IN THE MORNING AND AT 1600 Potassium Chloride (Potassium Chloride) 10 Meq Tab.er.prt, 10 MEQ PO QHS, (Reported) Pregabalin (Pregabalin) 75 Mg Capsule, 75 MG PO BID, (Reported) Sertraline Hcl (Sertraline HCl) 25 Mg Tablet, 25 MG PO QHS, (Reported) Tamsulosin HCl (Flomax) 0.4 Mg Capsule, 0.4 MG PO DAILY, (Reported) Tizanidine HCl (Zanaflex) 4 Mg Tab, 4 MG PO QHS, (Reported) Ubidecarenone/Vit E Acet (Co Q-10 100 mg Softgel) 1 Each Capsule, 100 MG PO QPM, (Reported) TAKES AT 1600 Scheduled PRN Nitroglycerin (Nitrostat) 0.4 Mg Tab.subl, 0.4 MG SL NITRO PRN for CHEST PAIN, (Reported) Allergies Coded Allergies: warfarin (Verified Adverse Reaction, Mild, NAUSEA/DIZZY, 03/24/19) amlodipine (Verified Adverse Reaction, Unknown, COUGH, 03/24/19) GME ATTESTATION GME ATTESTATION My faculty preceptor for this patient encounter was physically present during the encounter and was fully available. All aspects of the patient interview, examination, medical decision making process, and medical care plan development were reviewed and approved by the faculty preceptor. The faculty preceptor is aware and concurs with the plan as stated in the body of this note and will attest to such by his/her cosignature. Soren Garrison DO Nov 26, 2020 15:47
[2020-11-26] MEDS ORDERED: FAMOTIDINE 20 MG TAB PO SCH (16:00)
[2020-11-26] MEDS ORDERED: REMDESIVIR 100 MG in NS 250 ML IV SCH (22:00)
[2020-11-27] MEDS ORDERED: SODIUM CHLORIDE 0.9% INJ 10 ML SYR IV SCH
== END 2020-11-26 16:24 | disposition home health service (06) | DRG 690 ==
LOC: M 4MAIN 23:25
PROVIDERS: ADMIT General Practice; ATTEND Internal Medicine
DX: N39.0 Urinary tract infection, site not specified (principal); I50.32 Chronic diastolic (congestive) heart failure; J96.11 Chronic respiratory failure with hypoxia; J44.9 Chronic obstructive pulmonary disease, unspecified; I27.20 Pulmonary hypertension, unspecified; E11.9 Type 2 diabetes mellitus without complications; I11.0 Hypertensive heart disease with heart failure; E87.6 Hypokalemia; E78.5 Hyperlipidemia, unspecified; I08.3 Combined rheumatic disorders of mitral, aortic and tricuspid valves; I25.10 Atherosclerotic heart disease of native coronary artery without angina pectoris; M10.9 Gout, unspecified; Z79.899 Other long term (current) drug therapy; Z79.4 Long term (current) use of insulin; Z88.8 Allergy status to other drugs, medicaments and biological substances

== ENCOUNTER → 2020-12-22 | Outpatient (REF) | payer MEDICARE, OTHER ==
[~2020-12-22] MED LIST changes: +ACET-897 PO; +CIPR-250 PO; +D3 S1CAP PO; +FAMO20TA5 PO; +MEMA10TA19 PO; +METO5TA PO; +OMEG12003 PO; +POTA10TA17 PO; +POTA10TA67 PO; +VITA500T73 PO
[2020-12-22 15:11] LABS: HEMATOCRIT 37.9 % (36.0-47.0); HEMOGLOBIN 12.3 g/dl (12.0-15.5); MEAN CORPUSCULAR HEMOGLOBIN 31.3 pg (27.0-33.0); MEAN CORPUSCULAR HGB CONC 32.5 g/dl (32.0-36.5); MEAN CORPUSCULAR VOLUME 96.4 fl (80.0-96.0); PLATELET COUNT, AUTOMATED 191 10^3/uL (150-450); RED BLOOD COUNT 3.93 10^6/uL (4.00-5.40); WHITE BLOOD COUNT 7.9 10^3/uL (4.0-10.0)
[2020-12-22 15:16] LABS: APPEARANCE, URINE CLOUDY (CLEAR); BACTERIA, URINE AUTO NEGATIVE (NEGATIVE); BILIRUBIN, URINE AUTO NEGATIVE (NEGATIVE); BLOOD, URINE BLOOD 1+ (NEGATIVE); COLOR, URINE YELLOW (YELLOW); GLUCOSE, URINE (UA) AUTO 2+ mg/dL (NEGATIVE); KETONE, URINE AUTO NEGATIVE (NEGATIVE); LEUKOCYTE ESTERASE, URINE AUTO 3+ (NEGATIVE); NITRITE, URINE AUTO NEGATIVE (NEGATIVE); PROTEIN, URINE AUTO 1+ mg/dL (NEGATIVE); RBC, URINE AUTO 5 /HPF (0-3); SPECIFIC GRAVITY URINE AUTO 1.009 (1.002-1.035); SQUAMOUS EPITHELIAL CELL UR AU 1 /HPF (0-6); UROBILINOGEN, URINE AUTO 0.2 mg/dL (0.0-2.0); WBC, URINE AUTO TNTC /HPF (0-3)
[2020-12-22 15:37] LABS: ALBUMIN 3.9 GM/DL (3.2-5.2); BILIRUBIN,TOTAL 0.5 MG/DL (0.2-1.0); CALCIUM LEVEL 10.6 MG/DL (8.8-10.2); CREATININE FOR GFR 1.67 MG/DL (0.55-1.30); GLOMERULAR FILTRATION RATE 31.8 (>39); POTASSIUM SERUM 4.4 MEQ/L (3.5-5.1); TOTAL PROTEIN 7.9 GM/DL (6.4-8.2)
[2020-12-22 15:49] LABS: HEMOGLOBIN A1c 9.9 %
== END ==
LOC: M SHH 14:53
PROVIDERS: ATTEND Internal Medicine Cardiovascular Disease
DX: E11.9 Type 2 diabetes mellitus without complications (principal); D64.9 Anemia, unspecified; N39.0 Urinary tract infection, site not specified

== ENCOUNTER → 2021-02-18 | Outpatient (REF) | payer MEDICARE, OTHER ==
[2021-02-18 18:16] LABS: PERCENT SATURATION 17.1 % (13.2-45.0)
== END ==
LOC: M LAB REF 16:36
PROVIDERS: ATTEND Internal Medicine Nephrology
DX: D50.9 Iron deficiency anemia, unspecified (principal)

== ENCOUNTER 2021-04-23 13:37 | Emergency (ER) | payer MEDICARE, OTHER ==
[~2021-04-23] VITALS: Ht 157.5 cm; Wt 92.7 kg
[2021-04-23] MEDS ORDERED: KETOROLAC 30 MG/ML 1ML VIAL IV ONE (13:50)
[2021-04-23 14:19] LABS: BASO # 0.1 10^3/uL (0.0-0.2); BASO % 0.5 % (0.0-1.0); EOS # 0.4 10^3/uL (0.0-0.5); EOS % 2.7 % (0.0-3.0); HEMATOCRIT 36.7 % (36.0-47.0); HEMOGLOBIN 11.7 g/dl (12.0-15.5); LYMPH # 1.1 10^3/uL (1.5-5.0); LYMPH % 7.6 % (24.0-44.0); MEAN CORPUSCULAR HGB CONC 31.9 g/dl (32.0-36.5); MEAN CORPUSCULAR VOLUME 91.1 fl (80.0-96.0); MONO # 0.6 10^3/uL (0.0-0.8); MONO % 4.2 % (2.0-8.0); NEUTROPHILS # 12.4 10^3/uL (1.5-8.5); NEUTROPHILS % 84.2 % (36.0-66.0); PLATELET COUNT, AUTOMATED 223 10^3/uL (150-450); RED BLOOD COUNT 4.03 10^6/uL (4.00-5.40); WHITE BLOOD COUNT 14.7 10^3/uL (4.0-10.0)
[2021-04-23] MEDS ORDERED: AMIL5TAB4 (14:55)
[2021-04-23] MEDS ORDERED: SERT25TA21 (14:55)
[2021-04-23] MEDS ORDERED: HUMA50IN4 (14:55)
[2021-04-23] MEDS ORDERED: MORPHINE 4 MG/ML 1ML VIAL/SYRINGE (J2270) IV ONE ×2 (14:55→19:30)
[2021-04-23] MEDS ORDERED: OMEP-221 (14:55)
[2021-04-23] MEDS ORDERED: diazePAM 10MG/2ML SYRINGE (J3360 PER 5MG) IV ONE ×2 (15:20→16:50)
--- NOTE | 2021-04-23 19:11 | REPVR ---
PROCEDURE INFORMATION: Exam: MR Thoracic Spine Without Contrast Exam date and time: 04/23/2021 6:01 PM Age: 75 years old Clinical indication: Pain in thoracic spine; Without myelpathy or radiculopathy; Additional info: Right si tenderness and leukocytosis TECHNIQUE: Imaging protocol: Multiplanar magnetic resonance images of the thoracic spine without intravenous contrast. COMPARISON: CT ABD/PELVIS W/O CONTRAST - OUTSIDE PRIOR 11/25/2020 3:41 PM FINDINGS: Vertebrae: There is stir signal in the intervertebral disc space of T7 and T8 vertebra. No vertebral bone marrow abnormal signal. 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 Spinal cord: Normal signal. No cord compression. T1-T2: No significant disc disease. No significant spinal canal stenosis. T2-T3: No significant disc disease. No significant spinal canal stenosis. T3-T4: No significant disc disease. No significant spinal canal stenosis. T4-T5: No significant disc disease. No significant spinal canal stenosis. T5-T6: No significant disc disease. No significant spinal canal stenosis. T6-T7: No significant disc disease. No significant spinal canal stenosis. T7-T8: No significant disc disease. No significant spinal canal stenosis. T8-T9: No significant disc disease. No significant spinal canal stenosis. T9-T10: No significant disc disease. No significant spinal canal stenosis. T10-T11: No significant disc disease. No significant spinal canal stenosis. T11-T12: No significant disc disease. No significant spinal canal stenosis. Soft tissues: Unremarkable. Other findings: Multilevel degenerative disc disease. IMPRESSION: Increased stir signal in the intervertebral disc space of T7 and T8 vertebra with no abnormal bone marrow signal. Findings favor degenerative changes. Correlation with the lab values of ESR and WBC for superimposed infection. Electronically signed by: Gordo Garrett On 04/23/2021 19:10:22 PM
--- NOTE | 2021-04-23 19:17 | REPVR ---
PROCEDURE INFORMATION: Exam: MR Lumbar Spine Without Contrast Exam date and time: 04/23/2021 6:01 PM Age: 75 years old Clinical indication: Low back pain; Prior surgery; Surgery date: 6+ months; Surgery type: Lower back. ; Additional info: Right si tenderness and leukocytosis TECHNIQUE: Imaging protocol: Multiplanar magnetic resonance images of the lumbar spine without intravenous contrast. COMPARISON: CR Spine, Lumbosacral, partial 08/04/2015 2:42 PM FINDINGS: Vertebrae: Posterior spinal fixation of L4 and L5 vertebra. There is increased T2/stir signal in the intervertebral disc space of L3 and L4 with increased abnormal signal in the vertebral bodies of L3 and L4. Spinal cord: Normal signal. No cord compression. L1-L2: No significant disc disease. No significant spinal canal stenosis. No neural foraminal stenosis. L2-L3: Disc bulge. No spinal canal stenosis. Moderate to severe bilateral neural foraminal narrowing. L3-L4: Abnormal stir signal in the intervertebral disc space as well as in the vertebral bodies. Minimal phlegmonous changes in the prevertebral region. Mild to moderate spinal canal stenosis. Moderate bilateral neural foraminal narrowing. L4-L5: Disc bulge. No spinal canal stenosis. Evaluation of neural foramina is limited due to artifact from the hardware. L5-S1: Evaluation of the neural foramina is limited due to artifact from the hardware. No spinal canal stenosis. Soft tissues: Unremarkable. IMPRESSION: Abnormal signal representing fluid in the intervertebral disc space of L3-L4 and increased stir signal in the vertebral bodies of L3 and L4 representing discitis osteomyelitis. No epidural abscess. Multilevel degenerative disc disease with neural foraminal narrowing. Moderate to severe bilateral neural foraminal narrowing at L2-L3, moderate bilateral L3-L4. Evaluation of the neural foramina is limited at L4-L5 and L5-S1 due to artifact from hardware. Mild to moderate spinal canal stenosis at L3-L4. Electronically signed by: Gordo Garrett On 04/23/2021 19:17:01 PM
[2021-04-23] MEDS ORDERED: amLODIPine 5 MG TAB PO ONE (20:40)
[2021-04-23] MEDS ORDERED: VANCOMYCIN HCL 2,000 MG in IV FLUID PLACE HOLDER 1 EA IV ONE (20:40)
[2021-04-23] MEDS ORDERED: fentaNYL 100 MCG/2 ML INJECTION (J3010) IV ONE (20:40)
[2021-04-23] MEDS ORDERED: VANCOMYCIN HCL 1,000 MG, VIAL MATE ADAPTER 1 EACH in NS 250 ML IV ONE ×2 (20:50→21:50)
--- NOTE | 2021-04-23 21:24 | REPVR ---
PROCEDURE INFORMATION: Exam: XR Chest Exam date and time: 04/23/21 (8:18pm) Age: 75 years old Clinical indication: Leukocytosis and cough TECHNIQUE: Imaging protocol: Portable CXR Views: 1 view COMPARISON: Portable CXR of 11/25/20 FINDINGS: Lungs: Unremarkable. No consolidation. Pleural spaces: No pleural effusions. No pneumothorax. Mild elevation of the right hemidiaphragm. Heart/Mediastinum: Stable heart size. Bones/joints: S/P sternotomy. IMPRESSION: No acute findings. Lung veloz remain clear. Electronically signed by: Yecenia Huber On 04/23/2021 21:23:16 PM
[2021-04-23 22:34] VITALS: BP 196/86
== END 2021-04-23 22:55 | disposition short-term general hospital (02) ==
LOC: M ED 13:37
DX: M46.40 Discitis, unspecified, site unspecified (principal); M46.26 Osteomyelitis of vertebra, lumbar region; I25.10 Atherosclerotic heart disease of native coronary artery without angina pectoris; I50.9 Heart failure, unspecified; E11.9 Type 2 diabetes mellitus without complications; I10 Essential (primary) hypertension; Z98.890 Other specified postprocedural states; Z79.4 Long term (current) use of insulin; Z79.899 Other long term (current) drug therapy; Z88.8 Allergy status to other drugs, medicaments and biological substances
CPT/HCPCS: 51701; 71045; 72146; 72148; 80047; 81001; 85025; 87088; 87186; 96365; 96375; 96376; 99285; J1885; J2270; J3010; J3360; J3370